=== PATIENT | female | born 1955 | race American Indian/Alaskan Native ===

== ENCOUNTER 2016-10-05 13:10 | Inpatient (IN) | payer OTHER ==
[~2016-10-05 13:10] MED LIST: D50W (25GM) IV ONE
[2016-10-05] MEDS ORDERED: D50W (25GM) IV ONE ×4 (13:29→13:51)
[2016-10-05] MEDS ORDERED: NACL 0.9% 1000 ML 1,000 ML ONE (13:29)
[2016-10-05] MEDS ORDERED: NACL 0.9% 1000 ML 1,000 ML IV ONE ×3 (13:36→18:40)
[2016-10-05] MEDS ORDERED: D5NS 1,000 ML IV ONE (13:48)
[2016-10-05] MEDS ORDERED: VITAMIN B-1 IV ONE (13:50)
[2016-10-05] MEDS ORDERED: NACL 0.9% 1000 ML IV ONE (13:50)
[2016-10-05] MEDS ORDERED: D5NS 1,000 ML IV SCH (14:00)
[2016-10-05 14:10] LABS: Bilirubin,Urine NEG (Negative); Blood,Urine LG (Negative); Ketones,Urine NEG (Negative); Leukocyte Esterase,Urine NEG (Negative); Mucus,Urine FEW /HPF; Nitrite,Urine NEG (Negative); RBC,Urine < 1.0 /HPF (0.0-6.0); Urobilinogen,Urine < 2.0 mg/dL (<2.0)
--- NOTE | 2016-10-05 14:44 | XRay Report ---
AP CHEST History: Chest pain, sepsis. Findings: There are mild chronic interstitial changes throughout both lungs. No honeycombing. No evidence for consolidation, pleural effusion or pneumothorax. Heart size and pulmonary vascularity are within normal limits. Surgical clips in the right axilla are noted. No suspicious bony findings. Impression: No acute cardiopulmonary process.
[2016-10-05 14:53] LABS: Hematocrit 21.8 % (30.3-42.9); Hemoglobin 6.7 gm/dl (10.1-14.3); Mean Corpuscular HGB Conc 31 % (30-34); Mean Corpuscular Hemoglobin 31 pg (28-32); Mean Corpuscular Volume 102 fl (79-97); Platelet Count 153 K/mm3 (140-440); Red Blood Count 2.15 M/mm3 (3.65-5.03); Red Cell Distribution Width 14.7 % (13.2-15.2); White Blood Count 18.7 K/mm3 (4.5-11.0)
[2016-10-05 15:03] LABS: INR 1.94 (0.87-1.13)
--- NOTE | 2016-10-05 15:13 | XRay Report ---
AP PELVIS: History: Pain after fall. Limited exam. AP view of the pelvis shows normal pelvic contour and soft tissues. The hips are symmetric and within normal limits as are the sacroiliac joints. Calcified uterine fibroids are noted. IMPRESSION: Unremarkable pelvis.
[2016-10-05 15:16] LABS: Albumin 0.8 g/dL (3.9-5); Albumin/Globulin Ratio 0.4 %; Bilirubin,Total 0.2 mg/dL (0.1-1.2); Chloride 99.3 mmol/L (98-107); Potassium 4.2 mmol/L (3.6-5.0)
--- NOTE | 2016-10-05 15:16 | XRay Report ---
PORTABLE CHEST INDICATION: Shortness of breath. COMPARISON: 1:52 PM earlier today. FINDINGS: Portable, frontal chest radiograph, 2:54 PM, 10/05/2016 demonstrates interval uncomplicated right IJ catheter placement with its tip possibly along the distal SVC. Stable cardiomediastinal silhouette with increased right paratracheal soft tissue hazy density. Chronic interstitial changes within the lungs again seen. No pneumothorax or large pleural effusions. Stable right suprahilar and right axillary surgical clips. EKG leads. Stable bones. CONCLUSION: Interval uncomplicated right central line placement; otherwise stable. Thank you for the opportunity to participate in this patient's care.
[2016-10-05 15:23] LABS: Calcium 5.5 mg/dL (8.4-10.2)
[2016-10-05 15:44] LABS: Basophils % (Manual) 0 % (0.0-1.8); Blastocytes % (Manual) 0 %; Eosinophils % (Manual) 0 % (0.0-4.3)
[2016-10-05 15:46] LABS: Diff Status Complete; Large Platelets Few; Platelet Estimate Consistent w Auto; RBC Morphology Normal
[2016-10-05] MEDS ORDERED: NACL 0.9% 500 ML 500 ML IV SCH (15:50)
--- NOTE | 2016-10-05 15:56 | Emergency Department Report ---
HPI - General Chief Complaint: Pain General Time Seen by Provider: 10/05/16 13:50 - HPI HPI: Chief complaint: Found on the floor of her home unresponsive HPI: Patient is a 61-year-old female with a history of Crohn's disease who states that she has been having diarrhea since February that became much worse in July to the point where she had to wear diapers. Patient states she was seen in Dr. Rios's office earlier this week and was called and told to go to the emergency department. According to EMS patient went to work on Saturday. However I am not sure about this history. Lab work obtained from her primary care doctor's office shows blood work that was drawn on the of this month. Patient is confused and is very difficult to get an adequate history. Mode of arrival: EMS Source: Patient and nursing notes Began: Unclear but it appears to be at least 1 day that she has been on the floor. Duration: Unclear Context: See above. Patient states she was told that she was anemic and that the swelling in her legs was from her low protein Quality: Patient complains of pain when rolled but otherwise does not complain Severity: Unable to assess Improved with: Holding still improves the pain Worsened with: Rolling worsens the pain Associated signs and symptoms: Unable to assess further ED Past Medical Hx - Past Medical History Hx Hypertension: Yes Hx of Cancer: Yes (Breast, R mastectomy) Additional medical history: Crohns, Gout - Surgical History Hx Breast Surgery: Yes (R breast) - Social History Smoking Status: Never Smoker Substance Use Type: Alcohol ED Review of Systems ROS: Stated complaint: ALTERED MENTAL STATUS Other details as noted in HPI Comment: Unobtainable due to pts medical conditions (patient is confused) Physical Exam - Physical Exam Vital Signs: Vital Signs 10/05/16 10/05/16 10/05/16 13:13 13:14 13:17 Pulse Rate 132 H Respiratory 16 Rate Blood Pressure 101/42 101/42 O2 Sat by Pulse 67 L 95 Oximetry 10/05/16 10/05/16 10/05/16 13:20 13:28 13:30 Pulse Rate Respiratory 33 H Rate Blood Pressure 74/43 81/47 69/47 O2 Sat by Pulse Oximetry 10/05/16 10/05/16 10/05/16 13:41 13:49 13:51 Pulse Rate 115 H 112 H 112 H Respiratory 42 H 35 H 31 H Rate Blood Pressure 69/47 79/60 79/60 O2 Sat by Pulse Oximetry Physical Exam: GENERAL: The patient is well-developed well-nourished . HEENT: Normocephalic. Atraumatic. Extraocular motions are intact. Patient has dry mucous membranes. A L conjunctiva NECK: Supple. No meningitic signs are noted. There is no adenopathy noted. CHEST/LUNGS: Clear to auscultation. There is no respiratory distress noted. HEART/CARDIOVASCULAR: Regular. There is tachycardia. ABDOMEN: Abdomen is soft, nontender. Patient has normal bowel sounds. There is no abdominal distention. Patient is covered with watery brown stool which is foul-smelling. SKIN: There is excoriation to the buttocks from lying in her stool. There is diffuse pitting edema. There is no diaphoresis. NEURO: The patient is confused and somewhat lethargic, and oriented to self and situation but not time. The patient is cooperative. Patient moves all extremities MUSCULOSKELETAL: Ecchymosis to bilateral thighs left greater than right and some mottling to the lower extremities. Also ecchymosis to the left elbow without any bony tenderness. There is no deformity and pulses are intact. ED Course Vital Signs 10/05/16 10/05/16 10/05/16 13:13 13:14 13:17 Pulse Rate 132 H Respiratory 16 Rate Blood Pressure 101/42 101/42 O2 Sat by Pulse 67 L 95 Oximetry 10/05/16 10/05/16 10/05/16 13:20 13:28 13:30 Pulse Rate Respiratory 33 H Rate Blood Pressure 74/43 81/47 69/47 O2 Sat by Pulse Oximetry 10/05/16 10/05/16 10/05/16 13:41 13:49 13:51 Pulse Rate 115 H 112 H 112 H Respiratory 42 H 35 H 31 H Rate Blood Pressure 69/47 79/60 79/60 O2 Sat by Pulse Oximetry - Reevaluation(s) Reevaluation #1: 10/05/16 Upon arrival Accu-Chek showed to be 20 and an amp of D50 was given. Repeat Accu -Chek was 34 and a second amp of D50 was given and D5 normal saline was upon the along with 2 L of normal saline. Patient had a third Accu-Chek showing less than 20 again. As this did not make sense to me we took blood from her IV and her sugar was 440. D5 normal saline was taken down and patient was just given normal saline at this time. Patient's blood pressure does not improve before central line was placed. Blood pressure was 100 systolic and Levophed was held but subsequently her pressure dropped and Dr. Dias was involved with the patient this time and Levophed was ordered. Patient was admitted to the hospitalist and will be admitted to the ICU. - Central Line Placement Right IJ Consent Obtained: verbal consent Time Out Performed: Yes Patient Placed on Monitor/Pulse Ox: Yes Prep: mask, gown, gloves, other Central Line Prep: Povidone-Iodine 1%, Chlorhexidine scrub, sterile drapes applied Local Anesthesia Used: Lidocaine 1% Amount of Anesthesia Used (mls): 2 Ultrasound Used for Placement: Yes Central Line Lumen Inserted: triple Bloods Obtained for Lab: Yes Central Line Position: good blood return, all ports aspirated, flus, sutured in place with 2-0 Dressing Applied: Tegaderm Post Procedure X-Ray: tip of catheter in good p Patient Tolerated Procedure: well, no complications Complications: none ED Medical Decision Making - Lab Data Result diagrams: 10/05/16 14:40 10/05/16 14:40 Laboratory Tests 10/05/16 10/05/16 10/05/16 13:47 13:52 14:40 PT 22.2 H INR 1.94 H VBG pH POC Glucose < 40 L Calcium AST ALT Alkaline Phosphatase Total Protein Albumin Albumin/Globulin Ratio Urine Turbidity Clear Urine pH 5.0 Ur Specific [place] 1.015 Urine Protein 30 mg/dl Urine Blood Lg Ur Leukocyte Esterase Neg Urine WBC (Auto) 1.0 Urine RBC (Auto) < 1.0 U Epithel Cells (Auto) 1.0 10/05/16 10/05/16 10/05/16 14:40 14:40 14:46 PT INR VBG pH 7.136 L* POC Glucose < 40 L Calcium 5.5 L* AST 160 H ALT 78 H Alkaline Phosphatase 67 Total Protein 3.0 L Albumin 0.8 L Albumin/Globulin Ratio 0.4 Urine Turbidity Urine pH Ur Specific [place] Urine Protein Urine Blood Ur Leukocyte Esterase Urine WBC (Auto) Urine RBC (Auto) U Epithel Cells (Auto) 10/05/16 14:49 PT INR VBG pH POC Glucose 445 H Calcium AST ALT Alkaline Phosphatase Total Protein Albumin Albumin/Globulin Ratio Urine Turbidity Urine pH Ur Specific [place] Urine Protein Urine Blood Ur Leukocyte Esterase Urine WBC (Auto) Urine RBC (Auto) U Epithel Cells (Auto) Laboratory Tests 10/05/16 10/05/16 14:40 16:03 POC ABG pH 7.216 L POC ABG pCO2 28.2 L POC ABG pO2 60 L POC ABG HCO3 11.4 POC ABG Total CO2 12 POC ABG O2 Sat 86 POC ABG Base Excess -16 VBG pH 7.136 L* FiO2 32 - EKG Data -: EKG Interpreted by Dc EKG shows normal: sinus rhythm Rate: tachycardia (132) - EKG Data When compared to previous EKG there are: previous EKG unavailable Interpretation: other (low-voltage EKG nonspecific ST-T wave changes) - Radiology Data Radiology results: report reviewed (chest x-ray shows no acute process. Pelvic x-ray shows no fracture) Critical care time in (mins) excluding proc time.: 45 Critical care attestation.: If time is entered above; I have spent that time in minutes in the direct care of this critically ill patient, excluding procedure time. ED Disposition Clinical Impression: Dehydration, Anemia Acute renal failure Qualifiers: Acute renal failure type: unspecified Qualified Code(s): N17.9 - Acute kidney failure, unspecified Diarrhea Qualifiers: Diarrhea type: unspecified type Qualified Code(s): R19.7 - Diarrhea, unspecified Crohns disease Qualifiers: Gastrointestinal tract location: large intestine Digestive disease complication type: unspecified complication Qualified Code(s): K50.119 - Crohn' s disease of large intestine with unspecified complications Disposition: OP ADMITTED IP TO THIS HOSP Is pt being admited?: Yes Does the pt Need Aspirin: No Condition: Critical Time of Disposition: 15:38 (admit to the hospitalist)
[2016-10-05 16:16] LABS: ISTAT Base Excess -16; ISTAT HCO3 11.4; ISTAT PCO2 28.2 (35-45); ISTAT PH 7.216 (7.35-7.45); ISTAT PO2 60 (80-105); ISTAT SO2 86; ISTAT TCO2 12
[2016-10-05] MEDS ORDERED: LEVAQUIN 500MG/100ML 100 ML IV ONE (17:00)
[2016-10-05] MEDS: FLAGYL 500 MG/100 ML 100 ML IV SCH (17:10)
[2016-10-05] MEDS: LEVOPHED DRIP 4 MG/NS 250 ML 250 ML IV SCH ×3 (17:10→21:25)
[2016-10-05] MEDS ORDERED: REGLAN IV PRN (17:11)
--- NOTE | 2016-10-05 17:20 | Admit Criteria Form ---
Admission Criteria Documentation: RENAL FAILURE, ACUTE Clinical Indications for Admission to Inpatient Care ( Place 'X' for any and all applicable criteria): Admission is indicated for ALL (if I & II) or III of the following [A](2)(3)(4)( 5)(6)(7): [ ]I. Acute renal failure as indicated by ANY ONE of the following: [ ]a) A 3-fold rise in serum creatinine from baseline [ ]b) Serum creatinine greater than 4 mg/dL (354 micromoles/L) with an acute rise greater than 0.5 mg/dL (44.2 micromoles/L) [ ]c) Reduction of more than 75% in estimated glomerular filtration rate from baseline [ ]d) Estimated glomerular filtration rate less than 35 mL/min/1.73m2 (0.59mL/sec/1.73m2)in a child up to 18 years of age [ ]e) Anuria indicated by ALL of the following: [ ]i) Adequate volume status [ ]ii) Cessation of urine output indicated by ANY ONE of the following: [ ]1) Urine output less than 0.3 mL/kg/hr for 24 hours [ ]2) Anuria (urine output less than 0.1 mL/kg/ hr) for 12 hours [X] II. Renal failure cannot be managed in an outpatient setting or observational care setting as indicating by ANY ONE of the following: [X]a) Altered mental status that is severe or persistent [ ]b) Volume overload or Respiratory distress (eg, clinically significant pulmonary edema) that is severe or persistent [ ]c) Cardiac arrhythmias of immediate concern [X]d) Hemodynamic instability [X]e) Clinically significant electrolyte abnormality that requires inpatient care (eg, hyperkalemia with severe ECG findings)[B] [X]f) Clinically significant metabolic abnormality (eg, acidosis) that is severe or persistent [ ]g) Acute treatment of renal failure (eg, renal replacement therapy) not feasible or appropriate in observational care setting [ ]h) Clinical situation too unstable or uncertain (eg, inadequate urine output, ongoing decline in renal function, etiology unclear) [ ]i) Necessary support and caregiver ability to comply with outpatient treatment cannot be arranged in observation care timeframe (eg, within 24 hours) [X]j) Other significant finding or clinical condition judged not to be within scope of observation care [X]III.General contraindications and/or Inappropriate clinical situations for Observational Care in patients with Acute Renal Failure, when ANY ONE of the following is required: [X]a) Prediction of prolongation of LOS based on ANY ONE of the following may be considered as a contraindication for observational care 2, 3, 4, 5, 6, 7, 8 , 9, 10, 11 [ ]i) Age > 65 yrs. [X]ii) Patient arriving by ambulance [ ]iii) Patient with high acuity [X]iv) Patient requiring vital sign monitoring [ ]v) Patient on IV medication [ ]b) Systolic blood pressures 180mmHg 3,12 [ ]c) Patient with altered mental status including delirium and other alteration of consciousness, (3) [ ]d) Patient whose discharge disposition will be to a penitentiary home or rehabilitation home should not be managed in Emergency Department Observation Unit. CMS rule requires 3 days hospital stay before such placement.3,13 [ ]e) Patient with failure to thrive due to broad array of etiologies 3, 16,17 [ ]f) Inability to ambulate 3,14 Extended stay beyond goal length of stay may be needed for(13) [ ]a) Continuing uremic complications [ ]b) Care for comorbidities [ ]c) acute renal failure [ ]d) Need for dialysis The original [facility] content created by [employer] has been revised. The portions of the content which have been revised are identified through the use of italic text or in bold, and [facility] has neither reviewed nor approved the modified material. All other unmodified content is copyright [facility]. Please see references footnoted in the original [facility] edition 2016 Admission Criteria Met: Yes
--- NOTE | 2016-10-05 18:22 | History and Physical Report ---
History of Present Illness Date of examination: 10/05/16 Date of admission: 10/05/16 15:40 Chief complaint: found laying on the floor confused today History of present illness: MIss Guan is a 61-year-old -[place] female who was brought to the emergency room via EMS today. According to her cousin at the bedside the patient had not turned up 4 since Saturday and her coworkers went to her house and saw her lean on the floor and EMS was called. The emergency room she was noted to have extremely low glucose and she received glucose supplementation. Patient reported that she's been having the diarrhea since July but it has worsened over the last few days. She does have a history of Crohn's. She denies any abdominal pain, cough or fever. She reported that she was so weak and that's how she ended up on the floor. She was also noted to be hypotensive in the emergency room and she was started on IV fluids. In the emergency room she had copious amounts of watery stool on her close. There was no evidence of blood in the stool. It was not foul-smelling. He apparently saw her primary care doctor on the and had a blood work drawn. She reported that she sees Dr. Navarro as her mend worker. Past History Past Medical History: other (crohns disease, right breast cancer-post mastectomy some 20 years ago) Past Surgical History: mastectomy Social history: full code. denies: smoking, alcohol abuse, prescription drug abuse, IV drug use Family history: hypertension Medications and Allergies Allergies Allergy/AdvReac Type Severity Reaction Status Date / Time No Known Allergies Allergy Verified 10/05/16 13:35 Active Meds: Active Medications Dextrose (D50w (25gm)) 50 ml IV PRN PRN PRN Reason: Hypoglycemia Hydrocortisone Sodium Succinate (Solu-Cortef) 100 mg IV Q8H JUDE Dextrose/Sodium Chloride (D5ns) 1,000 mls @ 0 mls/hr IV DIRECT JUDE PRN Reason: Wide Open Last Admin: 10/05/16 14:08 Dose: 999 mls/hr Sodium Chloride (Nacl 0.9% 1000 Ml) 1,000 mls @ 250 mls/hr IV ONCE ONE Stop: 10/05/16 18:50 Last Admin: 10/05/16 16:30 Dose: 250 mls/hr Metronidazole (Flagyl 500 Mg/100 Ml) 100 mls @ 100 mls/hr IV Q8H JUDE Last Admin: 10/05/16 17:10 Dose: 100 mls/hr Sodium Chloride (Nacl 0.9% 500 Ml) 500 mls @ 0 mls/hr IV ONCE JUDE PRN Reason: As Directed Stop: 10/05/16 23:00 Norepinephrine (Levophed Drip 4 Mg/Ns 250 Ml) 250 mls @ 7.5 mls/hr IV TITR JUDE ; 2 MCG/MIN PRN Reason: Protocol Last Admin: 10/05/16 17:10 Dose: 7.5 mls/hr Levofloxacin/Dextrose (Levaquin 750mg/150ml) 150 mls @ 150 mls/hr IV Q48H JUDE PRN Reason: Protocol Insulin Aspart (Novolog) 0 units SUB-Q Q4HR JUDE PRN Reason: Protocol Metoclopramide HCl (Reglan) 10 mg IV Q6H PRN PRN Reason: Nausea And Vomiting Pantoprazole Sodium (Protonix) 40 mg IV BID ON LICENSE OF [facility] Review of Systems All systems: negative Constitutional: anorexia, fatigue, weakness, malaise, poor appetite, no weight loss, no weight gain, no fever Ears, nose, mouth and throat: deferred Breasts: other (RT mas mastectomy) Cardiovascular: no chest pain, no orthopnea, no palpitations, no rapid/ irregular heart beat, no edema, no syncope Respiratory: no cough, no cough with sputum, no excessive sputum, no hemoptysis , no shortness of breath Gastrointestinal: no abdominal pain, no nausea, no vomiting, no diarrhea, no constipation Genitourinary Female: no urinary frequency, no urgency Rectal: no pain, no incontinence, no bleeding Musculoskeletal: no neck stiffness, no neck pain, no shooting arm pain, no arm numbness/tingling Integumentary: no rash, no pruritis, no redness Neurological: no head injury, no transient paralysis, no paralysis, no weakness , no parathesias, no numbness, no tingling Psychiatric: no anxiety, no memory loss, no change in sleep habits, no sleep disturbances, no insomnia, no hypersomnia, no change in appetite Endocrine: no cold intolerance, no heat intolerance, no polyphagia, no excessive thirst, no polydipsia Hematologic/Lymphatic: no easy bruising, no easy bleeding Allergic/Immunologic: no urticaria, no allergic rhinitis Exam - Constitutional Vitals: Temp Pulse Resp BP Pulse Ox 112 H 24 77/51 100 10/05/16 17:05 10/05/16 17:05 10/05/16 17:05 10/05/16 17:55 General appearance: Present: other (ill looking; mm dry). Absent: mild distress - EENT Eyes: Present: PERRL, EOM intact. Absent: scleral icterus, conjunctival injection ENT: hearing intact, no clear oral mucosa (dry), no oropharyngeal erythema, no poor dentition - Neck Neck: Present: supple, normal ROM. Absent: rigidity, enlarged thyroid, masses or JVD - Respiratory Respiratory effort: normal Respiratory: negative: diminished, rales, rhonchi, wheezing - Cardiovascular Rhythm: regular Heart Sounds: Present: S1 & S2. Absent: gallop - Extremities Extremities: no ischemia, pulses intact, pulses symmetrical Peripheral Pulses: within normal limits - Abdominal General gastrointestinal: Present: soft, non-tender, non-distended, normal bowel sounds Female genitourinary: Present: deferred - Rectal Rectal Exam: deferred - Integumentary Integumentary: Present: warm. Absent: clear (bruising to the LT lateral lower LE and side of abdomen; and over the knees ) Results - Labs CBC & Chem 7: 10/05/16 14:40 10/05/16 14:40 Labs: Abnormal lab results 10/05/16 10/05/16 Range/Units 16:03 17:02 POC ABG pH 7.216 L (7.35-7.45) POC ABG pCO2 28.2 L (35-45) POC ABG pO2 60 L (80-105) POC Glucose 185 H (70-105) Microbiology 10/05/16 Unknown Peripheral/Venous Blood Culture - Preliminary Culture in Progress 10/05/16 Unknown Peripheral/Venous Blood Culture - Preliminary Culture in Progress pelvis xray- unremarkable - Imaging and Cardiology Chest x-ray: report reviewed (no acute abn) Assessment and Plan 1. Sepsis with septic /hypovolemic shock also be due to Crohn's colitis and volume loss from diarrhea-admit as an inpatient ICU as more than 2 midnights are required for treatment. IV fluid since as needed with normal saline infusion. We'll start vasopressor support with Levophed. We'll also start IV hydrocortisone. We'll cover empirically with IV Levaquin and Flagyl. Will follow-up with blood cultures, urinalysis and urine culture. We'll also get stool workup. We'll consult GI for Crohn's. We'll consult the deputy court clerk 2.Severe acute on chronic anemia- her hemoglobin from her PCP done on the was 9.2. Follow-up with stool for occult blood. We'll transfuse 2 units of packed red cells. We'll do anemia workup 3. Acute renal failure secondary to vasomotor nephropathy from dehydration and possible ATN in view of hypotension- tinea with IV fluids. Avoid nephrotoxic agents. We'll follow up with renal ultrasound and consult nephrology. 4. Elevated INR-will monitor 5. Severe protein calorie malnutrition- nutritional supplemenation; consult dietitian 6. HYpoglycemia -now improving; monitor; COtn IVF 7. DVT prophylaxis- SCD; no chemical prophylaxis in view of severe anemia and elevated INR CCT exclusive of all other billable procedures 45 minutes
--- NOTE | 2016-10-05 18:31 | Gastroenterology Consultation ---
History of Present Illness - Reason for Consult Consult date: 10/05/16 Crohn's Disease, severe anemia Requesting physician: LADAN RENTERIA - History of Present Illness Asked to evaluate this 61yo woman for a history of Crohn's and severe anemia. She apparently follows w/ Dr. Navarro. The patient cannot provide much history, so the majority of the information obtained was via chart review. She was found at home with hypoglycemia and brought to the ED. She was out of contact with her family for several days. Reports show that she has been experiencing diarrhea, which has become more frequent since July. She denies any abdominal pain or seeing BRBPR/black stools at home. No CP/SOB. She is hypotensive in ICU and has been started on pressors. Past History Past Medical History: other (crohns disease, right breast cancer-post mastectomy some 20 years ago) Past Surgical History: mastectomy Social history: full code. denies: smoking, alcohol abuse, prescription drug abuse, IV drug use Family history: hypertension Medications and Allergies Allergies Allergy/AdvReac Type Severity Reaction Status Date / Time No Known Allergies Allergy Verified 10/05/16 13:35 Active Meds: Active Medications Dextrose (D50w (25gm)) 50 ml IV PRN PRN PRN Reason: Hypoglycemia Hydrocortisone Sodium Succinate (Solu-Cortef) 100 mg IV Q8H JUDE Dextrose/Sodium Chloride (D5ns) 1,000 mls @ 0 mls/hr IV DIRECT JUDE PRN Reason: Wide Open Last Admin: 10/05/16 14:08 Dose: 999 mls/hr Sodium Chloride (Nacl 0.9% 1000 Ml) 1,000 mls @ 250 mls/hr IV ONCE ONE Stop: 10/05/16 18:50 Last Admin: 10/05/16 16:30 Dose: 250 mls/hr Metronidazole (Flagyl 500 Mg/100 Ml) 100 mls @ 100 mls/hr IV Q8H JUDE Last Admin: 10/05/16 17:10 Dose: 100 mls/hr Sodium Chloride (Nacl 0.9% 500 Ml) 500 mls @ 0 mls/hr IV ONCE JUDE PRN Reason: As Directed Stop: 10/05/16 23:00 Norepinephrine (Levophed Drip 4 Mg/Ns 250 Ml) 250 mls @ 7.5 mls/hr IV TITR JUDE ; 2 MCG/MIN PRN Reason: Protocol Last Admin: 10/05/16 17:10 Dose: 7.5 mls/hr Levofloxacin/Dextrose (Levaquin 750mg/150ml) 150 mls @ 150 mls/hr IV Q48H JUDE PRN Reason: Protocol Insulin Aspart (Novolog) 0 units SUB-Q Q4HR JUDE PRN Reason: Protocol Metoclopramide HCl (Reglan) 10 mg IV Q6H PRN PRN Reason: Nausea And Vomiting Pantoprazole Sodium (Protonix) 40 mg IV BID [facility] Review of Systems - Review of Systems ROS unobtainable: due to mental status Exam - Constitutional Vital Signs: Temp Pulse Resp BP Pulse Ox 112 H 24 77/51 100 10/05/16 17:05 10/05/16 17:05 10/05/16 17:05 10/05/16 17:55 General appearance: no acute distress, other (NAD but ill-appearing) - Neck Neck: supple - Respiratory Respiratory: bilateral: CTA - Cardiovascular Rhythm: regular (tachycardic) Heart Sounds: Present: S1 & S2 Extremities: No edema - Gastrointestinal General gastrointestinal: Present: soft, non-tender, non-distended, normal bowel sounds - Labs CBC & Chem 7: 10/05/16 14:40 10/05/16 14:40 Lab Results: Laboratory Results - last 24 hr 10/05/16 10/05/16 16:03 17:02 POC ABG pH 7.216 L POC ABG pCO2 28.2 L POC ABG pO2 60 L POC ABG HCO3 11.4 POC ABG Total CO2 12 POC ABG O2 Sat 86 POC ABG Base Excess -16 FiO2 32 POC Glucose 185 H Assessment and Plan Ms. Guan is a 61yo woman with hx of Crohn's admitted after being found at home with decreased responsiveness, found to be hypoglycemic. She has evidence of leukocytosis and severe anemia, without overt GI hemorrhage. Reports state that she has had worsening diarrhea; this could be infectious vs related to IBD. She is hypotensive and has been started on pressor support. Rec: 1) Cont Levaquin/Flagyl for now 2) Check stool studies for WBC, culture, C. diff 3) Supportive measures/pressor support as per ICU 4) CT A/P when stable Thank you for allowing me to participate in the care of your patient.
[2016-10-05] MEDS ORDERED: NACL 0.9% 250ML 250 ML ONE (20:32)
[2016-10-05] MEDS: D50W (25GM) IV PRN (22:02)
[2016-10-05] MEDS: PROTONIX IV SCH (22:04)
[2016-10-05] MEDS: NOVOLOG SUB-Q SCH (22:08)
[2016-10-06] MEDS: D50W (25GM) IV PRN (00:06)
[2016-10-06] MEDS: LEVAQUIN 750MG/150ML 150 ML IV SCH (00:54)
[2016-10-06] MEDS: FLAGYL 500 MG/100 ML 100 ML IV SCH ×3 (00:56→18:16)
[2016-10-06] MEDS ORDERED: D5/0.45NS 1,000 ML IV SCH (01:00)
[2016-10-06] MEDS ORDERED: REGLAN IV PRN (01:07)
[2016-10-06] MEDS: LEVOPHED DRIP 4 MG/NS 250 ML 250 ML IV SCH ×4 (02:57→23:13)
[2016-10-06] MEDS: D10W 1,000 ML IV SCH ×3 (02:58→23:34)
[2016-10-06] MEDS: NOVOLOG SUB-Q SCH ×3 (06:43→15:22)
--- NOTE | 2016-10-06 09:37 | Progress Note ---
Assessment and Plan Assessment and plan: --Sepsis secondary to Crohn's colitis Patient is on Levaquin and metronidazole, continue supportive care GI following --Septic shock secondary to Crohn's colitis Requiring pressors, titrate systolic blood pressures to more than 100, continue Levophed Increase IV fluids, input-output monitoring --Acute on chronic anemia requiring blood transfusion H&H significantly improved From 6.7-11.9, closely monitor H&H for additional units of transfusion if needed --Acute renal failure: secondary to vasomotor nephropathy and prerenal azotemia possible ATN Continue IV hydration, closely monitor renal function avoid nephrotoxic medications,Creatinine level improved from 2.2 to 1.8 Consider nephrology evaluation if no improvement --Severe protein calorie malnutrition; Secondary to underlying disease process, nutrition supplements and dietary consultation --Coagulopathy INR was 1.9 at the time of admission, will follow closely --DVT prophylaxis; no pharmacological anticoagulation in view of anemia and coagulopathy Will use SCDs --Full CODE STATUS Patient remains critically ill on pressors and IV antibiotics Closely monitor the patient in ICU Critical care time 35 minutes The high probability of a clinically significant, sudden or life threatening deterioration of the [gastrointestinal, hematological, renal] system(s) required my full and direct attention, intervention and personal management. The aggregate critical care time was [35] minutes. This time is in addition to time spent performing reported procedures but includes the following: [x] Data Review and interpretation [x] Patient assessment and monitoring of vital signs [x] Documentation [x] Medication orders and management History Interval history: Patient seen and evaluated in the ICU this morning medical records reviewed Remains hypotensive on Levophed, complains of generalized weakness Received 2 units of PRBC yesterday with significant improvement of H&H Denies chest pain or shortness of breath Alert awake oriented 3 not in acute distress Hospitalist Physical - Constitutional Vitals: Temp Pulse Resp BP Pulse Ox 97.1 F L 103 H 29 H 95/62 59 L 10/06/16 07:05 10/06/16 09:23 10/06/16 09:23 10/06/16 09:23 10/06/16 09:23 General appearance: Present: no acute distress, other (ill looking; mm dry) - EENT Eyes: Present: PERRL, EOM intact - Neck Neck: Present: supple, normal ROM - Respiratory Respiratory effort: normal Respiratory: bilateral: diminished - Cardiovascular Rhythm: regular Heart Sounds: Present: S1 & S2 - Extremities Extremities: no ischemia, pulses intact, pulses symmetrical Peripheral Pulses: within normal limits - Abdominal General gastrointestinal: soft, non-tender, non-distended, normal bowel sounds - Integumentary Integumentary: Present: clear, warm - Psychiatric Psychiatric: appropriate mood/affect, cooperative - Neurologic Neurologic: CNII-XII intact, moves all extremities Results - Labs CBC & Chem 7: 10/06/16 09:40 10/06/16 09:40 Labs: Laboratory Last Values WBC 18.7 K/mm3 (4.5-11.0) H 10/05/16 14:40 RBC 2.15 M/mm3 (3.65-5.03) L 10/05/16 14:40 Hgb 6.7 gm/dl (10.1-14.3) L 10/05/16 14:40 Hct 21.8 % (30.3-42.9) L 10/05/16 14:40 MCV 102 fl (79-97) H 10/05/16 14:40 MCH 31 pg (28-32) 10/05/16 14:40 MCHC 31 % (30-34) 10/05/16 14:40 RDW 14.7 % (13.2-15.2) 10/05/16 14:40 Plt Count 153 K/mm3 (140-440) 10/05/16 14:40 Add Manual Diff Complete 10/05/16 14:40 Total Counted 100 10/05/16 14:40 Seg Neutrophils % Cage [employer] Machine 10/05/16 14:40 Seg Neuts % (Manual) 94.0 % (40.0-70.0) H 10/05/16 14:40 Band Neutrophils % 0 % 10/05/16 14:40 Lymphocytes % (Manual) 0 % (13.4-35.0) L 10/05/16 14:40 Reactive Lymphs % (Man) 0 % 10/05/16 14:40 Monocytes % (Manual) 2.0 % (0.0-7.3) 10/05/16 14:40 Eosinophils % (Manual) 0 % (0.0-4.3) 10/05/16 14:40 Basophils % (Manual) 0 % (0.0-1.8) 10/05/16 14:40 Metamyelocytes % 3.0 % 10/05/16 14:40 Myelocytes % 1.0 % 10/05/16 14:40 Promyelocytes % 0 % 10/05/16 14:40 Blast Cells % 0 % 10/05/16 14:40 Nucleated RBC % Not Reportable 10/05/16 14:40 Seg Neutrophils # Man 17.6 K/mm3 (1.8-7.7) H 10/05/16 14:40 Band Neutrophils # 0.0 K/mm3 10/05/16 14:40 Lymphocytes # (Manual) 0.0 K/mm3 (1.2-5.4) L 10/05/16 14:40 Abs React Lymphs (Man) 0.0 K/mm3 10/05/16 14:40 Monocytes # (Manual) 0.4 K/mm3 (0.0-0.8) 10/05/16 14:40 Eosinophils # (Manual) 0.0 K/mm3 (0.0-0.4) 10/05/16 14:40 Basophils # (Manual) 0.0 K/mm3 (0.0-0.1) 10/05/16 14:40 Metamyelocytes # 0.6 K/mm3 10/05/16 14:40 Myelocytes # 0.2 K/mm3 10/05/16 14:40 Promyelocytes # 0.0 K/mm3 10/05/16 14:40 Blast Cells # 0.0 K/mm3 10/05/16 14:40 WBC Morphology Not Reportable 10/05/16 14:40 Hypersegmented Neuts Not Reportable 10/05/16 14:40 Hyposegmented Neuts Not Reportable 10/05/16 14:40 Hypogranular Neuts Not Reportable 10/05/16 14:40 Smudge Cells Not Reportable 10/05/16 14:40 Toxic Granulation Not Reportable 10/05/16 14:40 Toxic Vacuolation Not Reportable 10/05/16 14:40 Dohle Bodies Not Reportable 10/05/16 14:40 Pelger-Huet Anomaly Not Reportable 10/05/16 14:40 Ivory Rods Not Reportable 10/05/16 14:40 Platelet Estimate Consistent w auto 10/05/16 14:40 Clumped Platelets Not Reportable 10/05/16 14:40 Plt Clumps, EDTA Not Reportable 10/05/16 14:40 Large Platelets Few 10/05/16 14:40 Giant Platelets Not Reportable 10/05/16 14:40 Platelet Satelliting Not Reportable 10/05/16 14:40 Plt Morphology Comment Not Reportable 10/05/16 14:40 RBC Morphology Normal 10/05/16 14:40 Dimorphic RBCs Not Reportable 10/05/16 14:40 Polychromasia Not Reportable 10/05/16 14:40 Hypochromasia Not Reportable 10/05/16 14:40 Poikilocytosis Not Reportable 10/05/16 14:40 Anisocytosis Not Reportable 10/05/16 14:40 Microcytosis Not Reportable 10/05/16 14:40 Macrocytosis Not Reportable 10/05/16 14:40 Spherocytes Not Reportable 10/05/16 14:40 Pappenheimer Bodies Not Reportable 10/05/16 14:40 Sickle Cells Not Reportable 10/05/16 14:40 Target Cells Not Reportable 10/05/16 14:40 Tear Drop Cells Not Reportable 10/05/16 14:40 Ovalocytes Not Reportable 10/05/16 14:40 Helmet Cells Not Reportable 10/05/16 14:40 Nguyen-Santel Bodies Not Reportable 10/05/16 14:40 [place] Rings Not Reportable 10/05/16 14:40 Adenike Cells Not Reportable 10/05/16 14:40 Bite Cells Not Reportable 10/05/16 14:40 Crenated Cell Not Reportable 10/05/16 14:40 Elliptocytes Not Reportable 10/05/16 14:40 Acanthocytes (Spur) Not Reportable 10/05/16 14:40 Rouleaux Not Reportable 10/05/16 14:40 Hemoglobin C Crystals Not Reportable 10/05/16 14:40 Schistocytes Not Reportable 10/05/16 14:40 Malaria parasites Not Reportable 10/05/16 14:40 Mayito Bodies Not Reportable 10/05/16 14:40 Hem Pathologist Commnt No 10/05/16 14:40 PT 22.2 Sec. (12.2-14.9) H 10/05/16 14:40 INR 1.94 (0.87-1.13) H 10/05/16 14:40 POC ABG pH 7.216 (7.35-7.45) L 10/05/16 16:03 POC ABG pCO2 28.2 (35-45) L 10/05/16 16:03 POC ABG pO2 60 (80-105) L 10/05/16 16:03 POC ABG HCO3 11.4 10/05/16 16:03 POC ABG Total CO2 12 10/05/16 16:03 POC ABG O2 Sat 86 10/05/16 16:03 POC ABG Base Excess -16 10/05/16 16:03 VBG pH 7.136 (7.320-7.420) L* 10/05/16 14:40 FiO2 32 % 10/05/16 16:03 Sodium 129 mmol/L (137-145) L 10/05/16 14:40 Potassium 4.2 mmol/L (3.6-5.0) 10/05/16 14:40 Chloride 99.3 mmol/L (98-107) 10/05/16 14:40 Carbon Dioxide 13 mmol/L (22-30) L 10/05/16 14:40 Anion Gap 21 mmol/L 10/05/16 14:40 BUN 33 mg/dL (7-17) H 10/05/16 14:40 Creatinine 2.2 mg/dL (0.7-1.2) H 10/05/16 14:40 Estimated GFR 27 ml/min 10/05/16 14:40 BUN/Creatinine Ratio 15.00 % 10/05/16 14:40 Glucose 451 mg/dL (65-100) H 10/05/16 14:40 POC Glucose 291 (70-105) H 10/06/16 06:10 Lactic Acid 2.3 mmol/L (0.7-2.0) H* 10/05/16 21:30 Calcium 5.5 mg/dL (8.4-10.2) L* 10/05/16 14:40 Iron 51 ug/dL (37-170) 10/05/16 21:30 Total Bilirubin 0.2 mg/dL (0.1-1.2) 10/05/16 14:40 AST 160 units/L (5-40) H 10/05/16 14:40 ALT 78 units/L (7-56) H 10/05/16 14:40 Alkaline Phosphatase 67 units/L (35-129) 10/05/16 14:40 Total Creatine Kinase 2317 units/L (30-135) H 10/05/16 21:30 Total Protein 3.0 g/dL (6.3-8.2) L 10/05/16 14:40 Albumin 0.8 g/dL (3.9-5) L 10/05/16 14:40 Albumin/Globulin Ratio 0.4 % 10/05/16 14:40 Vitamin B12 1592 pg/mL (211-911) H 10/05/16 21:30 Folate 16.37 ng/mL (7.3-26.0) 10/05/16 21:30 Urine Color Cathy (Yellow) 10/05/16 13:52 Urine Turbidity Clear (Clear) 10/05/16 13:52 Urine pH 5.0 (5.0-7.0) 10/05/16 13:52 Ur Specific [place] 1.015 (1.003-1.030) 10/05/16 13:52 Urine Protein 30 mg/dl mg/dL (Negative) 10/05/16 13:52 Urine Glucose (UA) Neg mg/dL (Negative) 10/05/16 13:52 Urine Ketones Neg mg/dL (Negative) 10/05/16 13:52 Urine Blood Lg (Negative) 10/05/16 13:52 Urine Nitrite Neg (Negative) 10/05/16 13:52 Urine Bilirubin Neg (Negative) 10/05/16 13:52 Urine Urobilinogen < 2.0 mg/dL (<2.0) 10/05/16 13:52 Ur Leukocyte Esterase Neg (Negative) 10/05/16 13:52 Urine WBC (Auto) 1.0 /HPF (0.0-6.0) 10/05/16 13:52 Urine RBC (Auto) < 1.0 /HPF (0.0-6.0) 10/05/16 13:52 U Epithel Cells (Auto) 1.0 /HPF (0-13.0) 10/05/16 13:52 Urine Mucus Few /HPF 10/05/16 13:52 Ketones 2.9 mg/dL (0.2-2.8) H 10/05/16 21:30 Blood Type B POSITIVE 10/05/16 21:05 Antibody Screen Negative 10/05/16 21:05 Crossmatch See Detail 10/05/16 21:05
--- NOTE | 2016-10-06 10:27 | Ultrasound Report ---
Renal sonogram: History: Acute renal failure. Findings: Right kidney measures 9.3 x 4.5 x 4.7 cm. Cortical thickness 1.4 cm. Left kidney measures 9.2 x 5.1 x 4.8 cm. Cortical thickness 1.4 cm the No mass. No hydronephrosis. Decompressed urinary bladder in presence of Parra catheter. Impression: No mass or hydronephrosis.
[2016-10-06 10:44] LABS: Hematocrit 36.8 % (30.3-42.9); Hemoglobin 11.9 gm/dl (10.1-14.3); Mean Corpuscular HGB Conc 33 % (30-34); Mean Corpuscular Hemoglobin 30 pg (28-32); Mean Corpuscular Volume 93 fl (79-97); Red Blood Count 3.96 M/mm3 (3.65-5.03); Red Cell Distribution Width 16.8 % (13.2-15.2)
[2016-10-06 11:01] LABS: Magnesium 1.7 mg/dL (1.7-2.3); Phosphorous 3.8 mg/dL (2.5-4.5)
[2016-10-06 11:03] LABS: Albumin 1.2 g/dL (3.9-5); Albumin/Globulin Ratio 0.4 %; BUN/Creatinine Ratio 17.22; Bilirubin,Total 0.3 mg/dL (0.1-1.2); Calcium 6.1 mg/dL (8.4-10.2); Chloride 99.9 mmol/L (98-107); Potassium 3.7 mmol/L (3.6-5.0); Total Protein 4.2 g/dL (6.3-8.2)
[2016-10-06 11:34] LABS: White Blood Count 27.9 K/mm3 (4.5-11.0)
[2016-10-06 11:35] LABS: Platelet Count 94 K/mm3 (140-440)
[2016-10-06] MEDS: NACL 0.9% 1000 ML IV SCH ×2 (12:46→23:15)
[2016-10-06] MEDS: PROTONIX IV SCH ×2 (13:07→22:35)
[2016-10-06 13:51] LABS: Anisocytosis 1+; Basophils % (Manual) 0 % (0.0-1.8); Blastocytes % (Manual) 0 %; Diff Status Complete; Eosinophils % (Manual) 0 % (0.0-4.3); Macrocytosis 1+; Nucleated Red Blood Cells 0.5 % (0.0-0.9); Platelet Estimate Consistent w Auto; Total Cells Counted Percent 4.5
[2016-10-06] MEDS ORDERED: ZOFRAN IV PRN (14:09)
[2016-10-06] MEDS ORDERED: NACL 0.9% 500 ML 500 ML ONE (15:50)
--- NOTE | 2016-10-06 17:09 | Consultation ---
History of Present Illness - Reason for Consult Consult date: 10/06/16 Hypoglycemia, Hypotension Requesting physician: LADAN RENTERIA - History of Present Illness 61 y/o female admitted with altered mental status. Followed by Dr. Rios as an outpatient who actually recommend that she be admitted on Saturday. Patient refused. Was found down at home and altered. Breathing. In ED hypotensive and hypoglycemic with renal failure. Central line placed, started on IVF's and antibiotics. Patient with no recollection of coming here. Remainder is negative. Family at bedside. Past History Past Medical History: other (crohns disease, right breast cancer-post mastectomy some 20 years ago) Past Surgical History: mastectomy Social history: full code. denies: smoking, alcohol abuse, prescription drug abuse, IV drug use Family history: hypertension Medications and Allergies Allergies Allergy/AdvReac Type Severity Reaction Status Date / Time No Known Allergies Allergy Verified 10/05/16 13:35 Active Meds: Active Medications Hydrocortisone Sodium Succinate (Solu-Cortef) 100 mg IV Q8H JUDE Last Admin: 10/06/16 10:00 Dose: 100 mg Metronidazole (Flagyl 500 Mg/100 Ml) 100 mls @ 100 mls/hr IV Q8H JUDE Last Admin: 10/06/16 13:01 Dose: 100 mls/hr Norepinephrine (Levophed Drip 4 Mg/Ns 250 Ml) 250 mls @ 7.5 mls/hr IV TITR JUDE ; 2 MCG/MIN PRN Reason: Protocol Last Admin: 10/06/16 10:24 Dose: 45 mls/hr Levofloxacin/Dextrose (Levaquin 750mg/150ml) 150 mls @ 150 mls/hr IV Q48H JUDE PRN Reason: Protocol Last Admin: 10/06/16 00:54 Dose: 150 mls/hr Dextrose/Sodium Chloride (D5/0.45ns) 1,000 mls @ 150 mls/hr IV DIRECT JUDE Dextrose (D10w) 1,000 mls @ 100 mls/hr IV DIRECT JUDE Last Admin: 10/06/16 12:55 Dose: 100 mls/hr Insulin Aspart (Novolog) 0 units SUB-Q Q4HR JUDE PRN Reason: Protocol Last Admin: 10/06/16 15:22 Dose: Not Given Metoclopramide HCl (Reglan) 5 mg IV Q6H PRN PRN Reason: Nausea And Vomiting Ondansetron HCl (Zofran) 4 mg IV Q4H PRN PRN Reason: Nausea And Vomiting Last Admin: 10/06/16 14:21 Dose: 4 mg Pantoprazole Sodium (Protonix) 40 mg IV BID [facility] Last Admin: 10/06/16 13:07 Dose: 40 mg Sodium Chloride (Nacl 0.9% 1000 Ml) 100 ml IV Q10H [facility] Last Admin: 10/06/16 12:46 Dose: 100 ml Exam - Constitutional Vitals: Temp Pulse Resp BP Pulse Ox 97.6 F 94 H 16 96/62 35 L 10/06/16 12:00 10/06/16 15:15 10/06/16 15:15 10/06/16 15:15 10/06/16 14:45 Results - Labs CBC & Chem 7: 10/06/16 09:40 10/06/16 09:40 Labs: Abnormal lab results 10/05/16 10/05/16 10/05/16 Range/Units 17:02 21:05 21:30 WBC (4.5-11.0) K/mm3 RDW (13.2-15.2) % Plt Count (140-440) K/mm3 Seg Neuts % (Manual) (40.0-70.0) % Lymphocytes % (Manual) (13.4-35.0) % Seg Neutrophils # Man (1.8-7.7) K/mm3 Lymphocytes # (Manual) (1.2-5.4) K/mm3 Monocytes # (Manual) (0.0-0.8) K/mm3 Sodium (137-145) mmol/L Carbon Dioxide (22-30) mmol/L BUN (7-17) mg/dL Creatinine (0.7-1.2) mg/dL Glucose (65-100) mg/dL POC Glucose 185 H (70-105) Lactic Acid 2.3 H* (0.7-2.0) mmol/L Calcium (8.4-10.2) mg/dL AST (5-40) units/L ALT (7-56) units/L Total Creatine Kinase (30-135) units/L Total Protein (6.3-8.2) g/dL Albumin (3.9-5) g/dL Vitamin B12 (211-911) pg/mL Ketones (0.2-2.8) mg/dL Crossmatch See Detail 10/05/16 10/05/16 10/05/16 Range/Units 21:30 21:30 21:30 WBC (4.5-11.0) K/mm3 RDW (13.2-15.2) % Plt Count (140-440) K/mm3 Seg Neuts % (Manual) (40.0-70.0) % Lymphocytes % (Manual) (13.4-35.0) % Seg Neutrophils # Man (1.8-7.7) K/mm3 Lymphocytes # (Manual) (1.2-5.4) K/mm3 Monocytes # (Manual) (0.0-0.8) K/mm3 Sodium (137-145) mmol/L Carbon Dioxide (22-30) mmol/L BUN (7-17) mg/dL Creatinine (0.7-1.2) mg/dL Glucose (65-100) mg/dL POC Glucose (70-105) Lactic Acid (0.7-2.0) mmol/L Calcium (8.4-10.2) mg/dL AST (5-40) units/L ALT (7-56) units/L Total Creatine Kinase 2317 H (30-135) units/L Total Protein (6.3-8.2) g/dL Albumin (3.9-5) g/dL Vitamin B12 1592 H (211-911) pg/mL Ketones 2.9 H (0.2-2.8) mg/dL Crossmatch 10/05/16 10/05/16 10/06/16 Range/Units 21:49 23:07 01:05 WBC (4.5-11.0) K/mm3 RDW (13.2-15.2) % Plt Count (140-440) K/mm3 Seg Neuts % (Manual) (40.0-70.0) % Lymphocytes % (Manual) (13.4-35.0) % Seg Neutrophils # Man (1.8-7.7) K/mm3 Lymphocytes # (Manual) (1.2-5.4) K/mm3 Monocytes # (Manual) (0.0-0.8) K/mm3 Sodium (137-145) mmol/L Carbon Dioxide (22-30) mmol/L BUN (7-17) mg/dL Creatinine (0.7-1.2) mg/dL Glucose (65-100) mg/dL POC Glucose < 40 L < 40 L 285 H (70-105) Lactic Acid (0.7-2.0) mmol/L Calcium (8.4-10.2) mg/dL AST (5-40) units/L ALT (7-56) units/L Total Creatine Kinase (30-135) units/L Total Protein (6.3-8.2) g/dL Albumin (3.9-5) g/dL Vitamin B12 (211-911) pg/mL Ketones (0.2-2.8) mg/dL Crossmatch 10/06/16 10/06/16 10/06/16 Range/Units 02:13 03:13 03:49 WBC (4.5-11.0) K/mm3 RDW (13.2-15.2) % Plt Count (140-440) K/mm3 Seg Neuts % (Manual) (40.0-70.0) % Lymphocytes % (Manual) (13.4-35.0) % Seg Neutrophils # Man (1.8-7.7) K/mm3 Lymphocytes # (Manual) (1.2-5.4) K/mm3 Monocytes # (Manual) (0.0-0.8) K/mm3 Sodium (137-145) mmol/L Carbon Dioxide (22-30) mmol/L BUN (7-17) mg/dL Creatinine (0.7-1.2) mg/dL Glucose (65-100) mg/dL POC Glucose 241 H 280 H 216 H (70-105) Lactic Acid (0.7-2.0) mmol/L Calcium (8.4-10.2) mg/dL AST (5-40) units/L ALT (7-56) units/L Total Creatine Kinase (30-135) units/L Total Protein (6.3-8.2) g/dL Albumin (3.9-5) g/dL Vitamin B12 (211-911) pg/mL Ketones (0.2-2.8) mg/dL Crossmatch 10/06/16 10/06/16 10/06/16 Range/Units 05:22 06:10 09:40 WBC 27.9 H (4.5-11.0) K/mm3 RDW 16.8 H (13.2-15.2) % Plt Count 94 L (140-440) K/mm3 Seg Neuts % (Manual) 94.5 H (40.0-70.0) % Lymphocytes % (Manual) 1.0 L (13.4-35.0) % Seg Neutrophils # Man 26.4 H (1.8-7.7) K/mm3 Lymphocytes # (Manual) 0.3 L (1.2-5.4) K/mm3 Monocytes # (Manual) 1.3 H (0.0-0.8) K/mm3 Sodium (137-145) mmol/L Carbon Dioxide (22-30) mmol/L BUN (7-17) mg/dL Creatinine (0.7-1.2) mg/dL Glucose (65-100) mg/dL POC Glucose 240 H 291 H (70-105) Lactic Acid (0.7-2.0) mmol/L Calcium (8.4-10.2) mg/dL AST (5-40) units/L ALT (7-56) units/L Total Creatine Kinase (30-135) units/L Total Protein (6.3-8.2) g/dL Albumin (3.9-5) g/dL Vitamin B12 (211-911) pg/mL Ketones (0.2-2.8) mg/dL Crossmatch 10/06/16 10/06/16 Range/Units 09:40 10:00 WBC (4.5-11.0) K/mm3 RDW (13.2-15.2) % Plt Count (140-440) K/mm3 Seg Neuts % (Manual) (40.0-70.0) % Lymphocytes % (Manual) (13.4-35.0) % Seg Neutrophils # Man (1.8-7.7) K/mm3 Lymphocytes # (Manual) (1.2-5.4) K/mm3 Monocytes # (Manual) (0.0-0.8) K/mm3 Sodium 130 L (137-145) mmol/L Carbon Dioxide 16 L (22-30) mmol/L BUN 31 H (7-17) mg/dL Creatinine 1.8 H (0.7-1.2) mg/dL Glucose 259 H (65-100) mg/dL POC Glucose (70-105) Lactic Acid 3.3 H* (0.7-2.0) mmol/L Calcium 6.1 L (8.4-10.2) mg/dL AST 112 H (5-40) units/L ALT 100 H (7-56) units/L Total Creatine Kinase (30-135) units/L Total Protein 4.2 L D (6.3-8.2) g/dL Albumin 1.2 L (3.9-5) g/dL Vitamin B12 (211-911) pg/mL Ketones (0.2-2.8) mg/dL Crossmatch Assessment and Plan 61 y/o female with hypotension of unknown etiology and hypoglycemia. 1. Will bolus with normal saline to achieve CVP of 10-12 2. Check CVP 3. Send C-Peptide and proinsulin levels 4. Continue D10 drip with q1hr FSBS 5. WEan pressors for maps >65 6. Pain control CCT 31 minutes
--- NOTE | 2016-10-06 23:36 | Gastroenterology Progress Note ---
Assessment and Plan 61 yo female presents after being found down at home/hypoglycemic with multiple laboratory abnormalities. reports h/o crohn's disease, dx ~1-2 years ago. Previously on lialda prior to admission. States GI physician (Dr Navarro) was planning to start humira. Unclear how much of her current presentation is related to crohn's disease. f/u stool studies, cont supportive care and abx, attempt to obtain records if able to from Dr Navarro regarding Crohn's disease. Subjective Date of service: 10/06/16 Principal diagnosis: diarrhea, abd pain, hypoglycemia, ARF, AMS Interval history: pt awake and alert, family at bedside. + diarrhea, denies abd pain. pt unable to recall details of symptoms prior to being found down at home. Objective - Constitutional Vitals: Temp Pulse Resp BP Pulse Ox 97.8 F 92 H 24 93/60 92 10/06/16 20:00 10/06/16 21:15 10/06/16 21:15 10/06/16 21:15 10/06/16 21:15 General appearance: no acute distress - EENT Eyes: PERRL - Respiratory Respiratory: right: CTA - Cardiovascular Rhythm: regular (tachycardic) Heart Sounds: Present: S1 & S2 - Extremities Extremities: No edema - Gastrointestinal General gastrointestinal: Present: soft, non-tender, non-distended, normal bowel sounds - Integumentary Integumentary: Present: clear, dry - Neurologic Neurological: alert and oriented x3 - Psychiatric Psychiatric: appropriate mood/affect - Labs CBC & Chem 7: 10/07/16 04:42 10/07/16 04:42 Labs: Laboratory Results - last 24 hr 10/05/16 10/06/16 10/06/16 21:05 01:05 02:13 WBC RBC Hgb Hct MCV MCH MCHC RDW Plt Count Add Manual Diff Total Counted Seg Neutrophils % Seg Neuts % (Manual) Band Neutrophils % Lymphocytes % (Manual) Reactive Lymphs % (Man) Monocytes % (Manual) Eosinophils % (Manual) Basophils % (Manual) Metamyelocytes % Myelocytes % Promyelocytes % Blast Cells % Nucleated RBC % Seg Neutrophils # Man Band Neutrophils # Lymphocytes # (Manual) Abs React Lymphs (Man) Monocytes # (Manual) Eosinophils # (Manual) Basophils # (Manual) Metamyelocytes # Myelocytes # Promyelocytes # Blast Cells # WBC Morphology Hypersegmented Neuts Hyposegmented Neuts Hypogranular Neuts Smudge Cells Toxic Granulation Toxic Vacuolation Dohle Bodies Pelger-Huet Anomaly Ivory Rods Platelet Estimate Clumped Platelets Plt Clumps, EDTA Large Platelets Giant Platelets Platelet Satelliting Plt Morphology Comment RBC Morphology Dimorphic RBCs Polychromasia Hypochromasia Poikilocytosis Anisocytosis Microcytosis Macrocytosis Spherocytes Pappenheimer Bodies Sickle Cells Target Cells Tear Drop Cells Ovalocytes Helmet Cells [place] Bodies [place] Rings [place]enike Cells Bite Cells Crenated Cell Elliptocytes Acanthocytes (Spur) Rouleaux Hemoglobin C Crystals Schistocytes Malaria parasites Mayito Bodies Hem Pathologist Commnt Sodium Potassium Chloride Carbon Dioxide Anion Gap BUN Creatinine Estimated GFR BUN/Creatinine Ratio Glucose POC Glucose 285 H 241 H Lactic Acid Calcium Phosphorus Magnesium Total Bilirubin AST ALT Alkaline Phosphatase Total Protein Albumin Albumin/Globulin Ratio Blood Type B POSITIVE Antibody Screen Negative Crossmatch See Detail 10/06/16 10/06/16 10/06/16 03:13 03:49 05:22 WBC RBC Hgb Hct MCV MCH MCHC RDW Plt Count Add Manual Diff Total Counted Seg Neutrophils % Seg Neuts % (Manual) Band Neutrophils % Lymphocytes % (Manual) Reactive Lymphs % (Man) Monocytes % (Manual) Eosinophils % (Manual) Basophils % (Manual) Metamyelocytes % Myelocytes % Promyelocytes % Blast Cells % Nucleated RBC % Seg Neutrophils # Man Band Neutrophils # Lymphocytes # (Manual) Abs React Lymphs (Man) Monocytes # (Manual) Eosinophils # (Manual) Basophils # (Manual) Metamyelocytes # Myelocytes # Promyelocytes # Blast Cells # WBC Morphology Hypersegmented Neuts Hyposegmented Neuts Hypogranular Neuts Smudge Cells Toxic Granulation Toxic Vacuolation Dohle Bodies Pelger-Huet Anomaly Ivory Rods Platelet Estimate Clumped Platelets Plt Clumps, EDTA Large Platelets Giant Platelets Platelet Satelliting Plt Morphology Comment RBC Morphology Dimorphic RBCs Polychromasia Hypochromasia Poikilocytosis Anisocytosis Microcytosis Macrocytosis Spherocytes Pappenheimer Bodies Sickle Cells Target Cells Tear Drop Cells Ovalocytes Helmet Cells [place] Bodies [place] Rings [place] Cells Bite Cells Crenated Cell Elliptocytes Acanthocytes (Spur) Rouleaux Hemoglobin C Crystals Schistocytes Malaria parasites Mayito Bodies Hem Pathologist Commnt Sodium Potassium Chloride Carbon Dioxide Anion Gap BUN Creatinine Estimated GFR BUN/Creatinine Ratio Glucose POC Glucose 280 H 216 H 240 H Lactic Acid Calcium Phosphorus Magnesium Total Bilirubin AST ALT Alkaline Phosphatase Total Protein Albumin Albumin/Globulin Ratio Blood Type Antibody Screen Crossmatch 10/06/16 10/06/16 10/06/16 06:10 07:37 08:55 WBC RBC Hgb Hct MCV MCH MCHC RDW Plt Count Add Manual Diff Total Counted Seg Neutrophils % Seg Neuts % (Manual) Band Neutrophils % Lymphocytes % (Manual) Reactive Lymphs % (Man) Monocytes % (Manual) Eosinophils % (Manual) Basophils % (Manual) Metamyelocytes % Myelocytes % Promyelocytes % Blast Cells % Nucleated RBC % Seg Neutrophils # Man Band Neutrophils # Lymphocytes # (Manual) Abs React Lymphs (Man) Monocytes # (Manual) Eosinophils # (Manual) Basophils # (Manual) Metamyelocytes # Myelocytes # Promyelocytes # Blast Cells # WBC Morphology Hypersegmented Neuts Hyposegmented Neuts Hypogranular Neuts Smudge Cells Toxic Granulation Toxic Vacuolation Dohle Bodies Pelger-Huet Anomaly Ivory Rods Platelet Estimate Clumped Platelets Plt Clumps, EDTA Large Platelets Giant Platelets Platelet Satelliting Plt Morphology Comment RBC Morphology Dimorphic RBCs Polychromasia Hypochromasia Poikilocytosis Anisocytosis Microcytosis Macrocytosis Spherocytes Pappenheimer Bodies Sickle Cells Target Cells Tear Drop Cells Ovalocytes Helmet Cells [place] Bodies [place] Rings [place] Cells Bite Cells Crenated Cell Elliptocytes Acanthocytes (Spur) Rouleaux Hemoglobin C Crystals Schistocytes Malaria parasites Mayito Bodies Hem Pathologist Commnt Sodium Potassium Chloride Carbon Dioxide Anion Gap BUN Creatinine Estimated GFR BUN/Creatinine Ratio Glucose POC Glucose 291 H 255 H 286 H Lactic Acid Calcium Phosphorus Magnesium Total Bilirubin AST ALT Alkaline Phosphatase Total Protein Albumin Albumin/Globulin Ratio Blood Type Antibody Screen Crossmatch 10/06/16 10/06/16 10/06/16 09:37 09:40 09:40 WBC 27.9 H RBC 3.96 Hgb 11.9 D Hct 36.8 D MCV 93 D MCH 30 MCHC 33 RDW 16.8 H Plt Count 94 L Add Manual Diff Complete Total Counted 200 Seg Neutrophils % Volcanology Professor Seg Neuts % (Manual) 94.5 H Band Neutrophils % 0 Lymphocytes % (Manual) 1.0 L Reactive Lymphs % (Man) 0 Monocytes % (Manual) 4.5 Eosinophils % (Manual) 0 Basophils % (Manual) 0 Metamyelocytes % 0 Myelocytes % 0 Promyelocytes % 0 Blast Cells % 0 Nucleated RBC % 0.5 Seg Neutrophils # Man 26.4 H Band Neutrophils # 0.0 Lymphocytes # (Manual) 0.3 L Abs React Lymphs (Man) 0.0 Monocytes # (Manual) 1.3 H Eosinophils # (Manual) 0.0 Basophils # (Manual) 0.0 Metamyelocytes # 0.0 Myelocytes # 0.0 Promyelocytes # 0.0 Blast Cells # 0.0 WBC Morphology Not Reportable Hypersegmented Neuts Not Reportable Hyposegmented Neuts Not Reportable Hypogranular Neuts Not Reportable Smudge Cells Not Reportable Toxic Granulation Not Reportable Toxic Vacuolation Not Reportable Dohle Bodies Not Reportable Pelger-Huet Anomaly Not Reportable Ivory Rods Not Reportable Platelet Estimate Consistent w auto Clumped Platelets Not Reportable Plt Clumps, EDTA Not Reportable Large Platelets Not Reportable Giant Platelets Not Reportable Platelet Satelliting Not Reportable Plt Morphology Comment Not Reportable RBC Morphology Not Reportable Dimorphic RBCs Not Reportable Polychromasia Not Reportable Hypochromasia Not Reportable Poikilocytosis Not Reportable Anisocytosis 1+ Microcytosis Not Reportable Macrocytosis 1+ Spherocytes Not Reportable Pappenheimer Bodies Not Reportable Sickle Cells Not Reportable Target Cells Not Reportable Tear Drop Cells Not Reportable Ovalocytes Not Reportable Helmet Cells Not Reportable [place] Bodies Not Reportable [place] Rings Not Reportable [place] Cells Not Reportable Bite Cells Not Reportable Crenated Cell Not Reportable Elliptocytes Not Reportable Acanthocytes (Spur) Not Reportable Rouleaux Not Reportable Hemoglobin C Crystals Not Reportable Schistocytes Not Reportable Malaria parasites Not Reportable Mayito Bodies Not Reportable Hem Pathologist Commnt No Sodium 130 L Potassium 3.7 Chloride 99.9 Carbon Dioxide 16 L Anion Gap 18 BUN 31 H Creatinine 1.8 H Estimated GFR 34 BUN/Creatinine Ratio 17.22 Glucose 259 H POC Glucose 205 H Lactic Acid Calcium 6.1 L Phosphorus Magnesium Total Bilirubin 0.3 AST 112 H ALT 100 H Alkaline Phosphatase 98 Total Protein 4.2 L D Albumin 1.2 L Albumin/Globulin Ratio 0.4 Blood Type Antibody Screen Crossmatch 10/06/16 10/06/16 10/06/16 09:40 10:00 11:24 WBC RBC Hgb Hct MCV MCH MCHC RDW Plt Count Add Manual Diff Total Counted Seg Neutrophils % Seg Neuts % (Manual) Band Neutrophils % Lymphocytes % (Manual) Reactive Lymphs % (Man) Monocytes % (Manual) Eosinophils % (Manual) Basophils % (Manual) Metamyelocytes % Myelocytes % Promyelocytes % Blast Cells % Nucleated RBC % Seg Neutrophils # Man Band Neutrophils # Lymphocytes # (Manual) Abs React Lymphs (Man) Monocytes # (Manual) Eosinophils # (Manual) Basophils # (Manual) Metamyelocytes # Myelocytes # Promyelocytes # Blast Cells # WBC Morphology Hypersegmented Neuts Hyposegmented Neuts Hypogranular Neuts Smudge Cells Toxic Granulation Toxic Vacuolation Dohle Bodies Pelger-Huet Anomaly Ivory Rods Platelet Estimate Clumped Platelets Plt Clumps, EDTA Large Platelets Giant Platelets Platelet Satelliting Plt Morphology Comment RBC Morphology Dimorphic RBCs Polychromasia Hypochromasia Poikilocytosis Anisocytosis Microcytosis Macrocytosis Spherocytes Pappenheimer Bodies Sickle Cells Target Cells Tear Drop Cells Ovalocytes Helmet Cells [place] Bodies [place] Cells Bite Cells Crenated Cell Elliptocytes Acanthocytes (Spur) Rouleaux Hemoglobin C Crystals Schistocytes Malaria parasites Mayito Bodies Hem Pathologist Commnt Sodium Potassium Chloride Carbon Dioxide Anion Gap BUN Creatinine Estimated GFR BUN/Creatinine Ratio Glucose POC Glucose 204 H Lactic Acid 3.3 H* Calcium Phosphorus 3.8 Magnesium 1.7 Total Bilirubin AST ALT Alkaline Phosphatase Total Protein Albumin Albumin/Globulin Ratio Blood Type Antibody Screen Crossmatch 10/06/16 10/06/16 10/06/16 12:08 13:22 14:52 WBC RBC Hgb Hct MCV MCH MCHC RDW Plt Count Add Manual Diff Total Counted Seg Neutrophils % Seg Neuts % (Manual) Band Neutrophils % Lymphocytes % (Manual) Reactive Lymphs % (Man) Monocytes % (Manual) Eosinophils % (Manual) Basophils % (Manual) Metamyelocytes % Myelocytes % Promyelocytes % Blast Cells % Nucleated RBC % Seg Neutrophils # Man Band Neutrophils # Lymphocytes # (Manual) Abs React Lymphs (Man) Monocytes # (Manual) Eosinophils # (Manual) Basophils # (Manual) Metamyelocytes # Myelocytes # Promyelocytes # Blast Cells # WBC Morphology Hypersegmented Neuts Hyposegmented Neuts Hypogranular Neuts Smudge Cells Toxic Granulation Toxic Vacuolation Dohle Bodies Pelger-Huet Anomaly Ivory Rods Platelet Estimate Clumped Platelets Plt Clumps, EDTA Large Platelets Giant Platelets Platelet Satelliting Plt Morphology Comment RBC Morphology Dimorphic RBCs Polychromasia Hypochromasia Poikilocytosis Anisocytosis Microcytosis Macrocytosis Spherocytes Pappenheimer Bodies Sickle Cells Target Cells Tear Drop Cells Ovalocytes Helmet Cells [place] Bodies [place] Rings [place] Cells Bite Cells Crenated Cell Elliptocytes Acanthocytes (Spur) Rouleaux Hemoglobin C Crystals Schistocytes Malaria parasites Mayito Bodies Hem Pathologist Commnt Sodium Potassium Chloride Carbon Dioxide Anion Gap BUN Creatinine Estimated GFR BUN/Creatinine Ratio Glucose POC Glucose 214 H 176 H 177 H Lactic Acid Calcium Phosphorus Magnesium Total Bilirubin AST ALT Alkaline Phosphatase Total Protein Albumin Albumin/Globulin Ratio Blood Type Antibody Screen Crossmatch 10/06/16 10/06/16 10/06/16 15:11 17:11 18:12 WBC RBC Hgb Hct MCV MCH MCHC RDW Plt Count Add Manual Diff Total Counted Seg Neutrophils % Seg Neuts % (Manual) Band Neutrophils % Lymphocytes % (Manual) Reactive Lymphs % (Man) Monocytes % (Manual) Eosinophils % (Manual) Basophils % (Manual) Metamyelocytes % Myelocytes % Promyelocytes % Blast Cells % Nucleated RBC % Seg Neutrophils # Man Band Neutrophils # Lymphocytes # (Manual) Abs React Lymphs (Man) Monocytes # (Manual) Eosinophils # (Manual) Basophils # (Manual) Metamyelocytes # Myelocytes # Promyelocytes # Blast Cells # WBC Morphology Hypersegmented Neuts Hyposegmented Neuts Hypogranular Neuts Smudge Cells Toxic Granulation Toxic Vacuolation Dohle Bodies Pelger-Huet Anomaly Iv[place] Rods Platelet Estimate Clumped Platelets Plt Clumps, EDTA Large Platelets Giant Platelets Platelet Satelliting Plt Morphology Comment RBC Morphology Dimorphic RBCs Polychromasia Hypochromasia Poikilocytosis Anisocytosis Microcytosis Macrocytosis Spherocytes Pappenheimer Bodies Sickle Cells Target Cells Tear Drop Cells Ovalocytes Helmet Cells [place] Bodies [place] Rings [place] Cells Bite Cells Crenated Cell Elliptocytes Acanthocytes (Spur) Rouleaux Hemoglobin C Crystals Schistocytes Malaria parasites Mayito Bodies Hem Pathologist Commnt Sodium Potassium Chloride Carbon Dioxide Anion Gap BUN Creatinine Estimated GFR BUN/Creatinine Ratio Glucose POC Glucose 168 H 173 H 165 H Lactic Acid Calcium Phosphorus Magnesium Total Bilirubin AST ALT Alkaline Phosphatase Total Protein Albumin Albumin/Globulin Ratio Blood Type Antibody Screen Crossmatch 10/06/16 10/06/16 10/06/16 18:55 20:01 21:00 WBC RBC Hgb Hct MCV MCH MCHC RDW Plt Count Add Manual Diff Total Counted Seg Neutrophils % Seg Neuts % (Manual) Band Neutrophils % Lymphocytes % (Manual) Reactive Lymphs % (Man) Monocytes % (Manual) Eosinophils % (Manual) Basophils % (Manual) Metamyelocytes % Myelocytes % Promyelocytes % Blast Cells % Nucleated RBC % Seg Neutrophils # Man Band Neutrophils # Lymphocytes # (Manual) Abs React Lymphs (Man) Monocytes # (Manual) Eosinophils # (Manual) Basophils # (Manual) Metamyelocytes # Myelocytes # Promyelocytes # Blast Cells # WBC Morphology Hypersegmented Neuts Hyposegmented Neuts Hypogranular Neuts Smudge Cells Toxic Granulation Toxic Vacuolation Dohle Bodies Pelger-Huet Anomaly Ivory Rods Platelet Estimate Clumped Platelets Plt Clumps, EDTA Large Platelets Giant Platelets Platelet Satelliting Plt Morphology Comment RBC Morphology Dimorphic RBCs Polychromasia Hypochromasia Poikilocytosis Anisocytosis Microcytosis Macrocytosis Spherocytes Pappenheimer Bodies Sickle Cells Target Cells Tear Drop Cells Ovalocytes Helmet Cells [place] Bodies [place] Rings [place] Cells Bite Cells Crenated Cell Elliptocytes Acanthocytes (Spur) Rouleaux Hemoglobin C Crystals Schistocytes Malaria parasites Mayito Bodies Hem Pathologist Commnt Sodium Potassium Chloride Carbon Dioxide Anion Gap BUN Creatinine Estimated GFR BUN/Creatinine Ratio Glucose POC Glucose 174 H 158 H 172 H Lactic Acid Calcium Phosphorus Magnesium Total Bilirubin AST ALT Alkaline Phosphatase Total Protein Albumin Albumin/Globulin Ratio Blood Type Antibody Screen Crossmatch 10/06/16 10/06/16 22:02 23:04 WBC RBC Hgb Hct MCV MCH MCHC RDW Plt Count Add Manual Diff Total Counted Seg Neutrophils % Seg Neuts % (Manual) Band Neutrophils % Lymphocytes % (Manual) Reactive Lymphs % (Man) Monocytes % (Manual) Eosinophils % (Manual) Basophils % (Manual) Metamyelocytes % Myelocytes % Promyelocytes % Blast Cells % Nucleated RBC % Seg Neutrophils # Man Band Neutrophils # Lymphocytes # (Manual) Abs React Lymphs (Man) Monocytes # (Manual) Eosinophils # (Manual) Basophils # (Manual) Metamyelocytes # Myelocytes # Promyelocytes # Blast Cells # WBC Morphology Hypersegmented Neuts Hyposegmented Neuts Hypogranular Neuts Smudge Cells Toxic Granulation Toxic Vacuolation Dohle Bodies Pelger-Huet Anomaly Ivory Rods Platelet Estimate Clumped Platelets Plt Clumps, EDTA Large Platelets Giant Platelets Platelet Satelliting Plt Morphology Comment RBC Morphology Dimorphic RBCs Polychromasia Hypochromasia Poikilocytosis Anisocytosis Microcytosis Macrocytosis Spherocytes Pappenheimer Bodies Sickle Cells Target Cells Tear Drop Cells Ovalocytes Helmet Cells [place] Bodies [place] Rings [place] Cells Bite Cells Crenated Cell Elliptocytes Acanthocytes (Spur) Rouleaux Hemoglobin C Crystals Schistocytes Malaria parasites Mayito Bodies Hem Pathologist Commnt Sodium Potassium Chloride Carbon Dioxide Anion Gap BUN Creatinine Estimated GFR BUN/Creatinine Ratio Glucose POC Glucose 180 H 177 H Lactic Acid Calcium Phosphorus Magnesium Total Bilirubin AST ALT Alkaline Phosphatase Total Protein Albumin Albumin/Globulin Ratio Blood Type Antibody Screen Crossmatch
[2016-10-07] MEDS: FLAGYL 500 MG/100 ML 100 ML IV SCH ×3 (02:10→16:38)
[2016-10-07] MEDS: NOVOLOG SUB-Q SCH ×7 (05:27→22:06)
[2016-10-07] MEDS: LEVOPHED DRIP 4 MG/NS 250 ML 250 ML IV SCH ×5 (05:35→22:30)
[2016-10-07 08:21] LABS: Hematocrit 34.5 % (30.3-42.9); Hemoglobin 11.2 gm/dl (10.1-14.3); Mean Corpuscular HGB Conc 33 % (30-34); Mean Corpuscular Hemoglobin 30 pg (28-32); Mean Corpuscular Volume 92 fl (79-97); Red Blood Count 3.77 M/mm3 (3.65-5.03); Red Cell Distribution Width 17.2 % (13.2-15.2)
[2016-10-07 08:38] LABS: Platelet Count 59 K/mm3 (140-440); White Blood Count 30.5 K/mm3 (4.5-11.0)
[2016-10-07 08:42] LABS: Albumin 1.1 g/dL (3.9-5); Albumin/Globulin Ratio 0.4 %; BUN/Creatinine Ratio 16.87; Bilirubin,Total 0.4 mg/dL (0.1-1.2); Calcium 6.1 mg/dL (8.4-10.2); Chloride 98.9 mmol/L (98-107); Magnesium 1.5 mg/dL (1.7-2.3); Potassium 3.5 mmol/L (3.6-5.0); Total Protein 3.9 g/dL (6.3-8.2)
[2016-10-07] MEDS: PROTONIX IV SCH ×2 (09:44→22:34)
[2016-10-07] MEDS ORDERED: NACL 0.9% 1000 ML 2,000 ML IV ONE (09:56)
[2016-10-07] MEDS ORDERED: MAGNESIUM SULFATE 4GM/100ML 100 ML IV ONE (10:00)
[2016-10-07] MEDS ORDERED: LEVAQUIN 250MG/50ML 50 ML IV SCH (10:00)
--- NOTE | 2016-10-07 10:02 | Progress Note ---
Assessment and Plan 61 y/o female with hypotension of unknown etiology and hypoglycemia, now with elevated AST/ALT, increasing white count and diarrhea, nonbloody. 1. Spoke with GI this am. Will order CT ABD/PEL with PO contrast given renal failure. Will also treat empirically for C. Diff with PO Vanc 2. Will order 2 more normal saline boluses today 3. Order K 4. Ordered Mag 5. Continue d10 but will change FSBS to [id number] 6. Overall prognosis remains guarded. Await C-peptide as this is likely a send out. Unable to order pro-insulin level CCT 31 minutes Subjective Date of service: 10/07/16 Interval history: No acute events. MAP is 79 this am. On Levophed 12. Awake. White count is increasing. No fever. no family at bedside Objective - Constitutional Vitals: Vital Signs - 12hr 10/06/16 10/06/16 10/06/16 22:00 22:15 22:30 Temperature Pulse Rate 100 H 90 103 H Pulse Rate [ From Monitor] Respiratory 18 28 H 21 Rate Blood Pressure 90/61 83/49 80/49 O2 Sat by Pulse 99 Oximetry 10/06/16 10/06/16 10/06/16 22:46 23:00 23:16 Temperature Pulse Rate 95 H 101 H 104 H Pulse Rate [ From Monitor] Respiratory 15 18 19 Rate Blood Pressure 80/49 68/38 86/57 O2 Sat by Pulse 89 75 L 83 L Oximetry 10/06/16 10/06/16 10/07/16 23:30 23:46 00:00 Temperature 98.1 F Pulse Rate 103 H 97 H 93 H Pulse Rate [ 98 H From Monitor] Respiratory 16 20 27 H Rate Blood Pressure 90/63 94/49 96/57 O2 Sat by Pulse 93 98 Oximetry 10/07/16 10/07/16 10/07/16 00:16 00:30 00:45 Temperature Pulse Rate 93 H 97 H 102 H Pulse Rate [ From Monitor] Respiratory 26 H 25 H 24 Rate Blood Pressure 95/63 101/65 94/62 O2 Sat by Pulse 100 Oximetry 10/07/16 10/07/16 10/07/16 01:00 01:15 01:30 Temperature Pulse Rate 93 H 107 H 97 H Pulse Rate [ From Monitor] Respiratory 27 H 21 17 Rate Blood Pressure 96/65 97/63 96/70 O2 Sat by Pulse 100 Oximetry 10/07/16 10/07/16 10/07/16 01:45 02:00 02:15 Temperature Pulse Rate 94 H 100 H 96 H Pulse Rate [ From Monitor] Respiratory 17 24 24 Rate Blood Pressure 95/67 100/66 108/64 O2 Sat by Pulse Oximetry 10/07/16 10/07/16 10/07/16 02:30 02:45 03:00 Temperature Pulse Rate 96 H 112 H 98 H Pulse Rate [ From Monitor] Respiratory 22 16 16 Rate Blood Pressure 106/70 101/74 94/68 O2 Sat by Pulse 91 Oximetry 10/07/16 10/07/16 10/07/16 03:15 03:30 03:45 Temperature Pulse Rate 106 H 101 H 102 H Pulse Rate [ From Monitor] Respiratory 18 16 21 Rate Blood Pressure 96/75 83/55 86/60 O2 Sat by Pulse Oximetry 10/07/16 10/07/16 10/07/16 04:00 04:15 04:20 Temperature 98.3 F Pulse Rate 101 H 99 H 104 H Pulse Rate [ From Monitor] Respiratory 24 18 18 Rate Blood Pressure 87/50 78/55 78/55 O2 Sat by Pulse Oximetry 10/07/16 10/07/16 10/07/16 04:30 04:45 05:00 Temperature Pulse Rate 99 H 104 H 109 H Pulse Rate [ From Monitor] Respiratory 20 24 28 H Rate Blood Pressure 77/52 93/68 89/63 O2 Sat by Pulse Oximetry 10/07/16 10/07/16 10/07/16 05:02 05:15 05:20 Temperature Pulse Rate 102 H 98 H 108 H Pulse Rate [ From Monitor] Respiratory 23 26 H 23 Rate Blood Pressure 89/63 96/66 96/66 O2 Sat by Pulse 88 Oximetry 10/07/16 10/07/16 10/07/16 05:30 05:36 05:45 Temperature Pulse Rate 107 H 107 H 108 H Pulse Rate [ From Monitor] Respiratory 18 17 Rate Blood Pressure 106/70 106/70 96/66 O2 Sat by Pulse 89 100 Oximetry 10/07/16 10/07/16 10/07/16 06:00 06:15 06:30 Temperature Pulse Rate 112 H 111 H 108 H Pulse Rate [ From Monitor] Respiratory 21 22 22 Rate Blood Pressure 107/77 112/73 107/74 O2 Sat by Pulse 90 100 Oximetry 10/07/16 10/07/16 10/07/16 06:45 07:00 07:15 Temperature Pulse Rate 107 H 107 H 107 H Pulse Rate [ From Monitor] Respiratory 21 17 18 Rate Blood Pressure 108/76 109/75 109/78 O2 Sat by Pulse 96 100 Oximetry 10/07/16 10/07/16 10/07/16 07:30 07:45 08:00 Temperature 97.5 F L Pulse Rate 113 H 110 H 98 H Pulse Rate [ From Monitor] Respiratory 26 H 25 H 21 Rate Blood Pressure 110/77 102/77 102/77 O2 Sat by Pulse 100 88 Oximetry 10/07/16 10/07/16 10/07/16 08:08 08:15 08:30 Temperature Pulse Rate 106 H 109 H 109 H Pulse Rate [ From Monitor] Respiratory 17 24 24 Rate Blood Pressure 87/63 109/81 112/75 O2 Sat by Pulse 87 93 Oximetry 10/07/16 10/07/16 10/07/16 08:45 09:00 09:15 Temperature Pulse Rate 108 H 98 H 108 H Pulse Rate [ From Monitor] Respiratory 17 18 19 Rate Blood Pressure 103/79 115/79 111/82 O2 Sat by Pulse 87 Oximetry 10/07/16 09:30 Temperature Pulse Rate 108 H Pulse Rate [ From Monitor] Respiratory 16 Rate Blood Pressure 116/80 O2 Sat by Pulse Oximetry General appearance: Present: no acute distress, well-nourished, obese - EENT Eyes: PERRL, EOM intact ENT: hearing intact, clear oral mucosa, dentition normal - Neck Neck: supple, normal ROM - Respiratory Respiratory effort: normal Respiratory: bilateral: CTA - Cardiovascular Rhythm: regular Heart Sounds: Present: S1 & S2 Extremities: no ischemia - Gastrointestinal General gastrointestinal: Present: soft, non-tender, hypoactive bowel sounds Rectal Exam: deferred - Genitourinary Female genitourinary: deferred - Musculoskeletal Musculoskeletal: strength equal bilaterally - Neurologic Neurologic: CNII-XII intact - Psychiatric Psychiatric: appropriate mood/affect - Labs CBC & Chem 7: 10/07/16 04:42 10/07/16 04:42 Labs: Abnormal lab results 10/06/16 10/06/16 10/06/16 Range/Units 07:37 08:55 09:37 WBC (4.5-11.0) K/mm3 RDW (13.2-15.2) % Plt Count (140-440) K/mm3 Seg Neuts % (Manual) (40.0-70.0) % Lymphocytes % (Manual) (13.4-35.0) % Seg Neutrophils # Man (1.8-7.7) K/mm3 Lymphocytes # (Manual) (1.2-5.4) K/mm3 Monocytes # (Manual) (0.0-0.8) K/mm3 Sodium (137-145) mmol/L Potassium (3.6-5.0) mmol/L Carbon Dioxide (22-30) mmol/L BUN (7-17) mg/dL Creatinine (0.7-1.2) mg/dL Glucose (65-100) mg/dL POC Glucose 255 H 286 H 205 H (70-105) Lactic Acid (0.7-2.0) mmol/L Calcium (8.4-10.2) mg/dL Magnesium (1.7-2.3) mg/dL AST (5-40) units/L ALT (7-56) units/L Total Protein (6.3-8.2) g/dL Albumin (3.9-5) g/dL 10/06/16 10/06/16 10/06/16 Range/Units 09:40 09:40 10:00 WBC 27.9 H (4.5-11.0) K/mm3 RDW 16.8 H (13.2-15.2) % Plt Count 94 L (140-440) K/mm3 Seg Neuts % (Manual) 94.5 H (40.0-70.0) % Lymphocytes % (Manual) 1.0 L (13.4-35.0) % Seg Neutrophils # Man 26.4 H (1.8-7.7) K/mm3 Lymphocytes # (Manual) 0.3 L (1.2-5.4) K/mm3 Monocytes # (Manual) 1.3 H (0.0-0.8) K/mm3 Sodium 130 L (137-145) mmol/L Potassium (3.6-5.0) mmol/L Carbon Dioxide 16 L (22-30) mmol/L BUN 31 H (7-17) mg/dL Creatinine 1.8 H (0.7-1.2) mg/dL Glucose 259 H (65-100) mg/dL POC Glucose (70-105) Lactic Acid 3.3 H* (0.7-2.0) mmol/L Calcium 6.1 L (8.4-10.2) mg/dL Magnesium (1.7-2.3) mg/dL AST 112 H (5-40) units/L ALT 100 H (7-56) units/L Total Protein 4.2 L D (6.3-8.2) g/dL Albumin 1.2 L (3.9-5) g/dL 10/06/16 10/06/16 10/06/16 Range/Units 11:24 12:08 13:22 WBC (4.5-11.0) K/mm3 RDW (13.2-15.2) % Plt Count (140-440) K/mm3 Seg Neuts % (Manual) (40.0-70.0) % Lymphocytes % (Manual) (13.4-35.0) % Seg Neutrophils # Man (1.8-7.7) K/mm3 Lymphocytes # (Manual) (1.2-5.4) K/mm3 Monocytes # (Manual) (0.0-0.8) K/mm3 Sodium (137-145) mmol/L Potassium (3.6-5.0) mmol/L Carbon Dioxide (22-30) mmol/L BUN (7-17) mg/dL Creatinine (0.7-1.2) mg/dL Glucose (65-100) mg/dL POC Glucose 204 H 214 H 176 H (70-105) Lactic Acid (0.7-2.0) mmol/L Calcium (8.4-10.2) mg/dL Magnesium (1.7-2.3) mg/dL AST (5-40) units/L ALT (7-56) units/L Total Protein (6.3-8.2) g/dL Albumin (3.9-5) g/dL 10/06/16 10/06/16 10/06/16 Range/Units 14:52 15:11 17:11 WBC (4.5-11.0) K/mm3 RDW (13.2-15.2) % Plt Count (140-440) K/mm3 Seg Neuts % (Manual) (40.0-70.0) % Lymphocytes % (Manual) (13.4-35.0) % Seg Neutrophils # Man (1.8-7.7) K/mm3 Lymphocytes # (Manual) (1.2-5.4) K/mm3 Monocytes # (Manual) (0.0-0.8) K/mm3 Sodium (137-145) mmol/L Potassium (3.6-5.0) mmol/L Carbon Dioxide (22-30) mmol/L BUN (7-17) mg/dL Creatinine (0.7-1.2) mg/dL Glucose (65-100) mg/dL POC Glucose 177 H 168 H 173 H (70-105) Lactic Acid (0.7-2.0) mmol/L Calcium (8.4-10.2) mg/dL Magnesium (1.7-2.3) mg/dL AST (5-40) units/L ALT (7-56) units/L Total Protein (6.3-8.2) g/dL Albumin (3.9-5) g/dL 10/06/16 10/06/16 10/06/16 Range/Units 18:12 18:55 20:01 WBC (4.5-11.0) K/mm3 RDW (13.2-15.2) % Plt Count (140-440) K/mm3 Seg Neuts % (Manual) (40.0-70.0) % Lymphocytes % (Manual) (13.4-35.0) % Seg Neutrophils # Man (1.8-7.7) K/mm3 Lymphocytes # (Manual) (1.2-5.4) K/mm3 Monocytes # (Manual) (0.0-0.8) K/mm3 Sodium (137-145) mmol/L Potassium (3.6-5.0) mmol/L Carbon Dioxide (22-30) mmol/L BUN (7-17) mg/dL Creatinine (0.7-1.2) mg/dL Glucose (65-100) mg/dL POC Glucose 165 H 174 H 158 H (70-105) Lactic Acid (0.7-2.0) mmol/L Calcium (8.4-10.2) mg/dL Magnesium (1.7-2.3) mg/dL AST (5-40) units/L ALT (7-56) units/L Total Protein (6.3-8.2) g/dL Albumin (3.9-5) g/dL 10/06/16 10/06/16 10/06/16 Range/Units 21:00 22:02 23:04 WBC (4.5-11.0) K/mm3 RDW (13.2-15.2) % Plt Count (140-440) K/mm3 Seg Neuts % (Manual) (40.0-70.0) % Lymphocytes % (Manual) (13.4-35.0) % Seg Neutrophils # Man (1.8-7.7) K/mm3 Lymphocytes # (Manual) (1.2-5.4) K/mm3 Monocytes # (Manual) (0.0-0.8) K/mm3 Sodium (137-145) mmol/L Potassium (3.6-5.0) mmol/L Carbon Dioxide (22-30) mmol/L BUN (7-17) mg/dL Creatinine (0.7-1.2) mg/dL Glucose (65-100) mg/dL POC Glucose 172 H 180 H 177 H (70-105) Lactic Acid (0.7-2.0) mmol/L Calcium (8.4-10.2) mg/dL Magnesium (1.7-2.3) mg/dL AST (5-40) units/L ALT (7-56) units/L Total Protein (6.3-8.2) g/dL Albumin (3.9-5) g/dL 10/06/16 10/07/16 10/07/16 Range/Units 23:58 01:05 02:58 WBC (4.5-11.0) K/mm3 RDW (13.2-15.2) % Plt Count (140-440) K/mm3 Seg Neuts % (Manual) (40.0-70.0) % Lymphocytes % (Manual) (13.4-35.0) % Seg Neutrophils # Man (1.8-7.7) K/mm3 Lymphocytes # (Manual) (1.2-5.4) K/mm3 Monocytes # (Manual) (0.0-0.8) K/mm3 Sodium (137-145) mmol/L Potassium (3.6-5.0) mmol/L Carbon Dioxide (22-30) mmol/L BUN (7-17) mg/dL Creatinine (0.7-1.2) mg/dL Glucose (65-100) mg/dL POC Glucose 178 H 168 H 181 H (70-105) Lactic Acid (0.7-2.0) mmol/L Calcium (8.4-10.2) mg/dL Magnesium (1.7-2.3) mg/dL AST (5-40) units/L ALT (7-56) units/L Total Protein (6.3-8.2) g/dL Albumin (3.9-5) g/dL 10/07/16 10/07/16 10/07/16 Range/Units 04:03 04:42 04:42 WBC 30.5 H (4.5-11.0) K/mm3 RDW 17.2 H (13.2-15.2) % Plt Count 59 L (140-440) K/mm3 Seg Neuts % (Manual) (40.0-70.0) % Lymphocytes % (Manual) (13.4-35.0) % Seg Neutrophils # Man (1.8-7.7) K/mm3 Lymphocytes # (Manual) (1.2-5.4) K/mm3 Monocytes # (Manual) (0.0-0.8) K/mm3 Sodium 127 L (137-145) mmol/L Potassium 3.5 L (3.6-5.0) mmol/L Carbon Dioxide 16 L (22-30) mmol/L BUN 27 H (7-17) mg/dL Creatinine 1.6 H (0.7-1.2) mg/dL Glucose 162 H (65-100) mg/dL POC Glucose 196 H (70-105) Lactic Acid (0.7-2.0) mmol/L Calcium 6.1 L (8.4-10.2) mg/dL Magnesium 1.5 L (1.7-2.3) mg/dL AST 83 H (5-40) units/L ALT 106 H (7-56) units/L Total Protein 3.9 L (6.3-8.2) g/dL Albumin 1.1 L (3.9-5) g/dL 10/07/16 10/07/16 10/07/16 Range/Units 05:05 06:08 08:11 WBC (4.5-11.0) K/mm3 RDW (13.2-15.2) % Plt Count (140-440) K/mm3 Seg Neuts % (Manual) (40.0-70.0) % Lymphocytes % (Manual) (13.4-35.0) % Seg Neutrophils # Man (1.8-7.7) K/mm3 Lymphocytes # (Manual) (1.2-5.4) K/mm3 Monocytes # (Manual) (0.0-0.8) K/mm3 Sodium (137-145) mmol/L Potassium (3.6-5.0) mmol/L Carbon Dioxide (22-30) mmol/L BUN (7-17) mg/dL Creatinine (0.7-1.2) mg/dL Glucose (65-100) mg/dL POC Glucose 197 H 163 H 143 H (70-105) Lactic Acid (0.7-2.0) mmol/L Calcium (8.4-10.2) mg/dL Magnesium (1.7-2.3) mg/dL AST (5-40) units/L ALT (7-56) units/L Total Protein (6.3-8.2) g/dL Albumin (3.9-5) g/dL 10/07/16 10/07/16 Range/Units 09:02 Unknown WBC (4.5-11.0) K/mm3 RDW (13.2-15.2) % Plt Count (140-440) K/mm3 Seg Neuts % (Manual) (40.0-70.0) % Lymphocytes % (Manual) (13.4-35.0) % Seg Neutrophils # Man (1.8-7.7) K/mm3 Lymphocytes # (Manual) (1.2-5.4) K/mm3 Monocytes # (Manual) (0.0-0.8) K/mm3 Sodium (137-145) mmol/L Potassium (3.6-5.0) mmol/L Carbon Dioxide (22-30) mmol/L BUN (7-17) mg/dL Creatinine (0.7-1.2) mg/dL Glucose (65-100) mg/dL POC Glucose 172 H (70-105) Lactic Acid 2.1 H* (0.7-2.0) mmol/L Calcium (8.4-10.2) mg/dL Magnesium (1.7-2.3) mg/dL AST (5-40) units/L ALT (7-56) units/L Total Protein (6.3-8.2) g/dL Albumin (3.9-5) g/dL
[2016-10-07] MEDS: KCL 20MEQ/100ML 100 ML IV SCH ×3 (10:27→12:39)
--- NOTE | 2016-10-07 11:08 | Gastroenterology Progress Note ---
Assessment and Plan 61 yo female with h/o crohn's disease presents with multi-organ abnormalities after being found down at home. Pt with increasing wbc count, thrombocytopenia , and requiring D10 drip to prevent hypoglycemia. Creatinine down to 1.6, recommend CT of abd/pelvis with po contrast. Would start empiric treatment for c diff with po vanc. Discussed with ICU team. Subjective Date of service: 10/07/16 Principal diagnosis: diarrhea, abd pain, hypoglycemia, ARF, AMS Interval history: pt awake, appears less alert today. remains hypotensive. still with diarrhea, denies abd pain or GI bleeding. Objective - Exam Narrative Exam: Gen: NAD, appears less alert HENT: anicteric, dry mucous membranes CV: tachycardic, nl s1 and s2 Lungs: CTAB Abd: soft, nt, nd Ext: no edema - Constitutional Vitals: Temp Pulse Resp BP Pulse Ox 97.5 F L 103 H 21 98/72 88 10/07/16 08:00 10/07/16 10:00 10/07/16 10:00 10/07/16 10:00 10/07/16 10:00 - Labs CBC & Chem 7: 10/07/16 04:42 10/07/16 04:42 Labs: Laboratory Results - last 24 hr 10/06/16 10/06/16 10/06/16 07:37 08:55 09:37 WBC RBC Hgb Hct MCV MCH MCHC RDW Plt Count Add Manual Diff Total Counted Seg Neutrophils % Seg Neuts % (Manual) Band Neutrophils % Lymphocytes % (Manual) Reactive Lymphs % (Man) Monocytes % (Manual) Eosinophils % (Manual) Basophils % (Manual) Metamyelocytes % Myelocytes % Promyelocytes % Blast Cells % Nucleated RBC % Seg Neutrophils # Man Band Neutrophils # Lymphocytes # (Manual) Abs React Lymphs (Man) Monocytes # (Manual) Eosinophils # (Manual) Basophils # (Manual) Metamyelocytes # Myelocytes # Promyelocytes # Blast Cells # WBC Morphology Hypersegmented Neuts Hyposegmented Neuts Hypogranular Neuts Smudge Cells Toxic Granulation Toxic Vacuolation Dohle Bodies Pelger-Huet Anomaly Ivory Rods Platelet Estimate Clumped Platelets Plt Clumps, EDTA Large Platelets Giant Platelets Platelet Satelliting Plt Morphology Comment RBC Morphology Dimorphic RBCs Polychromasia Hypochromasia Poikilocytosis Anisocytosis Microcytosis Macrocytosis Spherocytes Pappenheimer Bodies Sickle Cells Target Cells Tear Drop Cells Ovalocytes Helmet Cells Nguyen-[place]rockway Bodies Bearden Rings [place] Cells Bite Cells Crenated Cell Elliptocytes Acanthocytes (Spur) Rouleaux Hemoglobin C Crystals Schistocytes Malaria parasites Mayito Bodies Hem Pathologist Commnt Sodium Potassium Chloride Carbon Dioxide Anion Gap BUN Creatinine Estimated GFR BUN/Creatinine Ratio Glucose POC Glucose 255 H 286 H 205 H Lactic Acid Calcium Magnesium Total Bilirubin AST ALT Alkaline Phosphatase Total Protein Albumin Albumin/Globulin Ratio 10/06/16 10/06/16 10/06/16 09:40 09:40 11:24 WBC 27.9 H RBC 3.96 Hgb 11.9 D Hct 36.8 D MCV 93 D MCH 30 MCHC 33 RDW 16.8 H Plt Count 94 L Add Manual Diff Complete Total Counted 200 Seg Neutrophils % Photographic Reproduction Technician Seg Neuts % (Manual) 94.5 H Band Neutrophils % 0 Lymphocytes % (Manual) 1.0 L Reactive Lymphs % (Man) 0 Monocytes % (Manual) 4.5 Eosinophils % (Manual) 0 Basophils % (Manual) 0 Metamyelocytes % 0 Myelocytes % 0 Promyelocytes % 0 Blast Cells % 0 Nucleated RBC % 0.5 Seg Neutrophils # Man 26.4 H Band Neutrophils # 0.0 Lymphocytes # (Manual) 0.3 L Abs React Lymphs (Man) 0.0 Monocytes # (Manual) 1.3 H Eosinophils # (Manual) 0.0 Basophils # (Manual) 0.0 Metamyelocytes # 0.0 Myelocytes # 0.0 Promyelocytes # 0.0 Blast Cells # 0.0 WBC Morphology Not Reportable Hypersegmented Neuts Not Reportable Hyposegmented Neuts Not Reportable Hypogranular Neuts Not Reportable Smudge Cells Not Reportable Toxic Granulation Not Reportable Toxic Vacuolation Not Reportable Dohle Bodies Not Reportable Pelger-Huet Anomaly Not Reportable Ivory Rods Not Reportable Platelet Estimate Consistent w auto Clumped Platelets Not Reportable Plt Clumps, EDTA Not Reportable Large Platelets Not Reportable Giant Platelets Not Reportable Platelet Satelliting Not Reportable Plt Morphology Comment Not Reportable RBC Morphology Not Reportable Dimorphic RBCs Not Reportable Polychromasia Not Reportable Hypochromasia Not Reportable Poikilocytosis Not Reportable Anisocytosis 1+ Microcytosis Not Reportable Macrocytosis 1+ Spherocytes Not Reportable Pappenheimer Bodies Not Reportable Sickle Cells Not Reportable Target Cells Not Reportable Tear Drop Cells Not Reportable Ovalocytes Not Reportable Helmet Cells Not Reportable Nguyen-[place]rockway Bodies Not Reportable Bearden Rings Not Reportable [place] Cells Not Reportable Bite Cells Not Reportable Crenated Cell Not Reportable Elliptocytes Not Reportable Acanthocytes (Spur) Not Reportable Rouleaux Not Reportable Hemoglobin C Crystals Not Reportable Schistocytes Not Reportable Malaria parasites Not Reportable Mayito Bodies Not Reportable Hem Pathologist Commnt No Sodium 130 L Potassium 3.7 Chloride 99.9 Carbon Dioxide 16 L Anion Gap 18 BUN 31 H Creatinine 1.8 H Estimated GFR 34 BUN/Creatinine Ratio 17.22 Glucose 259 H POC Glucose 204 H Lactic Acid Calcium 6.1 L Magnesium Total Bilirubin 0.3 AST 112 H ALT 100 H Alkaline Phosphatase 98 Total Protein 4.2 L D Albumin 1.2 L Albumin/Globulin Ratio 0.4 10/06/16 10/06/16 10/06/16 12:08 13:22 14:52 WBC RBC Hgb Hct MCV MCH MCHC RDW Plt Count Add Manual Diff Total Counted Seg Neutrophils % Seg Neuts % (Manual) Band Neutrophils % Lymphocytes % (Manual) Reactive Lymphs % (Man) Monocytes % (Manual) Eosinophils % (Manual) Basophils % (Manual) Metamyelocytes % Myelocytes % Promyelocytes % Blast Cells % Nucleated RBC % Seg Neutrophils # Man Band Neutrophils # Lymphocytes # (Manual) Abs React Lymphs (Man) Monocytes # (Manual) Eosinophils # (Manual) Basophils # (Manual) Metamyelocytes # Myelocytes # Promyelocytes # Blast Cells # WBC Morphology Hypersegmented Neuts Hyposegmented Neuts Hypogranular Neuts Smudge Cells Toxic Granulation Toxic Vacuolation Dohle Bodies Pelger-Huet Anomaly Ivory Rods Platelet Estimate Clumped Platelets Plt Clumps, EDTA Large Platelets Giant Platelets Platelet Satelliting Plt Morphology Comment RBC Morphology Dimorphic RBCs Polychromasia Hypochromasia Poikilocytosis Anisocytosis Microcytosis Macrocytosis Spherocytes Pappenheimer Bodies Sickle Cells Target Cells Tear Drop Cells Ovalocytes Helmet Cells Nguyen-[place]rockway Bodies Be[place] Rings [place] Cells Bite Cells Crenated Cell Elliptocytes Acanthocytes (Spur) Rouleaux Hemoglobin C Crystals Schistocytes Malaria parasites Mayito Bodies Hem Pathologist Commnt Sodium Potassium Chloride Carbon Dioxide Anion Gap BUN Creatinine Estimated GFR BUN/Creatinine Ratio Glucose POC Glucose 214 H 176 H 177 H Lactic Acid Calcium Magnesium Total Bilirubin AST ALT Alkaline Phosphatase Total Protein Albumin Albumin/Globulin Ratio 10/06/16 10/06/16 10/06/16 15:11 17:11 18:12 WBC RBC Hgb Hct MCV MCH MCHC RDW Plt Count Add Manual Diff Total Counted Seg Neutrophils % Seg Neuts % (Manual) Band Neutrophils % Lymphocytes % (Manual) Reactive Lymphs % (Man) Monocytes % (Manual) Eosinophils % (Manual) Basophils % (Manual) Metamyelocytes % Myelocytes % Promyelocytes % Blast Cells % Nucleated RBC % Seg Neutrophils # Man Band Neutrophils # Lymphocytes # (Manual) Abs React Lymphs (Man) Monocytes # (Manual) Eosinophils # (Manual) Basophils # (Manual) Metamyelocytes # Myelocytes # Promyelocytes # Blast Cells # WBC Morphology Hypersegmented Neuts Hyposegmented Neuts Hypogranular Neuts Smudge Cells Toxic Granulation Toxic Vacuolation Dohle Bodies Pelger-Huet Anomaly Ivory Rods Platelet Estimate Clumped Platelets Plt Clumps, EDTA Large Platelets Giant Platelets Platelet Satelliting Plt Morphology Comment RBC Morphology Dimorphic RBCs Polychromasia Hypochromasia Poikilocytosis Anisocytosis Microcytosis Macrocytosis Spherocytes Pappenheimer Bodies Sickle Cells Target Cells Tear Drop Cells Ovalocytes Helmet Cells Nguyen-[place]rockway Bodies Bearden Rings [place] Cells Bite Cells Crenated Cell Elliptocytes Acanthocytes (Spur) Rouleaux Hemoglobin C Crystals Schistocytes Malaria parasites Mayito Bodies Hem Pathologist Commnt Sodium Potassium Chloride Carbon Dioxide Anion Gap BUN Creatinine Estimated GFR BUN/Creatinine Ratio Glucose POC Glucose 168 H 173 H 165 H Lactic Acid Calcium Magnesium Total Bilirubin AST ALT Alkaline Phosphatase Total Protein Albumin Albumin/Globulin Ratio 10/06/16 10/06/16 10/06/16 18:55 20:01 21:00 WBC RBC Hgb Hct MCV MCH MCHC RDW Plt Count Add Manual Diff Total Counted Seg Neutrophils % Seg Neuts % (Manual) Band Neutrophils % Lymphocytes % (Manual) Reactive Lymphs % (Man) Monocytes % (Manual) Eosinophils % (Manual) Basophils % (Manual) Metamyelocytes % Myelocytes % Promyelocytes % Blast Cells % Nucleated RBC % Seg Neutrophils # Man Band Neutrophils # Lymphocytes # (Manual) Abs React Lymphs (Man) Monocytes # (Manual) Eosinophils # (Manual) Basophils # (Manual) Metamyelocytes # Myelocytes # Promyelocytes # Blast Cells # WBC Morphology Hypersegmented Neuts Hyposegmented Neuts Hypogranular Neuts Smudge Cells Toxic Granulation Toxic Vacuolation Dohle Bodies Pelger-Huet Anomaly Ivory Rods Platelet Estimate Clumped Platelets Plt Clumps, EDTA Large Platelets Giant Platelets Platelet Satelliting Plt Morphology Comment RBC Morphology Dimorphic RBCs Polychromasia Hypochromasia Poikilocytosis Anisocytosis Microcytosis Macrocytosis Spherocytes Pappenheimer Bodies Sickle Cells Target Cells Tear Drop Cells Ovalocytes Helmet Cells Nguyen-[place]rockway Bodies Bearden Rings [place] Cells Bite Cells Crenated Cell Elliptocytes Acanthocytes (Spur) Rouleaux Hemoglobin C Crystals Schistocytes Malaria parasites Mayito Bodies Hem Pathologist Commnt Sodium Potassium Chloride Carbon Dioxide Anion Gap BUN Creatinine Estimated GFR BUN/Creatinine Ratio Glucose POC Glucose 174 H 158 H 172 H Lactic Acid Calcium Magnesium Total Bilirubin AST ALT Alkaline Phosphatase Total Protein Albumin Albumin/Globulin Ratio 10/06/16 10/06/16 10/06/16 22:02 23:04 23:58 WBC RBC Hgb Hct MCV MCH MCHC RDW Plt Count Add Manual Diff Total Counted Seg Neutrophils % Seg Neuts % (Manual) Band Neutrophils % Lymphocytes % (Manual) Reactive Lymphs % (Man) Monocytes % (Manual) Eosinophils % (Manual) Basophils % (Manual) Metamyelocytes % Myelocytes % Promyelocytes % Blast Cells % Nucleated RBC % Seg Neutrophils # Man Band Neutrophils # Lymphocytes # (Manual) Abs React Lymphs (Man) Monocytes # (Manual) Eosinophils # (Manual) Basophils # (Manual) Metamyelocytes # Myelocytes # Promyelocytes # Blast Cells # WBC Morphology Hypersegmented Neuts Hyposegmented Neuts Hypogranular Neuts Smudge Cells Toxic Granulation Toxic Vacuolation Dohle Bodies Pelger-Huet Anomaly Ivory Rods Platelet Estimate Clumped Platelets Plt Clumps, EDTA Large Platelets Giant Platelets Platelet Satelliting Plt Morphology Comment RBC Morphology Dimorphic RBCs Polychromasia Hypochromasia Poikilocytosis Anisocytosis Microcytosis Macrocytosis Spherocytes Pappenheimer Bodies Sickle Cells Target Cells Tear Drop Cells Ovalocytes Helmet Cells Nguyen-[place]rockway Bodies [place] Rings [place] Cells Bite Cells Crenated Cell Elliptocytes Acanthocytes (Spur) Rouleaux Hemoglobin C Crystals Schistocytes Malaria parasites Mayito Bodies Hem Pathologist Commnt Sodium Potassium Chloride Carbon Dioxide Anion Gap BUN Creatinine Estimated GFR BUN/Creatinine Ratio Glucose POC Glucose 180 H 177 H 178 H Lactic Acid Calcium Magnesium Total Bilirubin AST ALT Alkaline Phosphatase Total Protein Albumin Albumin/Globulin Ratio 10/07/16 10/07/16 10/07/16 01:05 02:58 04:03 WBC RBC Hgb Hct MCV MCH MCHC RDW Plt Count Add Manual Diff Total Counted Seg Neutrophils % Seg Neuts % (Manual) Band Neutrophils % Lymphocytes % (Manual) Reactive Lymphs % (Man) Monocytes % (Manual) Eosinophils % (Manual) Basophils % (Manual) Metamyelocytes % Myelocytes % Promyelocytes % Blast Cells % Nucleated RBC % Seg Neutrophils # Man Band Neutrophils # Lymphocytes # (Manual) Abs React Lymphs (Man) Monocytes # (Manual) Eosinophils # (Manual) Basophils # (Manual) Metamyelocytes # Myelocytes # Promyelocytes # Blast Cells # WBC Morphology Hypersegmented Neuts Hyposegmented Neuts Hypogranular Neuts Smudge Cells Toxic Granulation Toxic Vacuolation Dohle Bodies Pelger-Huet Anomaly Ivory Rods Platelet Estimate Clumped Platelets Plt Clumps, EDTA Large Platelets Giant Platelets Platelet Satelliting Plt Morphology Comment RBC Morphology Dimorphic RBCs Polychromasia Hypochromasia Poikilocytosis Anisocytosis Microcytosis Macrocytosis Spherocytes Pappenheimer Bodies Sickle Cells Target Cells Tear Drop Cells Ovalocytes Helmet Cells Nguyen-[place]rockway Bodies Bearden Rings [place] Cells Bite Cells Crenated Cell Elliptocytes Acanthocytes (Spur) Rouleaux Hemoglobin C Crystals Schistocytes Malaria parasites Mayito Bodies Hem Pathologist Commnt Sodium Potassium Chloride Carbon Dioxide Anion Gap BUN Creatinine Estimated GFR BUN/Creatinine Ratio Glucose POC Glucose 168 H 181 H 196 H Lactic Acid Calcium Magnesium Total Bilirubin AST ALT Alkaline Phosphatase Total Protein Albumin Albumin/Globulin Ratio 10/07/16 10/07/16 10/07/16 04:42 04:42 05:05 WBC 30.5 H RBC 3.77 Hgb 11.2 Hct 34.5 MCV 92 MCH 30 MCHC 33 RDW 17.2 H Plt Count 59 L Add Manual Diff Total Counted Seg Neutrophils % Photographic Reproduction Technician Seg Neuts % (Manual) Band Neutrophils % Lymphocytes % (Manual) Reactive Lymphs % (Man) Monocytes % (Manual) Eosinophils % (Manual) Basophils % (Manual) Metamyelocytes % Myelocytes % Promyelocytes % Blast Cells % Nucleated RBC % Seg Neutrophils # Man Band Neutrophils # Lymphocytes # (Manual) Abs React Lymphs (Man) Monocytes # (Manual) Eosinophils # (Manual) Basophils # (Manual) Metamyelocytes # Myelocytes # Promyelocytes # Blast Cells # WBC Morphology Hypersegmented Neuts Hyposegmented Neuts Hypogranular Neuts Smudge Cells Toxic Granulation Toxic Vacuolation Dohle Bodies Pelger-Huet Anomaly Ivory Rods Platelet Estimate Clumped Platelets Plt Clumps, EDTA Large Platelets Giant Platelets Platelet Satelliting Plt Morphology Comment RBC Morphology Dimorphic RBCs Polychromasia Hypochromasia Poikilocytosis Anisocytosis Microcytosis Macrocytosis Spherocytes Pappenheimer Bodies Sickle Cells Target Cells Tear Drop Cells Ovalocytes Helmet Cells Nguyen-[place] Bodies Be[place] Rings [place] Cells Bite Cells Crenated Cell Elliptocytes Acanthocytes (Spur) Rouleaux Hemoglobin C Crystals Schistocytes Malaria parasites Mayito Bodies Hem Pathologist Commnt Sodium 127 L Potassium 3.5 L Chloride 98.9 Carbon Dioxide 16 L Anion Gap 16 BUN 27 H Creatinine 1.6 H Estimated GFR 39 BUN/Creatinine Ratio 16.87 Glucose 162 H POC Glucose 197 H Lactic Acid Calcium 6.1 L Magnesium 1.5 L Total Bilirubin 0.4 AST 83 H ALT 106 H Alkaline Phosphatase 85 Total Protein 3.9 L Albumin 1.1 L Albumin/Globulin Ratio 0.4 10/07/16 10/07/16 10/07/16 06:08 08:11 09:02 WBC RBC Hgb Hct MCV MCH MCHC RDW Plt Count Add Manual Diff Total Counted Seg Neutrophils % Seg Neuts % (Manual) Band Neutrophils % Lymphocytes % (Manual) Reactive Lymphs % (Man) Monocytes % (Manual) Eosinophils % (Manual) Basophils % (Manual) Metamyelocytes % Myelocytes % Promyelocytes % Blast Cells % Nucleated RBC % Seg Neutrophils # Man Band Neutrophils # Lymphocytes # (Manual) Abs React Lymphs (Man) Monocytes # (Manual) Eosinophils # (Manual) Basophils # (Manual) Metamyelocytes # Myelocytes # Promyelocytes # Blast Cells # WBC Morphology Hypersegmented Neuts Hyposegmented Neuts Hypogranular Neuts Smudge Cells Toxic Granulation Toxic Vacuolation Dohle Bodies Pelger-Huet Anomaly Ivory Rods Platelet Estimate Clumped Platelets Plt Clumps, EDTA Large Platelets Giant Platelets Platelet Satelliting Plt Morphology Comment RBC Morphology Dimorphic RBCs Polychromasia Hypochromasia Poikilocytosis Anisocytosis Microcytosis Macrocytosis Spherocytes Pappenheimer Bodies Sickle Cells Target Cells Tear Drop Cells Ovalocytes Helmet Cells Nguyen-[place]rock[place] Bodies Bearden Rings [place] Cells Bite Cells Crenated Cell Elliptocytes Acanthocytes (Spur) Rouleaux Hemoglobin C Crystals Schistocytes Malaria parasites Mayito Bodies Hem Pathologist Commnt Sodium Potassium Chloride Carbon Dioxide Anion Gap BUN Creatinine Estimated GFR BUN/Creatinine Ratio Glucose POC Glucose 163 H 143 H 172 H Lactic Acid Calcium Magnesium Total Bilirubin AST ALT Alkaline Phosphatase Total Protein Albumin Albumin/Globulin Ratio 10/07/16 Unknown WBC RBC Hgb Hct MCV MCH MCHC RDW Plt Count Add Manual Diff Total Counted Seg Neutrophils % Seg Neuts % (Manual) Band Neutrophils % Lymphocytes % (Manual) Reactive Lymphs % (Man) Monocytes % (Manual) Eosinophils % (Manual) Basophils % (Manual) Metamyelocytes % Myelocytes % Promyelocytes % Blast Cells % Nucleated RBC % Seg Neutrophils # Man Band Neutrophils # Lymphocytes # (Manual) Abs React Lymphs (Man) Monocytes # (Manual) Eosinophils # (Manual) Basophils # (Manual) Metamyelocytes # Myelocytes # Promyelocytes # Blast Cells # WBC Morphology Hypersegmented Neuts Hyposegmented Neuts Hypogranular Neuts Smudge Cells Toxic Granulation Toxic Vacuolation Dohle Bodies Pelger-Huet Anomaly Ivory Rods Platelet Estimate Clumped Platelets Plt Clumps, EDTA Large Platelets Giant Platelets Platelet Satelliting Plt Morphology Comment RBC Morphology Dimorphic RBCs Polychromasia Hypochromasia Poikilocytosis Anisocytosis Microcytosis Macrocytosis Spherocytes Pappenheimer Bodies Sickle Cells Target Cells Tear Drop Cells Ovalocytes Helmet Cells Nguyen-[place]rock[place] Bodies Bearden Rings [place] Cells Bite Cells Crenated Cell Elliptocytes Acanthocytes (Spur) Rouleaux Hemoglobin C Crystals Schistocytes Malaria parasites Mayito Bodies Hem Pathologist Commnt Sodium Potassium Chloride Carbon Dioxide Anion Gap BUN Creatinine Estimated GFR BUN/Creatinine Ratio Glucose POC Glucose Lactic Acid 2.1 H* Calcium Magnesium Total Bilirubin AST ALT Alkaline Phosphatase Total Protein Albumin Albumin/Globulin Ratio
[2016-10-07] MEDS: D10W 1,000 ML IV SCH ×3 (11:26→22:19)
[2016-10-07] MEDS: NACL 0.9% 1000 ML IV SCH ×2 (12:58→22:22)
[2016-10-07] MEDS: VANCOMYCIN PO SCH ×3 (13:04→23:11)
[2016-10-07 13:29] LABS: Blastocytes % (Manual) 0 %
[2016-10-07 13:32] LABS: Anisocytosis 1+; Diff Status Complete; Macrocytosis Few; Platelet Estimate Appears Decreased; Polychromasia Few
--- NOTE | 2016-10-07 13:49 | Progress Note ---
Assessment and Plan Assessment and plan: --Hyperkalemia; replenish per protocol monitor levels --Hypomagnesemia; replenish per protocol monitor levels --Septic shock secondary to Crohn's colitis On pressors, titrate systolic blood pressures to more than 100, continue Levophed Increase IV fluids, input-output monitoring --Sepsis secondary to Crohn's colitis Patient is on Levaquin and metronidazole, continue supportive care GI following, advised clear liquids and advance as tolerated --Acute on chronic anemia Status post blood transfusion, hemoglobin 11.2 monitor H&H for additional units of transfusion if needed --Acute renal failure: secondary to vasomotor nephropathy and prerenal azotemia possible ATN Creatinine trending down today is 1.6, closely monitor renal function avoid nephrotoxic medications IV fluids encourage oral fluids tolerated --Severe protein calorie malnutrition; Secondary to underlying disease process, nutrition supplements and dietary consultation --Transaminitis, trending down GI following --Coagulopathy INR was 1.9 at the time of admission, will follow closely --DVT prophylaxis; no pharmacological anticoagulation in view of anemia and coagulopathy Will use SCDs --Full CODE STATUS Patient remains critically ill on pressors and IV antibiotics Closely monitor the patient in ICU Critical care time 31 minutes The high probability of a clinically significant, sudden or life threatening deterioration of the [gastrointestinal, hematological, renal] system(s) required my full and direct attention, intervention and personal management. The aggregate critical care time was [31] minutes. This time is in addition to time spent performing reported procedures but includes the following: [x] Data Review and interpretation [x] Patient assessment and monitoring of vital signs [x] Documentation [x] Medication orders and management Hospitalist Physical - Constitutional Vitals: Temp Pulse Resp BP Pulse Ox 97.5 F L 111 H 19 95/64 95 10/07/16 08:00 10/07/16 13:00 10/07/16 13:00 10/07/16 13:00 10/07/16 13:00 General appearance: Present: no acute distress, well-nourished, obese Results - Labs CBC & Chem 7: 10/07/16 04:42 10/07/16 04:42 Labs: Laboratory Last Values WBC 30.5 K/mm3 (4.5-11.0) H 10/07/16 04:42 RBC 3.77 M/mm3 (3.65-5.03) 10/07/16 04:42 Hgb 11.2 gm/dl (10.1-14.3) 10/07/16 04:42 Hct 34.5 % (30.3-42.9) 10/07/16 04:42 MCV 92 fl (79-97) 10/07/16 04:42 MCH 30 pg (28-32) 10/07/16 04:42 MCHC 33 % (30-34) 10/07/16 04:42 RDW 17.2 % (13.2-15.2) H 10/07/16 04:42 Plt Count 59 K/mm3 (140-440) L 10/07/16 04:42 Add Manual Diff Complete 10/07/16 04:42 Total Counted 200 10/07/16 04:42 Seg Neutrophils % [employer] 10/07/16 04:42 Seg Neuts % (Manual) 90.0 % (40.0-70.0) H 10/07/16 04:42 Band Neutrophils % 6.0 % 10/07/16 04:42 Lymphocytes % (Manual) 2.0 % (13.4-35.0) L 10/07/16 04:42 Reactive Lymphs % (Man) 0 % 10/07/16 04:42 Monocytes % (Manual) 1.5 % (0.0-7.3) 10/07/16 04:42 Eosinophils % (Manual) 0 % (0.0-4.3) 10/06/16 09:40 Basophils % (Manual) 0 % (0.0-1.8) 10/06/16 09:40 Metamyelocytes % 0.5 % 10/07/16 04:42 Myelocytes % 0 % 10/07/16 04:42 Promyelocytes % 0 % 10/07/16 04:42 Blast Cells % 0 % 10/07/16 04:42 Nucleated RBC % Not Reportable 10/07/16 04:42 Seg Neutrophils # Man 27.5 K/mm3 (1.8-7.7) H 10/07/16 04:42 Band Neutrophils # 1.8 K/mm3 10/07/16 04:42 Lymphocytes # (Manual) 0.6 K/mm3 (1.2-5.4) L 10/07/16 04:42 Abs React Lymphs (Man) 0.0 K/mm3 10/07/16 04:42 Monocytes # (Manual) 0.5 K/mm3 (0.0-0.8) 10/07/16 04:42 Eosinophils # (Manual) 0.0 K/mm3 (0.0-0.4) 10/07/16 04:42 Basophils # (Manual) 0.0 K/mm3 (0.0-0.1) 10/07/16 04:42 Metamyelocytes # 0.2 K/mm3 10/07/16 04:42 Myelocytes # 0.0 K/mm3 10/07/16 04:42 Promyelocytes # 0.0 K/mm3 10/07/16 04:42 Blast Cells # 0.0 K/mm3 10/07/16 04:42 WBC Morphology Not Reportable 10/07/16 04:42 Hypersegmented Neuts Not Reportable 10/07/16 04:42 Hyposegmented Neuts Not Reportable 10/07/16 04:42 Hypogranular Neuts Not Reportable 10/07/16 04:42 Smudge Cells Not Reportable 10/07/16 04:42 Toxic Granulation Not Reportable 10/07/16 04:42 Toxic Vacuolation Not Reportable 10/07/16 04:42 Dohle Bodies Not Reportable 10/07/16 04:42 Pelger-Huet Anomaly Not Reportable 10/07/16 04:42 Ivory Rods Not Reportable 10/07/16 04:42 Platelet Estimate Appears decreased 10/07/16 04:42 Clumped Platelets Not Reportable 10/07/16 04:42 Plt Clumps, EDTA Not Reportable 10/07/16 04:42 Large Platelets Not Reportable 10/07/16 04:42 Giant Platelets Not Reportable 10/07/16 04:42 Platelet Satelliting Not Reportable 10/07/16 04:42 Plt Morphology Comment Not Reportable 10/07/16 04:42 RBC Morphology Not Reportable 10/07/16 04:42 Dimorphic RBCs Not Reportable 10/07/16 04:42 Polychromasia Few 10/07/16 04:42 Hypochromasia Not Reportable 10/07/16 04:42 Poikilocytosis Not Reportable 10/07/16 04:42 Anisocytosis 1+ 10/07/16 04:42 Microcytosis Not Reportable 10/07/16 04:42 Macrocytosis Few 10/07/16 04:42 Spherocytes Not Reportable 10/07/16 04:42 Pappenheimer Bodies Not Reportable 10/07/16 04:42 Sickle Cells Not Reportable 10/07/16 04:42 Target Cells Not Reportable 10/07/16 04:42 Tear Drop Cells Not Reportable 10/07/16 04:42 Ovalocytes Not Reportable 10/07/16 04:42 Helmet Cells Not Reportable 10/07/16 04:42 Nguyen-Backus Bodies Not Reportable 10/07/16 04:42 [place] Rings Not Reportable 10/07/16 04:42 [place] Cells Not Reportable 10/07/16 04:42 Bite Cells Not Reportable 10/07/16 04:42 Crenated Cell Not Reportable 10/07/16 04:42 Elliptocytes Not Reportable 10/07/16 04:42 Acanthocytes (Spur) Not Reportable 10/07/16 04:42 Rouleaux Not Reportable 10/07/16 04:42 Hemoglobin C Crystals Not Reportable 10/07/16 04:42 Schistocytes Not Reportable 10/07/16 04:42 Malaria parasites Not Reportable 10/07/16 04:42 Mayito Bodies Not Reportable 10/07/16 04:42 Hem Pathologist Commnt No 10/07/16 04:42 PT 22.2 Sec. (12.2-14.9) H 10/05/16 14:40 INR 1.94 (0.87-1.13) H 10/05/16 14:40 POC ABG pH 7.216 (7.35-7.45) L 10/05/16 16:03 POC ABG pCO2 28.2 (35-45) L 10/05/16 16:03 POC ABG pO2 60 (80-105) L 10/05/16 16:03 POC ABG HCO3 11.4 10/05/16 16:03 POC ABG Total CO2 12 10/05/16 16:03 POC ABG O2 Sat 86 10/05/16 16:03 POC ABG Base Excess -16 10/05/16 16:03 VBG pH 7.136 (7.320-7.420) L* 10/05/16 14:40 FiO2 32 % 10/05/16 16:03 Sodium 127 mmol/L (137-145) L 10/07/16 04:42 Potassium 3.5 mmol/L (3.6-5.0) L 10/07/16 04:42 Chloride 98.9 mmol/L (98-107) 10/07/16 04:42 Carbon Dioxide 16 mmol/L (22-30) L 10/07/16 04:42 Anion Gap 16 mmol/L 10/07/16 04:42 BUN 27 mg/dL (7-17) H 10/07/16 04:42 Creatinine 1.6 mg/dL (0.7-1.2) H 10/07/16 04:42 Estimated GFR 39 ml/min 10/07/16 04:42 BUN/Creatinine Ratio 16.87 % 10/07/16 04:42 Glucose 162 mg/dL (65-100) H 10/07/16 04:42 POC Glucose 172 (70-105) H 10/07/16 09:02 Lactic Acid 2.1 mmol/L (0.7-2.0) H* 10/07/16 Unknown Calcium 6.1 mg/dL (8.4-10.2) L 10/07/16 04:42 Phosphorus 3.8 mg/dL (2.5-4.5) 10/06/16 09:40 Magnesium 1.5 mg/dL (1.7-2.3) L 10/07/16 04:42 Iron 51 ug/dL (37-170) 10/05/16 21:30 Total Bilirubin 0.4 mg/dL (0.1-1.2) 10/07/16 04:42 AST 83 units/L (5-40) H 10/07/16 04:42 ALT 106 units/L (7-56) H 10/07/16 04:42 Alkaline Phosphatase 85 units/L (35-129) 10/07/16 04:42 Total Creatine Kinase 2317 units/L (30-135) H 10/05/16 21:30 Total Protein 3.9 g/dL (6.3-8.2) L 10/07/16 04:42 Albumin 1.1 g/dL (3.9-5) L 10/07/16 04:42 Albumin/Globulin Ratio 0.4 % 10/07/16 04:42 Vitamin B12 1592 pg/mL (211-911) H 10/05/16 21:30 Folate 16.37 ng/mL (7.3-26.0) 10/05/16 21:30 Urine Color Cathy (Yellow) 10/05/16 13:52 Urine Turbidity Clear (Clear) 10/05/16 13:52 Urine pH 5.0 (5.0-7.0) 10/05/16 13:52 Ur Specific [employer] 1.015 (1.003-1.030) 10/05/16 13:52 Urine Protein 30 mg/dl mg/dL (Negative) 10/05/16 13:52 Urine Glucose (UA) Neg mg/dL (Negative) 10/05/16 13:52 Urine Ketones Neg mg/dL (Negative) 10/05/16 13:52 Urine Blood Lg (Negative) 10/05/16 13:52 Urine Nitrite Neg (Negative) 10/05/16 13:52 Urine Bilirubin Neg (Negative) 10/05/16 13:52 Urine Urobilinogen < 2.0 mg/dL (<2.0) 10/05/16 13:52 Ur Leukocyte Esterase Neg (Negative) 10/05/16 13:52 Urine WBC (Auto) 1.0 /HPF (0.0-6.0) 10/05/16 13:52 Urine RBC (Auto) < 1.0 /HPF (0.0-6.0) 10/05/16 13:52 U Epithel Cells (Auto) 1.0 /HPF (0-13.0) 10/05/16 13:52 Urine Mucus Few /HPF 10/05/16 13:52 Ketones 2.9 mg/dL (0.2-2.8) H 10/05/16 21:30 Blood Type B POSITIVE 10/05/16 21:05 Antibody Screen Negative 10/05/16 21:05 Crossmatch See Detail 10/05/16 21:05
[2016-10-07] MEDS: LEVAQUIN 750MG/150ML 150 ML IV SCH (17:45)
[2016-10-07] MEDS: PROVENTIL IH PRN (21:08)
[2016-10-08] MEDS: FLAGYL 500 MG/100 ML 100 ML IV SCH ×3 (01:06→16:37)
[2016-10-08] MEDS: NOVOLOG SUB-Q SCH ×6 (01:40→22:00)
[2016-10-08 03:50] LABS: Hematocrit 33.8 % (30.3-42.9); Mean Corpuscular HGB Conc 32 % (30-34); Mean Corpuscular Hemoglobin 30 pg (28-32); Mean Corpuscular Volume 94 fl (79-97); Red Blood Count 3.62 M/mm3 (3.65-5.03); Red Cell Distribution Width 17.2 % (13.2-15.2)
[2016-10-08 03:53] LABS: Platelet Count 59 K/mm3 (140-440)
[2016-10-08] MEDS: PROVENTIL IH PRN (03:56)
[2016-10-08 04:00] LABS: INR 1.68 (0.87-1.13)
[2016-10-08 04:13] LABS: Alanine Aminotransferase 112 units/L (7-56); Albumin/Globulin Ratio 0.4 %; Alkaline Phosphatase 88 units/L (35-129); BUN/Creatinine Ratio 16.92; Bilirubin,Total 0.3 mg/dL (0.1-1.2); Blood Urea Nitrogen 22 mg/dL (7-17); Carbon Dioxide 15 mmol/L (22-30); Glucose 142 mg/dL (65-100); Phosphorous 2.6 mg/dL (2.5-4.5); Total Protein 3.8 g/dL (6.3-8.2)
[2016-10-08 04:14] LABS: Chloride 104.8 mmol/L (98-107); Potassium 3.8 mmol/L (3.6-5.0); Sodium 132 mmol/L (137-145)
[2016-10-08 04:17] LABS: Bilirubin,Direct < 0.2 mg/dL (0-0.2); Bilirubin,Indirect 0.1 mg/dL
[2016-10-08 04:18] LABS: Anion Gap 16 mmol/L; Calcium 5.9 mg/dL (8.4-10.2)
[2016-10-08 05:32] LABS: Basophils % (Manual) 0 % (0.0-1.8); Blastocytes % (Manual) 0 %; Eosinophils % (Manual) 0 % (0.0-4.3)
[2016-10-08 05:33] LABS: Anisocytosis 1+; Diff Status Complete; Hypochromasia 1+; Macrocytosis 1+; Platelet Estimate Consistent w Auto; Polychromasia Rare
[2016-10-08] MEDS: LEVOPHED DRIP 4 MG/NS 250 ML 250 ML IV SCH ×4 (06:55→22:50)
[2016-10-08] MEDS: VANCOMYCIN PO SCH ×3 (07:15→19:04)
--- NOTE | 2016-10-08 08:16 | Progress Note ---
Assessment and Plan Assessment and plan: --Hyperkalemia/ Hypomagnesemia; corrected, closely monitor electrolytes --Septic shock secondary to Crohn's colitis On pressors, titrate systolic blood pressures to more than 100, Continue IV fluids, input-output monitoring --Worsening leukocytosis WBC 31K secondary to sepsis C. difficile negative --Sepsis secondary to Crohn's colitis Patient is on Levaquin and metronidazole, continue supportive care GI following, advised clear liquids and advance as tolerated --Acute on chronic anemia Status post blood transfusion, hemoglobin 11.2 monitor H&H for additional units of transfusion if needed --Acute renal failure: secondary to vasomotor nephropathy and prerenal azotemia possible ATN Creatinine trending down today is 1.3, closely monitor renal function avoid nephrotoxic medications IV fluids encourage oral fluids tolerated --Severe protein calorie malnutrition; Secondary to underlying disease process, nutrition supplements and dietary consultation --Transaminitis, trending down GI following --Coagulopathy INR was 1.9 at the time of admission, trending down INR today is 1.6 will follow closely --DVT prophylaxis; no pharmacological anticoagulation in view of anemia and coagulopathy Will use SCDs --Full CODE STATUS Patient remains critically ill on pressors and IV antibiotics Closely monitor the patient in ICU Critical care time 31 minutes The high probability of a clinically significant, sudden or life threatening deterioration of the [gastrointestinal, hematological, renal] system(s) required my full and direct attention, intervention and personal management. The aggregate critical care time was [31] minutes. This time is in addition to time spent performing reported procedures but includes the following: [x] Data Review and interpretation [x] Patient assessment and monitoring of vital signs [x] Documentation [x] Medication orders and management History Interval history: Patient seen and evaluated medical records reviewed Continues to have diarrhea, on levophed Tolerating clear liquids Patient feels slightly better denies any nausea vomiting Shortness of breath significantly improved after nebulizer treatments Hospitalist Physical - Constitutional Vitals: Temp Pulse Resp BP Pulse Ox 97.5 F L 103 H 16 103/70 100 10/08/16 05:12 10/08/16 07:00 10/08/16 07:00 10/08/16 07:00 10/08/16 07:00 General appearance: Present: no acute distress, well-nourished, obese - EENT Eyes: Present: PERRL, EOM intact - Neck Neck: Present: supple, normal ROM - Respiratory Respiratory effort: normal Respiratory: bilateral: diminished, negative: rales, rhonchi, wheezing - Cardiovascular Rhythm: regular Heart Sounds: Present: S1 & S2 - Extremities Extremities: no ischemia, pulses intact, pulses symmetrical Peripheral Pulses: within normal limits - Abdominal General gastrointestinal: soft, non-tender, non-distended, normal bowel sounds - Integumentary Integumentary: Present: clear, warm - Psychiatric Psychiatric: appropriate mood/affect, cooperative - Neurologic Neurologic: CNII-XII intact, moves all extremities Results - Labs CBC & Chem 7: 10/08/16 03:45 10/08/16 03:45 Labs: Laboratory Last Values WBC 31.0 K/mm3 (4.5-11.0) H 10/08/16 03:45 RBC 3.62 M/mm3 (3.65-5.03) L 10/08/16 03:45 Hgb 11.0 gm/dl (10.1-14.3) 10/08/16 03:45 Hct 33.8 % (30.3-42.9) 10/08/16 03:45 MCV 94 fl (79-97) 10/08/16 03:45 MCH 30 pg (28-32) 10/08/16 03:45 MCHC 32 % (30-34) 10/08/16 03:45 RDW 17.2 % (13.2-15.2) H 10/08/16 03:45 Plt Count 59 K/mm3 (140-440) L 10/08/16 03:45 Add Manual Diff Complete 10/08/16 03:45 Total Counted 100 10/08/16 03:45 Seg Neutrophils % [employer] 10/08/16 03:45 Seg Neuts % (Manual) 79.0 % (40.0-70.0) H 10/08/16 03:45 Band Neutrophils % 12.0 % 10/08/16 03:45 Lymphocytes % (Manual) 1.0 % (13.4-35.0) L 10/08/16 03:45 Reactive Lymphs % (Man) 0 % 10/08/16 03:45 Monocytes % (Manual) 7.0 % (0.0-7.3) 10/08/16 03:45 Eosinophils % (Manual) 0 % (0.0-4.3) 10/08/16 03:45 Basophils % (Manual) 0 % (0.0-1.8) 10/08/16 03:45 Metamyelocytes % 1.0 % 10/08/16 03:45 Myelocytes % 0 % 10/08/16 03:45 Promyelocytes % 0 % 10/08/16 03:45 Blast Cells % 0 % 10/08/16 03:45 Nucleated RBC % Not Reportable 10/08/16 03:45 Seg Neutrophils # Man 24.5 K/mm3 (1.8-7.7) H 10/08/16 03:45 Band Neutrophils # 3.7 K/mm3 10/08/16 03:45 Lymphocytes # (Manual) 0.3 K/mm3 (1.2-5.4) L 10/08/16 03:45 Abs React Lymphs (Man) 0.0 K/mm3 10/08/16 03:45 Monocytes # (Manual) 2.2 K/mm3 (0.0-0.8) H 10/08/16 03:45 Eosinophils # (Manual) 0.0 K/mm3 (0.0-0.4) 10/08/16 03:45 Basophils # (Manual) 0.0 K/mm3 (0.0-0.1) 10/08/16 03:45 Metamyelocytes # 0.3 K/mm3 10/08/16 03:45 Myelocytes # 0.0 K/mm3 10/08/16 03:45 Promyelocytes # 0.0 K/mm3 10/08/16 03:45 Blast Cells # 0.0 K/mm3 10/08/16 03:45 WBC Morphology Not Reportable 10/08/16 03:45 Hypersegmented Neuts Not Reportable 10/08/16 03:45 Hyposegmented Neuts Not Reportable 10/08/16 03:45 Hypogranular Neuts Not Reportable 10/08/16 03:45 Smudge Cells Not Reportable 10/08/16 03:45 Toxic Granulation Not Reportable 10/08/16 03:45 Toxic Vacuolation Not Reportable 10/08/16 03:45 Dohle Bodies Not Reportable 10/08/16 03:45 Pelger-Huet Anomaly Not Reportable 10/08/16 03:45 Ivory Rods Not Reportable 10/08/16 03:45 Platelet Estimate Consistent w auto 10/08/16 03:45 Clumped Platelets Not Reportable 10/08/16 03:45 Plt Clumps, EDTA Not Reportable 10/08/16 03:45 Large Platelets Not Reportable 10/08/16 03:45 Giant Platelets Not Reportable 10/08/16 03:45 Platelet Satelliting Not Reportable 10/08/16 03:45 Plt Morphology Comment Not Reportable 10/08/16 03:45 RBC Morphology Not Reportable 10/08/16 03:45 Dimorphic RBCs Not Reportable 10/08/16 03:45 Polychromasia Rare 10/08/16 03:45 Hypochromasia 1+ 10/08/16 03:45 Poikilocytosis Not Reportable 10/08/16 03:45 Anisocytosis 1+ 10/08/16 03:45 Microcytosis Not Reportable 10/08/16 03:45 Macrocytosis 1+ 10/08/16 03:45 Spherocytes Not Reportable 10/08/16 03:45 Pappenheimer Bodies Not Reportable 10/08/16 03:45 Sickle Cells Not Reportable 10/08/16 03:45 Target Cells Not Reportable 10/08/16 03:45 Tear Drop Cells Not Reportable 10/08/16 03:45 Ovalocytes Not Reportable 10/08/16 03:45 Helmet Cells Not Reportable 10/08/16 03:45 Nguyen-Somis Bodies Not Reportable 10/08/16 03:45 [place] Rings Not Reportable 10/08/16 03:45 [place] Cells Not Reportable 10/08/16 03:45 Bite Cells Not Reportable 10/08/16 03:45 Crenated Cell Not Reportable 10/08/16 03:45 Elliptocytes Not Reportable 10/08/16 03:45 Acanthocytes (Spur) Not Reportable 10/08/16 03:45 Rouleaux Not Reportable 10/08/16 03:45 Hemoglobin C Crystals Not Reportable 10/08/16 03:45 Schistocytes Not Reportable 10/08/16 03:45 Malaria parasites Not Reportable 10/08/16 03:45 Mayito Bodies Not Reportable 10/08/16 03:45 Hem Pathologist Commnt No 10/08/16 03:45 PT 19.8 Sec. (12.2-14.9) H 10/08/16 03:45 INR 1.68 (0.87-1.13) H 10/08/16 03:45 POC ABG pH 7.216 (7.35-7.45) L 10/05/16 16:03 POC ABG pCO2 28.2 (35-45) L 10/05/16 16:03 POC ABG pO2 60 (80-105) L 10/05/16 16:03 POC ABG HCO3 11.4 10/05/16 16:03 POC ABG Total CO2 12 10/05/16 16:03 POC ABG O2 Sat 86 10/05/16 16:03 POC ABG Base Excess -16 10/05/16 16:03 VBG pH 7.136 (7.320-7.420) L* 10/05/16 14:40 FiO2 32 % 10/05/16 16:03 Sodium 132 mmol/L (137-145) L 10/08/16 03:45 Potassium 3.8 mmol/L (3.6-5.0) 10/08/16 03:45 Chloride 104.8 mmol/L (98-107) 10/08/16 03:45 Carbon Dioxide 15 mmol/L (22-30) L 10/08/16 03:45 Anion Gap 16 mmol/L 10/08/16 03:45 BUN 22 mg/dL (7-17) H 10/08/16 03:45 Creatinine 1.3 mg/dL (0.7-1.2) H 10/08/16 03:45 Estimated GFR 50 ml/min 10/08/16 03:45 BUN/Creatinine Ratio 16.92 % 10/08/16 03:45 Glucose 142 mg/dL (65-100) H 10/08/16 03:45 POC Glucose 149 (70-105) H 10/08/16 03:35 Lactic Acid 2.1 mmol/L (0.7-2.0) H* 10/07/16 Unknown Calcium 5.9 mg/dL (8.4-10.2) L* 10/08/16 03:45 Phosphorus 2.6 mg/dL (2.5-4.5) 10/08/16 03:45 Magnesium 2.0 mg/dL (1.7-2.3) 10/08/16 03:45 Iron 51 ug/dL (37-170) 10/05/16 21:30 Total Bilirubin 0.3 mg/dL (0.1-1.2) 10/08/16 03:45 Direct Bilirubin < 0.2 mg/dL (0-0.2) 10/08/16 03:45 Indirect Bilirubin 0.1 mg/dL 10/08/16 03:45 AST 62 units/L (5-40) H 10/08/16 03:45 ALT 112 units/L (7-56) H 10/08/16 03:45 Alkaline Phosphatase 88 units/L (35-129) 10/08/16 03:45 Total Creatine Kinase 2317 units/L (30-135) H 10/05/16 21:30 Total Protein 3.8 g/dL (6.3-8.2) L 10/08/16 03:45 Albumin 1.0 g/dL (3.9-5) L 10/08/16 03:45 Albumin/Globulin Ratio 0.4 % 10/08/16 03:45 Vitamin B12 1592 pg/mL (211-911) H 10/05/16 21:30 Folate 16.37 ng/mL (7.3-26.0) 10/05/16 21:30 Urine Color Cathy (Yellow) 10/05/16 13:52 Urine Turbidity Clear (Clear) 10/05/16 13:52 Urine pH 5.0 (5.0-7.0) 10/05/16 13:52 Ur Specific [place] 1.015 (1.003-1.030) 10/05/16 13:52 Urine Protein 30 mg/dl mg/dL (Negative) 10/05/16 13:52 Urine Glucose (UA) Neg mg/dL (Negative) 10/05/16 13:52 Urine Ketones Neg mg/dL (Negative) 10/05/16 13:52 Urine Blood Lg (Negative) 10/05/16 13:52 Urine Nitrite Neg (Negative) 10/05/16 13:52 Urine Bilirubin Neg (Negative) 10/05/16 13:52 Urine Urobilinogen < 2.0 mg/dL (<2.0) 10/05/16 13:52 Ur Leukocyte Esterase Neg (Negative) 10/05/16 13:52 Urine WBC (Auto) 1.0 /HPF (0.0-6.0) 10/05/16 13:52 Urine RBC (Auto) < 1.0 /HPF (0.0-6.0) 10/05/16 13:52 U Epithel Cells (Auto) 1.0 /HPF (0-13.0) 10/05/16 13:52 Urine Mucus Few /HPF 10/05/16 13:52 Ketones 2.9 mg/dL (0.2-2.8) H 10/05/16 21:30 Blood Type B POSITIVE 10/05/16 21:05 Antibody Screen Negative 10/05/16 21:05 Crossmatch See Detail 10/05/16 21:05
[2016-10-08] MEDS: DUONEB 0.5 MG-3 MG/3 ML SOLN IH SCH ×3 (08:25→20:07)
[2016-10-08] MEDS: PROTONIX IV SCH ×2 (10:27→22:53)
[2016-10-08] MEDS: D10W 1,000 ML IV SCH ×2 (11:17→16:00)
[2016-10-08] MEDS: NACL 0.9% 1000 ML 1,000 ML IV SCH (16:00)
[2016-10-09] MEDS: NOVOLOG SUB-Q SCH ×4 (02:00→18:23)
[2016-10-09] MEDS: NACL 0.9% 1000 ML 1,000 ML IV SCH (02:00)
[2016-10-09] MEDS: LEVOPHED DRIP 4 MG/NS 250 ML 250 ML IV SCH (05:33)
[2016-10-09] MEDS: VANCOMYCIN PO SCH ×2 (05:34)
[2016-10-09] MEDS: D10W 1,000 ML IV SCH (05:37)
[2016-10-09 06:04] LABS: BUN/Creatinine Ratio 16.36; Blood Urea Nitrogen 18 mg/dL (7-17); Calcium 6.5 mg/dL (8.4-10.2); Carbon Dioxide 17 mmol/L (22-30); Chloride 108.4 mmol/L (98-107); Glucose 164 mg/dL (65-100); Magnesium 1.8 mg/dL (1.7-2.3); Phosphorous 2.6 mg/dL (2.5-4.5); Sodium 135 mmol/L (137-145)
[2016-10-09 06:10] LABS: Anion Gap 14 mmol/L
[2016-10-09 06:15] LABS: Hematocrit 34.2 % (30.3-42.9); Hemoglobin 11.3 gm/dl (10.1-14.3); Mean Corpuscular HGB Conc 33 % (30-34); Mean Corpuscular Hemoglobin 31 pg (28-32); Mean Corpuscular Volume 93 fl (79-97); Red Blood Count 3.68 M/mm3 (3.65-5.03); Red Cell Distribution Width 17.6 % (13.2-15.2)
[2016-10-09 06:21] LABS: Platelet Count 77 K/mm3 (140-440)
[2016-10-09 07:00] LABS: White Blood Count 26.6 K/mm3 (4.5-11.0)
[2016-10-09] MEDS: DUONEB 0.5 MG-3 MG/3 ML SOLN IH SCH ×3 (07:29→19:51)
[2016-10-09 07:59] LABS: Basophils % (Manual) 0 % (0.0-1.8); Blastocytes % (Manual) 0 %; Eosinophils % (Manual) 0 % (0.0-4.3)
[2016-10-09 08:00] LABS: Anisocytosis 1+; Burr Cells Few; Elliptocytes Rare; Giant Platelets Rare; Helmet Cells Rare; Hypochromasia Rare; Ovalocytes 1+
[2016-10-09 08:01] LABS: Diff Status Complete; Platelet Estimate Appears Decreased; Polychromasia 1+
--- NOTE | 2016-10-09 08:53 | Progress Note ---
Assessment and Plan Assessment and plan: --Septic shock secondary to Crohn's colitis On pressors, titrate systolic blood pressures to more than 100, Continue IV fluids, input-output monitoring -- leukocytosis trending down secondary to sepsis C. difficile negative --Sepsis secondary to Crohn's colitis Patient is on Levaquin and metronidazole, DC vancomycin GI following, advance diet to mechanical soft as tolerated --Acute on chronic anemia Status post blood transfusion, stable H&H --Acute renal failure: secondary to vasomotor nephropathy and prerenal azotemia possible ATN Resolved, continue gentle hydration --Severe protein calorie malnutrition; Secondary to underlying disease process, nutrition supplements and dietary consultation --Transaminitis, trending down, GI following --Coagulopathy INR was 1.9 at the time of admission, trending down --DVT prophylaxis; no pharmacological anticoagulation in view of anemia and coagulopathy Will use SCDs --Full CODE STATUS Patient remains critically ill septic shock on pressors and IV antibiotics Closely monitor the patient in ICU Critical care time 31 minutes The high probability of a clinically significant, sudden or life threatening deterioration of the [gastrointestinal, hematological, renal] system(s) required my full and direct attention, intervention and personal management. The aggregate critical care time was [31] minutes. This time is in addition to time spent performing reported procedures but includes the following: [x] Data Review and interpretation [x] Patient assessment and monitoring of vital signs [x] Documentation [x] Medication orders and management History Interval history: Patient seen and evaluated medical records reviewed No new events reported by the nursing staff Patient remains on Levothroid at a lower dose Tolerating clear liquids, denies nausea vomiting or abdominal pain Still has loose stool significantly improved since yesterday Alert awake oriented 3 not in acute distress Hospitalist Physical - Constitutional Vitals: Temp Pulse Resp BP Pulse Ox 97.5 F L 121 H 23 107/78 99 10/09/16 08:00 10/09/16 08:00 10/09/16 08:00 10/09/16 08:00 10/09/16 08:00 General appearance: Present: no acute distress, well-nourished, obese - EENT Eyes: Present: PERRL, EOM intact - Neck Neck: Present: supple, normal ROM - Respiratory Respiratory effort: normal Respiratory: bilateral: diminished, negative: rales, rhonchi, wheezing - Cardiovascular Rhythm: regular Heart Sounds: Present: S1 & S2 - Extremities Extremities: no ischemia, pulses intact, pulses symmetrical Peripheral Pulses: within normal limits - Abdominal General gastrointestinal: soft, non-tender, non-distended, normal bowel sounds - Integumentary Integumentary: Present: clear, warm - Psychiatric Psychiatric: appropriate mood/affect, cooperative - Neurologic Neurologic: CNII-XII intact, moves all extremities Results - Labs CBC & Chem 7: 10/09/16 05:43 10/09/16 05:43 Labs: Laboratory Last Values WBC 26.6 K/mm3 (4.5-11.0) H 10/09/16 05:43 RBC 3.68 M/mm3 (3.65-5.03) 10/09/16 05:43 Hgb 11.3 gm/dl (10.1-14.3) 10/09/16 05:43 Hct 34.2 % (30.3-42.9) 10/09/16 05:43 MCV 93 fl (79-97) 10/09/16 05:43 MCH 31 pg (28-32) 10/09/16 05:43 MCHC 33 % (30-34) 10/09/16 05:43 RDW 17.6 % (13.2-15.2) H 10/09/16 05:43 Plt Count 77 K/mm3 (140-440) L 10/09/16 05:43 Add Manual Diff Complete 10/09/16 05:43 Total Counted 100 10/09/16 05:43 Seg Neutrophils % Transcript Clerk 10/09/16 05:43 Seg Neuts % (Manual) 93.0 % (40.0-70.0) H 10/09/16 05:43 Band Neutrophils % 5.0 % 10/09/16 05:43 Lymphocytes % (Manual) 0 % (13.4-35.0) L 10/09/16 05:43 Reactive Lymphs % (Man) 0 % 10/09/16 05:43 Monocytes % (Manual) 0 % (0.0-7.3) 10/09/16 05:43 Eosinophils % (Manual) 0 % (0.0-4.3) 10/09/16 05:43 Basophils % (Manual) 0 % (0.0-1.8) 10/09/16 05:43 Metamyelocytes % 1.0 % 10/09/16 05:43 Myelocytes % 1.0 % 10/09/16 05:43 Promyelocytes % 0 % 10/09/16 05:43 Blast Cells % 0 % 10/09/16 05:43 Nucleated RBC % Not Reportable 10/09/16 05:43 Seg Neutrophils # Man 24.7 K/mm3 (1.8-7.7) H 10/09/16 05:43 Band Neutrophils # 1.3 K/mm3 10/09/16 05:43 Lymphocytes # (Manual) 0.0 K/mm3 (1.2-5.4) L 10/09/16 05:43 Abs React Lymphs (Man) 0.0 K/mm3 10/09/16 05:43 Monocytes # (Manual) 0.0 K/mm3 (0.0-0.8) 10/09/16 05:43 Eosinophils # (Manual) 0.0 K/mm3 (0.0-0.4) 10/09/16 05:43 Basophils # (Manual) 0.0 K/mm3 (0.0-0.1) 10/09/16 05:43 Metamyelocytes # 0.3 K/mm3 10/09/16 05:43 Myelocytes # 0.3 K/mm3 10/09/16 05:43 Promyelocytes # 0.0 K/mm3 10/09/16 05:43 Blast Cells # 0.0 K/mm3 10/09/16 05:43 WBC Morphology Not Reportable 10/09/16 05:43 Hypersegmented Neuts Not Reportable 10/09/16 05:43 Hyposegmented Neuts Not Reportable 10/09/16 05:43 Hypogranular Neuts Not Reportable 10/09/16 05:43 Smudge Cells Not Reportable 10/09/16 05:43 Toxic Granulation Not Reportable 10/09/16 05:43 Toxic Vacuolation Not Reportable 10/09/16 05:43 Dohle Bodies Not Reportable 10/09/16 05:43 Pelger-Huet Anomaly Not Reportable 10/09/16 05:43 Ivory Rods Not Reportable 10/09/16 05:43 Platelet Estimate Appears decreased 10/09/16 05:43 Clumped Platelets Not Reportable 10/09/16 05:43 Plt Clumps, EDTA Not Reportable 10/09/16 05:43 Large Platelets Not Reportable 10/09/16 05:43 Giant Platelets Rare 10/09/16 05:43 Platelet Satelliting Not Reportable 10/09/16 05:43 Plt Morphology Comment Not Reportable 10/09/16 05:43 RBC Morphology Not Reportable 10/09/16 05:43 Dimorphic RBCs Not Reportable 10/09/16 05:43 Polychromasia 1+ 10/09/16 05:43 Hypochromasia Rare 10/09/16 05:43 Poikilocytosis Not Reportable 10/09/16 05:43 Anisocytosis 1+ 10/09/16 05:43 Microcytosis Not Reportable 10/09/16 05:43 Macrocytosis Not Reportable 10/09/16 05:43 Spherocytes Not Reportable 10/09/16 05:43 Pappenheimer Bodies Not Reportable 10/09/16 05:43 Sickle Cells Not Reportable 10/09/16 05:43 Target Cells Not Reportable 10/09/16 05:43 Tear Drop Cells Not Reportable 10/09/16 05:43 Ovalocytes 1+ 10/09/16 05:43 Helmet Cells Rare 10/09/16 05:43 [place] Bodies Not Reportable 10/09/16 05:43 [place] Rings Not Reportable 10/09/16 05:43 [place] Cells Few 10/09/16 05:43 Bite Cells Not Reportable 10/09/16 05:43 Crenated Cell Not Reportable 10/09/16 05:43 Elliptocytes Rare 10/09/16 05:43 Acanthocytes (Spur) Not Reportable 10/09/16 05:43 Rouleaux Not Reportable 10/09/16 05:43 Hemoglobin C Crystals Not Reportable 10/09/16 05:43 Schistocytes Not Reportable 10/09/16 05:43 Malaria parasites Not Reportable 10/09/16 05:43 [place] Bodies Not Reportable 10/09/16 05:43 Hem Pathologist Commnt No 10/09/16 05:43 PT 19.8 Sec. (12.2-14.9) H 10/08/16 03:45 INR 1.68 (0.87-1.13) H 10/08/16 03:45 POC ABG pH 7.216 (7.35-7.45) L 10/05/16 16:03 POC ABG pCO2 28.2 (35-45) L 10/05/16 16:03 POC ABG pO2 60 (80-105) L 10/05/16 16:03 POC ABG HCO3 11.4 10/05/16 16:03 POC ABG Total CO2 12 10/05/16 16:03 POC ABG O2 Sat 86 10/05/16 16:03 POC ABG Base Excess -16 10/05/16 16:03 VBG pH 7.136 (7.320-7.420) L* 10/05/16 14:40 FiO2 32 % 10/05/16 16:03 Sodium 135 mmol/L (137-145) L 10/09/16 05:43 Potassium 4.0 mmol/L (3.6-5.0) 10/09/16 05:43 Chloride 108.4 mmol/L (98-107) H 10/09/16 05:43 Carbon Dioxide 17 mmol/L (22-30) L 10/09/16 05:43 Anion Gap 14 mmol/L 10/09/16 05:43 BUN 18 mg/dL (7-17) H 10/09/16 05:43 Creatinine 1.1 mg/dL (0.7-1.2) 10/09/16 05:43 Estimated GFR > 60 ml/min 10/09/16 05:43 BUN/Creatinine Ratio 16.36 % 10/09/16 05:43 Glucose 164 mg/dL (65-100) H 10/09/16 05:43 POC Glucose 162 (70-105) H 10/09/16 06:22 Lactic Acid 2.1 mmol/L (0.7-2.0) H* 10/07/16 Unknown Calcium 6.5 mg/dL (8.4-10.2) L 10/09/16 05:43 Phosphorus 2.6 mg/dL (2.5-4.5) 10/09/16 05:43 Magnesium 1.8 mg/dL (1.7-2.3) 10/09/16 05:43 Iron 51 ug/dL (37-170) 10/05/16 21:30 Total Bilirubin 0.3 mg/dL (0.1-1.2) 10/08/16 03:45 Direct Bilirubin < 0.2 mg/dL (0-0.2) 10/08/16 03:45 Indirect Bilirubin 0.1 mg/dL 10/08/16 03:45 AST 62 units/L (5-40) H 10/08/16 03:45 ALT 112 units/L (7-56) H 10/08/16 03:45 Alkaline Phosphatase 88 units/L (35-129) 10/08/16 03:45 Total Creatine Kinase 2317 units/L (30-135) H 10/05/16 21:30 Total Protein 3.8 g/dL (6.3-8.2) L 10/08/16 03:45 Albumin 1.0 g/dL (3.9-5) L 10/08/16 03:45 Albumin/Globulin Ratio 0.4 % 10/08/16 03:45 Vitamin B12 1592 pg/mL (211-911) H 10/05/16 21:30 Folate 16.37 ng/mL (7.3-26.0) 10/05/16 21:30 Urine Color Cathy (Yellow) 10/05/16 13:52 Urine Turbidity Clear (Clear) 10/05/16 13:52 Urine pH 5.0 (5.0-7.0) 10/05/16 13:52 Ur Specific [place] 1.015 (1.003-1.030) 10/05/16 13:52 Urine Protein 30 mg/dl mg/dL (Negative) 10/05/16 13:52 Urine Glucose (UA) Neg mg/dL (Negative) 10/05/16 13:52 Urine Ketones Neg mg/dL (Negative) 10/05/16 13:52 Urine Blood Lg (Negative) 10/05/16 13:52 Urine Nitrite Neg (Negative) 10/05/16 13:52 Urine Bilirubin Neg (Negative) 10/05/16 13:52 Urine Urobilinogen < 2.0 mg/dL (<2.0) 10/05/16 13:52 Ur Leukocyte Esterase Neg (Negative) 10/05/16 13:52 Urine WBC (Auto) 1.0 /HPF (0.0-6.0) 10/05/16 13:52 Urine RBC (Auto) < 1.0 /HPF (0.0-6.0) 10/05/16 13:52 U Epithel Cells (Auto) 1.0 /HPF (0-13.0) 10/05/16 13:52 Urine Mucus Few /HPF 10/05/16 13:52 Ketones 2.9 mg/dL (0.2-2.8) H 10/05/16 21:30 Blood Type B POSITIVE 10/05/16 21:05 Antibody Screen Negative 10/05/16 21:05 Crossmatch See Detail 10/05/16 21:05
--- NOTE | 2016-10-09 09:52 | Progress Note ---
Assessment and Plan Sepsis Colitis Diarrhea,improving Chron's disease Rec Gentle hydration Monitor I/O Continue ABx Check cultures CCT 32 min Subjective Date of service: 10/08/16 Principal diagnosis: diarrhea, chron's colitis, hypoglycemia, ARF, AMS Interval history: Feels week, some malaise. No diarrhea this morning. Some cough Objective Vital Signs - 12hr 10/08/16 10/08/16 10/08/16 22:00 22:30 23:00 Temperature Pulse Rate 111 H 119 H 122 H Pulse Rate [ Anterior Bilateral Throughout] Respiratory 28 H 20 18 Rate Respiratory Rate [Anterior Bilateral Throughout] Blood Pressure 107/71 103/79 108/78 O2 Sat by Pulse 99 98 99 Oximetry 10/08/16 10/09/16 10/09/16 23:30 00:00 00:30 Temperature 97.4 F L Pulse Rate 114 H 112 H 107 H Pulse Rate [ Anterior Bilateral Throughout] Respiratory 25 H 15 15 Rate Respiratory Rate [Anterior Bilateral Throughout] Blood Pressure 115/79 115/79 106/80 O2 Sat by Pulse 99 99 99 Oximetry 10/09/16 10/09/16 10/09/16 01:00 01:30 02:00 Temperature Pulse Rate 107 H 110 H 114 H Pulse Rate [ Anterior Bilateral Throughout] Respiratory 20 22 26 H Rate Respiratory Rate [Anterior Bilateral Throughout] Blood Pressure 108/81 117/81 115/81 O2 Sat by Pulse 99 99 98 Oximetry 10/09/16 10/09/16 10/09/16 02:30 03:00 03:30 Temperature Pulse Rate 116 H 109 H 106 H Pulse Rate [ Anterior Bilateral Throughout] Respiratory 25 H 18 14 Rate Respiratory Rate [Anterior Bilateral Throughout] Blood Pressure 112/72 113/84 113/77 O2 Sat by Pulse 99 100 99 Oximetry 10/09/16 10/09/16 10/09/16 03:48 04:00 04:08 Temperature 97.8 F Pulse Rate 114 H 111 H 110 H Pulse Rate [ Anterior Bilateral Throughout] Respiratory 24 22 17 Rate Respiratory Rate [Anterior Bilateral Throughout] Blood Pressure 113/77 112/79 112/79 O2 Sat by Pulse 98 98 99 Oximetry 10/09/16 10/09/16 10/09/16 04:12 04:18 04:30 Temperature 97.9 F Pulse Rate 108 H 118 H Pulse Rate [ Anterior Bilateral Throughout] Respiratory 16 18 Rate Respiratory Rate [Anterior Bilateral Throughout] Blood Pressure 112/79 111/81 O2 Sat by Pulse 99 99 Oximetry 10/09/16 10/09/16 10/09/16 05:00 05:30 06:00 Temperature Pulse Rate 111 H 115 H 111 H Pulse Rate [ Anterior Bilateral Throughout] Respiratory 18 23 18 Rate Respiratory Rate [Anterior Bilateral Throughout] Blood Pressure 121/84 110/80 113/77 O2 Sat by Pulse 99 98 99 Oximetry 10/09/16 10/09/16 10/09/16 06:14 06:30 07:00 Temperature Pulse Rate 115 H 111 H 110 H Pulse Rate [ Anterior Bilateral Throughout] Respiratory 22 24 24 Rate Respiratory Rate [Anterior Bilateral Throughout] Blood Pressure 113/77 111/73 111/80 O2 Sat by Pulse 98 99 99 Oximetry 10/09/16 10/09/16 10/09/16 07:30 07:40 08:00 Temperature 97.5 F L Pulse Rate 114 H 121 H Pulse Rate [ 113 H 115 H Anterior Bilateral Throughout] Respiratory 28 H 23 Rate Respiratory 20 20 Rate [Anterior Bilateral Throughout] Blood Pressure 111/80 107/78 O2 Sat by Pulse 99 99 Oximetry Constitutional: alert Eyes: non-icteric Ascultation: Bilateral: diminished breath sounds, rhonchi Cardiovascular: regular rate and rhythm Gastrointestinal: normoactive bowel sounds, tender (mild), non-distended Extremities: no cyanosis, no cyanosis, no cyanosis Neurologic: normal mental status, non-focal exam Psychiatric: mood appropriate, affect normal CBC and BMP: 10/09/16 05:43 10/09/16 05:43 ABG, PT/INR, D-dimer: ABG POC ABG pH 7.216 (7.35-7.45) L 10/05/16 16:03 POC ABG pCO2 28.2 (35-45) L 10/05/16 16:03 POC ABG pO2 60 (80-105) L 10/05/16 16:03 POC ABG HCO3 11.4 10/05/16 16:03 POC ABG Total CO2 12 10/05/16 16:03 POC ABG O2 Sat 86 10/05/16 16:03 PT/INR, D-dimer PT 19.8 Sec. (12.2-14.9) H 10/08/16 03:45 INR 1.68 (0.87-1.13) H 10/08/16 03:45 Abnormal lab findings: Abnormal Labs 10/05/16 10/05/16 10/05/16 16:03 17:02 21:05 WBC RBC RDW Plt Count Seg Neuts % (Manual) Lymphocytes % (Manual) Seg Neutrophils # Man Lymphocytes # (Manual) Monocytes # (Manual) PT INR POC ABG pH 7.216 L POC ABG pCO2 28.2 L POC ABG pO2 60 L Sodium Potassium Chloride Carbon Dioxide BUN Creatinine Glucose POC Glucose 185 H Lactic Acid Calcium Magnesium AST ALT Total Creatine Kinase Total Protein Albumin Vitamin B12 Ketones Crossmatch See Detail 10/05/16 10/05/16 10/05/16 21:30 21:30 21:30 WBC RBC RDW Plt Count Seg Neuts % (Manual) Lymphocytes % (Manual) Seg Neutrophils # Man Lymphocytes # (Manual) Monocytes # (Manual) PT INR POC ABG pH POC ABG pCO2 POC ABG pO2 Sodium Potassium Chloride Carbon Dioxide BUN Creatinine Glucose POC Glucose Lactic Acid 2.3 H* Calcium Magnesium AST ALT Total Creatine Kinase 2317 H Total Protein Albumin Vitamin B12 Ketones 2.9 H Crossmatch 10/05/16 10/05/16 10/05/16 21:30 21:49 23:07 WBC RBC RDW Plt Count Seg Neuts % (Manual) Lymphocytes % (Manual) Seg Neutrophils # Man Lymphocytes # (Manual) Monocytes # (Manual) PT INR POC ABG pH POC ABG pCO2 POC ABG pO2 Sodium Potassium Chloride Carbon Dioxide BUN Creatinine Glucose POC Glucose < 40 L < 40 L Lactic Acid Calcium Magnesium AST ALT Total Creatine Kinase Total Protein Albumin Vitamin B12 1592 H Ketones Crossmatch 10/06/16 10/06/16 10/06/16 01:05 02:13 03:13 WBC RBC RDW Plt Count Seg Neuts % (Manual) Lymphocytes % (Manual) Seg Neutrophils # Man Lymphocytes # (Manual) Monocytes # (Manual) PT INR POC ABG pH POC ABG pCO2 POC ABG pO2 Sodium Potassium Chloride Carbon Dioxide BUN Creatinine Glucose POC Glucose 285 H 241 H 280 H Lactic Acid Calcium Magnesium AST ALT Total Creatine Kinase Total Protein Albumin Vitamin B12 Ketones Crossmatch 10/06/16 10/06/16 10/06/16 03:49 05:22 06:10 WBC RBC RDW Plt Count Seg Neuts % (Manual) Lymphocytes % (Manual) Seg Neutrophils # Man Lymphocytes # (Manual) Monocytes # (Manual) PT INR POC ABG pH POC ABG pCO2 POC ABG pO2 Sodium Potassium Chloride Carbon Dioxide BUN Creatinine Glucose POC Glucose 216 H 240 H 291 H Lactic Acid Calcium Magnesium AST ALT Total Creatine Kinase Total Protein Albumin Vitamin B12 Ketones Crossmatch 10/06/16 10/06/16 10/06/16 07:37 08:55 09:37 WBC RBC RDW Plt Count Seg Neuts % (Manual) Lymphocytes % (Manual) Seg Neutrophils # Man Lymphocytes # (Manual) Monocytes # (Manual) PT INR POC ABG pH POC ABG pCO2 POC ABG pO2 Sodium Potassium Chloride Carbon Dioxide BUN Creatinine Glucose POC Glucose 255 H 286 H 205 H Lactic Acid Calcium Magnesium AST ALT Total Creatine Kinase Total Protein Albumin Vitamin B12 Ketones Crossmatch 10/06/16 10/06/16 10/06/16 09:40 09:40 10:00 WBC 27.9 H RBC RDW 16.8 H Plt Count 94 L Seg Neuts % (Manual) 94.5 H Lymphocytes % (Manual) 1.0 L Seg Neutrophils # Man 26.4 H Lymphocytes # (Manual) 0.3 L Monocytes # (Manual) 1.3 H PT INR POC ABG pH POC ABG pCO2 POC ABG pO2 Sodium 130 L Potassium Chloride Carbon Dioxide 16 L BUN 31 H Creatinine 1.8 H Glucose 259 H POC Glucose Lactic Acid 3.3 H* Calcium 6.1 L Magnesium AST 112 H ALT 100 H Total Creatine Kinase Total Protein 4.2 L D Albumin 1.2 L Vitamin B12 Ketones Crossmatch 10/06/16 10/06/16 10/06/16 11:24 12:08 13:22 WBC RBC RDW Plt Count Seg Neuts % (Manual) Lymphocytes % (Manual) Seg Neutrophils # Man Lymphocytes # (Manual) Monocytes # (Manual) PT INR POC ABG pH POC ABG pCO2 POC ABG pO2 Sodium Potassium Chloride Carbon Dioxide BUN Creatinine Glucose POC Glucose 204 H 214 H 176 H Lactic Acid Calcium Magnesium AST ALT Total Creatine Kinase Total Protein Albumin Vitamin B12 Ketones Crossmatch 10/06/16 10/06/16 10/06/16 14:52 15:11 17:11 WBC RBC RDW Plt Count Seg Neuts % (Manual) Lymphocytes % (Manual) Seg Neutrophils # Man Lymphocytes # (Manual) Monocytes # (Manual) PT INR POC ABG pH POC ABG pCO2 POC ABG pO2 Sodium Potassium Chloride Carbon Dioxide BUN Creatinine Glucose POC Glucose 177 H 168 H 173 H Lactic Acid Calcium Magnesium AST ALT Total Creatine Kinase Total Protein Albumin Vitamin B12 Ketones Crossmatch 10/06/16 10/06/16 10/06/16 18:12 18:55 20:01 WBC RBC RDW Plt Count Seg Neuts % (Manual) Lymphocytes % (Manual) Seg Neutrophils # Man Lymphocytes # (Manual) Monocytes # (Manual) PT INR POC ABG pH POC ABG pCO2 POC ABG pO2 Sodium Potassium Chloride Carbon Dioxide BUN Creatinine Glucose POC Glucose 165 H 174 H 158 H Lactic Acid Calcium Magnesium AST ALT Total Creatine Kinase Total Protein Albumin Vitamin B12 Ketones Crossmatch 10/06/16 10/06/16 10/06/16 21:00 22:02 23:04 WBC RBC RDW Plt Count Seg Neuts % (Manual) Lymphocytes % (Manual) Seg Neutrophils # Man Lymphocytes # (Manual) Monocytes # (Manual) PT INR POC ABG pH POC ABG pCO2 POC ABG pO2 Sodium Potassium Chloride Carbon Dioxide BUN Creatinine Glucose POC Glucose 172 H 180 H 177 H Lactic Acid Calcium Magnesium AST ALT Total Creatine Kinase Total Protein Albumin Vitamin B12 Ketones Crossmatch 10/06/16 10/07/16 10/07/16 23:58 01:05 01:58 WBC RBC RDW Plt Count Seg Neuts % (Manual) Lymphocytes % (Manual) Seg Neutrophils # Man Lymphocytes # (Manual) Monocytes # (Manual) PT INR POC ABG pH POC ABG pCO2 POC ABG pO2 Sodium Potassium Chloride Carbon Dioxide BUN Creatinine Glucose POC Glucose 178 H 168 H 152 H Lactic Acid Calcium Magnesium AST ALT Total Creatine Kinase Total Protein Albumin Vitamin B12 Ketones Crossmatch 10/07/16 10/07/16 10/07/16 02:58 04:03 04:42 WBC 30.5 H RBC RDW 17.2 H Plt Count 59 L Seg Neuts % (Manual) 90.0 H Lymphocytes % (Manual) 2.0 L Seg Neutrophils # Man 27.5 H Lymphocytes # (Manual) 0.6 L Monocytes # (Manual) PT INR POC ABG pH POC ABG pCO2 POC ABG pO2 Sodium Potassium Chloride Carbon Dioxide BUN Creatinine Glucose POC Glucose 181 H 196 H Lactic Acid Calcium Magnesium AST ALT Total Creatine Kinase Total Protein Albumin Vitamin B12 Ketones Crossmatch 10/07/16 10/07/16 10/07/16 04:42 05:05 06:08 WBC RBC RDW Plt Count Seg Neuts % (Manual) Lymphocytes % (Manual) Seg Neutrophils # Man Lymphocytes # (Manual) Monocytes # (Manual) PT INR POC ABG pH POC ABG pCO2 POC ABG pO2 Sodium 127 L Potassium 3.5 L Chloride Carbon Dioxide 16 L BUN 27 H Creatinine 1.6 H Glucose 162 H POC Glucose 197 H 163 H Lactic Acid Calcium 6.1 L Magnesium 1.5 L AST 83 H ALT 106 H Total Creatine Kinase Total Protein 3.9 L Albumin 1.1 L Vitamin B12 Ketones Crossmatch 10/07/16 10/07/16 10/07/16 07:29 08:11 09:02 WBC RBC RDW Plt Count Seg Neuts % (Manual) Lymphocytes % (Manual) Seg Neutrophils # Man Lymphocytes # (Manual) Monocytes # (Manual) PT INR POC ABG pH POC ABG pCO2 POC ABG pO2 Sodium Potassium Chloride Carbon Dioxide BUN Creatinine Glucose POC Glucose 167 H 143 H 172 H Lactic Acid Calcium Magnesium AST ALT Total Creatine Kinase Total Protein Albumin Vitamin B12 Ketones Crossmatch 10/07/16 10/07/16 10/07/16 10:03 11:53 14:18 WBC RBC RDW Plt Count Seg Neuts % (Manual) Lymphocytes % (Manual) Seg Neutrophils # Man Lymphocytes # (Manual) Monocytes # (Manual) PT INR POC ABG pH POC ABG pCO2 POC ABG pO2 Sodium Potassium Chloride Carbon Dioxide BUN Creatinine Glucose POC Glucose 163 H 144 H 168 H Lactic Acid Calcium Magnesium AST ALT Total Creatine Kinase Total Protein Albumin Vitamin B12 Ketones Crossmatch 10/07/16 10/07/16 10/07/16 16:35 17:53 19:53 WBC RBC RDW Plt Count Seg Neuts % (Manual) Lymphocytes % (Manual) Seg Neutrophils # Man Lymphocytes # (Manual) Monocytes # (Manual) PT INR POC ABG pH POC ABG pCO2 POC ABG pO2 Sodium Potassium Chloride Carbon Dioxide BUN Creatinine Glucose POC Glucose 195 H 187 H 212 H Lactic Acid Calcium Magnesium AST ALT Total Creatine Kinase Total Protein Albumin Vitamin B12 Ketones Crossmatch 10/07/16 10/08/16 10/08/16 Unknown 00:18 03:35 WBC RBC RDW Plt Count Seg Neuts % (Manual) Lymphocytes % (Manual) Seg Neutrophils # Man Lymphocytes # (Manual) Monocytes # (Manual) PT INR POC ABG pH POC ABG pCO2 POC ABG pO2 Sodium Potassium Chloride Carbon Dioxide BUN Creatinine Glucose POC Glucose 142 H 149 H Lactic Acid 2.1 H* Calcium Magnesium AST ALT Total Creatine Kinase Total Protein Albumin Vitamin B12 Ketones Crossmatch 10/08/16 10/08/16 10/08/16 03:45 03:45 03:45 WBC 31.0 H RBC 3.62 L RDW 17.2 H Plt Count 59 L Seg Neuts % (Manual) 79.0 H Lymphocytes % (Manual) 1.0 L Seg Neutrophils # Man 24.5 H Lymphocytes # (Manual) 0.3 L Monocytes # (Manual) 2.2 H PT 19.8 H INR 1.68 H POC ABG pH POC ABG pCO2 POC ABG pO2 Sodium 132 L Potassium Chloride Carbon Dioxide 15 L BUN 22 H Creatinine 1.3 H Glucose 142 H POC Glucose Lactic Acid Calcium 5.9 L* Magnesium AST 62 H ALT 112 H Total Creatine Kinase Total Protein 3.8 L Albumin 1.0 L Vitamin B12 Ketones Crossmatch 10/08/16 10/08/16 10/08/16 07:39 10:00 13:51 WBC RBC RDW Plt Count Seg Neuts % (Manual) Lymphocytes % (Manual) Seg Neutrophils # Man Lymphocytes # (Manual) Monocytes # (Manual) PT INR POC ABG pH POC ABG pCO2 POC ABG pO2 Sodium Potassium Chloride Carbon Dioxide BUN Creatinine Glucose POC Glucose 165 H 167 H 175 H Lactic Acid Calcium Magnesium AST ALT Total Creatine Kinase Total Protein Albumin Vitamin B12 Ketones Crossmatch 10/08/16 10/08/16 10/09/16 18:18 22:00 02:07 WBC RBC RDW Plt Count Seg Neuts % (Manual) Lymphocytes % (Manual) Seg Neutrophils # Man Lymphocytes # (Manual) Monocytes # (Manual) PT INR POC ABG pH POC ABG pCO2 POC ABG pO2 Sodium Potassium Chloride Carbon Dioxide BUN Creatinine Glucose POC Glucose 136 H 160 H 149 H Lactic Acid Calcium Magnesium AST ALT Total Creatine Kinase Total Protein Albumin Vitamin B12 Ketones Crossmatch 10/09/16 10/09/16 10/09/16 05:43 05:43 06:22 WBC 26.6 H RBC RDW 17.6 H Plt Count 77 L Seg Neuts % (Manual) 93.0 H Lymphocytes % (Manual) 0 L Seg Neutrophils # Man 24.7 H Lymphocytes # (Manual) 0.0 L Monocytes # (Manual) PT INR POC ABG pH POC ABG pCO2 POC ABG pO2 Sodium 135 L Potassium Chloride 108.4 H Carbon Dioxide 17 L BUN 18 H Creatinine Glucose 164 H POC Glucose 162 H Lactic Acid Calcium 6.5 L Magnesium AST ALT Total Creatine Kinase Total Protein Albumin Vitamin B12 Ketones Crossmatch
--- NOTE | 2016-10-09 10:02 | Progress Note ---
Assessment and Plan Sepsis. Still elevated WBC.No CT done Colitis Diarrhea,improving Chron's disease Rec Gentle hydration Will reorder Abd/pelvic CT IS, CXR if chest Sx persist but CTA on exam Continue ABx Check cultures CCT 32 min Subjective Date of service: 10/09/16 Principal diagnosis: diarrhea, chron's colitis, hypoglycemia, ARF, AMS Interval history: Abdominal discomfort. Still with cough Objective Vital Signs - 12hr 10/08/16 10/08/16 10/08/16 22:30 23:00 23:30 Temperature Pulse Rate 119 H 122 H 114 H Pulse Rate [ Anterior Bilateral Throughout] Respiratory 20 18 25 H Rate Respiratory Rate [Anterior Bilateral Throughout] Blood Pressure 103/79 108/78 115/79 O2 Sat by Pulse 98 99 99 Oximetry 10/09/16 10/09/16 10/09/16 00:00 00:30 01:00 Temperature 97.4 F L Pulse Rate 112 H 107 H 107 H Pulse Rate [ Anterior Bilateral Throughout] Respiratory 15 15 20 Rate Respiratory Rate [Anterior Bilateral Throughout] Blood Pressure 115/79 106/80 108/81 O2 Sat by Pulse 99 99 99 Oximetry 10/09/16 10/09/16 10/09/16 01:30 02:00 02:30 Temperature Pulse Rate 110 H 114 H 116 H Pulse Rate [ Anterior Bilateral Throughout] Respiratory 22 26 H 25 H Rate Respiratory Rate [Anterior Bilateral Throughout] Blood Pressure 117/81 115/81 112/72 O2 Sat by Pulse 99 98 99 Oximetry 10/09/16 10/09/16 10/09/16 03:00 03:30 03:48 Temperature Pulse Rate 109 H 106 H 114 H Pulse Rate [ Anterior Bilateral Throughout] Respiratory 18 14 24 Rate Respiratory Rate [Anterior Bilateral Throughout] Blood Pressure 113/84 113/77 113/77 O2 Sat by Pulse 100 99 98 Oximetry 10/09/16 10/09/16 10/09/16 04:00 04:08 04:12 Temperature 97.8 F Pulse Rate 111 H 110 H 108 H Pulse Rate [ Anterior Bilateral Throughout] Respiratory 22 17 16 Rate Respiratory Rate [Anterior Bilateral Throughout] Blood Pressure 112/79 112/79 112/79 O2 Sat by Pulse 98 99 99 Oximetry 10/09/16 10/09/16 10/09/16 04:18 04:30 05:00 Temperature 97.9 F Pulse Rate 118 H 111 H Pulse Rate [ Anterior Bilateral Throughout] Respiratory 18 18 Rate Respiratory Rate [Anterior Bilateral Throughout] Blood Pressure 111/81 121/84 O2 Sat by Pulse 99 99 Oximetry 10/09/16 10/09/16 10/09/16 05:30 06:00 06:14 Temperature Pulse Rate 115 H 111 H 115 H Pulse Rate [ Anterior Bilateral Throughout] Respiratory 23 18 22 Rate Respiratory Rate [Anterior Bilateral Throughout] Blood Pressure 110/80 113/77 113/77 O2 Sat by Pulse 98 99 98 Oximetry 10/09/16 10/09/16 10/09/16 06:30 07:00 07:30 Temperature Pulse Rate 111 H 110 H 114 H Pulse Rate [ 113 H Anterior Bilateral Throughout] Respiratory 24 24 28 H Rate Respiratory 20 Rate [Anterior Bilateral Throughout] Blood Pressure 111/73 111/80 111/80 O2 Sat by Pulse 99 99 99 Oximetry 10/09/16 10/09/16 07:40 08:00 Temperature 97.5 F L Pulse Rate 121 H Pulse Rate [ 115 H Anterior Bilateral Throughout] Respiratory 23 Rate Respiratory 20 Rate [Anterior Bilateral Throughout] Blood Pressure 107/78 O2 Sat by Pulse 99 Oximetry Constitutional: alert Eyes: non-icteric Ascultation: Bilateral: diminished breath sounds Cardiovascular: regular rate and rhythm Gastrointestinal: normoactive bowel sounds, tender (mild), non-distended Extremities: no cyanosis, no cyanosis, no cyanosis Neurologic: normal mental status, non-focal exam Psychiatric: mood appropriate, affect normal CBC and BMP: 10/09/16 05:43 10/09/16 05:43 ABG, PT/INR, D-dimer: ABG POC ABG pH 7.216 (7.35-7.45) L 10/05/16 16:03 POC ABG pCO2 28.2 (35-45) L 10/05/16 16:03 POC ABG pO2 60 (80-105) L 10/05/16 16:03 POC ABG HCO3 11.4 10/05/16 16:03 POC ABG Total CO2 12 10/05/16 16:03 POC ABG O2 Sat 86 10/05/16 16:03 PT/INR, D-dimer PT 19.8 Sec. (12.2-14.9) H 10/08/16 03:45 INR 1.68 (0.87-1.13) H 10/08/16 03:45 Abnormal lab findings: Abnormal Labs 10/05/16 10/05/16 10/05/16 16:03 17:02 21:05 WBC RBC RDW Plt Count Seg Neuts % (Manual) Lymphocytes % (Manual) Seg Neutrophils # Man Lymphocytes # (Manual) Monocytes # (Manual) PT INR POC ABG pH 7.216 L POC ABG pCO2 28.2 L POC ABG pO2 60 L Sodium Potassium Chloride Carbon Dioxide BUN Creatinine Glucose POC Glucose 185 H Lactic Acid Calcium Magnesium AST ALT Total Creatine Kinase Total Protein Albumin Vitamin B12 Ketones Crossmatch See Detail 10/05/16 10/05/16 10/05/16 21:30 21:30 21:30 WBC RBC RDW Plt Count Seg Neuts % (Manual) Lymphocytes % (Manual) Seg Neutrophils # Man Lymphocytes # (Manual) Monocytes # (Manual) PT INR POC ABG pH POC ABG pCO2 POC ABG pO2 Sodium Potassium Chloride Carbon Dioxide BUN Creatinine Glucose POC Glucose Lactic Acid 2.3 H* Calcium Magnesium AST ALT Total Creatine Kinase 2317 H Total Protein Albumin Vitamin B12 Ketones 2.9 H Crossmatch 10/05/16 10/05/16 10/05/16 21:30 21:49 23:07 WBC RBC RDW Plt Count Seg Neuts % (Manual) Lymphocytes % (Manual) Seg Neutrophils # Man Lymphocytes # (Manual) Monocytes # (Manual) PT INR POC ABG pH POC ABG pCO2 POC ABG pO2 Sodium Potassium Chloride Carbon Dioxide BUN Creatinine Glucose POC Glucose < 40 L < 40 L Lactic Acid Calcium Magnesium AST ALT Total Creatine Kinase Total Protein Albumin Vitamin B12 1592 H Ketones Crossmatch 10/06/16 10/06/16 10/06/16 01:05 02:13 03:13 WBC RBC RDW Plt Count Seg Neuts % (Manual) Lymphocytes % (Manual) Seg Neutrophils # Man Lymphocytes # (Manual) Monocytes # (Manual) PT INR POC ABG pH POC ABG pCO2 POC ABG pO2 Sodium Potassium Chloride Carbon Dioxide BUN Creatinine Glucose POC Glucose 285 H 241 H 280 H Lactic Acid Calcium Magnesium AST ALT Total Creatine Kinase Total Protein Albumin Vitamin B12 Ketones Crossmatch 10/06/16 10/06/16 10/06/16 03:49 05:22 06:10 WBC RBC RDW Plt Count Seg Neuts % (Manual) Lymphocytes % (Manual) Seg Neutrophils # Man Lymphocytes # (Manual) Monocytes # (Manual) PT INR POC ABG pH POC ABG pCO2 POC ABG pO2 Sodium Potassium Chloride Carbon Dioxide BUN Creatinine Glucose POC Glucose 216 H 240 H 291 H Lactic Acid Calcium Magnesium AST ALT Total Creatine Kinase Total Protein Albumin Vitamin B12 Ketones Crossmatch 10/06/16 10/06/16 10/06/16 07:37 08:55 09:37 WBC RBC RDW Plt Count Seg Neuts % (Manual) Lymphocytes % (Manual) Seg Neutrophils # Man Lymphocytes # (Manual) Monocytes # (Manual) PT INR POC ABG pH POC ABG pCO2 POC ABG pO2 Sodium Potassium Chloride Carbon Dioxide BUN Creatinine Glucose POC Glucose 255 H 286 H 205 H Lactic Acid Calcium Magnesium AST ALT Total Creatine Kinase Total Protein Albumin Vitamin B12 Ketones Crossmatch 10/06/16 10/06/16 10/06/16 09:40 09:40 10:00 WBC 27.9 H RBC RDW 16.8 H Plt Count 94 L Seg Neuts % (Manual) 94.5 H Lymphocytes % (Manual) 1.0 L Seg Neutrophils # Man 26.4 H Lymphocytes # (Manual) 0.3 L Monocytes # (Manual) 1.3 H PT INR POC ABG pH POC ABG pCO2 POC ABG pO2 Sodium 130 L Potassium Chloride Carbon Dioxide 16 L BUN 31 H Creatinine 1.8 H Glucose 259 H POC Glucose Lactic Acid 3.3 H* Calcium 6.1 L Magnesium AST 112 H ALT 100 H Total Creatine Kinase Total Protein 4.2 L D Albumin 1.2 L Vitamin B12 Ketones Crossmatch 10/06/16 10/06/16 10/06/16 11:24 12:08 13:22 WBC RBC RDW Plt Count Seg Neuts % (Manual) Lymphocytes % (Manual) Seg Neutrophils # Man Lymphocytes # (Manual) Monocytes # (Manual) PT INR POC ABG pH POC ABG pCO2 POC ABG pO2 Sodium Potassium Chloride Carbon Dioxide BUN Creatinine Glucose POC Glucose 204 H 214 H 176 H Lactic Acid Calcium Magnesium AST ALT Total Creatine Kinase Total Protein Albumin Vitamin B12 Ketones Crossmatch 10/06/16 10/06/16 10/06/16 14:52 15:11 17:11 WBC RBC RDW Plt Count Seg Neuts % (Manual) Lymphocytes % (Manual) Seg Neutrophils # Man Lymphocytes # (Manual) Monocytes # (Manual) PT INR POC ABG pH POC ABG pCO2 POC ABG pO2 Sodium Potassium Chloride Carbon Dioxide BUN Creatinine Glucose POC Glucose 177 H 168 H 173 H Lactic Acid Calcium Magnesium AST ALT Total Creatine Kinase Total Protein Albumin Vitamin B12 Ketones Crossmatch 10/06/16 10/06/16 10/06/16 18:12 18:55 20:01 WBC RBC RDW Plt Count Seg Neuts % (Manual) Lymphocytes % (Manual) Seg Neutrophils # Man Lymphocytes # (Manual) Monocytes # (Manual) PT INR POC ABG pH POC ABG pCO2 POC ABG pO2 Sodium Potassium Chloride Carbon Dioxide BUN Creatinine Glucose POC Glucose 165 H 174 H 158 H Lactic Acid Calcium Magnesium AST ALT Total Creatine Kinase Total Protein Albumin Vitamin B12 Ketones Crossmatch 10/06/16 10/06/16 10/06/16 21:00 22:02 23:04 WBC RBC RDW Plt Count Seg Neuts % (Manual) Lymphocytes % (Manual) Seg Neutrophils # Man Lymphocytes # (Manual) Monocytes # (Manual) PT INR POC ABG pH POC ABG pCO2 POC ABG pO2 Sodium Potassium Chloride Carbon Dioxide BUN Creatinine Glucose POC Glucose 172 H 180 H 177 H Lactic Acid Calcium Magnesium AST ALT Total Creatine Kinase Total Protein Albumin Vitamin B12 Ketones Crossmatch 10/06/16 10/07/16 10/07/16 23:58 01:05 01:58 WBC RBC RDW Plt Count Seg Neuts % (Manual) Lymphocytes % (Manual) Seg Neutrophils # Man Lymphocytes # (Manual) Monocytes # (Manual) PT INR POC ABG pH POC ABG pCO2 POC ABG pO2 Sodium Potassium Chloride Carbon Dioxide BUN Creatinine Glucose POC Glucose 178 H 168 H 152 H Lactic Acid Calcium Magnesium AST ALT Total Creatine Kinase Total Protein Albumin Vitamin B12 Ketones Crossmatch 10/07/16 10/07/16 10/07/16 02:58 04:03 04:42 WBC 30.5 H RBC RDW 17.2 H Plt Count 59 L Seg Neuts % (Manual) 90.0 H Lymphocytes % (Manual) 2.0 L Seg Neutrophils # Man 27.5 H Lymphocytes # (Manual) 0.6 L Monocytes # (Manual) PT INR POC ABG pH POC ABG pCO2 POC ABG pO2 Sodium Potassium Chloride Carbon Dioxide BUN Creatinine Glucose POC Glucose 181 H 196 H Lactic Acid Calcium Magnesium AST ALT Total Creatine Kinase Total Protein Albumin Vitamin B12 Ketones Crossmatch 10/07/16 10/07/16 10/07/16 04:42 05:05 06:08 WBC RBC RDW Plt Count Seg Neuts % (Manual) Lymphocytes % (Manual) Seg Neutrophils # Man Lymphocytes # (Manual) Monocytes # (Manual) PT INR POC ABG pH POC ABG pCO2 POC ABG pO2 Sodium 127 L Potassium 3.5 L Chloride Carbon Dioxide 16 L BUN 27 H Creatinine 1.6 H Glucose 162 H POC Glucose 197 H 163 H Lactic Acid Calcium 6.1 L Magnesium 1.5 L AST 83 H ALT 106 H Total Creatine Kinase Total Protein 3.9 L Albumin 1.1 L Vitamin B12 Ketones Crossmatch 10/07/16 10/07/16 10/07/16 07:29 08:11 09:02 WBC RBC RDW Plt Count Seg Neuts % (Manual) Lymphocytes % (Manual) Seg Neutrophils # Man Lymphocytes # (Manual) Monocytes # (Manual) PT INR POC ABG pH POC ABG pCO2 POC ABG pO2 Sodium Potassium Chloride Carbon Dioxide BUN Creatinine Glucose POC Glucose 167 H 143 H 172 H Lactic Acid Calcium Magnesium AST ALT Total Creatine Kinase Total Protein Albumin Vitamin B12 Ketones Crossmatch 10/07/16 10/07/16 10/07/16 10:03 11:53 14:18 WBC RBC RDW Plt Count Seg Neuts % (Manual) Lymphocytes % (Manual) Seg Neutrophils # Man Lymphocytes # (Manual) Monocytes # (Manual) PT INR POC ABG pH POC ABG pCO2 POC ABG pO2 Sodium Potassium Chloride Carbon Dioxide BUN Creatinine Glucose POC Glucose 163 H 144 H 168 H Lactic Acid Calcium Magnesium AST ALT Total Creatine Kinase Total Protein Albumin Vitamin B12 Ketones Crossmatch 10/07/16 10/07/16 10/07/16 16:35 17:53 19:53 WBC RBC RDW Plt Count Seg Neuts % (Manual) Lymphocytes % (Manual) Seg Neutrophils # Man Lymphocytes # (Manual) Monocytes # (Manual) PT INR POC ABG pH POC ABG pCO2 POC ABG pO2 Sodium Potassium Chloride Carbon Dioxide BUN Creatinine Glucose POC Glucose 195 H 187 H 212 H Lactic Acid Calcium Magnesium AST ALT Total Creatine Kinase Total Protein Albumin Vitamin B12 Ketones Crossmatch 10/07/16 10/08/16 10/08/16 Unknown 00:18 03:35 WBC RBC RDW Plt Count Seg Neuts % (Manual) Lymphocytes % (Manual) Seg Neutrophils # Man Lymphocytes # (Manual) Monocytes # (Manual) PT INR POC ABG pH POC ABG pCO2 POC ABG pO2 Sodium Potassium Chloride Carbon Dioxide BUN Creatinine Glucose POC Glucose 142 H 149 H Lactic Acid 2.1 H* Calcium Magnesium AST ALT Total Creatine Kinase Total Protein Albumin Vitamin B12 Ketones Crossmatch 10/08/16 10/08/16 10/08/16 03:45 03:45 03:45 WBC 31.0 H RBC 3.62 L RDW 17.2 H Plt Count 59 L Seg Neuts % (Manual) 79.0 H Lymphocytes % (Manual) 1.0 L Seg Neutrophils # Man 24.5 H Lymphocytes # (Manual) 0.3 L Monocytes # (Manual) 2.2 H PT 19.8 H INR 1.68 H POC ABG pH POC ABG pCO2 POC ABG pO2 Sodium 132 L Potassium Chloride Carbon Dioxide 15 L BUN 22 H Creatinine 1.3 H Glucose 142 H POC Glucose Lactic Acid Calcium 5.9 L* Magnesium AST 62 H ALT 112 H Total Creatine Kinase Total Protein 3.8 L Albumin 1.0 L Vitamin B12 Ketones Crossmatch 10/08/16 10/08/16 10/08/16 07:39 10:00 13:51 WBC RBC RDW Plt Count Seg Neuts % (Manual) Lymphocytes % (Manual) Seg Neutrophils # Man Lymphocytes # (Manual) Monocytes # (Manual) PT INR POC ABG pH POC ABG pCO2 POC ABG pO2 Sodium Potassium Chloride Carbon Dioxide BUN Creatinine Glucose POC Glucose 165 H 167 H 175 H Lactic Acid Calcium Magnesium AST ALT Total Creatine Kinase Total Protein Albumin Vitamin B12 Ketones Crossmatch 10/08/16 10/08/16 10/09/16 18:18 22:00 02:07 WBC RBC RDW Plt Count Seg Neuts % (Manual) Lymphocytes % (Manual) Seg Neutrophils # Man Lymphocytes # (Manual) Monocytes # (Manual) PT INR POC ABG pH POC ABG pCO2 POC ABG pO2 Sodium Potassium Chloride Carbon Dioxide BUN Creatinine Glucose POC Glucose 136 H 160 H 149 H Lactic Acid Calcium Magnesium AST ALT Total Creatine Kinase Total Protein Albumin Vitamin B12 Ketones Crossmatch 10/09/16 10/09/16 10/09/16 05:43 05:43 06:22 WBC 26.6 H RBC RDW 17.6 H Plt Count 77 L Seg Neuts % (Manual) 93.0 H Lymphocytes % (Manual) 0 L Seg Neutrophils # Man 24.7 H Lymphocytes # (Manual) 0.0 L Monocytes # (Manual) PT INR POC ABG pH POC ABG pCO2 POC ABG pO2 Sodium 135 L Potassium Chloride 108.4 H Carbon Dioxide 17 L BUN 18 H Creatinine Glucose 164 H POC Glucose 162 H Lactic Acid Calcium 6.5 L Magnesium AST ALT Total Creatine Kinase Total Protein Albumin Vitamin B12 Ketones Crossmatch
[2016-10-09] MEDS: PROTONIX IV SCH ×2 (10:38→22:12)
[2016-10-09] MEDS: FLAGYL 500 MG/100 ML 100 ML IV SCH ×3 (10:44→18:29)
[2016-10-09] MEDS: LEVAQUIN 750MG/150ML 150 ML IV SCH (13:30)
--- NOTE | 2016-10-09 18:14 | Cat Scan Report ---
FINAL REPORT EXAM: CT ABDOMEN PELVIS WO CON HISTORY: severe leukocytosis,sepsis, Chron's disease TECHNIQUE: CT of the abdomen and pelvis without contrast PRIORS: None. FINDINGS: There are large bilateral pleural effusions. There near complete atelectasis of the left lower lobe. There is moderate amount of ascites present within upper abdomen and the pelvis There is diffuse body wall edema noted No acute abnormality seen in the liver on nonenhanced images Spleen is normal in size. Punctate calcifications are noted. There is some bilateral perinephric stranding. No evidence for nephrolithiasis or hydronephrosis. Abdominal aorta is normal in caliber Gastric wall appears thickened. No evidence for small bowel distention or colonic distention. The urinary bladder is nondistended. Parra is present within the bladder multiple uterine fibroids are present some of which are calcified. IMPRESSION: Large bilateral pleural effusions. Near complete atelectasis left lower lobe moderate ascites present Body wall edema. Findings are suggestive of anasarca Multiple calcified uterine fibroids are noted. Parra within the urinary bladder.
[2016-10-09] MEDS: AMBIEN PO PRN (22:21)
[2016-10-10] MEDS: FLAGYL 500 MG/100 ML 100 ML IV SCH ×4 (02:32→17:24)
[2016-10-10] MEDS: NACL 0.9% 1000 ML 1,000 ML IV SCH (02:33)
[2016-10-10 06:07] LABS: Hematocrit 32.4 % (30.3-42.9); Hemoglobin 10.6 gm/dl (10.1-14.3); Mean Corpuscular HGB Conc 33 % (30-34); Mean Corpuscular Hemoglobin 31 pg (28-32); Mean Corpuscular Volume 94 fl (79-97); Red Blood Count 3.44 M/mm3 (3.65-5.03); Red Cell Distribution Width 17.4 % (13.2-15.2)
[2016-10-10 06:09] LABS: White Blood Count 20.9 K/mm3 (4.5-11.0)
[2016-10-10 06:10] LABS: Platelet Count 78 K/mm3 (140-440)
[2016-10-10 06:24] LABS: INR 1.52 (0.87-1.13)
[2016-10-10 06:30] LABS: Alanine Aminotransferase 91 units/L (7-56); Albumin 1.5 g/dL (3.9-5); Albumin/Globulin Ratio 0.6 %; Alkaline Phosphatase 93 units/L (35-129); Anion Gap 15 mmol/L; BUN/Creatinine Ratio 16.66; Bilirubin,Direct 0.2 mg/dL (0-0.2); Bilirubin,Indirect 0.2 mg/dL; Bilirubin,Total 0.4 mg/dL (0.1-1.2); Blood Urea Nitrogen 15 mg/dL (7-17); Calcium 6.7 mg/dL (8.4-10.2); Carbon Dioxide 17 mmol/L (22-30); Chloride 110.3 mmol/L (98-107); Glucose 79 mg/dL (65-100); Magnesium 1.6 mg/dL (1.7-2.3); Potassium 3.9 mmol/L (3.6-5.0); Sodium 138 mmol/L (137-145)
[2016-10-10 07:15] LABS: Basophils % (Manual) 0 % (0.0-1.8); Blastocytes % (Manual) 0 %; Eosinophils % (Manual) 0 % (0.0-4.3)
[2016-10-10 07:16] LABS: Anisocytosis 1+; Macrocytosis 1+
[2016-10-10 07:17] LABS: Diff Status Complete; Elliptocytes Rare; Platelet Estimate Appears Decreased
[2016-10-10] MEDS: DUONEB 0.5 MG-3 MG/3 ML SOLN IH SCH ×3 (07:19→19:51)
[2016-10-10] MEDS ORDERED: MAGNESIUM SULFATE 4GM/100ML 100 ML IV ONE (08:00)
[2016-10-10] MEDS ORDERED: MAGNESIUM SULFATE 2GM/50ML 50 ML IV ONE (08:03)
--- NOTE | 2016-10-10 09:21 | Progress Note ---
Assessment and Plan Sepsis. Slowly improving. No fever today. CT scan of the chest shows a sinusitis with bilateral effusions and left lower lobe atelectasis Colitis . Completed antibiotics Ascites. No history of liver disease. No history of ongoing heart failure we will update BMP and x-rays Diarrhea,improving Chron's disease Rec Update chest x-ray BMP Continue ABx Discussed with patient CCT > 31 min Subjective Date of service: 10/10/16 Principal diagnosis: diarrhea, chron's colitis, hypoglycemia, ARF, AMS Interval history: Some cough. Still feeling weak. Sleepy often but easily arousable Objective Vital Signs - 12hr 10/09/16 10/09/16 10/09/16 21:30 21:50 22:00 Temperature Pulse Rate 113 H 115 H 111 H Pulse Rate [ Anterior Bilateral Throughout] Pulse Rate [ From Monitor] Respiratory 24 24 24 Rate Respiratory Rate [Anterior Bilateral Throughout] Blood Pressure 95/61 95/61 103/59 O2 Sat by Pulse 100 95 99 Oximetry 10/09/16 10/09/16 10/09/16 22:02 22:30 23:00 Temperature Pulse Rate 112 H 109 H 121 H Pulse Rate [ Anterior Bilateral Throughout] Pulse Rate [ From Monitor] Respiratory 24 20 17 Rate Respiratory Rate [Anterior Bilateral Throughout] Blood Pressure 103/59 97/68 99/63 O2 Sat by Pulse 100 100 99 Oximetry 10/09/16 10/10/16 10/10/16 23:30 00:00 00:30 Temperature 97.7 F Pulse Rate 109 H 117 H 113 H Pulse Rate [ Anterior Bilateral Throughout] Pulse Rate [ 111 H From Monitor] Respiratory 16 24 21 Rate Respiratory Rate [Anterior Bilateral Throughout] Blood Pressure 99/63 102/60 99/63 O2 Sat by Pulse 98 100 99 Oximetry 10/10/16 10/10/16 10/10/16 01:00 01:30 01:34 Temperature Pulse Rate 112 H 112 H 113 H Pulse Rate [ Anterior Bilateral Throughout] Pulse Rate [ From Monitor] Respiratory 14 22 15 Rate Respiratory Rate [Anterior Bilateral Throughout] Blood Pressure 99/63 97/67 97/67 O2 Sat by Pulse 100 100 97 Oximetry 10/10/16 10/10/16 10/10/16 01:56 02:00 02:30 Temperature Pulse Rate 108 H 110 H Pulse Rate [ Anterior Bilateral Throughout] Pulse Rate [ From Monitor] Respiratory 19 18 21 Rate Respiratory Rate [Anterior Bilateral Throughout] Blood Pressure 94/71 100/70 O2 Sat by Pulse 100 100 Oximetry 10/10/16 10/10/16 10/10/16 03:00 03:30 04:00 Temperature 97.7 F Pulse Rate 109 H 113 H 108 H Pulse Rate [ Anterior Bilateral Throughout] Pulse Rate [ From Monitor] Respiratory 18 24 24 Rate Respiratory Rate [Anterior Bilateral Throughout] Blood Pressure 91/71 99/70 99/60 O2 Sat by Pulse 99 99 99 Oximetry 10/10/16 10/10/16 10/10/16 04:30 04:42 05:00 Temperature Pulse Rate 107 H 107 H 110 H Pulse Rate [ Anterior Bilateral Throughout] Pulse Rate [ 119 H From Monitor] Respiratory 18 14 20 Rate Respiratory Rate [Anterior Bilateral Throughout] Blood Pressure 98/68 98/68 93/57 O2 Sat by Pulse 100 100 99 Oximetry 10/10/16 10/10/16 10/10/16 05:30 05:52 05:54 Temperature Pulse Rate 109 H 109 H 116 H Pulse Rate [ Anterior Bilateral Throughout] Pulse Rate [ From Monitor] Respiratory 19 16 21 Rate Respiratory Rate [Anterior Bilateral Throughout] Blood Pressure 103/69 93/57 93/57 O2 Sat by Pulse 100 100 100 Oximetry 10/10/16 10/10/16 10/10/16 06:00 06:30 07:21 Temperature Pulse Rate 126 H 115 H Pulse Rate [ 112 H Anterior Bilateral Throughout] Pulse Rate [ From Monitor] Respiratory 24 25 H Rate Respiratory 16 Rate [Anterior Bilateral Throughout] Blood Pressure 100/70 92/71 O2 Sat by Pulse 98 89 Oximetry 10/10/16 10/10/16 07:30 07:39 Temperature 97.5 F L Pulse Rate Pulse Rate [ 114 H Anterior Bilateral Throughout] Pulse Rate [ From Monitor] Respiratory Rate Respiratory 16 Rate [Anterior Bilateral Throughout] Blood Pressure O2 Sat by Pulse Oximetry Constitutional: alert Eyes: non-icteric Ascultation: Bilateral: diminished breath sounds, rales (mostly left side) Cardiovascular: regular rate and rhythm Gastrointestinal: normoactive bowel sounds, tender (mild) Extremities: no cyanosis, no cyanosis, no cyanosis Neurologic: normal mental status, non-focal exam, CN II-XII normal Psychiatric: mood appropriate, affect normal CBC and BMP: 10/10/16 04:50 10/10/16 04:50 ABG, PT/INR, D-dimer: ABG POC ABG pH 7.216 (7.35-7.45) L 10/05/16 16:03 POC ABG pCO2 28.2 (35-45) L 10/05/16 16:03 POC ABG pO2 60 (80-105) L 10/05/16 16:03 POC ABG HCO3 11.4 10/05/16 16:03 POC ABG Total CO2 12 10/05/16 16:03 POC ABG O2 Sat 86 10/05/16 16:03 PT/INR, D-dimer PT 18.3 Sec. (12.2-14.9) H 10/10/16 04:50 INR 1.52 (0.87-1.13) H 10/10/16 04:50 Abnormal lab findings: Abnormal Labs 10/05/16 10/05/16 10/05/16 16:03 17:02 21:05 WBC RBC RDW Plt Count Seg Neuts % (Manual) Lymphocytes % (Manual) Seg Neutrophils # Man Lymphocytes # (Manual) Monocytes # (Manual) PT INR POC ABG pH 7.216 L POC ABG pCO2 28.2 L POC ABG pO2 60 L Sodium Potassium Chloride Carbon Dioxide BUN Creatinine Glucose POC Glucose 185 H Lactic Acid Calcium Magnesium AST ALT Total Creatine Kinase Total Protein Albumin Vitamin B12 Ketones Crossmatch See Detail 10/05/16 10/05/16 10/05/16 21:30 21:30 21:30 WBC RBC RDW Plt Count Seg Neuts % (Manual) Lymphocytes % (Manual) Seg Neutrophils # Man Lymphocytes # (Manual) Monocytes # (Manual) PT INR POC ABG pH POC ABG pCO2 POC ABG pO2 Sodium Potassium Chloride Carbon Dioxide BUN Creatinine Glucose POC Glucose Lactic Acid 2.3 H* Calcium Magnesium AST ALT Total Creatine Kinase 2317 H Total Protein Albumin Vitamin B12 Ketones 2.9 H Crossmatch 10/05/16 10/05/16 10/05/16 21:30 21:49 23:07 WBC RBC RDW Plt Count Seg Neuts % (Manual) Lymphocytes % (Manual) Seg Neutrophils # Man Lymphocytes # (Manual) Monocytes # (Manual) PT INR POC ABG pH POC ABG pCO2 POC ABG pO2 Sodium Potassium Chloride Carbon Dioxide BUN Creatinine Glucose POC Glucose < 40 L < 40 L Lactic Acid Calcium Magnesium AST ALT Total Creatine Kinase Total Protein Albumin Vitamin B12 1592 H Ketones Crossmatch 10/06/16 10/06/16 10/06/16 01:05 02:13 03:13 WBC RBC RDW Plt Count Seg Neuts % (Manual) Lymphocytes % (Manual) Seg Neutrophils # Man Lymphocytes # (Manual) Monocytes # (Manual) PT INR POC ABG pH POC ABG pCO2 POC ABG pO2 Sodium Potassium Chloride Carbon Dioxide BUN Creatinine Glucose POC Glucose 285 H 241 H 280 H Lactic Acid Calcium Magnesium AST ALT Total Creatine Kinase Total Protein Albumin Vitamin B12 Ketones Crossmatch 10/06/16 10/06/16 10/06/16 03:49 05:22 06:10 WBC RBC RDW Plt Count Seg Neuts % (Manual) Lymphocytes % (Manual) Seg Neutrophils # Man Lymphocytes # (Manual) Monocytes # (Manual) PT INR POC ABG pH POC ABG pCO2 POC ABG pO2 Sodium Potassium Chloride Carbon Dioxide BUN Creatinine Glucose POC Glucose 216 H 240 H 291 H Lactic Acid Calcium Magnesium AST ALT Total Creatine Kinase Total Protein Albumin Vitamin B12 Ketones Crossmatch 10/06/16 10/06/16 10/06/16 07:37 08:55 09:37 WBC RBC RDW Plt Count Seg Neuts % (Manual) Lymphocytes % (Manual) Seg Neutrophils # Man Lymphocytes # (Manual) Monocytes # (Manual) PT INR POC ABG pH POC ABG pCO2 POC ABG pO2 Sodium Potassium Chloride Carbon Dioxide BUN Creatinine Glucose POC Glucose 255 H 286 H 205 H Lactic Acid Calcium Magnesium AST ALT Total Creatine Kinase Total Protein Albumin Vitamin B12 Ketones Crossmatch 10/06/16 10/06/16 10/06/16 09:40 09:40 10:00 WBC 27.9 H RBC RDW 16.8 H Plt Count 94 L Seg Neuts % (Manual) 94.5 H Lymphocytes % (Manual) 1.0 L Seg Neutrophils # Man 26.4 H Lymphocytes # (Manual) 0.3 L Monocytes # (Manual) 1.3 H PT INR POC ABG pH POC ABG pCO2 POC ABG pO2 Sodium 130 L Potassium Chloride Carbon Dioxide 16 L BUN 31 H Creatinine 1.8 H Glucose 259 H POC Glucose Lactic Acid 3.3 H* Calcium 6.1 L Magnesium AST 112 H ALT 100 H Total Creatine Kinase Total Protein 4.2 L D Albumin 1.2 L Vitamin B12 Ketones Crossmatch 10/06/16 10/06/16 10/06/16 11:24 12:08 13:22 WBC RBC RDW Plt Count Seg Neuts % (Manual) Lymphocytes % (Manual) Seg Neutrophils # Man Lymphocytes # (Manual) Monocytes # (Manual) PT INR POC ABG pH POC ABG pCO2 POC ABG pO2 Sodium Potassium Chloride Carbon Dioxide BUN Creatinine Glucose POC Glucose 204 H 214 H 176 H Lactic Acid Calcium Magnesium AST ALT Total Creatine Kinase Total Protein Albumin Vitamin B12 Ketones Crossmatch 10/06/16 10/06/16 10/06/16 14:52 15:11 17:11 WBC RBC RDW Plt Count Seg Neuts % (Manual) Lymphocytes % (Manual) Seg Neutrophils # Man Lymphocytes # (Manual) Monocytes # (Manual) PT INR POC ABG pH POC ABG pCO2 POC ABG pO2 Sodium Potassium Chloride Carbon Dioxide BUN Creatinine Glucose POC Glucose 177 H 168 H 173 H Lactic Acid Calcium Magnesium AST ALT Total Creatine Kinase Total Protein Albumin Vitamin B12 Ketones Crossmatch 10/06/16 10/06/16 10/06/16 18:12 18:55 20:01 WBC RBC RDW Plt Count Seg Neuts % (Manual) Lymphocytes % (Manual) Seg Neutrophils # Man Lymphocytes # (Manual) Monocytes # (Manual) PT INR POC ABG pH POC ABG pCO2 POC ABG pO2 Sodium Potassium Chloride Carbon Dioxide BUN Creatinine Glucose POC Glucose 165 H 174 H 158 H Lactic Acid Calcium Magnesium AST ALT Total Creatine Kinase Total Protein Albumin Vitamin B12 Ketones Crossmatch 10/06/16 10/06/16 10/06/16 21:00 22:02 23:04 WBC RBC RDW Plt Count Seg Neuts % (Manual) Lymphocytes % (Manual) Seg Neutrophils # Man Lymphocytes # (Manual) Monocytes # (Manual) PT INR POC ABG pH POC ABG pCO2 POC ABG pO2 Sodium Potassium Chloride Carbon Dioxide BUN Creatinine Glucose POC Glucose 172 H 180 H 177 H Lactic Acid Calcium Magnesium AST ALT Total Creatine Kinase Total Protein Albumin Vitamin B12 Ketones Crossmatch 10/06/16 10/07/16 10/07/16 23:58 01:05 01:58 WBC RBC RDW Plt Count Seg Neuts % (Manual) Lymphocytes % (Manual) Seg Neutrophils # Man Lymphocytes # (Manual) Monocytes # (Manual) PT INR POC ABG pH POC ABG pCO2 POC ABG pO2 Sodium Potassium Chloride Carbon Dioxide BUN Creatinine Glucose POC Glucose 178 H 168 H 152 H Lactic Acid Calcium Magnesium AST ALT Total Creatine Kinase Total Protein Albumin Vitamin B12 Ketones Crossmatch 10/07/16 10/07/16 10/07/16 02:58 04:03 04:42 WBC 30.5 H RBC RDW 17.2 H Plt Count 59 L Seg Neuts % (Manual) 90.0 H Lymphocytes % (Manual) 2.0 L Seg Neutrophils # Man 27.5 H Lymphocytes # (Manual) 0.6 L Monocytes # (Manual) PT INR POC ABG pH POC ABG pCO2 POC ABG pO2 Sodium Potassium Chloride Carbon Dioxide BUN Creatinine Glucose POC Glucose 181 H 196 H Lactic Acid Calcium Magnesium AST ALT Total Creatine Kinase Total Protein Albumin Vitamin B12 Ketones Crossmatch 10/07/16 10/07/16 10/07/16 04:42 05:05 06:08 WBC RBC RDW Plt Count Seg Neuts % (Manual) Lymphocytes % (Manual) Seg Neutrophils # Man Lymphocytes # (Manual) Monocytes # (Manual) PT INR POC ABG pH POC ABG pCO2 POC ABG pO2 Sodium 127 L Potassium 3.5 L Chloride Carbon Dioxide 16 L BUN 27 H Creatinine 1.6 H Glucose 162 H POC Glucose 197 H 163 H Lactic Acid Calcium 6.1 L Magnesium 1.5 L AST 83 H ALT 106 H Total Creatine Kinase Total Protein 3.9 L Albumin 1.1 L Vitamin B12 Ketones Crossmatch 10/07/16 10/07/16 10/07/16 07:29 08:11 09:02 WBC RBC RDW Plt Count Seg Neuts % (Manual) Lymphocytes % (Manual) Seg Neutrophils # Man Lymphocytes # (Manual) Monocytes # (Manual) PT INR POC ABG pH POC ABG pCO2 POC ABG pO2 Sodium Potassium Chloride Carbon Dioxide BUN Creatinine Glucose POC Glucose 167 H 143 H 172 H Lactic Acid Calcium Magnesium AST ALT Total Creatine Kinase Total Protein Albumin Vitamin B12 Ketones Crossmatch 10/07/16 10/07/16 10/07/16 10:03 11:53 14:18 WBC RBC RDW Plt Count Seg Neuts % (Manual) Lymphocytes % (Manual) Seg Neutrophils # Man Lymphocytes # (Manual) Monocytes # (Manual) PT INR POC ABG pH POC ABG pCO2 POC ABG pO2 Sodium Potassium Chloride Carbon Dioxide BUN Creatinine Glucose POC Glucose 163 H 144 H 168 H Lactic Acid Calcium Magnesium AST ALT Total Creatine Kinase Total Protein Albumin Vitamin B12 Ketones Crossmatch 10/07/16 10/07/16 10/07/16 16:35 17:53 19:53 WBC RBC RDW Plt Count Seg Neuts % (Manual) Lymphocytes % (Manual) Seg Neutrophils # Man Lymphocytes # (Manual) Monocytes # (Manual) PT INR POC ABG pH POC ABG pCO2 POC ABG pO2 Sodium Potassium Chloride Carbon Dioxide BUN Creatinine Glucose POC Glucose 195 H 187 H 212 H Lactic Acid Calcium Magnesium AST ALT Total Creatine Kinase Total Protein Albumin Vitamin B12 Ketones Crossmatch 10/07/16 10/08/16 10/08/16 Unknown 00:18 03:35 WBC RBC RDW Plt Count Seg Neuts % (Manual) Lymphocytes % (Manual) Seg Neutrophils # Man Lymphocytes # (Manual) Monocytes # (Manual) PT INR POC ABG pH POC ABG pCO2 POC ABG pO2 Sodium Potassium Chloride Carbon Dioxide BUN Creatinine Glucose POC Glucose 142 H 149 H Lactic Acid 2.1 H* Calcium Magnesium AST ALT Total Creatine Kinase Total Protein Albumin Vitamin B12 Ketones Crossmatch 10/08/16 10/08/16 10/08/16 03:45 03:45 03:45 WBC 31.0 H RBC 3.62 L RDW 17.2 H Plt Count 59 L Seg Neuts % (Manual) 79.0 H Lymphocytes % (Manual) 1.0 L Seg Neutrophils # Man 24.5 H Lymphocytes # (Manual) 0.3 L Monocytes # (Manual) 2.2 H PT 19.8 H INR 1.68 H POC ABG pH POC ABG pCO2 POC ABG pO2 Sodium 132 L Potassium Chloride Carbon Dioxide 15 L BUN 22 H Creatinine 1.3 H Glucose 142 H POC Glucose Lactic Acid Calcium 5.9 L* Magnesium AST 62 H ALT 112 H Total Creatine Kinase Total Protein 3.8 L Albumin 1.0 L Vitamin B12 Ketones Crossmatch 10/08/16 10/08/16 10/08/16 07:39 10:00 13:51 WBC RBC RDW Plt Count Seg Neuts % (Manual) Lymphocytes % (Manual) Seg Neutrophils # Man Lymphocytes # (Manual) Monocytes # (Manual) PT INR POC ABG pH POC ABG pCO2 POC ABG pO2 Sodium Potassium Chloride Carbon Dioxide BUN Creatinine Glucose POC Glucose 165 H 167 H 175 H Lactic Acid Calcium Magnesium AST ALT Total Creatine Kinase Total Protein Albumin Vitamin B12 Ketones Crossmatch 10/08/16 10/08/16 10/09/16 18:18 22:00 02:07 WBC RBC RDW Plt Count Seg Neuts % (Manual) Lymphocytes % (Manual) Seg Neutrophils # Man Lymphocytes # (Manual) Monocytes # (Manual) PT INR POC ABG pH POC ABG pCO2 POC ABG pO2 Sodium Potassium Chloride Carbon Dioxide BUN Creatinine Glucose POC Glucose 136 H 160 H 149 H Lactic Acid Calcium Magnesium AST ALT Total Creatine Kinase Total Protein Albumin Vitamin B12 Ketones Crossmatch 10/09/16 10/09/16 10/09/16 05:43 05:43 06:22 WBC 26.6 H RBC RDW 17.6 H Plt Count 77 L Seg Neuts % (Manual) 93.0 H Lymphocytes % (Manual) 0 L Seg Neutrophils # Man 24.7 H Lymphocytes # (Manual) 0.0 L Monocytes # (Manual) PT INR POC ABG pH POC ABG pCO2 POC ABG pO2 Sodium 135 L Potassium Chloride 108.4 H Carbon Dioxide 17 L BUN 18 H Creatinine Glucose 164 H POC Glucose 162 H Lactic Acid Calcium 6.5 L Magnesium AST ALT Total Creatine Kinase Total Protein Albumin Vitamin B12 Ketones Crossmatch 10/09/16 10/09/16 10/09/16 08:06 10:44 12:04 WBC RBC RDW Plt Count Seg Neuts % (Manual) Lymphocytes % (Manual) Seg Neutrophils # Man Lymphocytes # (Manual) Monocytes # (Manual) PT INR POC ABG pH POC ABG pCO2 POC ABG pO2 Sodium Potassium Chloride Carbon Dioxide BUN Creatinine Glucose POC Glucose 127 H 165 H 128 H Lactic Acid Calcium Magnesium AST ALT Total Creatine Kinase Total Protein Albumin Vitamin B12 Ketones Crossmatch 10/09/16 10/10/16 10/10/16 13:25 04:50 04:50 WBC 20.9 H RBC 3.44 L RDW 17.4 H Plt Count 78 L Seg Neuts % (Manual) 94.0 H Lymphocytes % (Manual) 1.0 L Seg Neutrophils # Man 19.6 H Lymphocytes # (Manual) 0.2 L Monocytes # (Manual) PT 18.3 H INR 1.52 H POC ABG pH POC ABG pCO2 POC ABG pO2 Sodium Potassium Chloride Carbon Dioxide BUN Creatinine Glucose POC Glucose 143 H Lactic Acid Calcium Magnesium AST ALT Total Creatine Kinase Total Protein Albumin Vitamin B12 Ketones Crossmatch 10/10/16 04:50 WBC RBC RDW Plt Count Seg Neuts % (Manual) Lymphocytes % (Manual) Seg Neutrophils # Man Lymphocytes # (Manual) Monocytes # (Manual) PT INR POC ABG pH POC ABG pCO2 POC ABG pO2 Sodium Potassium Chloride 110.3 H Carbon Dioxide 17 L BUN Creatinine Glucose POC Glucose Lactic Acid Calcium 6.7 L Magnesium 1.6 L AST ALT 91 H Total Creatine Kinase Total Protein 4.0 L Albumin 1.5 L Vitamin B12 Ketones Crossmatch
[2016-10-10] MEDS ORDERED: NACL 0.45% 1000 ML 1,000 ML with SODIUM BICARBONATE 50 MEQ IV SCH (09:30)
[2016-10-10] MEDS: PROTONIX IV SCH (10:37)
--- NOTE | 2016-10-10 11:34 | Gastroenterology Progress Note ---
Assessment and Plan 1. septic shock - ?etiology, doubt crohn's disease unless there was a complication related to crohn's such as abscess/fistula/c diff (no evidence of these on imaging and stool studies). wbc improving, HD stable. 2. crohn's disease - unclear extent or severity of disease. will need to f/u with primary GI for further management after discharge. pt stated there was discussion with GI about starting humira, but this would need to be done after sepsis resolves (in outpatient setting). 3. elevated liver enzymes - hepatocellular pattern with AST/ALT improving. t bili/alk phos remain normal. unclear etiology but possibly related to hypotension, medication/drug induced liver injury, sepsis (although usually with cholestatic elevation with this), vs other etiology. cont to monitor. will order abd US with doppler to r/o obstructive etiology/PVT/signs of congestive hepatopathy. Will stop seeing patient daily, will cont chart review, please call back as needed. Subjective Date of service: 10/10/16 Principal diagnosis: diarrhea, chron's colitis, hypoglycemia, ARF, AMS Interval history: pt awake and alert. reports feeling better overall. denies abd pain. no new complaints today. still having multiple non-bloody bm's although improved. Objective - Exam Narrative Exam: Gen: NAD, resting comfortably CV: RRR Lungs: coarse bs, non labored Abd: soft, nt, nd - Constitutional Vitals: Temp Pulse Resp BP Pulse Ox 97.5 F L 114 H 16 92/71 89 10/10/16 07:30 10/10/16 07:39 10/10/16 07:39 10/10/16 06:30 10/10/16 06:30 - Labs CBC & Chem 7: 10/10/16 04:50 10/10/16 04:50 Labs: Laboratory Results - last 24 hr 10/09/16 10/09/16 10/09/16 08:06 10:44 12:04 WBC RBC Hgb Hct MCV MCH MCHC RDW Plt Count Add Manual Diff Total Counted Seg Neutrophils % Seg Neuts % (Manual) Band Neutrophils % Lymphocytes % (Manual) Reactive Lymphs % (Man) Monocytes % (Manual) Eosinophils % (Manual) Basophils % (Manual) Metamyelocytes % Myelocytes % Promyelocytes % Blast Cells % Nucleated RBC % Seg Neutrophils # Man Band Neutrophils # Lymphocytes # (Manual) Abs React Lymphs (Man) Monocytes # (Manual) Eosinophils # (Manual) Basophils # (Manual) Metamyelocytes # Myelocytes # Promyelocytes # Blast Cells # WBC Morphology Hypersegmented Neuts Hyposegmented Neuts Hypogranular Neuts Smudge Cells Toxic Granulation Toxic Vacuolation Dohle Bodies Pelger-Huet Anomaly Ivory Rods Platelet Estimate Clumped Platelets Plt Clumps, EDTA Large Platelets Giant Platelets Platelet Satelliting Plt Morphology Comment RBC Morphology Dimorphic RBCs Polychromasia Hypochromasia Poikilocytosis Anisocytosis Microcytosis Macrocytosis Spherocytes Pappenheimer Bodies Sickle Cells Target Cells Tear Drop Cells Ovalocytes Helmet Cells Nguyen-Artesian Bodies Criders Rings Adenike Cells Bite Cells Crenated Cell Elliptocytes Acanthocytes (Spur) Rouleaux Hemoglobin C Crystals Schistocytes Malaria parasites Mayito Bodies Hem Pathologist Commnt PT INR Sodium Potassium Chloride Carbon Dioxide Anion Gap BUN Creatinine Estimated GFR BUN/Creatinine Ratio Glucose POC Glucose 127 H 165 H 128 H Calcium Magnesium Total Bilirubin Direct Bilirubin Indirect Bilirubin AST ALT Alkaline Phosphatase Total Protein Albumin Albumin/Globulin Ratio 10/09/16 10/09/16 10/09/16 13:25 18:01 23:50 WBC RBC Hgb Hct MCV MCH MCHC RDW Plt Count Add Manual Diff Total Counted Seg Neutrophils % Seg Neuts % (Manual) Band Neutrophils % Lymphocytes % (Manual) Reactive Lymphs % (Man) Monocytes % (Manual) Eosinophils % (Manual) Basophils % (Manual) Metamyelocytes % Myelocytes % Promyelocytes % Blast Cells % Nucleated RBC % Seg Neutrophils # Man Band Neutrophils # Lymphocytes # (Manual) Abs React Lymphs (Man) Monocytes # (Manual) Eosinophils # (Manual) Basophils # (Manual) Metamyelocytes # Myelocytes # Promyelocytes # Blast Cells # WBC Morphology Hypersegmented Neuts Hyposegmented Neuts Hypogranular Neuts Smudge Cells Toxic Granulation Toxic Vacuolation Dohle Bodies Pelger-Huet Anomaly Ivory Rods Platelet Estimate Clumped Platelets Plt Clumps, EDTA Large Platelets Giant Platelets Platelet Satelliting Plt Morphology Comment RBC Morphology Dimorphic RBCs Polychromasia Hypochromasia Poikilocytosis Anisocytosis Microcytosis Macrocytosis Spherocytes Pappenheimer Bodies Sickle Cells Target Cells Tear Drop Cells Ovalocytes Helmet Cells Nguyen-Artesian Bodies Criders Rings Tiff Cells Bite Cells Crenated Cell Elliptocytes Acanthocytes (Spur) Rouleaux Hemoglobin C Crystals Schistocytes Malaria parasites Mayito Bodies Hem Pathologist Commnt PT INR Sodium Potassium Chloride Carbon Dioxide Anion Gap BUN Creatinine Estimated GFR BUN/Creatinine Ratio Glucose POC Glucose 143 H 100 96 Calcium Magnesium Total Bilirubin Direct Bilirubin Indirect Bilirubin AST ALT Alkaline Phosphatase Total Protein Albumin Albumin/Globulin Ratio 10/10/16 10/10/16 10/10/16 01:54 04:50 04:50 WBC 20.9 H RBC 3.44 L Hgb 10.6 Hct 32.4 MCV 94 MCH 31 MCHC 33 RDW 17.4 H Plt Count 78 L Add Manual Diff Complete Total Counted 100 Seg Neutrophils % Caster Operator Seg Neuts % (Manual) 94.0 H Band Neutrophils % 0 Lymphocytes % (Manual) 1.0 L Reactive Lymphs % (Man) 0 Monocytes % (Manual) 2.0 Eosinophils % (Manual) 0 Basophils % (Manual) 0 Metamyelocytes % 2.0 Myelocytes % 1.0 Promyelocytes % 0 Blast Cells % 0 Nucleated RBC % Not Reportable Seg Neutrophils # Man 19.6 H Band Neutrophils # 0.0 Lymphocytes # (Manual) 0.2 L Abs React Lymphs (Man) 0.0 Monocytes # (Manual) 0.4 Eosinophils # (Manual) 0.0 Basophils # (Manual) 0.0 Metamyelocytes # 0.4 Myelocytes # 0.2 Promyelocytes # 0.0 Blast Cells # 0.0 WBC Morphology Not Reportable Hypersegmented Neuts Not Reportable Hyposegmented Neuts Not Reportable Hypogranular Neuts Not Reportable Smudge Cells Not Reportable Toxic Granulation Not Reportable Toxic Vacuolation Not Reportable Dohle Bodies Not Reportable Pelger-Huet Anomaly Not Reportable Ivory Rods Not Reportable Platelet Estimate Appears decreased Clumped Platelets Not Reportable Plt Clumps, EDTA Not Reportable Large Platelets Not Reportable Giant Platelets Not Reportable Platelet Satelliting Not Reportable Plt Morphology Comment Not Reportable RBC Morphology Not Reportable Dimorphic RBCs Not Reportable Polychromasia Not Reportable Hypochromasia Not Reportable Poikilocytosis Not Reportable Anisocytosis 1+ Microcytosis Not Reportable Macrocytosis 1+ Spherocytes Not Reportable Pappenheimer Bodies Not Reportable Sickle Cells Not Reportable Target Cells Not Reportable Tear Drop Cells Not Reportable Ovalocytes Not Reportable Helmet Cells Not Reportable Nguyen-Artesian Bodies Not Reportable Criders Rings Not Reportable Tiff Cells Not Reportable Bite Cells Not Reportable Crenated Cell Not Reportable Elliptocytes Rare Acanthocytes (Spur) Not Reportable Rouleaux Not Reportable Hemoglobin C Crystals Not Reportable Schistocytes Not Reportable Malaria parasites Not Reportable Mayito Bodies Not Reportable Hem Pathologist Commnt No PT 18.3 H INR 1.52 H Sodium Potassium Chloride Carbon Dioxide Anion Gap BUN Creatinine Estimated GFR BUN/Creatinine Ratio Glucose POC Glucose 84 Calcium Magnesium Total Bilirubin Direct Bilirubin Indirect Bilirubin AST ALT Alkaline Phosphatase Total Protein Albumin Albumin/Globulin Ratio 10/10/16 10/10/16 10/10/16 04:50 06:00 08:26 WBC RBC Hgb Hct MCV MCH MCHC RDW Plt Count Add Manual Diff Total Counted Seg Neutrophils % Seg Neuts % (Manual) Band Neutrophils % Lymphocytes % (Manual) Reactive Lymphs % (Man) Monocytes % (Manual) Eosinophils % (Manual) Basophils % (Manual) Metamyelocytes % Myelocytes % Promyelocytes % Blast Cells % Nucleated RBC % Seg Neutrophils # Man Band Neutrophils # Lymphocytes # (Manual) Abs React Lymphs (Man) Monocytes # (Manual) Eosinophils # (Manual) Basophils # (Manual) Metamyelocytes # Myelocytes # Promyelocytes # Blast Cells # WBC Morphology Hypersegmented Neuts Hyposegmented Neuts Hypogranular Neuts Smudge Cells Toxic Granulation Toxic Vacuolation Dohle Bodies Pelger-Huet Anomaly Ivory Rods Platelet Estimate Clumped Platelets Plt Clumps, EDTA Large Platelets Giant Platelets Platelet Satelliting Plt Morphology Comment RBC Morphology Dimorphic RBCs Polychromasia Hypochromasia Poikilocytosis Anisocytosis Microcytosis Macrocytosis Spherocytes Pappenheimer Bodies Sickle Cells Target Cells Tear Drop Cells Ovalocytes Helmet Cells Nguyen-Artesian Bodies Criders Rings Adenike Cells Bite Cells Crenated Cell Elliptocytes Acanthocytes (Spur) Rouleaux Hemoglobin C Crystals Schistocytes Malaria parasites Mayito Bodies Hem Pathologist Commnt PT INR Sodium 138 Potassium 3.9 Chloride 110.3 H Carbon Dioxide 17 L Anion Gap 15 BUN 15 Creatinine 0.9 Estimated GFR > 60 BUN/Creatinine Ratio 16.66 Glucose 79 POC Glucose 81 75 Calcium 6.7 L Magnesium 1.6 L Total Bilirubin 0.4 Direct Bilirubin 0.2 Indirect Bilirubin 0.2 AST 28 ALT 91 H Alkaline Phosphatase 93 Total Protein 4.0 L Albumin 1.5 L Albumin/Globulin Ratio 0.6 - Imaging CT scan: report reviewed
--- NOTE | 2016-10-10 11:46 | XRay Report ---
AP CHEST: HISTORY: Cough, bilateral pleural effusions. FINDINGS: [id number] bilateral pleural effusions are identified which have increased since 10/05/16 AP chest. Heart size and pulmonary vascularity appear within normal limits. There is chronic linear scarring in the right upper lobe. No obvious infiltrate or pneumothorax. Right IJ venous catheter terminates near the cavoatrial junction. IMPRESSION: Bilateral pleural effusions, as described. Chronic scarring in the right upper lobe.
[2016-10-10] MEDS: LEVAQUIN 750MG/150ML 150 ML IV SCH (13:31)
--- NOTE | 2016-10-10 14:18 | Progress Note ---
Assessment and Plan Assessment and plan: --Septic shock secondary to Crohn's colitis Significantly improved, patient is off pressors, Closely monitor --Sepsis secondary to Crohn's colitis Patient is on Levaquin and metronidazole, oral vancomycin discontinued GI following, advance diet as tolerated -- leukocytosis trending down secondary to sepsis C. difficile negative --Acute on chronic anemia Status post blood transfusion, stable H&H --Acute renal failure: secondary to vasomotor nephropathy and prerenal azotemia possible ATN Resolved, --Worsening leg edema, probably secondary to fluid overload DC IV fluids, consider Lasix if needed Echocardiogram for left ventricle function ejection fraction to rule out CHF --Severe protein calorie malnutrition; Secondary to underlying disease process, nutrition supplements and dietary consultation --Transaminitis, trending down, GI following --Coagulopathy; INR trending down --DVT prophylaxis; no pharmacological anticoagulation in view of anemia and coagulopathy Will use SCDs Physical therapy occupational therapy, DC planning per case management possible home with home health when medically stable History Interval history: Patient seen and evaluated medical records reviewed Patient is off pressors, tachycardic Denies chest pain or shortness of breath Alert awake oriented 3 Vitals reviewed Hospitalist Physical - Constitutional Vitals: Temp Pulse Resp BP Pulse Ox 97.4 F L 116 H 14 106/59 100 10/10/16 12:00 10/10/16 13:26 10/10/16 13:26 10/10/16 13:00 10/10/16 12:30 General appearance: Present: no acute distress, well-nourished, obese - EENT Eyes: Present: PERRL, EOM intact - Neck Neck: Present: supple, normal ROM - Respiratory Respiratory effort: normal Respiratory: bilateral: diminished, rales, negative: rhonchi, wheezing - Cardiovascular Rhythm: regular Heart Sounds: Present: S1 & S2 - Extremities Extremity abnormal: edema - Abdominal General gastrointestinal: soft, non-tender, non-distended, normal bowel sounds - Integumentary Integumentary: Present: clear, warm - Psychiatric Psychiatric: appropriate mood/affect, cooperative - Neurologic Neurologic: CNII-XII intact, moves all extremities Results - Labs CBC & Chem 7: 10/10/16 04:50 10/10/16 04:50 Labs: Laboratory Last Values WBC 20.9 K/mm3 (4.5-11.0) H 10/10/16 04:50 RBC 3.44 M/mm3 (3.65-5.03) L 10/10/16 04:50 Hgb 10.6 gm/dl (10.1-14.3) 10/10/16 04:50 Hct 32.4 % (30.3-42.9) 10/10/16 04:50 MCV 94 fl (79-97) 10/10/16 04:50 MCH 31 pg (28-32) 10/10/16 04:50 MCHC 33 % (30-34) 10/10/16 04:50 RDW 17.4 % (13.2-15.2) H 10/10/16 04:50 Plt Count 78 K/mm3 (140-440) L 10/10/16 04:50 Add Manual Diff Complete 10/10/16 04:50 Total Counted 100 10/10/16 04:50 Seg Neutrophils % Lockstitch Pocket Setter 10/10/16 04:50 Seg Neuts % (Manual) 94.0 % (40.0-70.0) H 10/10/16 04:50 Band Neutrophils % 0 % 10/10/16 04:50 Lymphocytes % (Manual) 1.0 % (13.4-35.0) L 10/10/16 04:50 Reactive Lymphs % (Man) 0 % 10/10/16 04:50 Monocytes % (Manual) 2.0 % (0.0-7.3) 10/10/16 04:50 Eosinophils % (Manual) 0 % (0.0-4.3) 10/10/16 04:50 Basophils % (Manual) 0 % (0.0-1.8) 10/10/16 04:50 Metamyelocytes % 2.0 % 10/10/16 04:50 Myelocytes % 1.0 % 10/10/16 04:50 Promyelocytes % 0 % 10/10/16 04:50 Blast Cells % 0 % 10/10/16 04:50 Nucleated RBC % Not Reportable 10/10/16 04:50 Seg Neutrophils # Man 19.6 K/mm3 (1.8-7.7) H 10/10/16 04:50 Band Neutrophils # 0.0 K/mm3 10/10/16 04:50 Lymphocytes # (Manual) 0.2 K/mm3 (1.2-5.4) L 10/10/16 04:50 Abs React Lymphs (Man) 0.0 K/mm3 10/10/16 04:50 Monocytes # (Manual) 0.4 K/mm3 (0.0-0.8) 10/10/16 04:50 Eosinophils # (Manual) 0.0 K/mm3 (0.0-0.4) 10/10/16 04:50 Basophils # (Manual) 0.0 K/mm3 (0.0-0.1) 10/10/16 04:50 Metamyelocytes # 0.4 K/mm3 10/10/16 04:50 Myelocytes # 0.2 K/mm3 10/10/16 04:50 Promyelocytes # 0.0 K/mm3 10/10/16 04:50 Blast Cells # 0.0 K/mm3 10/10/16 04:50 WBC Morphology Not Reportable 10/10/16 04:50 Hypersegmented Neuts Not Reportable 10/10/16 04:50 Hyposegmented Neuts Not Reportable 10/10/16 04:50 Hypogranular Neuts Not Reportable 10/10/16 04:50 Smudge Cells Not Reportable 10/10/16 04:50 Toxic Granulation Not Reportable 10/10/16 04:50 Toxic Vacuolation Not Reportable 10/10/16 04:50 Dohle Bodies Not Reportable 10/10/16 04:50 Pelger-Huet Anomaly Not Reportable 10/10/16 04:50 Ivory Rods Not Reportable 10/10/16 04:50 Platelet Estimate Appears decreased 10/10/16 04:50 Clumped Platelets Not Reportable 10/10/16 04:50 Plt Clumps, EDTA Not Reportable 10/10/16 04:50 Large Platelets Not Reportable 10/10/16 04:50 Giant Platelets Not Reportable 10/10/16 04:50 Platelet Satelliting Not Reportable 10/10/16 04:50 Plt Morphology Comment Not Reportable 10/10/16 04:50 RBC Morphology Not Reportable 10/10/16 04:50 Dimorphic RBCs Not Reportable 10/10/16 04:50 Polychromasia Not Reportable 10/10/16 04:50 Hypochromasia Not Reportable 10/10/16 04:50 Poikilocytosis Not Reportable 10/10/16 04:50 Anisocytosis 1+ 10/10/16 04:50 Microcytosis Not Reportable 10/10/16 04:50 Macrocytosis 1+ 10/10/16 04:50 Spherocytes Not Reportable 10/10/16 04:50 Pappenheimer Bodies Not Reportable 10/10/16 04:50 Sickle Cells Not Reportable 10/10/16 04:50 Target Cells Not Reportable 10/10/16 04:50 Tear Drop Cells Not Reportable 10/10/16 04:50 Ovalocytes Not Reportable 10/10/16 04:50 Helmet Cells Not Reportable 10/10/16 04:50 Nguyen-Malakoff Bodies Not Reportable 10/10/16 04:50 Lyman Rings Not Reportable 10/10/16 04:50 Strong Cells Not Reportable 10/10/16 04:50 Bite Cells Not Reportable 10/10/16 04:50 Crenated Cell Not Reportable 10/10/16 04:50 Elliptocytes Rare 10/10/16 04:50 Acanthocytes (Spur) Not Reportable 10/10/16 04:50 Rouleaux Not Reportable 10/10/16 04:50 Hemoglobin C Crystals Not Reportable 10/10/16 04:50 Schistocytes Not Reportable 10/10/16 04:50 Malaria parasites Not Reportable 10/10/16 04:50 Mayito Bodies Not Reportable 10/10/16 04:50 Hem Pathologist Commnt No 10/10/16 04:50 PT 18.3 Sec. (12.2-14.9) H 10/10/16 04:50 INR 1.52 (0.87-1.13) H 10/10/16 04:50 POC ABG pH 7.216 (7.35-7.45) L 10/05/16 16:03 POC ABG pCO2 28.2 (35-45) L 10/05/16 16:03 POC ABG pO2 60 (80-105) L 10/05/16 16:03 POC ABG HCO3 11.4 10/05/16 16:03 POC ABG Total CO2 12 10/05/16 16:03 POC ABG O2 Sat 86 10/05/16 16:03 POC ABG Base Excess -16 10/05/16 16:03 VBG pH 7.136 (7.320-7.420) L* 10/05/16 14:40 FiO2 32 % 10/05/16 16:03 Sodium 138 mmol/L (137-145) 10/10/16 04:50 Potassium 3.9 mmol/L (3.6-5.0) 10/10/16 04:50 Chloride 110.3 mmol/L (98-107) H 10/10/16 04:50 Carbon Dioxide 17 mmol/L (22-30) L 10/10/16 04:50 Anion Gap 15 mmol/L 10/10/16 04:50 BUN 15 mg/dL (7-17) 10/10/16 04:50 Creatinine 0.9 mg/dL (0.7-1.2) 10/10/16 04:50 Estimated GFR > 60 ml/min 10/10/16 04:50 BUN/Creatinine Ratio 16.66 % 10/10/16 04:50 Glucose 79 mg/dL (65-100) 10/10/16 04:50 POC Glucose 94 (70-105) 10/10/16 11:48 Lactic Acid 2.1 mmol/L (0.7-2.0) H* 10/07/16 Unknown Calcium 6.7 mg/dL (8.4-10.2) L 10/10/16 04:50 Phosphorus 2.6 mg/dL (2.5-4.5) 10/09/16 05:43 Magnesium 1.6 mg/dL (1.7-2.3) L 10/10/16 04:50 Iron 51 ug/dL (37-170) 10/05/16 21:30 Total Bilirubin 0.4 mg/dL (0.1-1.2) 10/10/16 04:50 Direct Bilirubin 0.2 mg/dL (0-0.2) 10/10/16 04:50 Indirect Bilirubin 0.2 mg/dL 10/10/16 04:50 AST 28 units/L (5-40) 10/10/16 04:50 ALT 91 units/L (7-56) H 10/10/16 04:50 Alkaline Phosphatase 93 units/L (35-129) 10/10/16 04:50 Total Creatine Kinase 2317 units/L (30-135) H 10/05/16 21:30 NT-Pro-B Natriuret Pep 12759 pg/mL (0-900) H 10/10/16 10:00 Total Protein 4.0 g/dL (6.3-8.2) L 10/10/16 04:50 Albumin 1.5 g/dL (3.9-5) L 10/10/16 04:50 Albumin/Globulin Ratio 0.6 % 10/10/16 04:50 Vitamin B12 1592 pg/mL (211-911) H 10/05/16 21:30 Folate 16.37 ng/mL (7.3-26.0) 10/05/16 21:30 Urine Color Cathy (Yellow) 10/05/16 13:52 Urine Turbidity Clear (Clear) 10/05/16 13:52 Urine pH 5.0 (5.0-7.0) 10/05/16 13:52 Ur Specific [place] 1.015 (1.003-1.030) 10/05/16 13:52 Urine Protein 30 mg/dl mg/dL (Negative) 10/05/16 13:52 Urine Glucose (UA) Neg mg/dL (Negative) 10/05/16 13:52 Urine Ketones Neg mg/dL (Negative) 10/05/16 13:52 Urine Blood Lg (Negative) 10/05/16 13:52 Urine Nitrite Neg (Negative) 10/05/16 13:52 Urine Bilirubin Neg (Negative) 10/05/16 13:52 Urine Urobilinogen < 2.0 mg/dL (<2.0) 10/05/16 13:52 Ur Leukocyte Esterase Neg (Negative) 10/05/16 13:52 Urine WBC (Auto) 1.0 /HPF (0.0-6.0) 10/05/16 13:52 Urine RBC (Auto) < 1.0 /HPF (0.0-6.0) 10/05/16 13:52 U Epithel Cells (Auto) 1.0 /HPF (0-13.0) 10/05/16 13:52 Urine Mucus Few /HPF 10/05/16 13:52 Ketones 2.9 mg/dL (0.2-2.8) H 10/05/16 21:30 Blood Type B POSITIVE 10/05/16 21:05 Antibody Screen Negative 10/05/16 21:05 Crossmatch See Detail 10/05/16 21:05
[2016-10-10] MEDS ORDERED: LOPRESSOR IV ONE (15:06)
[2016-10-10] MEDS: NOVOLOG SUB-Q SCH ×2 (18:17→21:50)
[2016-10-10] MEDS: PROTONIX PO SCH (21:49)
[2016-10-10] MEDS: AMBIEN PO PRN (21:50)
[2016-10-11] MEDS: FLAGYL 500 MG/100 ML 100 ML IV SCH ×3 (00:25→17:47)
[2016-10-11 07:06] LABS: Hematocrit 32.1 % (30.3-42.9); Hemoglobin 10.4 gm/dl (10.1-14.3); Mean Corpuscular HGB Conc 32 % (30-34); Mean Corpuscular Hemoglobin 30 pg (28-32); Mean Corpuscular Volume 93 fl (79-97); Platelet Count 107 K/mm3 (140-440); Red Blood Count 3.44 M/mm3 (3.65-5.03); Red Cell Distribution Width 17.3 % (13.2-15.2)
[2016-10-11 07:26] LABS: White Blood Count 25.1 K/mm3 (4.5-11.0)
[2016-10-11] MEDS: NOVOLOG SUB-Q SCH ×4 (08:00→22:31)
[2016-10-11] MEDS: DUONEB 0.5 MG-3 MG/3 ML SOLN IH SCH ×3 (08:22→21:32)
[2016-10-11 08:57] LABS: Anisocytosis 1+; Basophils % (Manual) 0 % (0.0-1.8); Blastocytes % (Manual) 0 %; Eosinophils % (Manual) 0 % (0.0-4.3)
[2016-10-11 08:58] LABS: Schistocytes Rare
[2016-10-11 08:59] LABS: Burr Cells Rare; Diff Status Complete
--- NOTE | 2016-10-11 10:19 | Progress Note ---
Assessment and Plan Sepsis. Stable leukocytosis No fever today. Colitis . Completing antibiotics Pleural effusion/Ascites. No history of liver disease. Elevated BMP noted, although this could still be related to her recent renal problems. Echocardiogram has been done today, waiting for results. Diarrhea. Controlled Chron's disease Rec Echo report Watch for fever Continue ABx Follow-up CBC Discussed with patient Critical care time was 32 minutes in [id number] evaluation and coordination of care Subjective Date of service: 10/11/16 Principal diagnosis: diarrhea, chron's colitis, hypoglycemia, ARF, AMS Interval history: Reports minimal chest congestion. No chest pain or shortness of breath reported. However still appears to be short of breath on exertion Objective Vital Signs - 12hr 10/10/16 10/10/16 10/10/16 22:30 23:00 23:08 Temperature Pulse Rate 117 H 121 H 120 H Pulse Rate [ Anterior Bilateral Throughout] Pulse Rate [ From Monitor] Pulse Rate [ Left Dorsalis Pedis] Pulse Rate [ Left Radial] Pulse Rate [ Right Dorsalis Pedis] Pulse Rate [ Right Radial] Respiratory 25 H 18 26 H Rate Respiratory Rate [Anterior Bilateral Throughout] Blood Pressure 100/66 98/54 98/54 O2 Sat by Pulse 98 99 98 Oximetry 10/10/16 10/10/16 10/10/16 23:15 23:30 23:48 Temperature Pulse Rate 120 H 125 H Pulse Rate [ Anterior Bilateral Throughout] Pulse Rate [ 124 H From Monitor] Pulse Rate [ 124 H Left Dorsalis Pedis] Pulse Rate [ 124 H Left Radial] Pulse Rate [ 124 H Right Dorsalis Pedis] Pulse Rate [ 124 H Right Radial] Respiratory 16 25 H 27 H Rate Respiratory Rate [Anterior Bilateral Throughout] Blood Pressure 110/68 110/68 O2 Sat by Pulse 99 98 98 Oximetry 10/10/16 10/10/16 10/11/16 23:50 23:53 00:00 Temperature 97.6 F Pulse Rate 139 H 129 H Pulse Rate [ Anterior Bilateral Throughout] Pulse Rate [ From Monitor] Pulse Rate [ Left Dorsalis Pedis] Pulse Rate [ Left Radial] Pulse Rate [ Right Dorsalis Pedis] Pulse Rate [ Right Radial] Respiratory 27 H 24 Rate Respiratory Rate [Anterior Bilateral Throughout] Blood Pressure 110/68 103/69 O2 Sat by Pulse 98 97 Oximetry 10/11/16 10/11/16 10/11/16 00:30 01:00 01:30 Temperature Pulse Rate 123 H 120 H 119 H Pulse Rate [ Anterior Bilateral Throughout] Pulse Rate [ From Monitor] Pulse Rate [ Left Dorsalis Pedis] Pulse Rate [ Left Radial] Pulse Rate [ Right Dorsalis Pedis] Pulse Rate [ Right Radial] Respiratory 22 15 25 H Rate Respiratory Rate [Anterior Bilateral Throughout] Blood Pressure 105/70 105/70 102/59 O2 Sat by Pulse 99 97 99 Oximetry 10/11/16 10/11/16 10/11/16 02:00 02:26 02:30 Temperature Pulse Rate 123 H 142 H 119 H Pulse Rate [ Anterior Bilateral Throughout] Pulse Rate [ From Monitor] Pulse Rate [ Left Dorsalis Pedis] Pulse Rate [ Left Radial] Pulse Rate [ Right Dorsalis Pedis] Pulse Rate [ Right Radial] Respiratory 18 15 19 Rate Respiratory Rate [Anterior Bilateral Throughout] Blood Pressure 94/68 94/68 92/64 O2 Sat by Pulse 99 98 99 Oximetry 10/11/16 10/11/16 10/11/16 03:00 03:30 04:00 Temperature 98.0 F Pulse Rate 141 H 117 H 122 H Pulse Rate [ Anterior Bilateral Throughout] Pulse Rate [ From Monitor] Pulse Rate [ 120 H Left Dorsalis Pedis] Pulse Rate [ 120 H Left Radial] Pulse Rate [ Right Dorsalis Pedis] Pulse Rate [ Right Radial] Respiratory 24 22 19 Rate Respiratory Rate [Anterior Bilateral Throughout] Blood Pressure 101/66 97/61 99/71 O2 Sat by Pulse 98 98 99 Oximetry 10/11/16 10/11/16 10/11/16 04:30 04:46 05:00 Temperature Pulse Rate 119 H 120 H 120 H Pulse Rate [ Anterior Bilateral Throughout] Pulse Rate [ From Monitor] Pulse Rate [ Left Dorsalis Pedis] Pulse Rate [ Left Radial] Pulse Rate [ Right Dorsalis Pedis] Pulse Rate [ Right Radial] Respiratory 16 20 14 Rate Respiratory Rate [Anterior Bilateral Throughout] Blood Pressure 91/60 91/60 106/55 O2 Sat by Pulse 99 99 99 Oximetry 10/11/16 10/11/16 10/11/16 05:30 06:00 06:04 Temperature Pulse Rate 144 H 122 H 129 H Pulse Rate [ Anterior Bilateral Throughout] Pulse Rate [ From Monitor] Pulse Rate [ Left Dorsalis Pedis] Pulse Rate [ Left Radial] Pulse Rate [ Right Dorsalis Pedis] Pulse Rate [ Right Radial] Respiratory 18 14 15 Rate Respiratory Rate [Anterior Bilateral Throughout] Blood Pressure 87/65 93/56 93/56 O2 Sat by Pulse 100 97 97 Oximetry 10/11/16 10/11/16 10/11/16 06:30 07:00 07:30 Temperature Pulse Rate 119 H 139 H 119 H Pulse Rate [ Anterior Bilateral Throughout] Pulse Rate [ From Monitor] Pulse Rate [ Left Dorsalis Pedis] Pulse Rate [ Left Radial] Pulse Rate [ Right Dorsalis Pedis] Pulse Rate [ Right Radial] Respiratory 19 22 23 Rate Respiratory Rate [Anterior Bilateral Throughout] Blood Pressure 103/74 92/67 100/58 O2 Sat by Pulse 99 98 100 Oximetry 10/11/16 10/11/16 10/11/16 08:00 08:23 08:30 Temperature 97.4 F L Pulse Rate 126 H 121 H Pulse Rate [ 108 H 109 H Anterior Bilateral Throughout] Pulse Rate [ From Monitor] Pulse Rate [ Left Dorsalis Pedis] Pulse Rate [ Left Radial] Pulse Rate [ Right Dorsalis Pedis] Pulse Rate [ Right Radial] Respiratory 20 21 Rate Respiratory 19 18 Rate [Anterior Bilateral Throughout] Blood Pressure 100/58 93/46 O2 Sat by Pulse 95 100 Oximetry Constitutional: alert Eyes: non-icteric Ascultation: Bilateral: diminished breath sounds, rhonchi Cardiovascular: regular rate and rhythm Gastrointestinal: normoactive bowel sounds, tender (mild) Extremities: no cyanosis, no cyanosis, no cyanosis Neurologic: normal mental status, non-focal exam, CN II-XII normal Psychiatric: mood appropriate, affect normal CBC and BMP: 10/11/16 06:39 10/10/16 04:50 ABG, PT/INR, D-dimer: ABG POC ABG pH 7.216 (7.35-7.45) L 10/05/16 16:03 POC ABG pCO2 28.2 (35-45) L 10/05/16 16:03 POC ABG pO2 60 (80-105) L 10/05/16 16:03 POC ABG HCO3 11.4 10/05/16 16:03 POC ABG Total CO2 12 10/05/16 16:03 POC ABG O2 Sat 86 10/05/16 16:03 PT/INR, D-dimer PT 18.3 Sec. (12.2-14.9) H 10/10/16 04:50 INR 1.52 (0.87-1.13) H 10/10/16 04:50 Abnormal lab findings: Abnormal Labs 10/05/16 10/05/16 10/05/16 16:03 17:02 21:05 WBC RBC RDW Plt Count Seg Neuts % (Manual) Lymphocytes % (Manual) Seg Neutrophils # Man Lymphocytes # (Manual) Monocytes # (Manual) PT INR POC ABG pH 7.216 L POC ABG pCO2 28.2 L POC ABG pO2 60 L Sodium Potassium Chloride Carbon Dioxide BUN Creatinine Glucose POC Glucose 185 H Lactic Acid Calcium Magnesium AST ALT Total Creatine Kinase NT-Pro-B Natriuret Pep Total Protein Albumin Vitamin B12 Total Cortisol Ketones Crossmatch See Detail 10/05/16 10/05/16 10/05/16 21:30 21:30 21:30 WBC RBC RDW Plt Count Seg Neuts % (Manual) Lymphocytes % (Manual) Seg Neutrophils # Man Lymphocytes # (Manual) Monocytes # (Manual) PT INR POC ABG pH POC ABG pCO2 POC ABG pO2 Sodium Potassium Chloride Carbon Dioxide BUN Creatinine Glucose POC Glucose Lactic Acid 2.3 H* Calcium Magnesium AST ALT Total Creatine Kinase 2317 H NT-Pro-B Natriuret Pep Total Protein Albumin Vitamin B12 Total Cortisol Ketones 2.9 H Crossmatch 10/05/16 10/05/16 10/05/16 21:30 21:49 23:07 WBC RBC RDW Plt Count Seg Neuts % (Manual) Lymphocytes % (Manual) Seg Neutrophils # Man Lymphocytes # (Manual) Monocytes # (Manual) PT INR POC ABG pH POC ABG pCO2 POC ABG pO2 Sodium Potassium Chloride Carbon Dioxide BUN Creatinine Glucose POC Glucose < 40 L < 40 L Lactic Acid Calcium Magnesium AST ALT Total Creatine Kinase NT-Pro-B Natriuret Pep Total Protein Albumin Vitamin B12 1592 H Total Cortisol Ketones Crossmatch 10/06/16 10/06/16 10/06/16 01:05 02:13 03:13 WBC RBC RDW Plt Count Seg Neuts % (Manual) Lymphocytes % (Manual) Seg Neutrophils # Man Lymphocytes # (Manual) Monocytes # (Manual) PT INR POC ABG pH POC ABG pCO2 POC ABG pO2 Sodium Potassium Chloride Carbon Dioxide BUN Creatinine Glucose POC Glucose 285 H 241 H 280 H Lactic Acid Calcium Magnesium AST ALT Total Creatine Kinase NT-Pro-B Natriuret Pep Total Protein Albumin Vitamin B12 Total Cortisol Ketones Crossmatch 10/06/16 10/06/16 10/06/16 03:49 05:22 06:10 WBC RBC RDW Plt Count Seg Neuts % (Manual) Lymphocytes % (Manual) Seg Neutrophils # Man Lymphocytes # (Manual) Monocytes # (Manual) PT INR POC ABG pH POC ABG pCO2 POC ABG pO2 Sodium Potassium Chloride Carbon Dioxide BUN Creatinine Glucose POC Glucose 216 H 240 H 291 H Lactic Acid Calcium Magnesium AST ALT Total Creatine Kinase NT-Pro-B Natriuret Pep Total Protein Albumin Vitamin B12 Total Cortisol Ketones Crossmatch 10/06/16 10/06/16 10/06/16 07:37 08:55 09:37 WBC RBC RDW Plt Count Seg Neuts % (Manual) Lymphocytes % (Manual) Seg Neutrophils # Man Lymphocytes # (Manual) Monocytes # (Manual) PT INR POC ABG pH POC ABG pCO2 POC ABG pO2 Sodium Potassium Chloride Carbon Dioxide BUN Creatinine Glucose POC Glucose 255 H 286 H 205 H Lactic Acid Calcium Magnesium AST ALT Total Creatine Kinase NT-Pro-B Natriuret Pep Total Protein Albumin Vitamin B12 Total Cortisol Ketones Crossmatch 10/06/16 10/06/16 10/06/16 09:40 09:40 10:00 WBC 27.9 H RBC RDW 16.8 H Plt Count 94 L Seg Neuts % (Manual) 94.5 H Lymphocytes % (Manual) 1.0 L Seg Neutrophils # Man 26.4 H Lymphocytes # (Manual) 0.3 L Monocytes # (Manual) 1.3 H PT INR POC ABG pH POC ABG pCO2 POC ABG pO2 Sodium 130 L Potassium Chloride Carbon Dioxide 16 L BUN 31 H Creatinine 1.8 H Glucose 259 H POC Glucose Lactic Acid 3.3 H* Calcium 6.1 L Magnesium AST 112 H ALT 100 H Total Creatine Kinase NT-Pro-B Natriuret Pep Total Protein 4.2 L D Albumin 1.2 L Vitamin B12 Total Cortisol Ketones Crossmatch 10/06/16 10/06/16 10/06/16 11:24 12:08 13:22 WBC RBC RDW Plt Count Seg Neuts % (Manual) Lymphocytes % (Manual) Seg Neutrophils # Man Lymphocytes # (Manual) Monocytes # (Manual) PT INR POC ABG pH POC ABG pCO2 POC ABG pO2 Sodium Potassium Chloride Carbon Dioxide BUN Creatinine Glucose POC Glucose 204 H 214 H 176 H Lactic Acid Calcium Magnesium AST ALT Total Creatine Kinase NT-Pro-B Natriuret Pep Total Protein Albumin Vitamin B12 Total Cortisol Ketones Crossmatch 10/06/16 10/06/16 10/06/16 14:52 15:11 17:11 WBC RBC RDW Plt Count Seg Neuts % (Manual) Lymphocytes % (Manual) Seg Neutrophils # Man Lymphocytes # (Manual) Monocytes # (Manual) PT INR POC ABG pH POC ABG pCO2 POC ABG pO2 Sodium Potassium Chloride Carbon Dioxide BUN Creatinine Glucose POC Glucose 177 H 168 H 173 H Lactic Acid Calcium Magnesium AST ALT Total Creatine Kinase NT-Pro-B Natriuret Pep Total Protein Albumin Vitamin B12 Total Cortisol Ketones Crossmatch 10/06/16 10/06/16 10/06/16 18:12 18:25 18:55 WBC RBC RDW Plt Count Seg Neuts % (Manual) Lymphocytes % (Manual) Seg Neutrophils # Man Lymphocytes # (Manual) Monocytes # (Manual) PT INR POC ABG pH POC ABG pCO2 POC ABG pO2 Sodium Potassium Chloride Carbon Dioxide BUN Creatinine Glucose POC Glucose 165 H 174 H Lactic Acid Calcium Magnesium AST ALT Total Creatine Kinase NT-Pro-B Natriuret Pep Total Protein Albumin Vitamin B12 Total Cortisol >150.0 H Ketones Crossmatch 10/06/16 10/06/16 10/06/16 20:01 21:00 22:02 WBC RBC RDW Plt Count Seg Neuts % (Manual) Lymphocytes % (Manual) Seg Neutrophils # Man Lymphocytes # (Manual) Monocytes # (Manual) PT INR POC ABG pH POC ABG pCO2 POC ABG pO2 Sodium Potassium Chloride Carbon Dioxide BUN Creatinine Glucose POC Glucose 158 H 172 H 180 H Lactic Acid Calcium Magnesium AST ALT Total Creatine Kinase NT-Pro-B Natriuret Pep Total Protein Albumin Vitamin B12 Total Cortisol Ketones Crossmatch 10/06/16 10/06/16 10/07/16 23:04 23:58 01:05 WBC RBC RDW Plt Count Seg Neuts % (Manual) Lymphocytes % (Manual) Seg Neutrophils # Man Lymphocytes # (Manual) Monocytes # (Manual) PT INR POC ABG pH POC ABG pCO2 POC ABG pO2 Sodium Potassium Chloride Carbon Dioxide BUN Creatinine Glucose POC Glucose 177 H 178 H 168 H Lactic Acid Calcium Magnesium AST ALT Total Creatine Kinase NT-Pro-B Natriuret Pep Total Protein Albumin Vitamin B12 Total Cortisol Ketones Crossmatch 10/07/16 10/07/16 10/07/16 01:58 02:58 04:03 WBC RBC RDW Plt Count Seg Neuts % (Manual) Lymphocytes % (Manual) Seg Neutrophils # Man Lymphocytes # (Manual) Monocytes # (Manual) PT INR POC ABG pH POC ABG pCO2 POC ABG pO2 Sodium Potassium Chloride Carbon Dioxide BUN Creatinine Glucose POC Glucose 152 H 181 H 196 H Lactic Acid Calcium Magnesium AST ALT Total Creatine Kinase NT-Pro-B Natriuret Pep Total Protein Albumin Vitamin B12 Total Cortisol Ketones Crossmatch 10/07/16 10/07/16 10/07/16 04:42 04:42 05:05 WBC 30.5 H RBC RDW 17.2 H Plt Count 59 L Seg Neuts % (Manual) 90.0 H Lymphocytes % (Manual) 2.0 L Seg Neutrophils # Man 27.5 H Lymphocytes # (Manual) 0.6 L Monocytes # (Manual) PT INR POC ABG pH POC ABG pCO2 POC ABG pO2 Sodium 127 L Potassium 3.5 L Chloride Carbon Dioxide 16 L BUN 27 H Creatinine 1.6 H Glucose 162 H POC Glucose 197 H Lactic Acid Calcium 6.1 L Magnesium 1.5 L AST 83 H ALT 106 H Total Creatine Kinase NT-Pro-B Natriuret Pep Total Protein 3.9 L Albumin 1.1 L Vitamin B12 Total Cortisol Ketones Crossmatch 10/07/16 10/07/16 10/07/16 06:08 07:29 08:11 WBC RBC RDW Plt Count Seg Neuts % (Manual) Lymphocytes % (Manual) Seg Neutrophils # Man Lymphocytes # (Manual) Monocytes # (Manual) PT INR POC ABG pH POC ABG pCO2 POC ABG pO2 Sodium Potassium Chloride Carbon Dioxide BUN Creatinine Glucose POC Glucose 163 H 167 H 143 H Lactic Acid Calcium Magnesium AST ALT Total Creatine Kinase NT-Pro-B Natriuret Pep Total Protein Albumin Vitamin B12 Total Cortisol Ketones Crossmatch 10/07/16 10/07/16 10/07/16 09:02 10:03 11:53 WBC RBC RDW Plt Count Seg Neuts % (Manual) Lymphocytes % (Manual) Seg Neutrophils # Man Lymphocytes # (Manual) Monocytes # (Manual) PT INR POC ABG pH POC ABG pCO2 POC ABG pO2 Sodium Potassium Chloride Carbon Dioxide BUN Creatinine Glucose POC Glucose 172 H 163 H 144 H Lactic Acid Calcium Magnesium AST ALT Total Creatine Kinase NT-Pro-B Natriuret Pep Total Protein Albumin Vitamin B12 Total Cortisol Ketones Crossmatch 10/07/16 10/07/16 10/07/16 14:18 16:35 17:53 WBC RBC RDW Plt Count Seg Neuts % (Manual) Lymphocytes % (Manual) Seg Neutrophils # Man Lymphocytes # (Manual) Monocytes # (Manual) PT INR POC ABG pH POC ABG pCO2 POC ABG pO2 Sodium Potassium Chloride Carbon Dioxide BUN Creatinine Glucose POC Glucose 168 H 195 H 187 H Lactic Acid Calcium Magnesium AST ALT Total Creatine Kinase NT-Pro-B Natriuret Pep Total Protein Albumin Vitamin B12 Total Cortisol Ketones Crossmatch 10/07/16 10/07/16 10/08/16 19:53 Unknown 00:18 WBC RBC RDW Plt Count Seg Neuts % (Manual) Lymphocytes % (Manual) Seg Neutrophils # Man Lymphocytes # (Manual) Monocytes # (Manual) PT INR POC ABG pH POC ABG pCO2 POC ABG pO2 Sodium Potassium Chloride Carbon Dioxide BUN Creatinine Glucose POC Glucose 212 H 142 H Lactic Acid 2.1 H* Calcium Magnesium AST ALT Total Creatine Kinase NT-Pro-B Natriuret Pep Total Protein Albumin Vitamin B12 Total Cortisol Ketones Crossmatch 10/08/16 10/08/16 10/08/16 03:35 03:45 03:45 WBC 31.0 H RBC 3.62 L RDW 17.2 H Plt Count 59 L Seg Neuts % (Manual) 79.0 H Lymphocytes % (Manual) 1.0 L Seg Neutrophils # Man 24.5 H Lymphocytes # (Manual) 0.3 L Monocytes # (Manual) 2.2 H PT 19.8 H INR 1.68 H POC ABG pH POC ABG pCO2 POC ABG pO2 Sodium Potassium Chloride Carbon Dioxide BUN Creatinine Glucose POC Glucose 149 H Lactic Acid Calcium Magnesium AST ALT Total Creatine Kinase NT-Pro-B Natriuret Pep Total Protein Albumin Vitamin B12 Total Cortisol Ketones Crossmatch 10/08/16 10/08/16 10/08/16 03:45 07:39 10:00 WBC RBC RDW Plt Count Seg Neuts % (Manual) Lymphocytes % (Manual) Seg Neutrophils # Man Lymphocytes # (Manual) Monocytes # (Manual) PT INR POC ABG pH POC ABG pCO2 POC ABG pO2 Sodium 132 L Potassium Chloride Carbon Dioxide 15 L BUN 22 H Creatinine 1.3 H Glucose 142 H POC Glucose 165 H 167 H Lactic Acid Calcium 5.9 L* Magnesium AST 62 H ALT 112 H Total Creatine Kinase NT-Pro-B Natriuret Pep Total Protein 3.8 L Albumin 1.0 L Vitamin B12 Total Cortisol Ketones Crossmatch 10/08/16 10/08/16 10/08/16 13:51 18:18 22:00 WBC RBC RDW Plt Count Seg Neuts % (Manual) Lymphocytes % (Manual) Seg Neutrophils # Man Lymphocytes # (Manual) Monocytes # (Manual) PT INR POC ABG pH POC ABG pCO2 POC ABG pO2 Sodium Potassium Chloride Carbon Dioxide BUN Creatinine Glucose POC Glucose 175 H 136 H 160 H Lactic Acid Calcium Magnesium AST ALT Total Creatine Kinase NT-Pro-B Natriuret Pep Total Protein Albumin Vitamin B12 Total Cortisol Ketones Crossmatch 10/09/16 10/09/16 10/09/16 02:07 05:43 05:43 WBC 26.6 H RBC RDW 17.6 H Plt Count 77 L Seg Neuts % (Manual) 93.0 H Lymphocytes % (Manual) 0 L Seg Neutrophils # Man 24.7 H Lymphocytes # (Manual) 0.0 L Monocytes # (Manual) PT INR POC ABG pH POC ABG pCO2 POC ABG pO2 Sodium 135 L Potassium Chloride 108.4 H Carbon Dioxide 17 L BUN 18 H Creatinine Glucose 164 H POC Glucose 149 H Lactic Acid Calcium 6.5 L Magnesium AST ALT Total Creatine Kinase NT-Pro-B Natriuret Pep Total Protein Albumin Vitamin B12 Total Cortisol Ketones Crossmatch 10/09/16 10/09/16 10/09/16 06:22 08:06 10:44 WBC RBC RDW Plt Count Seg Neuts % (Manual) Lymphocytes % (Manual) Seg Neutrophils # Man Lymphocytes # (Manual) Monocytes # (Manual) PT INR POC ABG pH POC ABG pCO2 POC ABG pO2 Sodium Potassium Chloride Carbon Dioxide BUN Creatinine Glucose POC Glucose 162 H 127 H 165 H Lactic Acid Calcium Magnesium AST ALT Total Creatine Kinase NT-Pro-B Natriuret Pep Total Protein Albumin Vitamin B12 Total Cortisol Ketones Crossmatch 10/09/16 10/09/16 10/10/16 12:04 13:25 04:50 WBC 20.9 H RBC 3.44 L RDW 17.4 H Plt Count 78 L Seg Neuts % (Manual) 94.0 H Lymphocytes % (Manual) 1.0 L Seg Neutrophils # Man 19.6 H Lymphocytes # (Manual) 0.2 L Monocytes # (Manual) PT INR POC ABG pH POC ABG pCO2 POC ABG pO2 Sodium Potassium Chloride Carbon Dioxide BUN Creatinine Glucose POC Glucose 128 H 143 H Lactic Acid Calcium Magnesium AST ALT Total Creatine Kinase NT-Pro-B Natriuret Pep Total Protein Albumin Vitamin B12 Total Cortisol Ketones Crossmatch 10/10/16 10/10/16 10/10/16 04:50 04:50 10:00 WBC RBC RDW Plt Count Seg Neuts % (Manual) Lymphocytes % (Manual) Seg Neutrophils # Man Lymphocytes # (Manual) Monocytes # (Manual) PT 18.3 H INR 1.52 H POC ABG pH POC ABG pCO2 POC ABG pO2 Sodium Potassium Chloride 110.3 H Carbon Dioxide 17 L BUN Creatinine Glucose POC Glucose Lactic Acid Calcium 6.7 L Magnesium 1.6 L AST ALT 91 H Total Creatine Kinase NT-Pro-B Natriuret Pep 39930 H Total Protein 4.0 L Albumin 1.5 L Vitamin B12 Total Cortisol Ketones Crossmatch 10/11/16 06:39 WBC 25.1 H RBC 3.44 L RDW 17.3 H Plt Count 107 L Seg Neuts % (Manual) 87.0 H Lymphocytes % (Manual) 2.0 L Seg Neutrophils # Man 21.8 H Lymphocytes # (Manual) 0.5 L Monocytes # (Manual) PT INR POC ABG pH POC ABG pCO2 POC ABG pO2 Sodium Potassium Chloride Carbon Dioxide BUN Creatinine Glucose POC Glucose Lactic Acid Calcium Magnesium AST ALT Total Creatine Kinase NT-Pro-B Natriuret Pep Total Protein Albumin Vitamin B12 Total Cortisol Ketones Crossmatch
--- NOTE | 2016-10-11 10:45 | Progress Note ---
Assessment and Plan Assessment and plan: --Septic shock secondary to Crohn's colitis Significantly improved, patient is off pressors, Closely monitor Blood pressures on the lower range, eyes tachycardia Fluid bolus if no improvement, EKG when necessary --Sepsis secondary to Crohn's colitis Patient is on Levaquin and metronidazole, oral vancomycin discontinued GI following, advance diet as tolerated -- leukocytosis trending down secondary to sepsis C. difficile negative --Acute on chronic anemia Status post blood transfusion, stable H&H --Acute renal failure: secondary to vasomotor nephropathy and prerenal azotemia possible ATN Resolved, --Worsening leg edema, probably secondary to fluid overload DC IV fluids, consider Lasix if needed Echocardiogram for left ventricle function ejection fraction to rule out CHF --Severe protein calorie malnutrition; Secondary to underlying disease process, nutrition supplements and dietary consultation --Transaminitis, trending down, GI following --Coagulopathy; INR trending down --DVT prophylaxis; no pharmacological anticoagulation in view of anemia and coagulopathy Will use SCDs Physical therapy occupational therapy, and be transferred out of ICU is stable DC planning per case management possible home with home health when medically stable History Interval history: Reason seen and evaluated this morning medical records reviewed Patient complains of weakness, no new events reported by the nursing staff Alert awake oriented 3 not in acute distress Diarrhea less had 2 bowel movements since last night Mild tachycardia Hospitalist Physical - Constitutional Vitals: Temp Pulse Resp BP Pulse Ox 97.4 F L 121 H 21 93/46 100 10/11/16 08:00 10/11/16 08:30 10/11/16 08:30 10/11/16 08:30 10/11/16 08:30 General appearance: Present: no acute distress, well-nourished, obese - EENT Eyes: Present: PERRL, EOM intact - Neck Neck: Present: supple, normal ROM - Respiratory Respiratory effort: normal Respiratory: bilateral: diminished, rales, negative: rhonchi, wheezing - Cardiovascular Rhythm: regular Heart Sounds: Present: S1 & S2 (tachycardia) - Extremities Extremities: no ischemia, pulses intact, pulses symmetrical Extremity abnormal: edema Peripheral Pulses: within normal limits - Abdominal General gastrointestinal: soft, non-tender, non-distended, normal bowel sounds - Integumentary Integumentary: Present: clear, warm - Psychiatric Psychiatric: appropriate mood/affect, cooperative - Neurologic Neurologic: CNII-XII intact, moves all extremities Results - Labs CBC & Chem 7: 10/12/16 05:30 10/12/16 05:30 Labs: Laboratory Last Values WBC 25.1 K/mm3 (4.5-11.0) H 10/11/16 06:39 RBC 3.44 M/mm3 (3.65-5.03) L 10/11/16 06:39 Hgb 10.4 gm/dl (10.1-14.3) 10/11/16 06:39 Hct 32.1 % (30.3-42.9) 10/11/16 06:39 MCV 93 fl (79-97) 10/11/16 06:39 MCH 30 pg (28-32) 10/11/16 06:39 MCHC 32 % (30-34) 10/11/16 06:39 RDW 17.3 % (13.2-15.2) H 10/11/16 06:39 Plt Count 107 K/mm3 (140-440) L 10/11/16 06:39 Add Manual Diff Complete 10/11/16 06:39 Total Counted 100 10/11/16 06:39 Seg Neutrophils % [place] 10/11/16 06:39 Seg Neuts % (Manual) 87.0 % (40.0-70.0) H 10/11/16 06:39 Band Neutrophils % 8.0 % 10/11/16 06:39 Lymphocytes % (Manual) 2.0 % (13.4-35.0) L 10/11/16 06:39 Reactive Lymphs % (Man) 0 % 10/11/16 06:39 Monocytes % (Manual) 3.0 % (0.0-7.3) 10/11/16 06:39 Eosinophils % (Manual) 0 % (0.0-4.3) 10/11/16 06:39 Basophils % (Manual) 0 % (0.0-1.8) 10/11/16 06:39 Metamyelocytes % 0 % 10/11/16 06:39 Myelocytes % 0 % 10/11/16 06:39 Promyelocytes % 0 % 10/11/16 06:39 Blast Cells % 0 % 10/11/16 06:39 Nucleated RBC % Not Reportable 10/11/16 06:39 Seg Neutrophils # Man 21.8 K/mm3 (1.8-7.7) H 10/11/16 06:39 Band Neutrophils # 2.0 K/mm3 10/11/16 06:39 Lymphocytes # (Manual) 0.5 K/mm3 (1.2-5.4) L 10/11/16 06:39 Abs React Lymphs (Man) 0.0 K/mm3 10/11/16 06:39 Monocytes # (Manual) 0.8 K/mm3 (0.0-0.8) 10/11/16 06:39 Eosinophils # (Manual) 0.0 K/mm3 (0.0-0.4) 10/11/16 06:39 Basophils # (Manual) 0.0 K/mm3 (0.0-0.1) 10/11/16 06:39 Metamyelocytes # 0.0 K/mm3 10/11/16 06:39 Myelocytes # 0.0 K/mm3 10/11/16 06:39 Promyelocytes # 0.0 K/mm3 10/11/16 06:39 Blast Cells # 0.0 K/mm3 10/11/16 06:39 WBC Morphology Not Reportable 10/11/16 06:39 Hypersegmented Neuts Not Reportable 10/11/16 06:39 Hyposegmented Neuts Not Reportable 10/11/16 06:39 Hypogranular Neuts Not Reportable 10/11/16 06:39 Smudge Cells Not Reportable 10/11/16 06:39 Toxic Granulation Not Reportable 10/11/16 06:39 Toxic Vacuolation Not Reportable 10/11/16 06:39 Dohle Bodies Not Reportable 10/11/16 06:39 Pelger-Huet Anomaly Not Reportable 10/11/16 06:39 Ivory Rods Not Reportable 10/11/16 06:39 Platelet Estimate Not Reportable 10/11/16 06:39 Clumped Platelets Not Reportable 10/11/16 06:39 Plt Clumps, EDTA Not Reportable 10/11/16 06:39 Large Platelets Not Reportable 10/11/16 06:39 Giant Platelets Not Reportable 10/11/16 06:39 Platelet Satelliting Not Reportable 10/11/16 06:39 Plt Morphology Comment Not Reportable 10/11/16 06:39 RBC Morphology Not Reportable 10/11/16 06:39 Dimorphic RBCs Not Reportable 10/11/16 06:39 Polychromasia Not Reportable 10/11/16 06:39 Hypochromasia Not Reportable 10/11/16 06:39 Poikilocytosis Not Reportable 10/11/16 06:39 Anisocytosis 1+ 10/11/16 06:39 Microcytosis Not Reportable 10/11/16 06:39 Macrocytosis Not Reportable 10/11/16 06:39 Spherocytes Not Reportable 10/11/16 06:39 Pappenheimer Bodies Not Reportable 10/11/16 06:39 Sickle Cells Not Reportable 10/11/16 06:39 Target Cells Not Reportable 10/11/16 06:39 Tear Drop Cells Not Reportable 10/11/16 06:39 Ovalocytes Not Reportable 10/11/16 06:39 Helmet Cells Not Reportable 10/11/16 06:39 Nguyen-Townsend Bodies Not Reportable 10/11/16 06:39 Dillon Rings Not Reportable 10/11/16 06:39 Adenike Cells Rare 10/11/16 06:39 Bite Cells Not Reportable 10/11/16 06:39 Crenated Cell Not Reportable 10/11/16 06:39 Elliptocytes Not Reportable 10/11/16 06:39 Acanthocytes (Spur) Not Reportable 10/11/16 06:39 Rouleaux Not Reportable 10/11/16 06:39 Hemoglobin C Crystals Not Reportable 10/11/16 06:39 Schistocytes Rare 10/11/16 06:39 Malaria parasites Not Reportable 10/11/16 06:39 Mayito Bodies Not Reportable 10/11/16 06:39 Hem Pathologist Commnt No 10/11/16 06:39 PT 18.3 Sec. (12.2-14.9) H 10/10/16 04:50 INR 1.52 (0.87-1.13) H 10/10/16 04:50 POC ABG pH 7.216 (7.35-7.45) L 10/05/16 16:03 POC ABG pCO2 28.2 (35-45) L 10/05/16 16:03 POC ABG pO2 60 (80-105) L 10/05/16 16:03 POC ABG HCO3 11.4 10/05/16 16:03 POC ABG Total CO2 12 10/05/16 16:03 POC ABG O2 Sat 86 10/05/16 16:03 POC ABG Base Excess -16 10/05/16 16:03 VBG pH 7.136 (7.320-7.420) L* 10/05/16 14:40 FiO2 32 % 10/05/16 16:03 Sodium 138 mmol/L (137-145) 10/10/16 04:50 Potassium 3.9 mmol/L (3.6-5.0) 10/10/16 04:50 Chloride 110.3 mmol/L (98-107) H 10/10/16 04:50 Carbon Dioxide 17 mmol/L (22-30) L 10/10/16 04:50 Anion Gap 15 mmol/L 10/10/16 04:50 BUN 15 mg/dL (7-17) 10/10/16 04:50 Creatinine 0.9 mg/dL (0.7-1.2) 10/10/16 04:50 Estimated GFR > 60 ml/min 10/10/16 04:50 BUN/Creatinine Ratio 16.66 % 10/10/16 04:50 Glucose 79 mg/dL (65-100) 10/10/16 04:50 POC Glucose 86 (70-105) 10/11/16 07:47 C-Peptide 5.67 ng/mL (0.80-3.85) H 10/06/16 18:25 Lactic Acid 2.1 mmol/L (0.7-2.0) H* 10/07/16 Unknown Calcium 6.7 mg/dL (8.4-10.2) L 10/10/16 04:50 Phosphorus 2.6 mg/dL (2.5-4.5) 10/09/16 05:43 Magnesium 2.0 mg/dL (1.7-2.3) 10/11/16 06:39 Iron 51 ug/dL (37-170) 10/05/16 21:30 Total Bilirubin 0.4 mg/dL (0.1-1.2) 10/10/16 04:50 Direct Bilirubin 0.2 mg/dL (0-0.2) 10/10/16 04:50 Indirect Bilirubin 0.2 mg/dL 10/10/16 04:50 AST 28 units/L (5-40) 10/10/16 04:50 ALT 91 units/L (7-56) H 10/10/16 04:50 Alkaline Phosphatase 93 units/L (35-129) 10/10/16 04:50 Total Creatine Kinase 2317 units/L (30-135) H 10/05/16 21:30 NT-Pro-B Natriuret Pep 88601 pg/mL (0-900) H 10/10/16 10:00 Total Protein 4.0 g/dL (6.3-8.2) L 10/10/16 04:50 Albumin 1.5 g/dL (3.9-5) L 10/10/16 04:50 Albumin/Globulin Ratio 0.6 % 10/10/16 04:50 Vitamin B12 1592 pg/mL (211-911) H 10/05/16 21:30 Folate 16.37 ng/mL (7.3-26.0) 10/05/16 21:30 Total Cortisol >150.0 mcg/dL () H 10/06/16 18:25 Urine Color Cathy (Yellow) 10/05/16 13:52 Urine Turbidity Clear (Clear) 10/05/16 13:52 Urine pH 5.0 (5.0-7.0) 10/05/16 13:52 Ur Specific [place] 1.015 (1.003-1.030) 10/05/16 13:52 Urine Protein 30 mg/dl mg/dL (Negative) 10/05/16 13:52 Urine Glucose (UA) Neg mg/dL (Negative) 10/05/16 13:52 Urine Ketones Neg mg/dL (Negative) 10/05/16 13:52 Urine Blood Lg (Negative) 10/05/16 13:52 Urine Nitrite Neg (Negative) 10/05/16 13:52 Urine Bilirubin Neg (Negative) 10/05/16 13:52 Urine Urobilinogen < 2.0 mg/dL (<2.0) 10/05/16 13:52 Ur Leukocyte Esterase Neg (Negative) 10/05/16 13:52 Urine WBC (Auto) 1.0 /HPF (0.0-6.0) 10/05/16 13:52 Urine RBC (Auto) < 1.0 /HPF (0.0-6.0) 10/05/16 13:52 U Epithel Cells (Auto) 1.0 /HPF (0-13.0) 10/05/16 13:52 Urine Mucus Few /HPF 10/05/16 13:52 Ketones 2.9 mg/dL (0.2-2.8) H 10/05/16 21:30 Blood Type B POSITIVE 10/05/16 21:05 Antibody Screen Negative 10/05/16 21:05 Crossmatch See Detail 10/05/16 21:05
[2016-10-11] MEDS: PROTONIX PO SCH ×2 (11:14→21:31)
[2016-10-11] MEDS: LEVAQUIN PO SCH (11:14)
--- NOTE | 2016-10-11 12:12 | Echocardiography Report ---
Transthoracic Echocardiogram Indication: CHF BP: 93/56 Conclusions *Global left ventricular systolic function is normal. *The estimated ejection fraction is 50-55%. *Abnormal left ventricular diastolic function is observed. *The aortic valve structure is normal. *The mitral valve leaflets appear normal. *There is mild to moderate tricuspid regurgitation. *The right ventricular systolic pressure is calculated at 54 mmHg. *There is evidence of moderate pulmonary hypertension. *There is a minimial pericardial effusion. *There is a moderate pleural effusion. Findings Left Ventricle: The left ventricular chamber size is normal. Global left ventricular wall motion and contractility are within normal limits. Global left ventricular systolic function is normal. The estimated ejection fraction is 50-55%. Abnormal left ventricular diastolic function is observed. Left Atrium: The left atrium is normal in size with no visual thrombus identified. Right Ventricle: The right ventricular cavity size is normal. The right ventricular global systolic function is normal. Right Atrium: The right atrium appears normal. The interatrial septum appears normal. Aortic Valve: The aortic valve structure is normal. There is no evidence of aortic regurgitation. There is no evidence of aortic stenosis. Mitral Valve: The mitral valve leaflets appear normal. There is no evidence of mitral regurgitation. There is no evidence of mitral stenosis. Tricuspid Valve: The tricuspid valve leaflets are normal. There is mild to moderate tricuspid regurgitation. The right ventricular systolic pressure is calculated at 54 mmHg. There is evidence of moderate pulmonary hypertension. There is no tricuspid stenosis. Pulmonic Valve: The pulmonic valve appears normal. There is no evidence of pulmonic regurgitation. There is no pulmonic stenosis. Pericardium: There is a minimial pericardial effusion. There is a moderate pleural effusion. Aorta: There is no dilatation of the ascending aorta. There is no dilatation of the descending thoracic aorta. There is no dilatation of the aortic root. Venous: The inferior vena cava appears normal in size. Measurements Chambers MM Name Value Normal Range Ao root diameter (MM) 3.3 cm (2 - 3.7) LA dimension (AP) MM 2.7 cm (1.9 - 4) LA:Ao ratio (MM) 0.82 ratio - AV cusp separation (MM) 1.6 cm (1.5 - 2.6) Chambers 2D Name Value Normal Range RVIDd (AP) 2D 3.16 cm (0.9 - 2.6) IVSd (2D) 1.03 cm (0.6 - 1.1) LVPWd (2D) 1.04 cm (0.6 - 1.1) IVS:LVPW ratio (2D) 0.99 ratio - LVIDd (2D) 4.01 cm (3.7 - 5.6) LVIDs (2D) 2.79 cm (2 - 3.8) LV FS (Teichholz) (2D) 30.4 % - LV FS (cube) (2D) 30.4 % - EF Teichholz (2D) 58.4 % - LA dimension (AP) 2D 2.7 cm (1.9 - 4) Volumes/Mass Name Value Normal Range LA ESV SP 4CH (MOD) 21 ml - LA ESV SP 2CH (MOD) 43 ml - LA ESV BP (MOD) 30 ml - LA ESV BP (MOD) index 16.7 ml/m2 - Diastolic/Systolic Function Name Value Normal Range MV E-wave Vmax 0.93 m/sec - MV deceleration time 127 msec - LV septal e' Vmax 0.06 m/sec - LV lateral e' Vmax 0.1 m/sec - LV E:e' septal ratio 16.7 ratio - LV E:e' lateral ratio 9.4 ratio - Aortic Valve Name Value Normal Range AV VTI 21.5 cm - AV mean gradient 6 mmHg - LVOT diameter 2 cm - LVOT VTI 21.2 cm - LVOT mean gradient 4 mmHg - SV LVOT 67 ml - LIBAN (continuity VTI) 3.1 cm2 - Mitral Valve Name Value Normal Range MV PHT 46 msec - MVA (PHT) 4.78 cm2 - Tricuspid Valve Name Value Normal Range TR Vmax 3.56 m/sec - TR peak gradient 51 mmHg - RAP 3 mmHg - RVSP 54 mmHg - Pulmonic Valve/Qp:Qs Name Value Normal Range PV Vmax 0.79 m/sec - PV peak gradient 3 mmHg - PV acceleration time 92 msec -
[2016-10-11] MEDS ORDERED: NACL 0.9% 250ML 250 ML IV ONE (16:05)
[2016-10-11] MEDS ORDERED: XANAX PO ONE (17:40)
[2016-10-11] MEDS: NACL 0.9% 1000 ML 1,000 ML IV SCH (17:48)
[2016-10-11] MEDS: AMBIEN PO PRN (21:31)
[2016-10-12] MEDS: FLAGYL 500 MG/100 ML 100 ML IV SCH ×3 (03:00→16:30)
[2016-10-12] MEDS: LOPRESSOR IV PRN (05:47)
[2016-10-12] MEDS: NACL 0.9% 1000 ML 1,000 ML IV SCH (05:49)
[2016-10-12 06:11] LABS: Hematocrit 31.5 % (30.3-42.9); Hemoglobin 10.2 gm/dl (10.1-14.3); Mean Corpuscular HGB Conc 33 % (30-34); Mean Corpuscular Hemoglobin 31 pg (28-32); Mean Corpuscular Volume 94 fl (79-97); Platelet Count 132 K/mm3 (140-440); Red Blood Count 3.34 M/mm3 (3.65-5.03); Red Cell Distribution Width 17.6 % (13.2-15.2); White Blood Count 19.2 K/mm3 (4.5-11.0)
[2016-10-12 06:16] LABS: Alanine Aminotransferase 65 units/L (7-56); Albumin 1.4 g/dL (3.9-5); Albumin/Globulin Ratio 0.5 %; Alkaline Phosphatase 100 units/L (35-129); Anion Gap 13 mmol/L; BUN/Creatinine Ratio 18.88; Bilirubin,Total 0.4 mg/dL (0.1-1.2); Blood Urea Nitrogen 17 mg/dL (7-17); Calcium 7.4 mg/dL (8.4-10.2); Carbon Dioxide 18 mmol/L (22-30); Glucose 69 mg/dL (65-100); Magnesium 1.9 mg/dL (1.7-2.3); Potassium 3.8 mmol/L (3.6-5.0); Sodium 141 mmol/L (137-145); Total Protein 4.1 g/dL (6.3-8.2)
[2016-10-12 06:18] LABS: Bilirubin,Direct < 0.2 mg/dL (0-0.2); Bilirubin,Indirect 0.2 mg/dL
[2016-10-12 07:34] LABS: Anisocytosis 1+; Basophils % (Manual) 0 % (0.0-1.8); Blastocytes % (Manual) 0 %
[2016-10-12 07:35] LABS: Diff Status Complete; Macrocytosis Rare; Platelet Estimate Consistent w Auto
[2016-10-12] MEDS: NOVOLOG SUB-Q SCH ×4 (09:10→22:33)
[2016-10-12] MEDS: PROTONIX PO SCH ×2 (09:47→22:00)
[2016-10-12] MEDS: LEVAQUIN PO SCH (09:47)
[2016-10-12] MEDS: DUONEB 0.5 MG-3 MG/3 ML SOLN IH SCH ×3 (10:32→21:01)
--- NOTE | 2016-10-12 12:21 | Progress Note ---
Assessment and Plan Sepsis. No fever today. Colitis . Pleural effusion/Ascites. No history of liver disease. Elevated BNP noted, Echocardiogram with some diastolic dysfunction but normal EF. Questionable mass pain issues since the patient remains hypotensive overall line so with bilateral effusions and ascites Diarrhea. Controlled Chron's disease Rec We'll ask for cardiology opinion regarding echo finding considering diastolic CHF Watch for fever Continue ABx Follow-up CBC Discussed with patient Critical care time was 31 minutes in [id number] evaluation and coordination of care Subjective Date of service: 10/12/16 Principal diagnosis: diarrhea, chron's colitis, hypoglycemia, ARF, AMS Interval history: No chest pain or shortness of breath reported. Objective Vital Signs - 12hr 10/12/16 10/12/16 10/12/16 00:30 01:00 01:30 Temperature Pulse Rate 128 H 125 H 130 H Pulse Rate [ Anterior Bilateral Throughout] Respiratory 21 24 28 H Rate Respiratory Rate [Anterior Bilateral Throughout] Blood Pressure 85/61 99/66 102/65 O2 Sat by Pulse 98 98 98 Oximetry 10/12/16 10/12/16 10/12/16 02:00 02:30 03:00 Temperature Pulse Rate 127 H 127 H 126 H Pulse Rate [ Anterior Bilateral Throughout] Respiratory 24 22 25 H Rate Respiratory Rate [Anterior Bilateral Throughout] Blood Pressure 89/59 97/63 100/63 O2 Sat by Pulse 99 99 100 Oximetry 10/12/16 10/12/16 10/12/16 03:30 04:00 04:30 Temperature 98.8 F Pulse Rate 142 H 123 H 141 H Pulse Rate [ Anterior Bilateral Throughout] Respiratory 26 H 20 19 Rate Respiratory Rate [Anterior Bilateral Throughout] Blood Pressure 95/61 98/44 89/62 O2 Sat by Pulse 98 100 99 Oximetry 10/12/16 10/12/16 10/12/16 05:00 05:30 05:47 Temperature Pulse Rate 130 H 120 H 140 H Pulse Rate [ Anterior Bilateral Throughout] Respiratory 17 22 Rate Respiratory Rate [Anterior Bilateral Throughout] Blood Pressure 96/55 95/58 95/58 O2 Sat by Pulse 99 100 Oximetry 10/12/16 10/12/16 10/12/16 06:00 06:02 06:30 Temperature Pulse Rate 103 H 108 H 108 H Pulse Rate [ Anterior Bilateral Throughout] Respiratory 22 22 25 H Rate Respiratory Rate [Anterior Bilateral Throughout] Blood Pressure 82/56 82/56 87/60 O2 Sat by Pulse 99 99 99 Oximetry 10/12/16 10/12/16 10/12/16 07:00 07:30 08:00 Temperature 97.9 F Pulse Rate 109 H 113 H 116 H Pulse Rate [ Anterior Bilateral Throughout] Respiratory 23 20 25 H Rate Respiratory Rate [Anterior Bilateral Throughout] Blood Pressure 90/57 98/54 92/58 O2 Sat by Pulse 100 100 99 Oximetry 10/12/16 10/12/16 10/12/16 08:30 09:00 09:30 Temperature Pulse Rate 114 H 116 H 118 H Pulse Rate [ Anterior Bilateral Throughout] Respiratory 21 24 22 Rate Respiratory Rate [Anterior Bilateral Throughout] Blood Pressure 93/63 93/63 96/67 O2 Sat by Pulse 98 97 Oximetry 10/12/16 10/12/16 10/12/16 10:00 10:30 10:33 Temperature Pulse Rate 119 H 128 H Pulse Rate [ 124 H Anterior Bilateral Throughout] Respiratory 22 29 H Rate Respiratory 20 Rate [Anterior Bilateral Throughout] Blood Pressure 96/67 112/46 O2 Sat by Pulse 97 98 95 Oximetry 10/12/16 10/12/16 10/12/16 10:34 10:39 11:00 Temperature Pulse Rate 124 H 122 H Pulse Rate [ 120 H Anterior Bilateral Throughout] Respiratory 25 H 30 H Rate Respiratory 20 Rate [Anterior Bilateral Throughout] Blood Pressure 112/46 112/46 O2 Sat by Pulse 98 96 Oximetry 10/12/16 11:30 Temperature Pulse Rate 125 H Pulse Rate [ Anterior Bilateral Throughout] Respiratory 23 Rate Respiratory Rate [Anterior Bilateral Throughout] Blood Pressure 100/58 O2 Sat by Pulse 98 Oximetry Constitutional: alert Eyes: non-icteric Ascultation: Left: rales (mostly left side), Bilateral: diminished breath sounds Cardiovascular: regular rate and rhythm Gastrointestinal: normoactive bowel sounds, tender (mild) Extremities: no cyanosis, no cyanosis, no cyanosis Neurologic: normal mental status, non-focal exam, CN II-XII normal Psychiatric: mood appropriate, affect normal CBC and BMP: 10/12/16 05:30 10/12/16 05:30 ABG, PT/INR, D-dimer: ABG POC ABG pH 7.216 (7.35-7.45) L 10/05/16 16:03 POC ABG pCO2 28.2 (35-45) L 10/05/16 16:03 POC ABG pO2 60 (80-105) L 10/05/16 16:03 POC ABG HCO3 11.4 10/05/16 16:03 POC ABG Total CO2 12 10/05/16 16:03 POC ABG O2 Sat 86 10/05/16 16:03 PT/INR, D-dimer PT 18.3 Sec. (12.2-14.9) H 10/10/16 04:50 INR 1.52 (0.87-1.13) H 10/10/16 04:50 Abnormal lab findings: Abnormal Labs 10/05/16 10/05/16 10/05/16 16:03 17:02 21:05 WBC RBC RDW Plt Count Seg Neuts % (Manual) Lymphocytes % (Manual) Seg Neutrophils # Man Lymphocytes # (Manual) Monocytes # (Manual) PT INR POC ABG pH 7.216 L POC ABG pCO2 28.2 L POC ABG pO2 60 L Sodium Potassium Chloride Carbon Dioxide BUN Creatinine Glucose POC Glucose 185 H C-Peptide Lactic Acid Calcium Magnesium AST ALT Total Creatine Kinase NT-Pro-B Natriuret Pep Total Protein Albumin Vitamin B12 Total Cortisol Ketones Crossmatch See Detail 10/05/16 10/05/16 10/05/16 21:30 21:30 21:30 WBC RBC RDW Plt Count Seg Neuts % (Manual) Lymphocytes % (Manual) Seg Neutrophils # Man Lymphocytes # (Manual) Monocytes # (Manual) PT INR POC ABG pH POC ABG pCO2 POC ABG pO2 Sodium Potassium Chloride Carbon Dioxide BUN Creatinine Glucose POC Glucose C-Peptide Lactic Acid 2.3 H* Calcium Magnesium AST ALT Total Creatine Kinase 2317 H NT-Pro-B Natriuret Pep Total Protein Albumin Vitamin B12 Total Cortisol Ketones 2.9 H Crossmatch 10/05/16 10/05/16 10/05/16 21:30 21:49 23:07 WBC RBC RDW Plt Count Seg Neuts % (Manual) Lymphocytes % (Manual) Seg Neutrophils # Man Lymphocytes # (Manual) Monocytes # (Manual) PT INR POC ABG pH POC ABG pCO2 POC ABG pO2 Sodium Potassium Chloride Carbon Dioxide BUN Creatinine Glucose POC Glucose < 40 L < 40 L C-Peptide Lactic Acid Calcium Magnesium AST ALT Total Creatine Kinase NT-Pro-B Natriuret Pep Total Protein Albumin Vitamin B12 1592 H Total Cortisol Ketones Crossmatch 10/06/16 10/06/16 10/06/16 01:05 02:13 03:13 WBC RBC RDW Plt Count Seg Neuts % (Manual) Lymphocytes % (Manual) Seg Neutrophils # Man Lymphocytes # (Manual) Monocytes # (Manual) PT INR POC ABG pH POC ABG pCO2 POC ABG pO2 Sodium Potassium Chloride Carbon Dioxide BUN Creatinine Glucose POC Glucose 285 H 241 H 280 H C-Peptide Lactic Acid Calcium Magnesium AST ALT Total Creatine Kinase NT-Pro-B Natriuret Pep Total Protein Albumin Vitamin B12 Total Cortisol Ketones Crossmatch 10/06/16 10/06/16 10/06/16 03:49 05:22 06:10 WBC RBC RDW Plt Count Seg Neuts % (Manual) Lymphocytes % (Manual) Seg Neutrophils # Man Lymphocytes # (Manual) Monocytes # (Manual) PT INR POC ABG pH POC ABG pCO2 POC ABG pO2 Sodium Potassium Chloride Carbon Dioxide BUN Creatinine Glucose POC Glucose 216 H 240 H 291 H C-Peptide Lactic Acid Calcium Magnesium AST ALT Total Creatine Kinase NT-Pro-B Natriuret Pep Total Protein Albumin Vitamin B12 Total Cortisol Ketones Crossmatch 10/06/16 10/06/16 10/06/16 07:37 08:55 09:37 WBC RBC RDW Plt Count Seg Neuts % (Manual) Lymphocytes % (Manual) Seg Neutrophils # Man Lymphocytes # (Manual) Monocytes # (Manual) PT INR POC ABG pH POC ABG pCO2 POC ABG pO2 Sodium Potassium Chloride Carbon Dioxide BUN Creatinine Glucose POC Glucose 255 H 286 H 205 H C-Peptide Lactic Acid Calcium Magnesium AST ALT Total Creatine Kinase NT-Pro-B Natriuret Pep Total Protein Albumin Vitamin B12 Total Cortisol Ketones Crossmatch 10/06/16 10/06/16 10/06/16 09:40 09:40 10:00 WBC 27.9 H RBC RDW 16.8 H Plt Count 94 L Seg Neuts % (Manual) 94.5 H Lymphocytes % (Manual) 1.0 L Seg Neutrophils # Man 26.4 H Lymphocytes # (Manual) 0.3 L Monocytes # (Manual) 1.3 H PT INR POC ABG pH POC ABG pCO2 POC ABG pO2 Sodium 130 L Potassium Chloride Carbon Dioxide 16 L BUN 31 H Creatinine 1.8 H Glucose 259 H POC Glucose C-Peptide Lactic Acid 3.3 H* Calcium 6.1 L Magnesium AST 112 H ALT 100 H Total Creatine Kinase NT-Pro-B Natriuret Pep Total Protein 4.2 L D Albumin 1.2 L Vitamin B12 Total Cortisol Ketones Crossmatch 10/06/16 10/06/16 10/06/16 11:24 12:08 13:22 WBC RBC RDW Plt Count Seg Neuts % (Manual) Lymphocytes % (Manual) Seg Neutrophils # Man Lymphocytes # (Manual) Monocytes # (Manual) PT INR POC ABG pH POC ABG pCO2 POC ABG pO2 Sodium Potassium Chloride Carbon Dioxide BUN Creatinine Glucose POC Glucose 204 H 214 H 176 H C-Peptide Lactic Acid Calcium Magnesium AST ALT Total Creatine Kinase NT-Pro-B Natriuret Pep Total Protein Albumin Vitamin B12 Total Cortisol Ketones Crossmatch 10/06/16 10/06/16 10/06/16 14:52 15:11 17:11 WBC RBC RDW Plt Count Seg Neuts % (Manual) Lymphocytes % (Manual) Seg Neutrophils # Man Lymphocytes # (Manual) Monocytes # (Manual) PT INR POC ABG pH POC ABG pCO2 POC ABG pO2 Sodium Potassium Chloride Carbon Dioxide BUN Creatinine Glucose POC Glucose 177 H 168 H 173 H C-Peptide Lactic Acid Calcium Magnesium AST ALT Total Creatine Kinase NT-Pro-B Natriuret Pep Total Protein Albumin Vitamin B12 Total Cortisol Ketones Crossmatch 10/06/16 10/06/16 10/06/16 18:12 18:25 18:25 WBC RBC RDW Plt Count Seg Neuts % (Manual) Lymphocytes % (Manual) Seg Neutrophils # Man Lymphocytes # (Manual) Monocytes # (Manual) PT INR POC ABG pH POC ABG pCO2 POC ABG pO2 Sodium Potassium Chloride Carbon Dioxide BUN Creatinine Glucose POC Glucose 165 H C-Peptide 5.67 H Lactic Acid Calcium Magnesium AST ALT Total Creatine Kinase NT-Pro-B Natriuret Pep Total Protein Albumin Vitamin B12 Total Cortisol >150.0 H Ketones Crossmatch 10/06/16 10/06/16 10/06/16 18:55 20:01 21:00 WBC RBC RDW Plt Count Seg Neuts % (Manual) Lymphocytes % (Manual) Seg Neutrophils # Man Lymphocytes # (Manual) Monocytes # (Manual) PT INR POC ABG pH POC ABG pCO2 POC ABG pO2 Sodium Potassium Chloride Carbon Dioxide BUN Creatinine Glucose POC Glucose 174 H 158 H 172 H C-Peptide Lactic Acid Calcium Magnesium AST ALT Total Creatine Kinase NT-Pro-B Natriuret Pep Total Protein Albumin Vitamin B12 Total Cortisol Ketones Crossmatch 10/06/16 10/06/16 10/06/16 22:02 23:04 23:58 WBC RBC RDW Plt Count Seg Neuts % (Manual) Lymphocytes % (Manual) Seg Neutrophils # Man Lymphocytes # (Manual) Monocytes # (Manual) PT INR POC ABG pH POC ABG pCO2 POC ABG pO2 Sodium Potassium Chloride Carbon Dioxide BUN Creatinine Glucose POC Glucose 180 H 177 H 178 H C-Peptide Lactic Acid Calcium Magnesium AST ALT Total Creatine Kinase NT-Pro-B Natriuret Pep Total Protein Albumin Vitamin B12 Total Cortisol Ketones Crossmatch 10/07/16 10/07/16 10/07/16 01:05 01:58 02:58 WBC RBC RDW Plt Count Seg Neuts % (Manual) Lymphocytes % (Manual) Seg Neutrophils # Man Lymphocytes # (Manual) Monocytes # (Manual) PT INR POC ABG pH POC ABG pCO2 POC ABG pO2 Sodium Potassium Chloride Carbon Dioxide BUN Creatinine Glucose POC Glucose 168 H 152 H 181 H C-Peptide Lactic Acid Calcium Magnesium AST ALT Total Creatine Kinase NT-Pro-B Natriuret Pep Total Protein Albumin Vitamin B12 Total Cortisol Ketones Crossmatch 10/07/16 10/07/16 10/07/16 04:03 04:42 04:42 WBC 30.5 H RBC RDW 17.2 H Plt Count 59 L Seg Neuts % (Manual) 90.0 H Lymphocytes % (Manual) 2.0 L Seg Neutrophils # Man 27.5 H Lymphocytes # (Manual) 0.6 L Monocytes # (Manual) PT INR POC ABG pH POC ABG pCO2 POC ABG pO2 Sodium 127 L Potassium 3.5 L Chloride Carbon Dioxide 16 L BUN 27 H Creatinine 1.6 H Glucose 162 H POC Glucose 196 H C-Peptide Lactic Acid Calcium 6.1 L Magnesium 1.5 L AST 83 H ALT 106 H Total Creatine Kinase NT-Pro-B Natriuret Pep Total Protein 3.9 L Albumin 1.1 L Vitamin B12 Total Cortisol Ketones Crossmatch 10/07/16 10/07/16 10/07/16 05:05 06:08 07:29 WBC RBC RDW Plt Count Seg Neuts % (Manual) Lymphocytes % (Manual) Seg Neutrophils # Man Lymphocytes # (Manual) Monocytes # (Manual) PT INR POC ABG pH POC ABG pCO2 POC ABG pO2 Sodium Potassium Chloride Carbon Dioxide BUN Creatinine Glucose POC Glucose 197 H 163 H 167 H C-Peptide Lactic Acid Calcium Magnesium AST ALT Total Creatine Kinase NT-Pro-B Natriuret Pep Total Protein Albumin Vitamin B12 Total Cortisol Ketones Crossmatch 10/07/16 10/07/16 10/07/16 08:11 09:02 10:03 WBC RBC RDW Plt Count Seg Neuts % (Manual) Lymphocytes % (Manual) Seg Neutrophils # Man Lymphocytes # (Manual) Monocytes # (Manual) PT INR POC ABG pH POC ABG pCO2 POC ABG pO2 Sodium Potassium Chloride Carbon Dioxide BUN Creatinine Glucose POC Glucose 143 H 172 H 163 H C-Peptide Lactic Acid Calcium Magnesium AST ALT Total Creatine Kinase NT-Pro-B Natriuret Pep Total Protein Albumin Vitamin B12 Total Cortisol Ketones Crossmatch 10/07/16 10/07/16 10/07/16 11:53 14:18 16:35 WBC RBC RDW Plt Count Seg Neuts % (Manual) Lymphocytes % (Manual) Seg Neutrophils # Man Lymphocytes # (Manual) Monocytes # (Manual) PT INR POC ABG pH POC ABG pCO2 POC ABG pO2 Sodium Potassium Chloride Carbon Dioxide BUN Creatinine Glucose POC Glucose 144 H 168 H 195 H C-Peptide Lactic Acid Calcium Magnesium AST ALT Total Creatine Kinase NT-Pro-B Natriuret Pep Total Protein Albumin Vitamin B12 Total Cortisol Ketones Crossmatch 10/07/16 10/07/16 10/07/16 17:53 19:53 Unknown WBC RBC RDW Plt Count Seg Neuts % (Manual) Lymphocytes % (Manual) Seg Neutrophils # Man Lymphocytes # (Manual) Monocytes # (Manual) PT INR POC ABG pH POC ABG pCO2 POC ABG pO2 Sodium Potassium Chloride Carbon Dioxide BUN Creatinine Glucose POC Glucose 187 H 212 H C-Peptide Lactic Acid 2.1 H* Calcium Magnesium AST ALT Total Creatine Kinase NT-Pro-B Natriuret Pep Total Protein Albumin Vitamin B12 Total Cortisol Ketones Crossmatch 10/08/16 10/08/16 10/08/16 00:18 03:35 03:45 WBC 31.0 H RBC 3.62 L RDW 17.2 H Plt Count 59 L Seg Neuts % (Manual) 79.0 H Lymphocytes % (Manual) 1.0 L Seg Neutrophils # Man 24.5 H Lymphocytes # (Manual) 0.3 L Monocytes # (Manual) 2.2 H PT INR POC ABG pH POC ABG pCO2 POC ABG pO2 Sodium Potassium Chloride Carbon Dioxide BUN Creatinine Glucose POC Glucose 142 H 149 H C-Peptide Lactic Acid Calcium Magnesium AST ALT Total Creatine Kinase NT-Pro-B Natriuret Pep Total Protein Albumin Vitamin B12 Total Cortisol Ketones Crossmatch 10/08/16 10/08/16 10/08/16 03:45 03:45 07:39 WBC RBC RDW Plt Count Seg Neuts % (Manual) Lymphocytes % (Manual) Seg Neutrophils # Man Lymphocytes # (Manual) Monocytes # (Manual) PT 19.8 H INR 1.68 H POC ABG pH POC ABG pCO2 POC ABG pO2 Sodium 132 L Potassium Chloride Carbon Dioxide 15 L BUN 22 H Creatinine 1.3 H Glucose 142 H POC Glucose 165 H C-Peptide Lactic Acid Calcium 5.9 L* Magnesium AST 62 H ALT 112 H Total Creatine Kinase NT-Pro-B Natriuret Pep Total Protein 3.8 L Albumin 1.0 L Vitamin B12 Total Cortisol Ketones Crossmatch 10/08/16 10/08/16 10/08/16 10:00 13:51 18:18 WBC RBC RDW Plt Count Seg Neuts % (Manual) Lymphocytes % (Manual) Seg Neutrophils # Man Lymphocytes # (Manual) Monocytes # (Manual) PT INR POC ABG pH POC ABG pCO2 POC ABG pO2 Sodium Potassium Chloride Carbon Dioxide BUN Creatinine Glucose POC Glucose 167 H 175 H 136 H C-Peptide Lactic Acid Calcium Magnesium AST ALT Total Creatine Kinase NT-Pro-B Natriuret Pep Total Protein Albumin Vitamin B12 Total Cortisol Ketones Crossmatch 10/08/16 10/09/16 10/09/16 22:00 02:07 05:43 WBC 26.6 H RBC RDW 17.6 H Plt Count 77 L Seg Neuts % (Manual) 93.0 H Lymphocytes % (Manual) 0 L Seg Neutrophils # Man 24.7 H Lymphocytes # (Manual) 0.0 L Monocytes # (Manual) PT INR POC ABG pH POC ABG pCO2 POC ABG pO2 Sodium Potassium Chloride Carbon Dioxide BUN Creatinine Glucose POC Glucose 160 H 149 H C-Peptide Lactic Acid Calcium Magnesium AST ALT Total Creatine Kinase NT-Pro-B Natriuret Pep Total Protein Albumin Vitamin B12 Total Cortisol Ketones Crossmatch 10/09/16 10/09/16 10/09/16 05:43 06:22 08:06 WBC RBC RDW Plt Count Seg Neuts % (Manual) Lymphocytes % (Manual) Seg Neutrophils # Man Lymphocytes # (Manual) Monocytes # (Manual) PT INR POC ABG pH POC ABG pCO2 POC ABG pO2 Sodium 135 L Potassium Chloride 108.4 H Carbon Dioxide 17 L BUN 18 H Creatinine Glucose 164 H POC Glucose 162 H 127 H C-Peptide Lactic Acid Calcium 6.5 L Magnesium AST ALT Total Creatine Kinase NT-Pro-B Natriuret Pep Total Protein Albumin Vitamin B12 Total Cortisol Ketones Crossmatch 10/09/16 10/09/16 10/09/16 10:44 12:04 13:25 WBC RBC RDW Plt Count Seg Neuts % (Manual) Lymphocytes % (Manual) Seg Neutrophils # Man Lymphocytes # (Manual) Monocytes # (Manual) PT INR POC ABG pH POC ABG pCO2 POC ABG pO2 Sodium Potassium Chloride Carbon Dioxide BUN Creatinine Glucose POC Glucose 165 H 128 H 143 H C-Peptide Lactic Acid Calcium Magnesium AST ALT Total Creatine Kinase NT-Pro-B Natriuret Pep Total Protein Albumin Vitamin B12 Total Cortisol Ketones Crossmatch 10/10/16 10/10/16 10/10/16 04:50 04:50 04:50 WBC 20.9 H RBC 3.44 L RDW 17.4 H Plt Count 78 L Seg Neuts % (Manual) 94.0 H Lymphocytes % (Manual) 1.0 L Seg Neutrophils # Man 19.6 H Lymphocytes # (Manual) 0.2 L Monocytes # (Manual) PT 18.3 H INR 1.52 H POC ABG pH POC ABG pCO2 POC ABG pO2 Sodium Potassium Chloride 110.3 H Carbon Dioxide 17 L BUN Creatinine Glucose POC Glucose C-Peptide Lactic Acid Calcium 6.7 L Magnesium 1.6 L AST ALT 91 H Total Creatine Kinase NT-Pro-B Natriuret Pep Total Protein 4.0 L Albumin 1.5 L Vitamin B12 Total Cortisol Ketones Crossmatch 10/10/16 10/11/16 10/11/16 10:00 06:39 11:38 WBC 25.1 H RBC 3.44 L RDW 17.3 H Plt Count 107 L Seg Neuts % (Manual) 87.0 H Lymphocytes % (Manual) 2.0 L Seg Neutrophils # Man 21.8 H Lymphocytes # (Manual) 0.5 L Monocytes # (Manual) PT INR POC ABG pH POC ABG pCO2 POC ABG pO2 Sodium Potassium Chloride Carbon Dioxide BUN Creatinine Glucose POC Glucose 67 L C-Peptide Lactic Acid Calcium Magnesium AST ALT Total Creatine Kinase NT-Pro-B Natriuret Pep 01352 H Total Protein Albumin Vitamin B12 Total Cortisol Ketones Crossmatch 10/11/16 10/11/16 10/12/16 15:42 21:45 05:30 WBC 19.2 H RBC 3.34 L RDW 17.6 H Plt Count 132 L Seg Neuts % (Manual) 89.0 H Lymphocytes % (Manual) 1.0 L Seg Neutrophils # Man 17.1 H Lymphocytes # (Manual) 0.2 L Monocytes # (Manual) 1.3 H PT INR POC ABG pH POC ABG pCO2 POC ABG pO2 Sodium Potassium Chloride Carbon Dioxide BUN Creatinine Glucose POC Glucose 114 H 113 H C-Peptide Lactic Acid Calcium Magnesium AST ALT Total Creatine Kinase NT-Pro-B Natriuret Pep Total Protein Albumin Vitamin B12 Total Cortisol Ketones Crossmatch 10/12/16 05:30 WBC RBC RDW Plt Count Seg Neuts % (Manual) Lymphocytes % (Manual) Seg Neutrophils # Man Lymphocytes # (Manual) Monocytes # (Manual) PT INR POC ABG pH POC ABG pCO2 POC ABG pO2 Sodium Potassium Chloride 114.0 H Carbon Dioxide 18 L BUN Creatinine Glucose POC Glucose C-Peptide Lactic Acid Calcium 7.4 L Magnesium AST ALT 65 H Total Creatine Kinase NT-Pro-B Natriuret Pep Total Protein 4.1 L Albumin 1.4 L Vitamin B12 Total Cortisol Ketones Crossmatch
--- NOTE | 2016-10-12 13:26 | Vascular Lab Report ---
PORTAL VEIN DUPLEX EVALUATION INDICATION: Abdominal pain with concern for portal vein thrombosis. FINDINGS: Very poorly visualized study The portal veins are patent. There is normal hepatopedal flow. No evidence of internal echogenicity within the portal veins to suggest thrombus. The hepatic veins are patent. The hepatic veins have hepatofugal flow. No evidence of internal echogenicity within the hepatic veins to suggest thrombus. IMPRESSION: No sonographic evidence of portal vein thrombosis.
--- NOTE | 2016-10-12 15:47 | Progress Note ---
Assessment and Plan Assessment and plan: --Sinus tachycardia and hypotension Multifactorial, gentle hydration, beta blockers as tolerated --Septic shock secondary to Crohn's colitis Significantly improved, patient is off pressors, Blood pressures on the lower range, tachycardia Fluid bolus if no improvement, consider pressors --Sepsis secondary to Crohn's colitis Patient is on Levaquin and metronidazole, oral vancomycin discontinued GI following, advance diet as tolerated -- leukocytosis trending down secondary to sepsis C. difficile negative --Acute on chronic anemia Status post blood transfusion, stable H&H --Acute renal failure: secondary to vasomotor nephropathy and prerenal azotemia possible ATN Resolved, --Worsening leg edema, probably secondary to fluid overload DC IV fluids, consider Lasix if needed Echocardiogram for left ventricle function ejection fraction to rule out CHF --Severe protein calorie malnutrition; Secondary to underlying disease process, nutrition supplements and dietary consultation --Transaminitis, trending down, GI following --Coagulopathy; INR trending down --DVT prophylaxis; no pharmacological anticoagulation in view of anemia and coagulopathy Will use SCDs Physical therapy occupational therapy, and be transferred out of ICU is stable DC planning per case management possible home with home health when medically stable Critical care time 31 minutes The high probability of a clinically significant, sudden or life threatening deterioration of the [gastrointestinal,CVS ] system(s) required my full and direct attention, intervention and personal management. The aggregate critical care time was [31] minutes. This time is in addition to time spent performing reported procedures but includes the following: [x] Data Review and interpretation [x] Patient assessment and monitoring of vital signs [x] Documentation [x] Medication orders and management History Interval history: Patient seen and evaluated in ICU this morning medical records reviewed Patient feels slightly better, complains of generalized weakness Mild tachycardia, borderline blood pressures Denies chest pain or shortness of breath Denies headache or dizziness Alert awake oriented 3 not in acute distress Evie reviewed Hospitalist Physical - Constitutional Vitals: Temp Pulse Resp BP Pulse Ox 97.9 F 125 H 23 100/58 89 10/12/16 08:00 10/12/16 11:30 10/12/16 11:30 10/12/16 11:30 10/12/16 14:44 General appearance: Present: no acute distress, well-nourished, obese - EENT Eyes: Present: PERRL, EOM intact - Neck Neck: Present: supple, normal ROM - Respiratory Respiratory effort: normal Respiratory: bilateral: diminished, negative: rales, rhonchi, wheezing - Cardiovascular Rhythm: regular Heart Sounds: Present: S1 & S2 - Extremities Extremities: no ischemia, pulses intact, pulses symmetrical Peripheral Pulses: within normal limits - Abdominal General gastrointestinal: soft, non-tender, non-distended, normal bowel sounds - Integumentary Integumentary: Present: clear, warm - Psychiatric Psychiatric: appropriate mood/affect, cooperative - Neurologic Neurologic: CNII-XII intact, moves all extremities Results - Labs CBC & Chem 7: 10/12/16 05:30 10/12/16 05:30 Labs: Laboratory Last Values WBC 19.2 K/mm3 (4.5-11.0) H 10/12/16 05:30 RBC 3.34 M/mm3 (3.65-5.03) L 10/12/16 05:30 Hgb 10.2 gm/dl (10.1-14.3) 10/12/16 05:30 Hct 31.5 % (30.3-42.9) 10/12/16 05:30 MCV 94 fl (79-97) 10/12/16 05:30 MCH 31 pg (28-32) 10/12/16 05:30 MCHC 33 % (30-34) 10/12/16 05:30 RDW 17.6 % (13.2-15.2) H 10/12/16 05:30 Plt Count 132 K/mm3 (140-440) L 10/12/16 05:30 Add Manual Diff Complete 10/12/16 05:30 Total Counted 100 10/12/16 05:30 Seg Neutrophils % Ethnoarchaeologist 10/12/16 05:30 Seg Neuts % (Manual) 89.0 % (40.0-70.0) H 10/12/16 05:30 Band Neutrophils % 1.0 % 10/12/16 05:30 Lymphocytes % (Manual) 1.0 % (13.4-35.0) L 10/12/16 05:30 Reactive Lymphs % (Man) 0 % 10/12/16 05:30 Monocytes % (Manual) 7.0 % (0.0-7.3) 10/12/16 05:30 Eosinophils % (Manual) 1.0 % (0.0-4.3) 10/12/16 05:30 Basophils % (Manual) 0 % (0.0-1.8) 10/12/16 05:30 Metamyelocytes % 1.0 % 10/12/16 05:30 Myelocytes % 0 % 10/12/16 05:30 Promyelocytes % 0 % 10/12/16 05:30 Blast Cells % 0 % 10/12/16 05:30 Nucleated RBC % Not Reportable 10/12/16 05:30 Seg Neutrophils # Man 17.1 K/mm3 (1.8-7.7) H 10/12/16 05:30 Band Neutrophils # 0.2 K/mm3 10/12/16 05:30 Lymphocytes # (Manual) 0.2 K/mm3 (1.2-5.4) L 10/12/16 05:30 Abs React Lymphs (Man) 0.0 K/mm3 10/12/16 05:30 Monocytes # (Manual) 1.3 K/mm3 (0.0-0.8) H 10/12/16 05:30 Eosinophils # (Manual) 0.2 K/mm3 (0.0-0.4) 10/12/16 05:30 Basophils # (Manual) 0.0 K/mm3 (0.0-0.1) 10/12/16 05:30 Metamyelocytes # 0.2 K/mm3 10/12/16 05:30 Myelocytes # 0.0 K/mm3 10/12/16 05:30 Promyelocytes # 0.0 K/mm3 10/12/16 05:30 Blast Cells # 0.0 K/mm3 10/12/16 05:30 WBC Morphology Not Reportable 10/12/16 05:30 Hypersegmented Neuts Not Reportable 10/12/16 05:30 Hyposegmented Neuts Not Reportable 10/12/16 05:30 Hypogranular Neuts Not Reportable 10/12/16 05:30 Smudge Cells Not Reportable 10/12/16 05:30 Toxic Granulation Not Reportable 10/12/16 05:30 Toxic Vacuolation Not Reportable 10/12/16 05:30 Dohle Bodies Not Reportable 10/12/16 05:30 Pelger-Huet Anomaly Not Reportable 10/12/16 05:30 Ivory Rods Not Reportable 10/12/16 05:30 Platelet Estimate Consistent w auto 10/12/16 05:30 Clumped Platelets Not Reportable 10/12/16 05:30 Plt Clumps, EDTA Not Reportable 10/12/16 05:30 Large Platelets Not Reportable 10/12/16 05:30 Giant Platelets Not Reportable 10/12/16 05:30 Platelet Satelliting Not Reportable 10/12/16 05:30 Plt Morphology Comment Not Reportable 10/12/16 05:30 RBC Morphology Not Reportable 10/12/16 05:30 Dimorphic RBCs Not Reportable 10/12/16 05:30 Polychromasia Not Reportable 10/12/16 05:30 Hypochromasia Not Reportable 10/12/16 05:30 Poikilocytosis Not Reportable 10/12/16 05:30 Anisocytosis 1+ 10/12/16 05:30 Microcytosis Not Reportable 10/12/16 05:30 Macrocytosis Rare 10/12/16 05:30 Spherocytes Not Reportable 10/12/16 05:30 Pappenheimer Bodies Not Reportable 10/12/16 05:30 Sickle Cells Not Reportable 10/12/16 05:30 Target Cells Not Reportable 10/12/16 05:30 Tear Drop Cells Not Reportable 10/12/16 05:30 Ovalocytes Not Reportable 10/12/16 05:30 Helmet Cells Not Reportable 10/12/16 05:30 Nguyen-[place] Bodies Not Reportable 10/12/16 05:30 [place] Rings Not Reportable 10/12/16 05:30 [place] Cells Not Reportable 10/12/16 05:30 Bite Cells Not Reportable 10/12/16 05:30 Crenated Cell Not Reportable 10/12/16 05:30 Elliptocytes Not Reportable 10/12/16 05:30 Acanthocytes (Spur) Not Reportable 10/12/16 05:30 Rouleaux Not Reportable 10/12/16 05:30 Hemoglobin C Crystals Not Reportable 10/12/16 05:30 Schistocytes Not Reportable 10/12/16 05:30 Malaria parasites Not Reportable 10/12/16 05:30 Mayito Bodies Not Reportable 10/12/16 05:30 Hem Pathologist Commnt No 10/12/16 05:30 PT 18.3 Sec. (12.2-14.9) H 10/10/16 04:50 INR 1.52 (0.87-1.13) H 10/10/16 04:50 POC ABG pH 7.216 (7.35-7.45) L 10/05/16 16:03 POC ABG pCO2 28.2 (35-45) L 10/05/16 16:03 POC ABG pO2 60 (80-105) L 10/05/16 16:03 POC ABG HCO3 11.4 10/05/16 16:03 POC ABG Total CO2 12 10/05/16 16:03 POC ABG O2 Sat 86 10/05/16 16:03 POC ABG Base Excess -16 10/05/16 16:03 VBG pH 7.136 (7.320-7.420) L* 10/05/16 14:40 FiO2 32 % 10/05/16 16:03 Sodium 141 mmol/L (137-145) 10/12/16 05:30 Potassium 3.8 mmol/L (3.6-5.0) 10/12/16 05:30 Chloride 114.0 mmol/L (98-107) H 10/12/16 05:30 Carbon Dioxide 18 mmol/L (22-30) L 10/12/16 05:30 Anion Gap 13 mmol/L 10/12/16 05:30 BUN 17 mg/dL (7-17) 10/12/16 05:30 Creatinine 0.9 mg/dL (0.7-1.2) 10/12/16 05:30 Estimated GFR > 60 ml/min 10/12/16 05:30 BUN/Creatinine Ratio 18.88 % 10/12/16 05:30 Glucose 69 mg/dL (65-100) 10/12/16 05:30 POC Glucose 83 (70-105) 10/12/16 11:27 C-Peptide 5.67 ng/mL (0.80-3.85) H 10/06/16 18:25 Lactic Acid 2.1 mmol/L (0.7-2.0) H* 10/07/16 Unknown Calcium 7.4 mg/dL (8.4-10.2) L 10/12/16 05:30 Phosphorus 2.6 mg/dL (2.5-4.5) 10/09/16 05:43 Magnesium 1.9 mg/dL (1.7-2.3) 10/12/16 05:30 Iron 51 ug/dL (37-170) 10/05/16 21:30 Total Bilirubin 0.4 mg/dL (0.1-1.2) 10/12/16 05:30 Direct Bilirubin < 0.2 mg/dL (0-0.2) 10/12/16 05:30 Indirect Bilirubin 0.2 mg/dL 10/12/16 05:30 AST 22 units/L (5-40) 10/12/16 05:30 ALT 65 units/L (7-56) H 10/12/16 05:30 Alkaline Phosphatase 100 units/L (35-129) 10/12/16 05:30 Total Creatine Kinase 2317 units/L (30-135) H 10/05/16 21:30 NT-Pro-B Natriuret Pep 71336 pg/mL (0-900) H 10/10/16 10:00 Total Protein 4.1 g/dL (6.3-8.2) L 10/12/16 05:30 Albumin 1.4 g/dL (3.9-5) L 10/12/16 05:30 Albumin/Globulin Ratio 0.5 % 10/12/16 05:30 Vitamin B12 1592 pg/mL (211-911) H 10/05/16 21:30 Folate 16.37 ng/mL (7.3-26.0) 10/05/16 21:30 Total Cortisol >150.0 mcg/dL () H 10/06/16 18:25 Urine Color Cathy (Yellow) 10/05/16 13:52 Urine Turbidity Clear (Clear) 10/05/16 13:52 Urine pH 5.0 (5.0-7.0) 10/05/16 13:52 Ur Specific [place] 1.015 (1.003-1.030) 10/05/16 13:52 Urine Protein 30 mg/dl mg/dL (Negative) 10/05/16 13:52 Urine Glucose (UA) Neg mg/dL (Negative) 10/05/16 13:52 Urine Ketones Neg mg/dL (Negative) 10/05/16 13:52 Urine Blood Lg (Negative) 10/05/16 13:52 Urine Nitrite Neg (Negative) 10/05/16 13:52 Urine Bilirubin Neg (Negative) 10/05/16 13:52 Urine Urobilinogen < 2.0 mg/dL (<2.0) 10/05/16 13:52 Ur Leukocyte Esterase Neg (Negative) 10/05/16 13:52 Urine WBC (Auto) 1.0 /HPF (0.0-6.0) 10/05/16 13:52 Urine RBC (Auto) < 1.0 /HPF (0.0-6.0) 10/05/16 13:52 U Epithel Cells (Auto) 1.0 /HPF (0-13.0) 10/05/16 13:52 Urine Mucus Few /HPF 10/05/16 13:52 Ketones 2.9 mg/dL (0.2-2.8) H 10/05/16 21:30 Blood Type B POSITIVE 10/05/16 21:05 Antibody Screen Negative 10/05/16 21:05 Crossmatch See Detail 10/05/16 21:05
[2016-10-12] MEDS: AMBIEN PO PRN (22:00)
[2016-10-13] MEDS: FLAGYL 500 MG/100 ML 100 ML IV SCH ×2 (04:00→11:30)
[2016-10-13] MEDS: NACL 0.9% 1000 ML 1,000 ML IV SCH ×2 (04:00→17:30)
[2016-10-13] MEDS: NOVOLOG SUB-Q SCH ×3 (08:00→17:15)
[2016-10-13] MEDS: DUONEB 0.5 MG-3 MG/3 ML SOLN IH SCH ×2 (08:06→15:05)
[2016-10-13] MEDS ORDERED: D50W (25GM) IV PRN (08:18)
--- NOTE | 2016-10-13 08:41 | Progress Note ---
Assessment and Plan Assessment and plan: --Sinus tachycardia and hypotension Significantly improved, continue current IV fluids --Septic shock secondary to Crohn's colitis patient is off pressors, continue IV fluids --Sepsis secondary to Crohn's colitis Patient is on Levaquin and metronidazole, GI following, advance diet as tolerated -- leukocytosis trending down secondary to sepsis C. difficile negative --Acute on chronic anemia Status post blood transfusion, stable H&H --Acute renal failure:Resolved --Worsening leg edema, probably secondary to fluid overload. Improved Echocardiogram normal left ventricle function ejection fraction 55% --Severe protein calorie malnutrition; Secondary to underlying disease process, nutrition supplements and dietary consultation --Transaminitis, trending down, GI following --Coagulopathy; INR trending down --DVT prophylaxis; no pharmacological anticoagulation in view of anemia and coagulopathy Will use SCDs Orthopedic to chair Physical therapy occupational therapy, patient to be transferred to medical floor DC planning per case management possible home with home health in 1-2 days History Interval history: Patient seen and evaluated medical records reviewed No new events reported by the nursing staff Patient denies any nausea vomiting., Mild diarrhea Blood pressures are reasonable levels Hospitalist Physical - Constitutional Vitals: Temp Pulse Resp BP Pulse Ox 97.4 F L 107 H 18 96/70 99 10/13/16 08:00 10/13/16 08:16 10/13/16 08:16 10/13/16 06:00 10/13/16 06:00 General appearance: Present: no acute distress, well-nourished, obese - EENT Eyes: Present: PERRL, EOM intact - Neck Neck: Present: supple, normal ROM - Respiratory Respiratory effort: normal Respiratory: bilateral: diminished, negative: rales, rhonchi, wheezing - Cardiovascular Rhythm: regular Heart Sounds: Present: S1 & S2 - Extremities Extremities: no ischemia, pulses intact, pulses symmetrical Peripheral Pulses: within normal limits - Abdominal General gastrointestinal: soft, non-tender, non-distended, normal bowel sounds - Integumentary Integumentary: Present: clear, warm - Psychiatric Psychiatric: appropriate mood/affect, cooperative - Neurologic Neurologic: CNII-XII intact, moves all extremities Results - Labs CBC & Chem 7: 10/12/16 05:30 10/12/16 05:30 Labs: Laboratory Last Values WBC 19.2 K/mm3 (4.5-11.0) H 10/12/16 05:30 RBC 3.34 M/mm3 (3.65-5.03) L 10/12/16 05:30 Hgb 10.2 gm/dl (10.1-14.3) 10/12/16 05:30 Hct 31.5 % (30.3-42.9) 10/12/16 05:30 MCV 94 fl (79-97) 10/12/16 05:30 MCH 31 pg (28-32) 10/12/16 05:30 MCHC 33 % (30-34) 10/12/16 05:30 RDW 17.6 % (13.2-15.2) H 10/12/16 05:30 Plt Count 132 K/mm3 (140-440) L 10/12/16 05:30 Add Manual Diff Complete 10/12/16 05:30 Total Counted 100 10/12/16 05:30 Seg Neutrophils % Market Consultant 10/12/16 05:30 Seg Neuts % (Manual) 89.0 % (40.0-70.0) H 10/12/16 05:30 Band Neutrophils % 1.0 % 10/12/16 05:30 Lymphocytes % (Manual) 1.0 % (13.4-35.0) L 10/12/16 05:30 Reactive Lymphs % (Man) 0 % 10/12/16 05:30 Monocytes % (Manual) 7.0 % (0.0-7.3) 10/12/16 05:30 Eosinophils % (Manual) 1.0 % (0.0-4.3) 10/12/16 05:30 Basophils % (Manual) 0 % (0.0-1.8) 10/12/16 05:30 Metamyelocytes % 1.0 % 10/12/16 05:30 Myelocytes % 0 % 10/12/16 05:30 Promyelocytes % 0 % 10/12/16 05:30 Blast Cells % 0 % 10/12/16 05:30 Nucleated RBC % Not Reportable 10/12/16 05:30 Seg Neutrophils # Man 17.1 K/mm3 (1.8-7.7) H 10/12/16 05:30 Band Neutrophils # 0.2 K/mm3 10/12/16 05:30 Lymphocytes # (Manual) 0.2 K/mm3 (1.2-5.4) L 10/12/16 05:30 Abs React Lymphs (Man) 0.0 K/mm3 10/12/16 05:30 Monocytes # (Manual) 1.3 K/mm3 (0.0-0.8) H 10/12/16 05:30 Eosinophils # (Manual) 0.2 K/mm3 (0.0-0.4) 10/12/16 05:30 Basophils # (Manual) 0.0 K/mm3 (0.0-0.1) 10/12/16 05:30 Metamyelocytes # 0.2 K/mm3 10/12/16 05:30 Myelocytes # 0.0 K/mm3 10/12/16 05:30 Promyelocytes # 0.0 K/mm3 10/12/16 05:30 Blast Cells # 0.0 K/mm3 10/12/16 05:30 WBC Morphology Not Reportable 10/12/16 05:30 Hypersegmented Neuts Not Reportable 10/12/16 05:30 Hyposegmented Neuts Not Reportable 10/12/16 05:30 Hypogranular Neuts Not Reportable 10/12/16 05:30 Smudge Cells Not Reportable 10/12/16 05:30 Toxic Granulation Not Reportable 10/12/16 05:30 Toxic Vacuolation Not Reportable 10/12/16 05:30 Dohle Bodies Not Reportable 10/12/16 05:30 Pelger-Huet Anomaly Not Reportable 10/12/16 05:30 Ivory Rods Not Reportable 10/12/16 05:30 Platelet Estimate Consistent w auto 10/12/16 05:30 Clumped Platelets Not Reportable 10/12/16 05:30 Plt Clumps, EDTA Not Reportable 10/12/16 05:30 Large Platelets Not Reportable 10/12/16 05:30 Giant Platelets Not Reportable 10/12/16 05:30 Platelet Satelliting Not Reportable 10/12/16 05:30 Plt Morphology Comment Not Reportable 10/12/16 05:30 RBC Morphology Not Reportable 10/12/16 05:30 Dimorphic RBCs Not Reportable 10/12/16 05:30 Polychromasia Not Reportable 10/12/16 05:30 Hypochromasia Not Reportable 10/12/16 05:30 Poikilocytosis Not Reportable 10/12/16 05:30 Anisocytosis 1+ 10/12/16 05:30 Microcytosis Not Reportable 10/12/16 05:30 Macrocytosis Rare 10/12/16 05:30 Spherocytes Not Reportable 10/12/16 05:30 Pappenheimer Bodies Not Reportable 10/12/16 05:30 Sickle Cells Not Reportable 10/12/16 05:30 Target Cells Not Reportable 10/12/16 05:30 Tear Drop Cells Not Reportable 10/12/16 05:30 Ovalocytes Not Reportable 10/12/16 05:30 Helmet Cells Not Reportable 10/12/16 05:30 Nguyen-[place] Bodies Not Reportable 10/12/16 05:30 [place] Rings Not Reportable 10/12/16 05:30 [place] Cells Not Reportable 10/12/16 05:30 Bite Cells Not Reportable 10/12/16 05:30 Crenated Cell Not Reportable 10/12/16 05:30 Elliptocytes Not Reportable 10/12/16 05:30 Acanthocytes (Spur) Not Reportable 10/12/16 05:30 Rouleaux Not Reportable 10/12/16 05:30 Hemoglobin C Crystals Not Reportable 10/12/16 05:30 Schistocytes Not Reportable 10/12/16 05:30 Malaria parasites Not Reportable 10/12/16 05:30 Mayito Bodies Not Reportable 10/12/16 05:30 Hem Pathologist Commnt No 10/12/16 05:30 PT 18.3 Sec. (12.2-14.9) H 10/10/16 04:50 INR 1.52 (0.87-1.13) H 10/10/16 04:50 POC ABG pH 7.216 (7.35-7.45) L 10/05/16 16:03 POC ABG pCO2 28.2 (35-45) L 10/05/16 16:03 POC ABG pO2 60 (80-105) L 10/05/16 16:03 POC ABG HCO3 11.4 10/05/16 16:03 POC ABG Total CO2 12 10/05/16 16:03 POC ABG O2 Sat 86 10/05/16 16:03 POC ABG Base Excess -16 10/05/16 16:03 VBG pH 7.136 (7.320-7.420) L* 10/05/16 14:40 FiO2 32 % 10/05/16 16:03 Sodium 141 mmol/L (137-145) 10/12/16 05:30 Potassium 3.8 mmol/L (3.6-5.0) 10/12/16 05:30 Chloride 114.0 mmol/L (98-107) H 10/12/16 05:30 Carbon Dioxide 18 mmol/L (22-30) L 10/12/16 05:30 Anion Gap 13 mmol/L 10/12/16 05:30 BUN 17 mg/dL (7-17) 10/12/16 05:30 Creatinine 0.9 mg/dL (0.7-1.2) 10/12/16 05:30 Estimated GFR > 60 ml/min 10/12/16 05:30 BUN/Creatinine Ratio 18.88 % 10/12/16 05:30 Glucose 69 mg/dL (65-100) 10/12/16 05:30 POC Glucose 52 (70-105) L 10/13/16 07:49 C-Peptide 5.67 ng/mL (0.80-3.85) H 10/06/16 18:25 Lactic Acid 2.1 mmol/L (0.7-2.0) H* 10/07/16 Unknown Calcium 7.4 mg/dL (8.4-10.2) L 10/12/16 05:30 Phosphorus 2.6 mg/dL (2.5-4.5) 10/09/16 05:43 Magnesium 1.9 mg/dL (1.7-2.3) 10/12/16 05:30 Iron 51 ug/dL (37-170) 10/05/16 21:30 Total Bilirubin 0.4 mg/dL (0.1-1.2) 10/12/16 05:30 Direct Bilirubin < 0.2 mg/dL (0-0.2) 10/12/16 05:30 Indirect Bilirubin 0.2 mg/dL 10/12/16 05:30 AST 22 units/L (5-40) 10/12/16 05:30 ALT 65 units/L (7-56) H 10/12/16 05:30 Alkaline Phosphatase 100 units/L (35-129) 10/12/16 05:30 Total Creatine Kinase 2317 units/L (30-135) H 10/05/16 21:30 NT-Pro-B Natriuret Pep 18164 pg/mL (0-900) H 10/10/16 10:00 Total Protein 4.1 g/dL (6.3-8.2) L 10/12/16 05:30 Albumin 1.4 g/dL (3.9-5) L 10/12/16 05:30 Albumin/Globulin Ratio 0.5 % 10/12/16 05:30 Vitamin B12 1592 pg/mL (211-911) H 10/05/16 21:30 Folate 16.37 ng/mL (7.3-26.0) 10/05/16 21:30 Total Cortisol >150.0 mcg/dL () H 10/06/16 18:25 Urine Color Cathy (Yellow) 10/05/16 13:52 Urine Turbidity Clear (Clear) 10/05/16 13:52 Urine pH 5.0 (5.0-7.0) 10/05/16 13:52 Ur Specific [place] 1.015 (1.003-1.030) 10/05/16 13:52 Urine Protein 30 mg/dl mg/dL (Negative) 10/05/16 13:52 Urine Glucose (UA) Neg mg/dL (Negative) 10/05/16 13:52 Urine Ketones Neg mg/dL (Negative) 10/05/16 13:52 Urine Blood Lg (Negative) 10/05/16 13:52 Urine Nitrite Neg (Negative) 10/05/16 13:52 Urine Bilirubin Neg (Negative) 10/05/16 13:52 Urine Urobilinogen < 2.0 mg/dL (<2.0) 10/05/16 13:52 Ur Leukocyte Esterase Neg (Negative) 10/05/16 13:52 Urine WBC (Auto) 1.0 /HPF (0.0-6.0) 10/05/16 13:52 Urine RBC (Auto) < 1.0 /HPF (0.0-6.0) 10/05/16 13:52 U Epithel Cells (Auto) 1.0 /HPF (0-13.0) 10/05/16 13:52 Urine Mucus Few /HPF 10/05/16 13:52 Ketones 2.9 mg/dL (0.2-2.8) H 10/05/16 21:30 Blood Type B POSITIVE 10/05/16 21:05 Antibody Screen Negative 10/05/16 21:05 Crossmatch See Detail 10/05/16 21:05
[2016-10-13] MEDS: LOPRESSOR IV PRN (09:00)
[2016-10-13] MEDS ORDERED: PROAMATINE PO ONE (09:00)
[2016-10-13] MEDS: PROTONIX PO SCH ×2 (10:05→22:47)
[2016-10-13] MEDS: LEVAQUIN PO SCH (10:05)
[2016-10-13] MEDS: FLAGYL PO SCH ×2 (17:31→22:46)
[2016-10-13] MEDS: PROAMATINE PO SCH (17:31)
--- NOTE | 2016-10-13 18:39 | Progress Note ---
Assessment and Plan Imp: 1. Crohn's disease, presumed exacerbation 2. Sepsis syndrome 3. Anasarca/3rd spacing 2/2 hypoalbuminemia -> Pleural effusions 4. Acute respiratory failure, hypoxia, likely 2/2#3 5. Pulm HTN 6. Chronic diastolic CHF 7. Thrombocytopenia Rec: 1. D/c Duonebs due to tachycardia 2. Reduce IVFs; unable to diurese due to borderline low BP; midodrine started by primary; will recheck blood cultures given persistent tachycardia 3. LE dopplers 4. Levaquin/Flagyl 5. SCDs 6. Spot urine pro/cr ratio Plan of care reviewed w/ patient, she understands/agrees Subjective Date of service: 10/13/16 Principal diagnosis: diarrhea, chron's colitis, hypoglycemia, ARF, AMS Interval history: No events. + SOB, stable. Remains tachy. Tolerating some PO. No pain. No new complaints. Active Medications Albuterol (Proventil) 2.5 mg IH Q4HRT PRN PRN Reason: Shortness Of Breath Last Admin: 10/08/16 03:56 Dose: 2.5 mg Dextrose (D50w (25gm)) 50 ml IV PRN PRN PRN Reason: Hypoglycemia Last Admin: 10/13/16 08:15 Dose: 50 ml Sodium Chloride (Nacl 0.9% 1000 Ml) 1,000 mls @ 75 mls/hr IV DIRECT JUDE Last Admin: 10/13/16 17:30 Dose: 125 mls/hr Insulin Aspart (Novolog) 0 units SUB-Q ACHS JUDE PRN Reason: Protocol Last Admin: 10/13/16 11:46 Dose: Not Given Levofloxacin (Levaquin) 750 mg PO Q24HR [facility] Stop: 10/15/16 09:59 Last Admin: 10/13/16 10:05 Dose: 750 mg Metoclopramide HCl (Reglan) 5 mg IV Q6H PRN PRN Reason: Nausea And Vomiting Metoprolol Tartrate (Lopressor) 2.5 mg IV Q6HR PRN PRN Reason: tachycardia Last Admin: 10/13/16 09:00 Dose: 2.5 mg Metronidazole (Flagyl) 500 mg PO Q8HR JUDE Last Admin: 10/13/16 17:31 Dose: 500 mg Midodrine (Proamatine) 2.5 mg PO Q8HR [facility] Last Admin: 10/13/16 17:31 Dose: 2.5 mg Ondansetron HCl (Zofran) 4 mg IV Q4H PRN PRN Reason: Nausea And Vomiting Last Admin: 10/06/16 14:21 Dose: 4 mg Pantoprazole Sodium (Protonix) 40 mg PO BID [facility] Last Admin: 10/13/16 10:05 Dose: 40 mg Zolpidem Tartrate (Ambien) 5 mg PO QHS PRN PRN Reason: Sleep Last Admin: 10/12/16 22:00 Dose: 5 mg Objective Vital Signs - 12hr 10/13/16 10/13/16 10/13/16 07:00 07:30 08:00 Temperature 97.4 F L Pulse Rate 125 H 127 H 135 H Pulse Rate [ Anterior Bilateral Throughout] Pulse Rate [ None] Respiratory 17 18 18 Rate Respiratory Rate [Anterior Bilateral Throughout] Blood Pressure 106/73 95/69 100/69 O2 Sat by Pulse 99 99 99 Oximetry 10/13/16 10/13/16 10/13/16 08:06 08:16 08:30 Temperature Pulse Rate 111 H Pulse Rate [ 119 H 107 H Anterior Bilateral Throughout] Pulse Rate [ None] Respiratory 17 Rate Respiratory 18 18 Rate [Anterior Bilateral Throughout] Blood Pressure 105/66 O2 Sat by Pulse 99 Oximetry 10/13/16 10/13/16 10/13/16 09:00 09:30 10:00 Temperature Pulse Rate 120 H 124 H 122 H Pulse Rate [ Anterior Bilateral Throughout] Pulse Rate [ None] Respiratory 22 15 24 Rate Respiratory Rate [Anterior Bilateral Throughout] Blood Pressure 105/66 95/64 97/63 O2 Sat by Pulse 89 96 98 Oximetry 10/13/16 10/13/16 10/13/16 10:30 10:54 11:00 Temperature Pulse Rate 122 H 137 H 124 H Pulse Rate [ Anterior Bilateral Throughout] Pulse Rate [ None] Respiratory 24 28 H 25 H Rate Respiratory Rate [Anterior Bilateral Throughout] Blood Pressure 97/63 112/83 97/63 O2 Sat by Pulse 97 97 Oximetry 10/13/16 10/13/16 10/13/16 11:08 11:30 12:00 Temperature 97.9 F Pulse Rate 119 H 123 H 123 H Pulse Rate [ Anterior Bilateral Throughout] Pulse Rate [ None] Respiratory 24 26 H 24 Rate Respiratory Rate [Anterior Bilateral Throughout] Blood Pressure 97/65 94/60 94/60 O2 Sat by Pulse 100 100 Oximetry 10/13/16 10/13/16 10/13/16 12:30 14:05 14:42 Temperature 97.9 F Pulse Rate 134 H Pulse Rate [ 120 H Anterior Bilateral Throughout] Pulse Rate [ 138 H None] Respiratory 24 18 Rate Respiratory 16 Rate [Anterior Bilateral Throughout] Blood Pressure 94/51 86/58 O2 Sat by Pulse 100 Oximetry 10/13/16 15:12 Temperature Pulse Rate Pulse Rate [ 120 H Anterior Bilateral Throughout] Pulse Rate [ None] Respiratory Rate Respiratory 19 Rate [Anterior Bilateral Throughout] Blood Pressure O2 Sat by Pulse Oximetry Constitutional: no acute distress, alert Eyes: non-icteric ENT: oropharynx moist Neck: supple Effort: mildly labored (mild tachypnea) Ascultation: Bilateral: rhonchi Cardiovascular: other (tachy, RR; no mrg) Gastrointestinal: normoactive bowel sounds, tender (mild) Integumentary: normal Extremities: no cyanosis, pink and warm, edema (3+ bilateral LE edema) Neurologic: normal mental status, non-focal exam, pupils equal and round, CN II- XII normal Psychiatric: mood appropriate, affect normal CBC and BMP: 10/12/16 05:30 10/12/16 05:30 ABG, PT/INR, D-dimer: ABG POC ABG pH 7.216 (7.35-7.45) L 10/05/16 16:03 POC ABG pCO2 28.2 (35-45) L 10/05/16 16:03 POC ABG pO2 60 (80-105) L 10/05/16 16:03 POC ABG HCO3 11.4 10/05/16 16:03 POC ABG Total CO2 12 10/05/16 16:03 POC ABG O2 Sat 86 10/05/16 16:03 PT/INR, D-dimer PT 18.3 Sec. (12.2-14.9) H 10/10/16 04:50 INR 1.52 (0.87-1.13) H 10/10/16 04:50 Abnormal lab findings: Abnormal Labs 10/05/16 10/05/16 10/05/16 16:03 17:02 21:05 WBC RBC RDW Plt Count Seg Neuts % (Manual) Lymphocytes % (Manual) Seg Neutrophils # Man Lymphocytes # (Manual) Monocytes # (Manual) PT INR POC ABG pH 7.216 L POC ABG pCO2 28.2 L POC ABG pO2 60 L Sodium Potassium Chloride Carbon Dioxide BUN Creatinine Glucose POC Glucose 185 H C-Peptide Lactic Acid Calcium Magnesium AST ALT Total Creatine Kinase NT-Pro-B Natriuret Pep Total Protein Albumin Vitamin B12 Total Cortisol Ketones Crossmatch See Detail 10/05/16 10/05/16 10/05/16 21:30 21:30 21:30 WBC RBC RDW Plt Count Seg Neuts % (Manual) Lymphocytes % (Manual) Seg Neutrophils # Man Lymphocytes # (Manual) Monocytes # (Manual) PT INR POC ABG pH POC ABG pCO2 POC ABG pO2 Sodium Potassium Chloride Carbon Dioxide BUN Creatinine Glucose POC Glucose C-Peptide Lactic Acid 2.3 H* Calcium Magnesium AST ALT Total Creatine Kinase 2317 H NT-Pro-B Natriuret Pep Total Protein Albumin Vitamin B12 Total Cortisol Ketones 2.9 H Crossmatch 10/05/16 10/05/16 10/05/16 21:30 21:49 23:07 WBC RBC RDW Plt Count Seg Neuts % (Manual) Lymphocytes % (Manual) Seg Neutrophils # Man Lymphocytes # (Manual) Monocytes # (Manual) PT INR POC ABG pH POC ABG pCO2 POC ABG pO2 Sodium Potassium Chloride Carbon Dioxide BUN Creatinine Glucose POC Glucose < 40 L < 40 L C-Peptide Lactic Acid Calcium Magnesium AST ALT Total Creatine Kinase NT-Pro-B Natriuret Pep Total Protein Albumin Vitamin B12 1592 H Total Cortisol Ketones Crossmatch 10/06/16 10/06/16 10/06/16 01:05 02:13 03:13 WBC RBC RDW Plt Count Seg Neuts % (Manual) Lymphocytes % (Manual) Seg Neutrophils # Man Lymphocytes # (Manual) Monocytes # (Manual) PT INR POC ABG pH POC ABG pCO2 POC ABG pO2 Sodium Potassium Chloride Carbon Dioxide BUN Creatinine Glucose POC Glucose 285 H 241 H 280 H C-Peptide Lactic Acid Calcium Magnesium AST ALT Total Creatine Kinase NT-Pro-B Natriuret Pep Total Protein Albumin Vitamin B12 Total Cortisol Ketones Crossmatch 10/06/16 10/06/16 10/06/16 03:49 05:22 06:10 WBC RBC RDW Plt Count Seg Neuts % (Manual) Lymphocytes % (Manual) Seg Neutrophils # Man Lymphocytes # (Manual) Monocytes # (Manual) PT INR POC ABG pH POC ABG pCO2 POC ABG pO2 Sodium Potassium Chloride Carbon Dioxide BUN Creatinine Glucose POC Glucose 216 H 240 H 291 H C-Peptide Lactic Acid Calcium Magnesium AST ALT Total Creatine Kinase NT-Pro-B Natriuret Pep Total Protein Albumin Vitamin B12 Total Cortisol Ketones Crossmatch 10/06/16 10/06/16 10/06/16 07:37 08:55 09:37 WBC RBC RDW Plt Count Seg Neuts % (Manual) Lymphocytes % (Manual) Seg Neutrophils # Man Lymphocytes # (Manual) Monocytes # (Manual) PT INR POC ABG pH POC ABG pCO2 POC ABG pO2 Sodium Potassium Chloride Carbon Dioxide BUN Creatinine Glucose POC Glucose 255 H 286 H 205 H C-Peptide Lactic Acid Calcium Magnesium AST ALT Total Creatine Kinase NT-Pro-B Natriuret Pep Total Protein Albumin Vitamin B12 Total Cortisol Ketones Crossmatch 10/06/16 10/06/16 10/06/16 09:40 09:40 10:00 WBC 27.9 H RBC RDW 16.8 H Plt Count 94 L Seg Neuts % (Manual) 94.5 H Lymphocytes % (Manual) 1.0 L Seg Neutrophils # Man 26.4 H Lymphocytes # (Manual) 0.3 L Monocytes # (Manual) 1.3 H PT INR POC ABG pH POC ABG pCO2 POC ABG pO2 Sodium 130 L Potassium Chloride Carbon Dioxide 16 L BUN 31 H Creatinine 1.8 H Glucose 259 H POC Glucose C-Peptide Lactic Acid 3.3 H* Calcium 6.1 L Magnesium AST 112 H ALT 100 H Total Creatine Kinase NT-Pro-B Natriuret Pep Total Protein 4.2 L D Albumin 1.2 L Vitamin B12 Total Cortisol Ketones Crossmatch 10/06/16 10/06/16 10/06/16 11:24 12:08 13:22 WBC RBC RDW Plt Count Seg Neuts % (Manual) Lymphocytes % (Manual) Seg Neutrophils # Man Lymphocytes # (Manual) Monocytes # (Manual) PT INR POC ABG pH POC ABG pCO2 POC ABG pO2 Sodium Potassium Chloride Carbon Dioxide BUN Creatinine Glucose POC Glucose 204 H 214 H 176 H C-Peptide Lactic Acid Calcium Magnesium AST ALT Total Creatine Kinase NT-Pro-B Natriuret Pep Total Protein Albumin Vitamin B12 Total Cortisol Ketones Crossmatch 10/06/16 10/06/16 10/06/16 14:52 15:11 17:11 WBC RBC RDW Plt Count Seg Neuts % (Manual) Lymphocytes % (Manual) Seg Neutrophils # Man Lymphocytes # (Manual) Monocytes # (Manual) PT INR POC ABG pH POC ABG pCO2 POC ABG pO2 Sodium Potassium Chloride Carbon Dioxide BUN Creatinine Glucose POC Glucose 177 H 168 H 173 H C-Peptide Lactic Acid Calcium Magnesium AST ALT Total Creatine Kinase NT-Pro-B Natriuret Pep Total Protein Albumin Vitamin B12 Total Cortisol Ketones Crossmatch 10/06/16 10/06/16 10/06/16 18:12 18:25 18:25 WBC RBC RDW Plt Count Seg Neuts % (Manual) Lymphocytes % (Manual) Seg Neutrophils # Man Lymphocytes # (Manual) Monocytes # (Manual) PT INR POC ABG pH POC ABG pCO2 POC ABG pO2 Sodium Potassium Chloride Carbon Dioxide BUN Creatinine Glucose POC Glucose 165 H C-Peptide 5.67 H Lactic Acid Calcium Magnesium AST ALT Total Creatine Kinase NT-Pro-B Natriuret Pep Total Protein Albumin Vitamin B12 Total Cortisol >150.0 H Ketones Crossmatch 10/06/16 10/06/16 10/06/16 18:55 20:01 21:00 WBC RBC RDW Plt Count Seg Neuts % (Manual) Lymphocytes % (Manual) Seg Neutrophils # Man Lymphocytes # (Manual) Monocytes # (Manual) PT INR POC ABG pH POC ABG pCO2 POC ABG pO2 Sodium Potassium Chloride Carbon Dioxide BUN Creatinine Glucose POC Glucose 174 H 158 H 172 H C-Peptide Lactic Acid Calcium Magnesium AST ALT Total Creatine Kinase NT-Pro-B Natriuret Pep Total Protein Albumin Vitamin B12 Total Cortisol Ketones Crossmatch 10/06/16 10/06/16 10/06/16 22:02 23:04 23:58 WBC RBC RDW Plt Count Seg Neuts % (Manual) Lymphocytes % (Manual) Seg Neutrophils # Man Lymphocytes # (Manual) Monocytes # (Manual) PT INR POC ABG pH POC ABG pCO2 POC ABG pO2 Sodium Potassium Chloride Carbon Dioxide BUN Creatinine Glucose POC Glucose 180 H 177 H 178 H C-Peptide Lactic Acid Calcium Magnesium AST ALT Total Creatine Kinase NT-Pro-B Natriuret Pep Total Protein Albumin Vitamin B12 Total Cortisol Ketones Crossmatch 10/07/16 10/07/16 10/07/16 01:05 01:58 02:58 WBC RBC RDW Plt Count Seg Neuts % (Manual) Lymphocytes % (Manual) Seg Neutrophils # Man Lymphocytes # (Manual) Monocytes # (Manual) PT INR POC ABG pH POC ABG pCO2 POC ABG pO2 Sodium Potassium Chloride Carbon Dioxide BUN Creatinine Glucose POC Glucose 168 H 152 H 181 H C-Peptide Lactic Acid Calcium Magnesium AST ALT Total Creatine Kinase NT-Pro-B Natriuret Pep Total Protein Albumin Vitamin B12 Total Cortisol Ketones Crossmatch 10/07/16 10/07/16 10/07/16 04:03 04:42 04:42 WBC 30.5 H RBC RDW 17.2 H Plt Count 59 L Seg Neuts % (Manual) 90.0 H Lymphocytes % (Manual) 2.0 L Seg Neutrophils # Man 27.5 H Lymphocytes # (Manual) 0.6 L Monocytes # (Manual) PT INR POC ABG pH POC ABG pCO2 POC ABG pO2 Sodium 127 L Potassium 3.5 L Chloride Carbon Dioxide 16 L BUN 27 H Creatinine 1.6 H Glucose 162 H POC Glucose 196 H C-Peptide Lactic Acid Calcium 6.1 L Magnesium 1.5 L AST 83 H ALT 106 H Total Creatine Kinase NT-Pro-B Natriuret Pep Total Protein 3.9 L Albumin 1.1 L Vitamin B12 Total Cortisol Ketones Crossmatch 10/07/16 10/07/16 10/07/16 05:05 06:08 07:29 WBC RBC RDW Plt Count Seg Neuts % (Manual) Lymphocytes % (Manual) Seg Neutrophils # Man Lymphocytes # (Manual) Monocytes # (Manual) PT INR POC ABG pH POC ABG pCO2 POC ABG pO2 Sodium Potassium Chloride Carbon Dioxide BUN Creatinine Glucose POC Glucose 197 H 163 H 167 H C-Peptide Lactic Acid Calcium Magnesium AST ALT Total Creatine Kinase NT-Pro-B Natriuret Pep Total Protein Albumin Vitamin B12 Total Cortisol Ketones Crossmatch 10/07/16 10/07/16 10/07/16 08:11 09:02 10:03 WBC RBC RDW Plt Count Seg Neuts % (Manual) Lymphocytes % (Manual) Seg Neutrophils # Man Lymphocytes # (Manual) Monocytes # (Manual) PT INR POC ABG pH POC ABG pCO2 POC ABG pO2 Sodium Potassium Chloride Carbon Dioxide BUN Creatinine Glucose POC Glucose 143 H 172 H 163 H C-Peptide Lactic Acid Calcium Magnesium AST ALT Total Creatine Kinase NT-Pro-B Natriuret Pep Total Protein Albumin Vitamin B12 Total Cortisol Ketones Crossmatch 10/07/16 10/07/16 10/07/16 11:53 14:18 16:35 WBC RBC RDW Plt Count Seg Neuts % (Manual) Lymphocytes % (Manual) Seg Neutrophils # Man Lymphocytes # (Manual) Monocytes # (Manual) PT INR POC ABG pH POC ABG pCO2 POC ABG pO2 Sodium Potassium Chloride Carbon Dioxide BUN Creatinine Glucose POC Glucose 144 H 168 H 195 H C-Peptide Lactic Acid Calcium Magnesium AST ALT Total Creatine Kinase NT-Pro-B Natriuret Pep Total Protein Albumin Vitamin B12 Total Cortisol Ketones Crossmatch 10/07/16 10/07/16 10/07/16 17:53 19:53 Unknown WBC RBC RDW Plt Count Seg Neuts % (Manual) Lymphocytes % (Manual) Seg Neutrophils # Man Lymphocytes # (Manual) Monocytes # (Manual) PT INR POC ABG pH POC ABG pCO2 POC ABG pO2 Sodium Potassium Chloride Carbon Dioxide BUN Creatinine Glucose POC Glucose 187 H 212 H C-Peptide Lactic Acid 2.1 H* Calcium Magnesium AST ALT Total Creatine Kinase NT-Pro-B Natriuret Pep Total Protein Albumin Vitamin B12 Total Cortisol Ketones Crossmatch 10/08/16 10/08/16 10/08/16 00:18 03:35 03:45 WBC 31.0 H RBC 3.62 L RDW 17.2 H Plt Count 59 L Seg Neuts % (Manual) 79.0 H Lymphocytes % (Manual) 1.0 L Seg Neutrophils # Man 24.5 H Lymphocytes # (Manual) 0.3 L Monocytes # (Manual) 2.2 H PT INR POC ABG pH POC ABG pCO2 POC ABG pO2 Sodium Potassium Chloride Carbon Dioxide BUN Creatinine Glucose POC Glucose 142 H 149 H C-Peptide Lactic Acid Calcium Magnesium AST ALT Total Creatine Kinase NT-Pro-B Natriuret Pep Total Protein Albumin Vitamin B12 Total Cortisol Ketones Crossmatch 10/08/16 10/08/16 10/08/16 03:45 03:45 07:39 WBC RBC RDW Plt Count Seg Neuts % (Manual) Lymphocytes % (Manual) Seg Neutrophils # Man Lymphocytes # (Manual) Monocytes # (Manual) PT 19.8 H INR 1.68 H POC ABG pH POC ABG pCO2 POC ABG pO2 Sodium 132 L Potassium Chloride Carbon Dioxide 15 L BUN 22 H Creatinine 1.3 H Glucose 142 H POC Glucose 165 H C-Peptide Lactic Acid Calcium 5.9 L* Magnesium AST 62 H ALT 112 H Total Creatine Kinase NT-Pro-B Natriuret Pep Total Protein 3.8 L Albumin 1.0 L Vitamin B12 Total Cortisol Ketones Crossmatch 10/08/16 10/08/16 10/08/16 10:00 13:51 18:18 WBC RBC RDW Plt Count Seg Neuts % (Manual) Lymphocytes % (Manual) Seg Neutrophils # Man Lymphocytes # (Manual) Monocytes # (Manual) PT INR POC ABG pH POC ABG pCO2 POC ABG pO2 Sodium Potassium Chloride Carbon Dioxide BUN Creatinine Glucose POC Glucose 167 H 175 H 136 H C-Peptide Lactic Acid Calcium Magnesium AST ALT Total Creatine Kinase NT-Pro-B Natriuret Pep Total Protein Albumin Vitamin B12 Total Cortisol Ketones Crossmatch 10/08/16 10/09/16 10/09/16 22:00 02:07 05:43 WBC 26.6 H RBC RDW 17.6 H Plt Count 77 L Seg Neuts % (Manual) 93.0 H Lymphocytes % (Manual) 0 L Seg Neutrophils # Man 24.7 H Lymphocytes # (Manual) 0.0 L Monocytes # (Manual) PT INR POC ABG pH POC ABG pCO2 POC ABG pO2 Sodium Potassium Chloride Carbon Dioxide BUN Creatinine Glucose POC Glucose 160 H 149 H C-Peptide Lactic Acid Calcium Magnesium AST ALT Total Creatine Kinase NT-Pro-B Natriuret Pep Total Protein Albumin Vitamin B12 Total Cortisol Ketones Crossmatch 10/09/16 10/09/16 10/09/16 05:43 06:22 08:06 WBC RBC RDW Plt Count Seg Neuts % (Manual) Lymphocytes % (Manual) Seg Neutrophils # Man Lymphocytes # (Manual) Monocytes # (Manual) PT INR POC ABG pH POC ABG pCO2 POC ABG pO2 Sodium 135 L Potassium Chloride 108.4 H Carbon Dioxide 17 L BUN 18 H Creatinine Glucose 164 H POC Glucose 162 H 127 H C-Peptide Lactic Acid Calcium 6.5 L Magnesium AST ALT Total Creatine Kinase NT-Pro-B Natriuret Pep Total Protein Albumin Vitamin B12 Total Cortisol Ketones Crossmatch 10/09/16 10/09/16 10/09/16 10:44 12:04 13:25 WBC RBC RDW Plt Count Seg Neuts % (Manual) Lymphocytes % (Manual) Seg Neutrophils # Man Lymphocytes # (Manual) Monocytes # (Manual) PT INR POC ABG pH POC ABG pCO2 POC ABG pO2 Sodium Potassium Chloride Carbon Dioxide BUN Creatinine Glucose POC Glucose 165 H 128 H 143 H C-Peptide Lactic Acid Calcium Magnesium AST ALT Total Creatine Kinase NT-Pro-B Natriuret Pep Total Protein Albumin Vitamin B12 Total Cortisol Ketones Crossmatch 10/10/16 10/10/16 10/10/16 04:50 04:50 04:50 WBC 20.9 H RBC 3.44 L RDW 17.4 H Plt Count 78 L Seg Neuts % (Manual) 94.0 H Lymphocytes % (Manual) 1.0 L Seg Neutrophils # Man 19.6 H Lymphocytes # (Manual) 0.2 L Monocytes # (Manual) PT 18.3 H INR 1.52 H POC ABG pH POC ABG pCO2 POC ABG pO2 Sodium Potassium Chloride 110.3 H Carbon Dioxide 17 L BUN Creatinine Glucose POC Glucose C-Peptide Lactic Acid Calcium 6.7 L Magnesium 1.6 L AST ALT 91 H Total Creatine Kinase NT-Pro-B Natriuret Pep Total Protein 4.0 L Albumin 1.5 L Vitamin B12 Total Cortisol Ketones Crossmatch 10/10/16 10/11/16 10/11/16 10:00 06:39 11:38 WBC 25.1 H RBC 3.44 L RDW 17.3 H Plt Count 107 L Seg Neuts % (Manual) 87.0 H Lymphocytes % (Manual) 2.0 L Seg Neutrophils # Man 21.8 H Lymphocytes # (Manual) 0.5 L Monocytes # (Manual) PT INR POC ABG pH POC ABG pCO2 POC ABG pO2 Sodium Potassium Chloride Carbon Dioxide BUN Creatinine Glucose POC Glucose 67 L C-Peptide Lactic Acid Calcium Magnesium AST ALT Total Creatine Kinase NT-Pro-B Natriuret Pep 85414 H Total Protein Albumin Vitamin B12 Total Cortisol Ketones Crossmatch 10/11/16 10/11/16 10/12/16 15:42 21:45 05:30 WBC 19.2 H RBC 3.34 L RDW 17.6 H Plt Count 132 L Seg Neuts % (Manual) 89.0 H Lymphocytes % (Manual) 1.0 L Seg Neutrophils # Man 17.1 H Lymphocytes # (Manual) 0.2 L Monocytes # (Manual) 1.3 H PT INR POC ABG pH POC ABG pCO2 POC ABG pO2 Sodium Potassium Chloride Carbon Dioxide BUN Creatinine Glucose POC Glucose 114 H 113 H C-Peptide Lactic Acid Calcium Magnesium AST ALT Total Creatine Kinase NT-Pro-B Natriuret Pep Total Protein Albumin Vitamin B12 Total Cortisol Ketones Crossmatch 10/12/16 10/13/16 10/13/16 05:30 07:49 16:12 WBC RBC RDW Plt Count Seg Neuts % (Manual) Lymphocytes % (Manual) Seg Neutrophils # Man Lymphocytes # (Manual) Monocytes # (Manual) PT INR POC ABG pH POC ABG pCO2 POC ABG pO2 Sodium Potassium Chloride 114.0 H Carbon Dioxide 18 L BUN Creatinine Glucose POC Glucose 52 L 144 H C-Peptide Lactic Acid Calcium 7.4 L Magnesium AST ALT 65 H Total Creatine Kinase NT-Pro-B Natriuret Pep Total Protein 4.1 L Albumin 1.4 L Vitamin B12 Total Cortisol Ketones Crossmatch Chest x-ray: report reviewed, image reviewed (bilateral pleural effusions)
[2016-10-13] MEDS: AMBIEN PO PRN (22:47)
[2016-10-14] MEDS: PROAMATINE PO SCH ×4 (00:19→22:22)
[2016-10-14] MEDS: NOVOLOG SUB-Q SCH ×5 (00:19→23:35)
[2016-10-14] MEDS: NACL 0.9% 1000 ML 1,000 ML IV SCH (05:26)
[2016-10-14] MEDS: FLAGYL PO SCH ×3 (05:27→21:29)
--- NOTE | 2016-10-14 13:10 | Progress Note ---
Assessment and Plan Assessment and plan: 1-year-old female presents with septic shock status tachycardia resolving. Now chronically ill. Total Time Spent with Patient (Minutes): 22 - Patient Problems (1) Acute renal failure Current Visit: Yes Status: Acute Qualifiers: Acute renal failure type: unspecified Qualified Code(s): N17.9 - Acute kidney failure, unspecified Plan to address problem: Acute on chronic low failure resolved. (2) Anemia Current Visit: Yes Status: Acute Plan to address problem: Acute on chronic anemia multifactorial. Stable status post blood transfusion. (3) Crohns disease Current Visit: Yes Status: Acute Qualifiers: Gastrointestinal tract location: large intestine Digestive disease complication type: unspecified complication Qualified Code(s): K50.119 - Crohn 's disease of large intestine with unspecified complications Plan to address problem: Table some blood loss was from Crohn's. (4) Dehydration Current Visit: Yes Status: Acute Plan to address problem: Vasomotor nephropathy. Improving. Chin appears to be intravascularly volume depleted but total-body overloaded. Patient's blood pressure is low. Has been placed on Midodrine and now we'll attempt to diurese. Blood pressure stable. (5) Septic shock Current Visit: Yes Status: Acute Plan to address problem: Septic shock most likely secondary to colitis. Patient now off all pressor support leukocytosis is downtrending. C. difficile was negative blood cultures were negative. Potentially resolving. (6) Malnutrition compromising bodily function Current Visit: Yes Status: Acute Plan to address problem: Issue with severe protein deficiency malnutrition. History Interval history: She has seen examined no new or significant problems reported over p.m. Education is review no new concerns. Patient up in bed alert chronic ill- appearing with ascites. Hospitalist Physical - Constitutional Vitals: Temp Pulse Resp BP Pulse Ox 97.7 F 124 H 24 98/57 98 10/14/16 08:30 10/14/16 08:30 10/14/16 08:30 10/14/16 08:30 10/14/16 09:05 General appearance: Present: no acute distress, well-nourished, obese - EENT Eyes: Present: PERRL, EOM intact ENT: hearing intact, clear oral mucosa, dentition normal, other (neck catheter) - Neck Neck: Present: supple, normal ROM - Respiratory Respiratory effort: normal Respiratory: bilateral: diminished (base only poor respiratory effort) - Cardiovascular Rhythm: regular Heart Sounds: Present: S1 & S2 - Extremities Extremities: no ischemia, pulses intact Extremity abnormal: edema, other (ascites abdomen) Peripheral Pulses: within normal limits - Abdominal General gastrointestinal: soft, non-tender, non-distended, other (obese ascites) - Psychiatric Psychiatric: appropriate mood/affect - Neurologic Neurologic: CNII-XII intact Results - Labs CBC & Chem 7: 10/12/16 05:30 10/12/16 05:30 Labs: Laboratory Last Values WBC 19.2 K/mm3 (4.5-11.0) H 10/12/16 05:30 RBC 3.34 M/mm3 (3.65-5.03) L 10/12/16 05:30 Hgb 10.2 gm/dl (10.1-14.3) 10/12/16 05:30 Hct 31.5 % (30.3-42.9) 10/12/16 05:30 MCV 94 fl (79-97) 10/12/16 05:30 MCH 31 pg (28-32) 10/12/16 05:30 MCHC 33 % (30-34) 10/12/16 05:30 RDW 17.6 % (13.2-15.2) H 10/12/16 05:30 Plt Count 132 K/mm3 (140-440) L 10/12/16 05:30 Add Manual Diff Complete 10/12/16 05:30 Total Counted 100 10/12/16 05:30 Seg Neutrophils % Support Teacher 10/12/16 05:30 Seg Neuts % (Manual) 89.0 % (40.0-70.0) H 10/12/16 05:30 Band Neutrophils % 1.0 % 10/12/16 05:30 Lymphocytes % (Manual) 1.0 % (13.4-35.0) L 10/12/16 05:30 Reactive Lymphs % (Man) 0 % 10/12/16 05:30 Monocytes % (Manual) 7.0 % (0.0-7.3) 10/12/16 05:30 Eosinophils % (Manual) 1.0 % (0.0-4.3) 10/12/16 05:30 Basophils % (Manual) 0 % (0.0-1.8) 10/12/16 05:30 Metamyelocytes % 1.0 % 10/12/16 05:30 Myelocytes % 0 % 10/12/16 05:30 Promyelocytes % 0 % 10/12/16 05:30 Blast Cells % 0 % 10/12/16 05:30 Nucleated RBC % Not Reportable 10/12/16 05:30 Seg Neutrophils # Man 17.1 K/mm3 (1.8-7.7) H 10/12/16 05:30 Band Neutrophils # 0.2 K/mm3 10/12/16 05:30 Lymphocytes # (Manual) 0.2 K/mm3 (1.2-5.4) L 10/12/16 05:30 Abs React Lymphs (Man) 0.0 K/mm3 10/12/16 05:30 Monocytes # (Manual) 1.3 K/mm3 (0.0-0.8) H 10/12/16 05:30 Eosinophils # (Manual) 0.2 K/mm3 (0.0-0.4) 10/12/16 05:30 Basophils # (Manual) 0.0 K/mm3 (0.0-0.1) 10/12/16 05:30 Metamyelocytes # 0.2 K/mm3 10/12/16 05:30 Myelocytes # 0.0 K/mm3 10/12/16 05:30 Promyelocytes # 0.0 K/mm3 10/12/16 05:30 Blast Cells # 0.0 K/mm3 10/12/16 05:30 WBC Morphology Not Reportable 10/12/16 05:30 Hypersegmented Neuts Not Reportable 10/12/16 05:30 Hyposegmented Neuts Not Reportable 10/12/16 05:30 Hypogranular Neuts Not Reportable 10/12/16 05:30 Smudge Cells Not Reportable 10/12/16 05:30 Toxic Granulation Not Reportable 10/12/16 05:30 Toxic Vacuolation Not Reportable 10/12/16 05:30 Dohle Bodies Not Reportable 10/12/16 05:30 Pelger-Huet Anomaly Not Reportable 10/12/16 05:30 Ivory Rods Not Reportable 10/12/16 05:30 Platelet Estimate Consistent w auto 10/12/16 05:30 Clumped Platelets Not Reportable 10/12/16 05:30 Plt Clumps, EDTA Not Reportable 10/12/16 05:30 Large Platelets Not Reportable 10/12/16 05:30 Giant Platelets Not Reportable 10/12/16 05:30 Platelet Satelliting Not Reportable 10/12/16 05:30 Plt Morphology Comment Not Reportable 10/12/16 05:30 RBC Morphology Not Reportable 10/12/16 05:30 Dimorphic RBCs Not Reportable 10/12/16 05:30 Polychromasia Not Reportable 10/12/16 05:30 Hypochromasia Not Reportable 10/12/16 05:30 Poikilocytosis Not Reportable 10/12/16 05:30 Anisocytosis 1+ 10/12/16 05:30 Microcytosis Not Reportable 10/12/16 05:30 Macrocytosis Rare 10/12/16 05:30 Spherocytes Not Reportable 10/12/16 05:30 Pappenheimer Bodies Not Reportable 10/12/16 05:30 Sickle Cells Not Reportable 10/12/16 05:30 Target Cells Not Reportable 10/12/16 05:30 Tear Drop Cells Not Reportable 10/12/16 05:30 Ovalocytes Not Reportable 10/12/16 05:30 Helmet Cells Not Reportable 10/12/16 05:30 [place] Bodies Not Reportable 10/12/16 05:30 [place] Rings Not Reportable 10/12/16 05:30 Adenike Cells Not Reportable 10/12/16 05:30 Bite Cells Not Reportable 10/12/16 05:30 Crenated Cell Not Reportable 10/12/16 05:30 Elliptocytes Not Reportable 10/12/16 05:30 Acanthocytes (Spur) Not Reportable 10/12/16 05:30 Rouleaux Not Reportable 10/12/16 05:30 Hemoglobin C Crystals Not Reportable 10/12/16 05:30 Schistocytes Not Reportable 10/12/16 05:30 Malaria parasites Not Reportable 10/12/16 05:30 Mayito Bodies Not Reportable 10/12/16 05:30 Hem Pathologist Commnt No 10/12/16 05:30 PT 18.3 Sec. (12.2-14.9) H 10/10/16 04:50 INR 1.52 (0.87-1.13) H 10/10/16 04:50 POC ABG pH 7.216 (7.35-7.45) L 10/05/16 16:03 POC ABG pCO2 28.2 (35-45) L 10/05/16 16:03 POC ABG pO2 60 (80-105) L 10/05/16 16:03 POC ABG HCO3 11.4 10/05/16 16:03 POC ABG Total CO2 12 10/05/16 16:03 POC ABG O2 Sat 86 10/05/16 16:03 POC ABG Base Excess -16 10/05/16 16:03 VBG pH 7.136 (7.320-7.420) L* 10/05/16 14:40 FiO2 32 % 10/05/16 16:03 Sodium 141 mmol/L (137-145) 10/12/16 05:30 Potassium 3.8 mmol/L (3.6-5.0) 10/12/16 05:30 Chloride 114.0 mmol/L (98-107) H 10/12/16 05:30 Carbon Dioxide 18 mmol/L (22-30) L 10/12/16 05:30 Anion Gap 13 mmol/L 10/12/16 05:30 BUN 17 mg/dL (7-17) 10/12/16 05:30 Creatinine 0.9 mg/dL (0.7-1.2) 10/12/16 05:30 Estimated GFR > 60 ml/min 10/12/16 05:30 BUN/Creatinine Ratio 18.88 % 10/12/16 05:30 Glucose 69 mg/dL (65-100) 10/12/16 05:30 POC Glucose 52 (70-105) L 10/14/16 11:39 C-Peptide 5.67 ng/mL (0.80-3.85) H 10/06/16 18:25 Lactic Acid 2.1 mmol/L (0.7-2.0) H* 10/07/16 Unknown Calcium 7.4 mg/dL (8.4-10.2) L 10/12/16 05:30 Phosphorus 2.6 mg/dL (2.5-4.5) 10/09/16 05:43 Magnesium 1.9 mg/dL (1.7-2.3) 10/12/16 05:30 Iron 51 ug/dL (37-170) 10/05/16 21:30 Total Bilirubin 0.4 mg/dL (0.1-1.2) 10/12/16 05:30 Direct Bilirubin < 0.2 mg/dL (0-0.2) 10/12/16 05:30 Indirect Bilirubin 0.2 mg/dL 10/12/16 05:30 AST 22 units/L (5-40) 10/12/16 05:30 ALT 65 units/L (7-56) H 10/12/16 05:30 Alkaline Phosphatase 100 units/L (35-129) 10/12/16 05:30 Total Creatine Kinase 2317 units/L (30-135) H 10/05/16 21:30 NT-Pro-B Natriuret Pep 06314 pg/mL (0-900) H 10/10/16 10:00 Total Protein 4.1 g/dL (6.3-8.2) L 10/12/16 05:30 Albumin 1.4 g/dL (3.9-5) L 10/12/16 05:30 Albumin/Globulin Ratio 0.5 % 10/12/16 05:30 Vitamin B12 1592 pg/mL (211-911) H 10/05/16 21:30 Folate 16.37 ng/mL (7.3-26.0) 10/05/16 21:30 Total Cortisol >150.0 mcg/dL () H 10/06/16 18:25 Urine Color Cathy (Yellow) 10/05/16 13:52 Urine Turbidity Clear (Clear) 10/05/16 13:52 Urine pH 5.0 (5.0-7.0) 10/05/16 13:52 Ur Specific [place]ison 1.015 (1.003-1.030) 10/05/16 13:52 Urine Protein 30 mg/dl mg/dL (Negative) 10/05/16 13:52 Urine Glucose (UA) Neg mg/dL (Negative) 10/05/16 13:52 Urine Ketones Neg mg/dL (Negative) 10/05/16 13:52 Urine Blood Lg (Negative) 10/05/16 13:52 Urine Nitrite Neg (Negative) 10/05/16 13:52 Urine Bilirubin Neg (Negative) 10/05/16 13:52 Urine Urobilinogen < 2.0 mg/dL (<2.0) 10/05/16 13:52 Ur Leukocyte Esterase Neg (Negative) 10/05/16 13:52 Urine WBC (Auto) 1.0 /HPF (0.0-6.0) 10/05/16 13:52 Urine RBC (Auto) < 1.0 /HPF (0.0-6.0) 10/05/16 13:52 U Epithel Cells (Auto) 1.0 /HPF (0-13.0) 10/05/16 13:52 Urine Mucus Few /HPF 10/05/16 13:52 Ketones 2.9 mg/dL (0.2-2.8) H 10/05/16 21:30 Blood Type B POSITIVE 10/05/16 21:05 Antibody Screen Negative 10/05/16 21:05 Crossmatch See Detail 10/05/16 21:05 - Imaging and Cardiology EKG: report reviewed Chest x-ray: image reviewed CT scan - abdomen: report reviewed
[2016-10-14] MEDS: LEVAQUIN PO SCH (13:55)
[2016-10-14] MEDS: PROTONIX PO SCH ×2 (13:55→21:28)
--- NOTE | 2016-10-14 18:51 | Progress Note ---
Assessment and Plan Imp: 1. Crohn's disease, presumed exacerbation 2. Sepsis syndrome 3. Anasarca/3rd spacing 2/2 hypoalbuminemia -> Pleural effusions 4. Acute respiratory failure, hypoxia, likely 2/2#3 5. Pulm HTN 6. Chronic diastolic CHF 7. Thrombocytopenia Rec: 1. D/c Duonebs due to tachycardia 2. Markedly volume-overloaded; will stop IVFs and monitor BP closely; unable to diurese due to borderline low BP; midodrine started by primary, but may have to increase dose; f/u repeat cultures 3. LE dopplers -> negative; SCDs ordered 4. Levaquin/Flagyl 5. Spot urine pro/cr ratio unremarkable; hypoalbuminemia 2/2 Crohn's/ malnutrition; consider nutrition eval. Plan of care reviewed w/ patient, she understands/agrees Subjective Date of service: 10/14/16 Principal diagnosis: diarrhea, chron's colitis, hypoglycemia, ARF, AMS Interval history: No events. + SOB, stable. Remains tachy. Tolerating some PO. No pain. No new complaints. Active Medications Albuterol (Proventil) 2.5 mg IH Q4HRT PRN PRN Reason: Shortness Of Breath Last Admin: 10/08/16 03:56 Dose: 2.5 mg Dextrose (D50w (25gm)) 50 ml IV PRN PRN PRN Reason: Hypoglycemia Last Admin: 10/13/16 08:15 Dose: 50 ml Insulin Aspart (Novolog) 0 units SUB-Q ACHS JUDE PRN Reason: Protocol Last Admin: 10/14/16 17:50 Dose: Not Given Levofloxacin (Levaquin) 750 mg PO Q24HR [facility] Stop: 10/15/16 09:59 Last Admin: 10/14/16 13:55 Dose: 750 mg Metoclopramide HCl (Reglan) 5 mg IV Q6H PRN PRN Reason: Nausea And Vomiting Metoprolol Tartrate (Lopressor) 2.5 mg IV Q6HR PRN PRN Reason: tachycardia Last Admin: 10/13/16 09:00 Dose: 2.5 mg Metronidazole (Flagyl) 500 mg PO Q8HR JUDE Last Admin: 10/14/16 13:56 Dose: 500 mg Midodrine (Proamatine) 2.5 mg PO Q8HR [facility] Last Admin: 10/14/16 13:56 Dose: 2.5 mg Ondansetron HCl (Zofran) 4 mg IV Q4H PRN PRN Reason: Nausea And Vomiting Last Admin: 10/06/16 14:21 Dose: 4 mg Pantoprazole Sodium (Protonix) 40 mg PO BID [facility] Last Admin: 10/14/16 13:55 Dose: 40 mg Zolpidem Tartrate (Ambien) 5 mg PO QHS PRN PRN Reason: Sleep Last Admin: 10/13/16 22:47 Dose: 5 mg Objective Vital Signs - 12hr 10/14/16 10/14/16 10/14/16 08:30 09:05 16:05 Temperature 97.7 F 97.2 F L Pulse Rate [ 124 H Left Dorsalis Pedis] Pulse Rate [ 119 H Left Radial] Respiratory 24 24 Rate Blood Pressure 98/57 111/60 [Left Calf] O2 Sat by Pulse 98 98 Oximetry Constitutional: no acute distress, alert Eyes: non-icteric ENT: oropharynx moist Neck: supple Effort: mildly labored (mild tachypnea) Ascultation: Bilateral: diminished breath sounds Cardiovascular: other (tachy, RR; no mrg) Gastrointestinal: normoactive bowel sounds, tender (mild) Integumentary: normal Extremities: no cyanosis, pink and warm, edema (3+ bilateral LE edema) Neurologic: normal mental status, non-focal exam, pupils equal and round, CN II- XII normal Psychiatric: mood appropriate, affect normal CBC and BMP: 10/12/16 05:30 10/12/16 05:30 ABG, PT/INR, D-dimer: ABG POC ABG pH 7.216 (7.35-7.45) L 10/05/16 16:03 POC ABG pCO2 28.2 (35-45) L 10/05/16 16:03 POC ABG pO2 60 (80-105) L 10/05/16 16:03 POC ABG HCO3 11.4 10/05/16 16:03 POC ABG Total CO2 12 10/05/16 16:03 POC ABG O2 Sat 86 10/05/16 16:03 PT/INR, D-dimer PT 18.3 Sec. (12.2-14.9) H 10/10/16 04:50 INR 1.52 (0.87-1.13) H 10/10/16 04:50 Abnormal lab findings: Abnormal Labs 10/05/16 10/05/16 10/05/16 16:03 17:02 21:05 WBC RBC RDW Plt Count Seg Neuts % (Manual) Lymphocytes % (Manual) Seg Neutrophils # Man Lymphocytes # (Manual) Monocytes # (Manual) PT INR POC ABG pH 7.216 L POC ABG pCO2 28.2 L POC ABG pO2 60 L Sodium Potassium Chloride Carbon Dioxide BUN Creatinine Glucose POC Glucose 185 H C-Peptide Lactic Acid Calcium Magnesium AST ALT Total Creatine Kinase NT-Pro-B Natriuret Pep Total Protein Albumin Vitamin B12 Total Cortisol Urine Creatinine Urine Total Protein Ketones Crossmatch See Detail 10/05/16 10/05/16 10/05/16 21:30 21:30 21:30 WBC RBC RDW Plt Count Seg Neuts % (Manual) Lymphocytes % (Manual) Seg Neutrophils # Man Lymphocytes # (Manual) Monocytes # (Manual) PT INR POC ABG pH POC ABG pCO2 POC ABG pO2 Sodium Potassium Chloride Carbon Dioxide BUN Creatinine Glucose POC Glucose C-Peptide Lactic Acid 2.3 H* Calcium Magnesium AST ALT Total Creatine Kinase 2317 H NT-Pro-B Natriuret Pep Total Protein Albumin Vitamin B12 Total Cortisol Urine Creatinine Urine Total Protein Ketones 2.9 H Crossmatch 10/05/16 10/05/16 10/05/16 21:30 21:49 23:07 WBC RBC RDW Plt Count Seg Neuts % (Manual) Lymphocytes % (Manual) Seg Neutrophils # Man Lymphocytes # (Manual) Monocytes # (Manual) PT INR POC ABG pH POC ABG pCO2 POC ABG pO2 Sodium Potassium Chloride Carbon Dioxide BUN Creatinine Glucose POC Glucose < 40 L < 40 L C-Peptide Lactic Acid Calcium Magnesium AST ALT Total Creatine Kinase NT-Pro-B Natriuret Pep Total Protein Albumin Vitamin B12 1592 H Total Cortisol Urine Creatinine Urine Total Protein Ketones Crossmatch 10/06/16 10/06/16 10/06/16 01:05 02:13 03:13 WBC RBC RDW Plt Count Seg Neuts % (Manual) Lymphocytes % (Manual) Seg Neutrophils # Man Lymphocytes # (Manual) Monocytes # (Manual) PT INR POC ABG pH POC ABG pCO2 POC ABG pO2 Sodium Potassium Chloride Carbon Dioxide BUN Creatinine Glucose POC Glucose 285 H 241 H 280 H C-Peptide Lactic Acid Calcium Magnesium AST ALT Total Creatine Kinase NT-Pro-B Natriuret Pep Total Protein Albumin Vitamin B12 Total Cortisol Urine Creatinine Urine Total Protein Ketones Crossmatch 10/06/16 10/06/16 10/06/16 03:49 05:22 06:10 WBC RBC RDW Plt Count Seg Neuts % (Manual) Lymphocytes % (Manual) Seg Neutrophils # Man Lymphocytes # (Manual) Monocytes # (Manual) PT INR POC ABG pH POC ABG pCO2 POC ABG pO2 Sodium Potassium Chloride Carbon Dioxide BUN Creatinine Glucose POC Glucose 216 H 240 H 291 H C-Peptide Lactic Acid Calcium Magnesium AST ALT Total Creatine Kinase NT-Pro-B Natriuret Pep Total Protein Albumin Vitamin B12 Total Cortisol Urine Creatinine Urine Total Protein Ketones Crossmatch 10/06/16 10/06/16 10/06/16 07:37 08:55 09:37 WBC RBC RDW Plt Count Seg Neuts % (Manual) Lymphocytes % (Manual) Seg Neutrophils # Man Lymphocytes # (Manual) Monocytes # (Manual) PT INR POC ABG pH POC ABG pCO2 POC ABG pO2 Sodium Potassium Chloride Carbon Dioxide BUN Creatinine Glucose POC Glucose 255 H 286 H 205 H C-Peptide Lactic Acid Calcium Magnesium AST ALT Total Creatine Kinase NT-Pro-B Natriuret Pep Total Protein Albumin Vitamin B12 Total Cortisol Urine Creatinine Urine Total Protein Ketones Crossmatch 10/06/16 10/06/16 10/06/16 09:40 09:40 10:00 WBC 27.9 H RBC RDW 16.8 H Plt Count 94 L Seg Neuts % (Manual) 94.5 H Lymphocytes % (Manual) 1.0 L Seg Neutrophils # Man 26.4 H Lymphocytes # (Manual) 0.3 L Monocytes # (Manual) 1.3 H PT INR POC ABG pH POC ABG pCO2 POC ABG pO2 Sodium 130 L Potassium Chloride Carbon Dioxide 16 L BUN 31 H Creatinine 1.8 H Glucose 259 H POC Glucose C-Peptide Lactic Acid 3.3 H* Calcium 6.1 L Magnesium AST 112 H ALT 100 H Total Creatine Kinase NT-Pro-B Natriuret Pep Total Protein 4.2 L D Albumin 1.2 L Vitamin B12 Total Cortisol Urine Creatinine Urine Total Protein Ketones Crossmatch 10/06/16 10/06/16 10/06/16 11:24 12:08 13:22 WBC RBC RDW Plt Count Seg Neuts % (Manual) Lymphocytes % (Manual) Seg Neutrophils # Man Lymphocytes # (Manual) Monocytes # (Manual) PT INR POC ABG pH POC ABG pCO2 POC ABG pO2 Sodium Potassium Chloride Carbon Dioxide BUN Creatinine Glucose POC Glucose 204 H 214 H 176 H C-Peptide Lactic Acid Calcium Magnesium AST ALT Total Creatine Kinase NT-Pro-B Natriuret Pep Total Protein Albumin Vitamin B12 Total Cortisol Urine Creatinine Urine Total Protein Ketones Crossmatch 10/06/16 10/06/16 10/06/16 14:52 15:11 17:11 WBC RBC RDW Plt Count Seg Neuts % (Manual) Lymphocytes % (Manual) Seg Neutrophils # Man Lymphocytes # (Manual) Monocytes # (Manual) PT INR POC ABG pH POC ABG pCO2 POC ABG pO2 Sodium Potassium Chloride Carbon Dioxide BUN Creatinine Glucose POC Glucose 177 H 168 H 173 H C-Peptide Lactic Acid Calcium Magnesium AST ALT Total Creatine Kinase NT-Pro-B Natriuret Pep Total Protein Albumin Vitamin B12 Total Cortisol Urine Creatinine Urine Total Protein Ketones Crossmatch 10/06/16 10/06/16 10/06/16 18:12 18:25 18:25 WBC RBC RDW Plt Count Seg Neuts % (Manual) Lymphocytes % (Manual) Seg Neutrophils # Man Lymphocytes # (Manual) Monocytes # (Manual) PT INR POC ABG pH POC ABG pCO2 POC ABG pO2 Sodium Potassium Chloride Carbon Dioxide BUN Creatinine Glucose POC Glucose 165 H C-Peptide 5.67 H Lactic Acid Calcium Magnesium AST ALT Total Creatine Kinase NT-Pro-B Natriuret Pep Total Protein Albumin Vitamin B12 Total Cortisol >150.0 H Urine Creatinine Urine Total Protein Ketones Crossmatch 10/06/16 10/06/16 10/06/16 18:55 20:01 21:00 WBC RBC RDW Plt Count Seg Neuts % (Manual) Lymphocytes % (Manual) Seg Neutrophils # Man Lymphocytes # (Manual) Monocytes # (Manual) PT INR POC ABG pH POC ABG pCO2 POC ABG pO2 Sodium Potassium Chloride Carbon Dioxide BUN Creatinine Glucose POC Glucose 174 H 158 H 172 H C-Peptide Lactic Acid Calcium Magnesium AST ALT Total Creatine Kinase NT-Pro-B Natriuret Pep Total Protein Albumin Vitamin B12 Total Cortisol Urine Creatinine Urine Total Protein Ketones Crossmatch 10/06/16 10/06/16 10/06/16 22:02 23:04 23:58 WBC RBC RDW Plt Count Seg Neuts % (Manual) Lymphocytes % (Manual) Seg Neutrophils # Man Lymphocytes # (Manual) Monocytes # (Manual) PT INR POC ABG pH POC ABG pCO2 POC ABG pO2 Sodium Potassium Chloride Carbon Dioxide BUN Creatinine Glucose POC Glucose 180 H 177 H 178 H C-Peptide Lactic Acid Calcium Magnesium AST ALT Total Creatine Kinase NT-Pro-B Natriuret Pep Total Protein Albumin Vitamin B12 Total Cortisol Urine Creatinine Urine Total Protein Ketones Crossmatch 10/07/16 10/07/16 10/07/16 01:05 01:58 02:58 WBC RBC RDW Plt Count Seg Neuts % (Manual) Lymphocytes % (Manual) Seg Neutrophils # Man Lymphocytes # (Manual) Monocytes # (Manual) PT INR POC ABG pH POC ABG pCO2 POC ABG pO2 Sodium Potassium Chloride Carbon Dioxide BUN Creatinine Glucose POC Glucose 168 H 152 H 181 H C-Peptide Lactic Acid Calcium Magnesium AST ALT Total Creatine Kinase NT-Pro-B Natriuret Pep Total Protein Albumin Vitamin B12 Total Cortisol Urine Creatinine Urine Total Protein Ketones Crossmatch 10/07/16 10/07/16 10/07/16 04:03 04:42 04:42 WBC 30.5 H RBC RDW 17.2 H Plt Count 59 L Seg Neuts % (Manual) 90.0 H Lymphocytes % (Manual) 2.0 L Seg Neutrophils # Man 27.5 H Lymphocytes # (Manual) 0.6 L Monocytes # (Manual) PT INR POC ABG pH POC ABG pCO2 POC ABG pO2 Sodium 127 L Potassium 3.5 L Chloride Carbon Dioxide 16 L BUN 27 H Creatinine 1.6 H Glucose 162 H POC Glucose 196 H C-Peptide Lactic Acid Calcium 6.1 L Magnesium 1.5 L AST 83 H ALT 106 H Total Creatine Kinase NT-Pro-B Natriuret Pep Total Protein 3.9 L Albumin 1.1 L Vitamin B12 Total Cortisol Urine Creatinine Urine Total Protein Ketones Crossmatch 10/07/16 10/07/16 10/07/16 05:05 06:08 07:29 WBC RBC RDW Plt Count Seg Neuts % (Manual) Lymphocytes % (Manual) Seg Neutrophils # Man Lymphocytes # (Manual) Monocytes # (Manual) PT INR POC ABG pH POC ABG pCO2 POC ABG pO2 Sodium Potassium Chloride Carbon Dioxide BUN Creatinine Glucose POC Glucose 197 H 163 H 167 H C-Peptide Lactic Acid Calcium Magnesium AST ALT Total Creatine Kinase NT-Pro-B Natriuret Pep Total Protein Albumin Vitamin B12 Total Cortisol Urine Creatinine Urine Total Protein Ketones Crossmatch 10/07/16 10/07/16 10/07/16 08:11 09:02 10:03 WBC RBC RDW Plt Count Seg Neuts % (Manual) Lymphocytes % (Manual) Seg Neutrophils # Man Lymphocytes # (Manual) Monocytes # (Manual) PT INR POC ABG pH POC ABG pCO2 POC ABG pO2 Sodium Potassium Chloride Carbon Dioxide BUN Creatinine Glucose POC Glucose 143 H 172 H 163 H C-Peptide Lactic Acid Calcium Magnesium AST ALT Total Creatine Kinase NT-Pro-B Natriuret Pep Total Protein Albumin Vitamin B12 Total Cortisol Urine Creatinine Urine Total Protein Ketones Crossmatch 10/07/16 10/07/16 10/07/16 11:53 14:18 16:35 WBC RBC RDW Plt Count Seg Neuts % (Manual) Lymphocytes % (Manual) Seg Neutrophils # Man Lymphocytes # (Manual) Monocytes # (Manual) PT INR POC ABG pH POC ABG pCO2 POC ABG pO2 Sodium Potassium Chloride Carbon Dioxide BUN Creatinine Glucose POC Glucose 144 H 168 H 195 H C-Peptide Lactic Acid Calcium Magnesium AST ALT Total Creatine Kinase NT-Pro-B Natriuret Pep Total Protein Albumin Vitamin B12 Total Cortisol Urine Creatinine Urine Total Protein Ketones Crossmatch 10/07/16 10/07/16 10/07/16 17:53 19:53 Unknown WBC RBC RDW Plt Count Seg Neuts % (Manual) Lymphocytes % (Manual) Seg Neutrophils # Man Lymphocytes # (Manual) Monocytes # (Manual) PT INR POC ABG pH POC ABG pCO2 POC ABG pO2 Sodium Potassium Chloride Carbon Dioxide BUN Creatinine Glucose POC Glucose 187 H 212 H C-Peptide Lactic Acid 2.1 H* Calcium Magnesium AST ALT Total Creatine Kinase NT-Pro-B Natriuret Pep Total Protein Albumin Vitamin B12 Total Cortisol Urine Creatinine Urine Total Protein Ketones Crossmatch 10/08/16 10/08/16 10/08/16 00:18 03:35 03:45 WBC 31.0 H RBC 3.62 L RDW 17.2 H Plt Count 59 L Seg Neuts % (Manual) 79.0 H Lymphocytes % (Manual) 1.0 L Seg Neutrophils # Man 24.5 H Lymphocytes # (Manual) 0.3 L Monocytes # (Manual) 2.2 H PT INR POC ABG pH POC ABG pCO2 POC ABG pO2 Sodium Potassium Chloride Carbon Dioxide BUN Creatinine Glucose POC Glucose 142 H 149 H C-Peptide Lactic Acid Calcium Magnesium AST ALT Total Creatine Kinase NT-Pro-B Natriuret Pep Total Protein Albumin Vitamin B12 Total Cortisol Urine Creatinine Urine Total Protein Ketones Crossmatch 10/08/16 10/08/16 10/08/16 03:45 03:45 07:39 WBC RBC RDW Plt Count Seg Neuts % (Manual) Lymphocytes % (Manual) Seg Neutrophils # Man Lymphocytes # (Manual) Monocytes # (Manual) PT 19.8 H INR 1.68 H POC ABG pH POC ABG pCO2 POC ABG pO2 Sodium 132 L Potassium Chloride Carbon Dioxide 15 L BUN 22 H Creatinine 1.3 H Glucose 142 H POC Glucose 165 H C-Peptide Lactic Acid Calcium 5.9 L* Magnesium AST 62 H ALT 112 H Total Creatine Kinase NT-Pro-B Natriuret Pep Total Protein 3.8 L Albumin 1.0 L Vitamin B12 Total Cortisol Urine Creatinine Urine Total Protein Ketones Crossmatch 10/08/16 10/08/16 10/08/16 10:00 13:51 18:18 WBC RBC RDW Plt Count Seg Neuts % (Manual) Lymphocytes % (Manual) Seg Neutrophils # Man Lymphocytes # (Manual) Monocytes # (Manual) PT INR POC ABG pH POC ABG pCO2 POC ABG pO2 Sodium Potassium Chloride Carbon Dioxide BUN Creatinine Glucose POC Glucose 167 H 175 H 136 H C-Peptide Lactic Acid Calcium Magnesium AST ALT Total Creatine Kinase NT-Pro-B Natriuret Pep Total Protein Albumin Vitamin B12 Total Cortisol Urine Creatinine Urine Total Protein Ketones Crossmatch 10/08/16 10/09/16 10/09/16 22:00 02:07 05:43 WBC 26.6 H RBC RDW 17.6 H Plt Count 77 L Seg Neuts % (Manual) 93.0 H Lymphocytes % (Manual) 0 L Seg Neutrophils # Man 24.7 H Lymphocytes # (Manual) 0.0 L Monocytes # (Manual) PT INR POC ABG pH POC ABG pCO2 POC ABG pO2 Sodium Potassium Chloride Carbon Dioxide BUN Creatinine Glucose POC Glucose 160 H 149 H C-Peptide Lactic Acid Calcium Magnesium AST ALT Total Creatine Kinase NT-Pro-B Natriuret Pep Total Protein Albumin Vitamin B12 Total Cortisol Urine Creatinine Urine Total Protein Ketones Crossmatch 10/09/16 10/09/16 10/09/16 05:43 06:22 08:06 WBC RBC RDW Plt Count Seg Neuts % (Manual) Lymphocytes % (Manual) Seg Neutrophils # Man Lymphocytes # (Manual) Monocytes # (Manual) PT INR POC ABG pH POC ABG pCO2 POC ABG pO2 Sodium 135 L Potassium Chloride 108.4 H Carbon Dioxide 17 L BUN 18 H Creatinine Glucose 164 H POC Glucose 162 H 127 H C-Peptide Lactic Acid Calcium 6.5 L Magnesium AST ALT Total Creatine Kinase NT-Pro-B Natriuret Pep Total Protein Albumin Vitamin B12 Total Cortisol Urine Creatinine Urine Total Protein Ketones Crossmatch 10/09/16 10/09/16 10/09/16 10:44 12:04 13:25 WBC RBC RDW Plt Count Seg Neuts % (Manual) Lymphocytes % (Manual) Seg Neutrophils # Man Lymphocytes # (Manual) Monocytes # (Manual) PT INR POC ABG pH POC ABG pCO2 POC ABG pO2 Sodium Potassium Chloride Carbon Dioxide BUN Creatinine Glucose POC Glucose 165 H 128 H 143 H C-Peptide Lactic Acid Calcium Magnesium AST ALT Total Creatine Kinase NT-Pro-B Natriuret Pep Total Protein Albumin Vitamin B12 Total Cortisol Urine Creatinine Urine Total Protein Ketones Crossmatch 10/10/16 10/10/16 10/10/16 04:50 04:50 04:50 WBC 20.9 H RBC 3.44 L RDW 17.4 H Plt Count 78 L Seg Neuts % (Manual) 94.0 H Lymphocytes % (Manual) 1.0 L Seg Neutrophils # Man 19.6 H Lymphocytes # (Manual) 0.2 L Monocytes # (Manual) PT 18.3 H INR 1.52 H POC ABG pH POC ABG pCO2 POC ABG pO2 Sodium Potassium Chloride 110.3 H Carbon Dioxide 17 L BUN Creatinine Glucose POC Glucose C-Peptide Lactic Acid Calcium 6.7 L Magnesium 1.6 L AST ALT 91 H Total Creatine Kinase NT-Pro-B Natriuret Pep Total Protein 4.0 L Albumin 1.5 L Vitamin B12 Total Cortisol Urine Creatinine Urine Total Protein Ketones Crossmatch 10/10/16 10/11/16 10/11/16 10:00 06:39 11:38 WBC 25.1 H RBC 3.44 L RDW 17.3 H Plt Count 107 L Seg Neuts % (Manual) 87.0 H Lymphocytes % (Manual) 2.0 L Seg Neutrophils # Man 21.8 H Lymphocytes # (Manual) 0.5 L Monocytes # (Manual) PT INR POC ABG pH POC ABG pCO2 POC ABG pO2 Sodium Potassium Chloride Carbon Dioxide BUN Creatinine Glucose POC Glucose 67 L C-Peptide Lactic Acid Calcium Magnesium AST ALT Total Creatine Kinase NT-Pro-B Natriuret Pep 33407 H Total Protein Albumin Vitamin B12 Total Cortisol Urine Creatinine Urine Total Protein Ketones Crossmatch 10/11/16 10/11/16 10/12/16 15:42 21:45 05:30 WBC 19.2 H RBC 3.34 L RDW 17.6 H Plt Count 132 L Seg Neuts % (Manual) 89.0 H Lymphocytes % (Manual) 1.0 L Seg Neutrophils # Man 17.1 H Lymphocytes # (Manual) 0.2 L Monocytes # (Manual) 1.3 H PT INR POC ABG pH POC ABG pCO2 POC ABG pO2 Sodium Potassium Chloride Carbon Dioxide BUN Creatinine Glucose POC Glucose 114 H 113 H C-Peptide Lactic Acid Calcium Magnesium AST ALT Total Creatine Kinase NT-Pro-B Natriuret Pep Total Protein Albumin Vitamin B12 Total Cortisol Urine Creatinine Urine Total Protein Ketones Crossmatch 10/12/16 10/13/16 10/13/16 05:30 07:49 16:12 WBC RBC RDW Plt Count Seg Neuts % (Manual) Lymphocytes % (Manual) Seg Neutrophils # Man Lymphocytes # (Manual) Monocytes # (Manual) PT INR POC ABG pH POC ABG pCO2 POC ABG pO2 Sodium Potassium Chloride 114.0 H Carbon Dioxide 18 L BUN Creatinine Glucose POC Glucose 52 L 144 H C-Peptide Lactic Acid Calcium 7.4 L Magnesium AST ALT 65 H Total Creatine Kinase NT-Pro-B Natriuret Pep Total Protein 4.1 L Albumin 1.4 L Vitamin B12 Total Cortisol Urine Creatinine Urine Total Protein Ketones Crossmatch 10/13/16 10/14/16 10/14/16 21:00 11:39 13:41 WBC RBC RDW Plt Count Seg Neuts % (Manual) Lymphocytes % (Manual) Seg Neutrophils # Man Lymphocytes # (Manual) Monocytes # (Manual) PT INR POC ABG pH POC ABG pCO2 POC ABG pO2 Sodium Potassium Chloride Carbon Dioxide BUN Creatinine Glucose POC Glucose 113 H 52 L C-Peptide Lactic Acid Calcium Magnesium AST ALT Total Creatine Kinase NT-Pro-B Natriuret Pep Total Protein Albumin Vitamin B12 Total Cortisol Urine Creatinine 126.1 H Urine Total Protein 89 H Ketones Crossmatch 10/14/16 16:46 WBC RBC RDW Plt Count Seg Neuts % (Manual) Lymphocytes % (Manual) Seg Neutrophils # Man Lymphocytes # (Manual) Monocytes # (Manual) PT INR POC ABG pH POC ABG pCO2 POC ABG pO2 Sodium Potassium Chloride Carbon Dioxide BUN Creatinine Glucose POC Glucose 120 H C-Peptide Lactic Acid Calcium Magnesium AST ALT Total Creatine Kinase NT-Pro-B Natriuret Pep Total Protein Albumin Vitamin B12 Total Cortisol Urine Creatinine Urine Total Protein Ketones Crossmatch Chest x-ray: report reviewed, image reviewed
[2016-10-14] MEDS: AMBIEN PO PRN (22:22)
[2016-10-14 22:53] LABS: Basophils % (Auto) 0.1 % (0.0-1.8); Eosinophils % (Auto) 0.6 % (0.0-4.3); Hematocrit 29.3 % (30.3-42.9); Hemoglobin 9.4 gm/dl (10.1-14.3); Mean Corpuscular HGB Conc 32 % (30-34); Mean Corpuscular Hemoglobin 31 pg (28-32); Mean Corpuscular Volume 96 fl (79-97); Platelet Count 137 K/mm3 (140-440); Red Blood Count 3.06 M/mm3 (3.65-5.03); Red Cell Distribution Width 17.8 % (13.2-15.2)
[2016-10-14 23:03] LABS: INR 1.39 (0.87-1.13)
[2016-10-14 23:16] LABS: BUN/Creatinine Ratio 21.42; Blood Urea Nitrogen 15 mg/dL (7-17); Carbon Dioxide 18 mmol/L (22-30)
[2016-10-14 23:17] LABS: Anion Gap 13 mmol/L; Calcium 7.1 mg/dL (8.4-10.2); Chloride 114.1 mmol/L (98-107); Glucose 110 mg/dL (65-100); Magnesium 1.5 mg/dL (1.7-2.3); Potassium 3.6 mmol/L (3.6-5.0); Sodium 141 mmol/L (137-145)
[2016-10-15] MEDS: FLAGYL PO SCH ×3 (05:16→23:59)
[2016-10-15] MEDS: PROAMATINE PO SCH ×2 (05:19→14:11)
[2016-10-15] MEDS ORDERED: PROAMATINE PO SCH (06:00)
--- NOTE | 2016-10-15 07:39 | Vascular Lab Report ---
LOWER EXTREMITY VENOUS DUPLEX: REASON FOR EXAM: Edema. COMMENTS ON THE RIGHT: All veins visualized are freely compressible without evidence of internal echogenicity. Flow is spontaneous and phasic throughout. COMMENTS ON THE LEFT: All veins visualized are freely compressible without evidence of internal echogenicity. Flow is spontaneous and phasic throughout. IMPRESSION: No evidence of acute or chronic deep venous thrombosis in either lower extremity.
[2016-10-15] MEDS: NOVOLOG SUB-Q SCH ×4 (08:03→23:59)
[2016-10-15] MEDS: PROTONIX PO SCH (09:51)
--- NOTE | 2016-10-15 12:14 | Progress Note ---
Assessment and Plan 61 y/o female with hypotension of unknown etiology and hypoglycemia, now with elevated AST/ALT, increasing white count and diarrhea, nonbloody. 1. Unsure of cause of hypotension. Unable to tolerate diuresis. Agree with colleague, may need to increase midodrine 2. Stopped albuterol, it wasn't stopped before 3. Continue supplemental O2 4. Will continue to follow. Subjective Date of service: 10/15/16 Principal diagnosis: diarrhea, chron's colitis, hypoglycemia, ARF, AMS Interval history: Asleep but easily aroused. No acute events overnight. Tachycardia still present despite stopping of neb treatments. Per patient breathing is better today. Objective Vital Signs - 12hr 10/15/16 10/15/16 10/15/16 04:00 07:59 08:03 Temperature 98.2 F 97.8 F Pulse Rate [ 118 H 122 H Left Radial] Respiratory 22 22 Rate Blood Pressure 93/60 91/57 [Left Arm] O2 Sat by Pulse 98 98 100 Oximetry Constitutional: no acute distress, alert Eyes: non-icteric ENT: oropharynx moist Neck: supple Effort: mildly labored (mild tachypnea) Ascultation: Left: rales (mostly left side), Bilateral: diminished breath sounds , rhonchi Cardiovascular: other (tachy, RR; no mrg) Gastrointestinal: normoactive bowel sounds, tender (mild) Integumentary: normal Extremities: no cyanosis, pink and warm, edema (3+ bilateral LE edema) Neurologic: normal mental status, non-focal exam, pupils equal and round, CN II- XII normal Psychiatric: mood appropriate, affect normal CBC and BMP: 10/14/16 11:48 10/14/16 11:48 ABG, PT/INR, D-dimer: ABG POC ABG pH 7.216 (7.35-7.45) L 10/05/16 16:03 POC ABG pCO2 28.2 (35-45) L 10/05/16 16:03 POC ABG pO2 60 (80-105) L 10/05/16 16:03 POC ABG HCO3 11.4 10/05/16 16:03 POC ABG Total CO2 12 10/05/16 16:03 POC ABG O2 Sat 86 10/05/16 16:03 PT/INR, D-dimer PT 17.0 Sec. (12.2-14.9) H 10/14/16 11:48 INR 1.39 (0.87-1.13) H 10/14/16 11:48 Abnormal lab findings: Abnormal Labs 10/05/16 10/05/16 10/05/16 16:03 17:02 21:05 WBC RBC Hgb Hct RDW Plt Count Lymph % (Auto) [place] % (Auto) Lymph # [place] # Seg Neutrophils % Seg Neuts % (Manual) Lymphocytes % (Manual) Seg Neutrophils # Seg Neutrophils # Man Lymphocytes # (Manual) Monocytes # (Manual) PT INR POC ABG pH 7.216 L POC ABG pCO2 28.2 L POC ABG pO2 60 L Sodium Potassium Chloride Carbon Dioxide BUN Creatinine Glucose POC Glucose 185 H C-Peptide Lactic Acid Calcium Magnesium AST ALT Total Creatine Kinase NT-Pro-B Natriuret Pep Total Protein Albumin Vitamin B12 Total Cortisol Urine Creatinine Urine Total Protein Ketones Crossmatch See Detail 10/05/16 10/05/16 10/05/16 21:30 21:30 21:30 WBC RBC Hgb Hct RDW Plt Count Lymph % (Auto) [place] % (Auto) Lymph # [place] # Seg Neutrophils % Seg Neuts % (Manual) Lymphocytes % (Manual) Seg Neutrophils # Seg Neutrophils # Man Lymphocytes # (Manual) Monocytes # (Manual) PT INR POC ABG pH POC ABG pCO2 POC ABG pO2 Sodium Potassium Chloride Carbon Dioxide BUN Creatinine Glucose POC Glucose C-Peptide Lactic Acid 2.3 H* Calcium Magnesium AST ALT Total Creatine Kinase 2317 H NT-Pro-B Natriuret Pep Total Protein Albumin Vitamin B12 Total Cortisol Urine Creatinine Urine Total Protein Ketones 2.9 H Crossmatch 10/05/16 10/05/16 10/05/16 21:30 21:49 23:07 WBC RBC Hgb Hct RDW Plt Count Lymph % (Auto) [place] % (Auto) Lymph # [place] # Seg Neutrophils % Seg Neuts % (Manual) Lymphocytes % (Manual) Seg Neutrophils # Seg Neutrophils # Man Lymphocytes # (Manual) Monocytes # (Manual) PT INR POC ABG pH POC ABG pCO2 POC ABG pO2 Sodium Potassium Chloride Carbon Dioxide BUN Creatinine Glucose POC Glucose < 40 L < 40 L C-Peptide Lactic Acid Calcium Magnesium AST ALT Total Creatine Kinase NT-Pro-B Natriuret Pep Total Protein Albumin Vitamin B12 1592 H Total Cortisol Urine Creatinine Urine Total Protein Ketones Crossmatch 10/06/16 10/06/16 10/06/16 01:05 02:13 03:13 WBC RBC Hgb Hct RDW Plt Count Lymph % (Auto) [place] % (Auto) Lymph # [place] # Seg Neutrophils % Seg Neuts % (Manual) Lymphocytes % (Manual) Seg Neutrophils # Seg Neutrophils # Man Lymphocytes # (Manual) Monocytes # (Manual) PT INR POC ABG pH POC ABG pCO2 POC ABG pO2 Sodium Potassium Chloride Carbon Dioxide BUN Creatinine Glucose POC Glucose 285 H 241 H 280 H C-Peptide Lactic Acid Calcium Magnesium AST ALT Total Creatine Kinase NT-Pro-B Natriuret Pep Total Protein Albumin Vitamin B12 Total Cortisol Urine Creatinine Urine Total Protein Ketones Crossmatch 10/06/16 10/06/16 10/06/16 03:49 05:22 06:10 WBC RBC Hgb Hct RDW Plt Count Lymph % (Auto) [place] % (Auto) Lymph # [place] # Seg Neutrophils % Seg Neuts % (Manual) Lymphocytes % (Manual) Seg Neutrophils # Seg Neutrophils # Man Lymphocytes # (Manual) Monocytes # (Manual) PT INR POC ABG pH POC ABG pCO2 POC ABG pO2 Sodium Potassium Chloride Carbon Dioxide BUN Creatinine Glucose POC Glucose 216 H 240 H 291 H C-Peptide Lactic Acid Calcium Magnesium AST ALT Total Creatine Kinase NT-Pro-B Natriuret Pep Total Protein Albumin Vitamin B12 Total Cortisol Urine Creatinine Urine Total Protein Ketones Crossmatch 10/06/16 10/06/16 10/06/16 07:37 08:55 09:37 WBC RBC Hgb Hct RDW Plt Count Lymph % (Auto) [place] % (Auto) Lymph # [place] # Seg Neutrophils % Seg Neuts % (Manual) Lymphocytes % (Manual) Seg Neutrophils # Seg Neutrophils # Man Lymphocytes # (Manual) Monocytes # (Manual) PT INR POC ABG pH POC ABG pCO2 POC ABG pO2 Sodium Potassium Chloride Carbon Dioxide BUN Creatinine Glucose POC Glucose 255 H 286 H 205 H C-Peptide Lactic Acid Calcium Magnesium AST ALT Total Creatine Kinase NT-Pro-B Natriuret Pep Total Protein Albumin Vitamin B12 Total Cortisol Urine Creatinine Urine Total Protein Ketones Crossmatch 10/06/16 10/06/16 10/06/16 09:40 09:40 10:00 WBC 27.9 H RBC Hgb Hct RDW 16.8 H Plt Count 94 L Lymph % (Auto) [place] % (Auto) Lymph # [place] # Seg Neutrophils % Seg Neuts % (Manual) 94.5 H Lymphocytes % (Manual) 1.0 L Seg Neutrophils # Seg Neutrophils # Man 26.4 H Lymphocytes # (Manual) 0.3 L Monocytes # (Manual) 1.3 H PT INR POC ABG pH POC ABG pCO2 POC ABG pO2 Sodium 130 L Potassium Chloride Carbon Dioxide 16 L BUN 31 H Creatinine 1.8 H Glucose 259 H POC Glucose C-Peptide Lactic Acid 3.3 H* Calcium 6.1 L Magnesium AST 112 H ALT 100 H Total Creatine Kinase NT-Pro-B Natriuret Pep Total Protein 4.2 L D Albumin 1.2 L Vitamin B12 Total Cortisol Urine Creatinine Urine Total Protein Ketones Crossmatch 10/06/16 10/06/16 10/06/16 11:24 12:08 13:22 WBC RBC Hgb Hct RDW Plt Count Lymph % (Auto) [place] % (Auto) Lymph # [place] # Seg Neutrophils % Seg Neuts % (Manual) Lymphocytes % (Manual) Seg Neutrophils # Seg Neutrophils # Man Lymphocytes # (Manual) Monocytes # (Manual) PT INR POC ABG pH POC ABG pCO2 POC ABG pO2 Sodium Potassium Chloride Carbon Dioxide BUN Creatinine Glucose POC Glucose 204 H 214 H 176 H C-Peptide Lactic Acid Calcium Magnesium AST ALT Total Creatine Kinase NT-Pro-B Natriuret Pep Total Protein Albumin Vitamin B12 Total Cortisol Urine Creatinine Urine Total Protein Ketones Crossmatch 10/06/16 10/06/16 10/06/16 14:52 15:11 17:11 WBC RBC Hgb Hct RDW Plt Count Lymph % (Auto) [place] % (Auto) Lymph # [place] # Seg Neutrophils % Seg Neuts % (Manual) Lymphocytes % (Manual) Seg Neutrophils # Seg Neutrophils # Man Lymphocytes # (Manual) Monocytes # (Manual) PT INR POC ABG pH POC ABG pCO2 POC ABG pO2 Sodium Potassium Chloride Carbon Dioxide BUN Creatinine Glucose POC Glucose 177 H 168 H 173 H C-Peptide Lactic Acid Calcium Magnesium AST ALT Total Creatine Kinase NT-Pro-B Natriuret Pep Total Protein Albumin Vitamin B12 Total Cortisol Urine Creatinine Urine Total Protein Ketones Crossmatch 10/06/16 10/06/16 10/06/16 18:12 18:25 18:25 WBC RBC Hgb Hct RDW Plt Count Lymph % (Auto) [place] % (Auto) Lymph # [place] # Seg Neutrophils % Seg Neuts % (Manual) Lymphocytes % (Manual) Seg Neutrophils # Seg Neutrophils # Man Lymphocytes # (Manual) Monocytes # (Manual) PT INR POC ABG pH POC ABG pCO2 POC ABG pO2 Sodium Potassium Chloride Carbon Dioxide BUN Creatinine Glucose POC Glucose 165 H C-Peptide 5.67 H Lactic Acid Calcium Magnesium AST ALT Total Creatine Kinase NT-Pro-B Natriuret Pep Total Protein Albumin Vitamin B12 Total Cortisol >150.0 H Urine Creatinine Urine Total Protein Ketones Crossmatch 10/06/16 10/06/16 10/06/16 18:55 20:01 21:00 WBC RBC Hgb Hct RDW Plt Count Lymph % (Auto) [place] % (Auto) Lymph # [place] # Seg Neutrophils % Seg Neuts % (Manual) Lymphocytes % (Manual) Seg Neutrophils # Seg Neutrophils # Man Lymphocytes # (Manual) Monocytes # (Manual) PT INR POC ABG pH POC ABG pCO2 POC ABG pO2 Sodium Potassium Chloride Carbon Dioxide BUN Creatinine Glucose POC Glucose 174 H 158 H 172 H C-Peptide Lactic Acid Calcium Magnesium AST ALT Total Creatine Kinase NT-Pro-B Natriuret Pep Total Protein Albumin Vitamin B12 Total Cortisol Urine Creatinine Urine Total Protein Ketones Crossmatch 10/06/16 10/06/16 10/06/16 22:02 23:04 23:58 WBC RBC Hgb Hct RDW Plt Count Lymph % (Auto) [place] % (Auto) Lymph # [place] # Seg Neutrophils % Seg Neuts % (Manual) Lymphocytes % (Manual) Seg Neutrophils # Seg Neutrophils # Man Lymphocytes # (Manual) Monocytes # (Manual) PT INR POC ABG pH POC ABG pCO2 POC ABG pO2 Sodium Potassium Chloride Carbon Dioxide BUN Creatinine Glucose POC Glucose 180 H 177 H 178 H C-Peptide Lactic Acid Calcium Magnesium AST ALT Total Creatine Kinase NT-Pro-B Natriuret Pep Total Protein Albumin Vitamin B12 Total Cortisol Urine Creatinine Urine Total Protein Ketones Crossmatch 10/07/16 10/07/16 10/07/16 01:05 01:58 02:58 WBC RBC Hgb Hct RDW Plt Count Lymph % (Auto) [place] % (Auto) Lymph # [place] # Seg Neutrophils % Seg Neuts % (Manual) Lymphocytes % (Manual) Seg Neutrophils # Seg Neutrophils # Man Lymphocytes # (Manual) Monocytes # (Manual) PT INR POC ABG pH POC ABG pCO2 POC ABG pO2 Sodium Potassium Chloride Carbon Dioxide BUN Creatinine Glucose POC Glucose 168 H 152 H 181 H C-Peptide Lactic Acid Calcium Magnesium AST ALT Total Creatine Kinase NT-Pro-B Natriuret Pep Total Protein Albumin Vitamin B12 Total Cortisol Urine Creatinine Urine Total Protein Ketones Crossmatch 10/07/16 10/07/16 10/07/16 04:03 04:42 04:42 WBC 30.5 H RBC Hgb Hct RDW 17.2 H Plt Count 59 L Lymph % (Auto) [place] % (Auto) Lymph # [place] # Seg Neutrophils % Seg Neuts % (Manual) 90.0 H Lymphocytes % (Manual) 2.0 L Seg Neutrophils # Seg Neutrophils # Man 27.5 H Lymphocytes # (Manual) 0.6 L Monocytes # (Manual) PT INR POC ABG pH POC ABG pCO2 POC ABG pO2 Sodium 127 L Potassium 3.5 L Chloride Carbon Dioxide 16 L BUN 27 H Creatinine 1.6 H Glucose 162 H POC Glucose 196 H C-Peptide Lactic Acid Calcium 6.1 L Magnesium 1.5 L AST 83 H ALT 106 H Total Creatine Kinase NT-Pro-B Natriuret Pep Total Protein 3.9 L Albumin 1.1 L Vitamin B12 Total Cortisol Urine Creatinine Urine Total Protein Ketones Crossmatch 10/07/16 10/07/16 10/07/16 05:05 06:08 07:29 WBC RBC Hgb Hct RDW Plt Count Lymph % (Auto) [place] % (Auto) Lymph # [place] # Seg Neutrophils % Seg Neuts % (Manual) Lymphocytes % (Manual) Seg Neutrophils # Seg Neutrophils # Man Lymphocytes # (Manual) Monocytes # (Manual) PT INR POC ABG pH POC ABG pCO2 POC ABG pO2 Sodium Potassium Chloride Carbon Dioxide BUN Creatinine Glucose POC Glucose 197 H 163 H 167 H C-Peptide Lactic Acid Calcium Magnesium AST ALT Total Creatine Kinase NT-Pro-B Natriuret Pep Total Protein Albumin Vitamin B12 Total Cortisol Urine Creatinine Urine Total Protein Ketones Crossmatch 10/07/16 10/07/16 10/07/16 08:11 09:02 10:03 WBC RBC Hgb Hct RDW Plt Count Lymph % (Auto) [place] % (Auto) Lymph # [place] # Seg Neutrophils % Seg Neuts % (Manual) Lymphocytes % (Manual) Seg Neutrophils # Seg Neutrophils # Man Lymphocytes # (Manual) Monocytes # (Manual) PT INR POC ABG pH POC ABG pCO2 POC ABG pO2 Sodium Potassium Chloride Carbon Dioxide BUN Creatinine Glucose POC Glucose 143 H 172 H 163 H C-Peptide Lactic Acid Calcium Magnesium AST ALT Total Creatine Kinase NT-Pro-B Natriuret Pep Total Protein Albumin Vitamin B12 Total Cortisol Urine Creatinine Urine Total Protein Ketones Crossmatch 10/07/16 10/07/16 10/07/16 11:53 14:18 16:35 WBC RBC Hgb Hct RDW Plt Count Lymph % (Auto) [place] % (Auto) Lymph # [place] # Seg Neutrophils % Seg Neuts % (Manual) Lymphocytes % (Manual) Seg Neutrophils # Seg Neutrophils # Man Lymphocytes # (Manual) Monocytes # (Manual) PT INR POC ABG pH POC ABG pCO2 POC ABG pO2 Sodium Potassium Chloride Carbon Dioxide BUN Creatinine Glucose POC Glucose 144 H 168 H 195 H C-Peptide Lactic Acid Calcium Magnesium AST ALT Total Creatine Kinase NT-Pro-B Natriuret Pep Total Protein Albumin Vitamin B12 Total Cortisol Urine Creatinine Urine Total Protein Ketones Crossmatch 10/07/16 10/07/16 10/07/16 17:53 19:53 Unknown WBC RBC Hgb Hct RDW Plt Count Lymph % (Auto) [place] % (Auto) Lymph # [place] # Seg Neutrophils % Seg Neuts % (Manual) Lymphocytes % (Manual) Seg Neutrophils # Seg Neutrophils # Man Lymphocytes # (Manual) Monocytes # (Manual) PT INR POC ABG pH POC ABG pCO2 POC ABG pO2 Sodium Potassium Chloride Carbon Dioxide BUN Creatinine Glucose POC Glucose 187 H 212 H C-Peptide Lactic Acid 2.1 H* Calcium Magnesium AST ALT Total Creatine Kinase NT-Pro-B Natriuret Pep Total Protein Albumin Vitamin B12 Total Cortisol Urine Creatinine Urine Total Protein Ketones Crossmatch 10/08/16 10/08/16 10/08/16 00:18 03:35 03:45 WBC 31.0 H RBC 3.62 L Hgb Hct RDW 17.2 H Plt Count 59 L Lymph % (Auto) [place] % (Auto) Lymph # [place] # Seg Neutrophils % Seg Neuts % (Manual) 79.0 H Lymphocytes % (Manual) 1.0 L Seg Neutrophils # Seg Neutrophils # Man 24.5 H Lymphocytes # (Manual) 0.3 L Monocytes # (Manual) 2.2 H PT INR POC ABG pH POC ABG pCO2 POC ABG pO2 Sodium Potassium Chloride Carbon Dioxide BUN Creatinine Glucose POC Glucose 142 H 149 H C-Peptide Lactic Acid Calcium Magnesium AST ALT Total Creatine Kinase NT-Pro-B Natriuret Pep Total Protein Albumin Vitamin B12 Total Cortisol Urine Creatinine Urine Total Protein Ketones Crossmatch 10/08/16 10/08/16 10/08/16 03:45 03:45 07:39 WBC RBC Hgb Hct RDW Plt Count Lymph % (Auto) [place] % (Auto) Lymph # [place] # Seg Neutrophils % Seg Neuts % (Manual) Lymphocytes % (Manual) Seg Neutrophils # Seg Neutrophils # Man Lymphocytes # (Manual) Monocytes # (Manual) PT 19.8 H INR 1.68 H POC ABG pH POC ABG pCO2 POC ABG pO2 Sodium 132 L Potassium Chloride Carbon Dioxide 15 L BUN 22 H Creatinine 1.3 H Glucose 142 H POC Glucose 165 H C-Peptide Lactic Acid Calcium 5.9 L* Magnesium AST 62 H ALT 112 H Total Creatine Kinase NT-Pro-B Natriuret Pep Total Protein 3.8 L Albumin 1.0 L Vitamin B12 Total Cortisol Urine Creatinine Urine Total Protein Ketones Crossmatch 10/08/16 10/08/16 10/08/16 10:00 13:51 18:18 WBC RBC Hgb Hct RDW Plt Count Lymph % (Auto) [place] % (Auto) Lymph # [place] # Seg Neutrophils % Seg Neuts % (Manual) Lymphocytes % (Manual) Seg Neutrophils # Seg Neutrophils # Man Lymphocytes # (Manual) Monocytes # (Manual) PT INR POC ABG pH POC ABG pCO2 POC ABG pO2 Sodium Potassium Chloride Carbon Dioxide BUN Creatinine Glucose POC Glucose 167 H 175 H 136 H C-Peptide Lactic Acid Calcium Magnesium AST ALT Total Creatine Kinase NT-Pro-B Natriuret Pep Total Protein Albumin Vitamin B12 Total Cortisol Urine Creatinine Urine Total Protein Ketones Crossmatch 10/08/16 10/09/16 10/09/16 22:00 02:07 05:43 WBC 26.6 H RBC Hgb Hct RDW 17.6 H Plt Count 77 L Lymph % (Auto) [place] % (Auto) Lymph # [place] # Seg Neutrophils % Seg Neuts % (Manual) 93.0 H Lymphocytes % (Manual) 0 L Seg Neutrophils # Seg Neutrophils # Man 24.7 H Lymphocytes # (Manual) 0.0 L Monocytes # (Manual) PT INR POC ABG pH POC ABG pCO2 POC ABG pO2 Sodium Potassium Chloride Carbon Dioxide BUN Creatinine Glucose POC Glucose 160 H 149 H C-Peptide Lactic Acid Calcium Magnesium AST ALT Total Creatine Kinase NT-Pro-B Natriuret Pep Total Protein Albumin Vitamin B12 Total Cortisol Urine Creatinine Urine Total Protein Ketones Crossmatch 10/09/16 10/09/16 10/09/16 05:43 06:22 08:06 WBC RBC Hgb Hct RDW Plt Count Lymph % (Auto) [place] % (Auto) Lymph # [place] # Seg Neutrophils % Seg Neuts % (Manual) Lymphocytes % (Manual) Seg Neutrophils # Seg Neutrophils # Man Lymphocytes # (Manual) Monocytes # (Manual) PT INR POC ABG pH POC ABG pCO2 POC ABG pO2 Sodium 135 L Potassium Chloride 108.4 H Carbon Dioxide 17 L BUN 18 H Creatinine Glucose 164 H POC Glucose 162 H 127 H C-Peptide Lactic Acid Calcium 6.5 L Magnesium AST ALT Total Creatine Kinase NT-Pro-B Natriuret Pep Total Protein Albumin Vitamin B12 Total Cortisol Urine Creatinine Urine Total Protein Ketones Crossmatch 10/09/16 10/09/16 10/09/16 10:44 12:04 13:25 WBC RBC Hgb Hct RDW Plt Count Lymph % (Auto) [place] % (Auto) Lymph # [place] # Seg Neutrophils % Seg Neuts % (Manual) Lymphocytes % (Manual) Seg Neutrophils # Seg Neutrophils # Man Lymphocytes # (Manual) Monocytes # (Manual) PT INR POC ABG pH POC ABG pCO2 POC ABG pO2 Sodium Potassium Chloride Carbon Dioxide BUN Creatinine Glucose POC Glucose 165 H 128 H 143 H C-Peptide Lactic Acid Calcium Magnesium AST ALT Total Creatine Kinase NT-Pro-B Natriuret Pep Total Protein Albumin Vitamin B12 Total Cortisol Urine Creatinine Urine Total Protein Ketones Crossmatch 10/10/16 10/10/16 10/10/16 04:50 04:50 04:50 WBC 20.9 H RBC 3.44 L Hgb Hct RDW 17.4 H Plt Count 78 L Lymph % (Auto) [place] % (Auto) Lymph # [place] # Seg Neutrophils % Seg Neuts % (Manual) 94.0 H Lymphocytes % (Manual) 1.0 L Seg Neutrophils # Seg Neutrophils # Man 19.6 H Lymphocytes # (Manual) 0.2 L Monocytes # (Manual) PT 18.3 H INR 1.52 H POC ABG pH POC ABG pCO2 POC ABG pO2 Sodium Potassium Chloride 110.3 H Carbon Dioxide 17 L BUN Creatinine Glucose POC Glucose C-Peptide Lactic Acid Calcium 6.7 L Magnesium 1.6 L AST ALT 91 H Total Creatine Kinase NT-Pro-B Natriuret Pep Total Protein 4.0 L Albumin 1.5 L Vitamin B12 Total Cortisol Urine Creatinine Urine Total Protein Ketones Crossmatch 10/10/16 10/11/16 10/11/16 10:00 06:39 11:38 WBC 25.1 H RBC 3.44 L Hgb Hct RDW 17.3 H Plt Count 107 L Lymph % (Auto) [place] % (Auto) Lymph # [place] # Seg Neutrophils % Seg Neuts % (Manual) 87.0 H Lymphocytes % (Manual) 2.0 L Seg Neutrophils # Seg Neutrophils # Man 21.8 H Lymphocytes # (Manual) 0.5 L Monocytes # (Manual) PT INR POC ABG pH POC ABG pCO2 POC ABG pO2 Sodium Potassium Chloride Carbon Dioxide BUN Creatinine Glucose POC Glucose 67 L C-Peptide Lactic Acid Calcium Magnesium AST ALT Total Creatine Kinase NT-Pro-B Natriuret Pep 12050 H Total Protein Albumin Vitamin B12 Total Cortisol Urine Creatinine Urine Total Protein Ketones Crossmatch 10/11/16 10/11/16 10/12/16 15:42 21:45 05:30 WBC 19.2 H RBC 3.34 L Hgb Hct RDW 17.6 H Plt Count 132 L Lymph % (Auto) [place] % (Auto) Lymph # [place] # Seg Neutrophils % Seg Neuts % (Manual) 89.0 H Lymphocytes % (Manual) 1.0 L Seg Neutrophils # Seg Neutrophils # Man 17.1 H Lymphocytes # (Manual) 0.2 L Monocytes # (Manual) 1.3 H PT INR POC ABG pH POC ABG pCO2 POC ABG pO2 Sodium Potassium Chloride Carbon Dioxide BUN Creatinine Glucose POC Glucose 114 H 113 H C-Peptide Lactic Acid Calcium Magnesium AST ALT Total Creatine Kinase NT-Pro-B Natriuret Pep Total Protein Albumin Vitamin B12 Total Cortisol Urine Creatinine Urine Total Protein Ketones Crossmatch 10/12/16 10/13/16 10/13/16 05:30 07:49 16:12 WBC RBC Hgb Hct RDW Plt Count Lymph % (Auto) [place] % (Auto) Lymph # [place] # Seg Neutrophils % Seg Neuts % (Manual) Lymphocytes % (Manual) Seg Neutrophils # Seg Neutrophils # Man Lymphocytes # (Manual) Monocytes # (Manual) PT INR POC ABG pH POC ABG pCO2 POC ABG pO2 Sodium Potassium Chloride 114.0 H Carbon Dioxide 18 L BUN Creatinine Glucose POC Glucose 52 L 144 H C-Peptide Lactic Acid Calcium 7.4 L Magnesium AST ALT 65 H Total Creatine Kinase NT-Pro-B Natriuret Pep Total Protein 4.1 L Albumin 1.4 L Vitamin B12 Total Cortisol Urine Creatinine Urine Total Protein Ketones Crossmatch 10/13/16 10/14/16 10/14/16 21:00 11:39 11:48 WBC 14.0 H RBC 3.06 L Hgb 9.4 L Hct 29.3 L RDW 17.8 H Plt Count 137 L Lymph % (Auto) 3.5 L [place] % (Auto) 8.3 H Lymph # 0.5 L [place] # 1.2 H Seg Neutrophils % 87.5 H Seg Neuts % (Manual) Lymphocytes % (Manual) Seg Neutrophils # 12.2 H Seg Neutrophils # Man Lymphocytes # (Manual) Monocytes # (Manual) PT INR POC ABG pH POC ABG pCO2 POC ABG pO2 Sodium Potassium Chloride Carbon Dioxide BUN Creatinine Glucose POC Glucose 113 H 52 L C-Peptide Lactic Acid Calcium Magnesium AST ALT Total Creatine Kinase NT-Pro-B Natriuret Pep Total Protein Albumin Vitamin B12 Total Cortisol Urine Creatinine Urine Total Protein Ketones Crossmatch 10/14/16 10/14/16 10/14/16 11:48 11:48 13:41 WBC RBC Hgb Hct RDW Plt Count Lymph % (Auto) [place] % (Auto) Lymph # [place] # Seg Neutrophils % Seg Neuts % (Manual) Lymphocytes % (Manual) Seg Neutrophils # Seg Neutrophils # Man Lymphocytes # (Manual) Monocytes # (Manual) PT 17.0 H INR 1.39 H POC ABG pH POC ABG pCO2 POC ABG pO2 Sodium Potassium Chloride Carbon Dioxide 18 L BUN Creatinine Glucose 110 H POC Glucose C-Peptide Lactic Acid Calcium 7.1 L Magnesium 1.5 L AST ALT Total Creatine Kinase NT-Pro-B Natriuret Pep Total Protein Albumin Vitamin B12 Total Cortisol Urine Creatinine 126.1 H Urine Total Protein 89 H Ketones Crossmatch 10/14/16 10/14/16 16:46 21:04 WBC RBC Hgb Hct RDW Plt Count Lymph % (Auto) [place] % (Auto) Lymph # [place] # Seg Neutrophils % Seg Neuts % (Manual) Lymphocytes % (Manual) Seg Neutrophils # Seg Neutrophils # Man Lymphocytes # (Manual) Monocytes # (Manual) PT INR POC ABG pH POC ABG pCO2 POC ABG pO2 Sodium Potassium Chloride Carbon Dioxide BUN Creatinine Glucose POC Glucose 120 H 128 H C-Peptide Lactic Acid Calcium Magnesium AST ALT Total Creatine Kinase NT-Pro-B Natriuret Pep Total Protein Albumin Vitamin B12 Total Cortisol Urine Creatinine Urine Total Protein Ketones Crossmatch
--- NOTE | 2016-10-15 16:07 | Progress Note ---
Assessment and Plan Assessment and plan: 1-year-old female presents with septic shock status tachycardia resolving. Now chronically ill. - Patient Problems (1) Acute renal failure Current Visit: Yes Status: Acute Qualifiers: Acute renal failure type: unspecified Qualified Code(s): N17.9 - Acute kidney failure, unspecified Plan to address problem: Acute on chronic low failure resolved. Acute on chronic renal failure appears to have resolved. (2) Anemia Current Visit: Yes Status: Acute Plan to address problem: Anemia has resolved. When necessary transfusion. No further transfusion necessary at this time. H&H remained stable. (3) Crohns disease Current Visit: Yes Status: Acute Qualifiers: Gastrointestinal tract location: large intestine Digestive disease complication type: unspecified complication Qualified Code(s): K50.119 - Crohn 's disease of large intestine with unspecified complications Plan to address problem: Table some blood loss was from Crohn's. (4) Dehydration Current Visit: Yes Status: Acute Plan to address problem: Unable to diurese patient secondary to hypotension. Patient no longer appears to be dehydrated. Patient is total body overload with ascites. Unable to diurese patient. (5) Septic shock Current Visit: Yes Status: Acute Plan to address problem: Septic shock most likely secondary to colitis. Patient now off all pressor support leukocytosis is downtrending. C. difficile was negative blood cultures were negative. Potentially resolving. (6) Malnutrition compromising bodily function Current Visit: Yes Status: Acute Plan to address problem: Patient severe protein deficiency malnutrition. Seems to be improving. (7) Hypertension Current Visit: Yes Status: Acute Plan to address problem: Chin has no infection. No evidence of infection not using antihypertensives. Appears hemodynamic stable. Etiology for hypotension unknown at this particular time we'll increase MIDODRINE 5 mg 3 times a day. Follow blood pressure. (8) Hypotension Current Visit: Yes Status: Acute Plan to address problem: See MidODRINE ORDERS History Interval history: Patient has clinically improved. Patient has adequate conversation. Make needs known at this time. No new concerns over p.m. Hospital course complicated by hypotension did not respond to MidODRINE. Hospitalist Physical - Constitutional Vitals: Temp Pulse Resp BP Pulse Ox 97.8 F 122 H 22 91/57 100 10/15/16 08:03 10/15/16 08:03 10/15/16 08:03 10/15/16 08:03 10/15/16 08:03 General appearance: Present: no acute distress, well-nourished, obese - EENT Eyes: Present: PERRL, EOM intact ENT: hearing intact, clear oral mucosa, dentition normal - Neck Neck: Present: supple, normal ROM - Respiratory Respiratory effort: normal Respiratory: bilateral: rales (FEW) - Cardiovascular Rhythm: regular Heart Sounds: Present: S1 & S2 - Extremities Extremity abnormal: edema, other (ascites total-body overloaded. Abdominal ascites) Peripheral Pulses: within normal limits - Abdominal General gastrointestinal: soft, non-tender, normal bowel sounds, other ( slightly distended secondary to ascites) - Integumentary Integumentary: Present: clear, dry - Psychiatric Psychiatric: appropriate mood/affect, intact judgment & insight, other ( negative impairment normal) - Neurologic Neurologic: CNII-XII intact Results - Labs CBC & Chem 7: 10/14/16 11:48 10/14/16 11:48 Labs: Laboratory Last Values WBC 14.0 K/mm3 (4.5-11.0) H 10/14/16 11:48 RBC 3.06 M/mm3 (3.65-5.03) L 10/14/16 11:48 Hgb 9.4 gm/dl (10.1-14.3) L 10/14/16 11:48 Hct 29.3 % (30.3-42.9) L 10/14/16 11:48 MCV 96 fl (79-97) 10/14/16 11:48 MCH 31 pg (28-32) 10/14/16 11:48 MCHC 32 % (30-34) 10/14/16 11:48 RDW 17.8 % (13.2-15.2) H 10/14/16 11:48 Plt Count 137 K/mm3 (140-440) L 10/14/16 11:48 Lymph % (Auto) 3.5 % (13.4-35.0) L 10/14/16 11:48 [place] % (Auto) 8.3 % (0.0-7.3) H 10/14/16 11:48 Eos % (Auto) 0.6 % (0.0-4.3) 10/14/16 11:48 Baso % (Auto) 0.1 % (0.0-1.8) 10/14/16 11:48 Lymph # 0.5 K/mm3 (1.2-5.4) L 10/14/16 11:48 [place] # 1.2 K/mm3 (0.0-0.8) H 10/14/16 11:48 Eos # 0.1 K/mm3 (0.0-0.4) 10/14/16 11:48 Baso # 0.0 K/mm3 (0.0-0.1) 10/14/16 11:48 Add Manual Diff Complete 10/12/16 05:30 Total Counted 100 10/12/16 05:30 Seg Neutrophils % 87.5 % (40.0-70.0) H 10/14/16 11:48 Seg Neuts % (Manual) 89.0 % (40.0-70.0) H 10/12/16 05:30 Band Neutrophils % 1.0 % 10/12/16 05:30 Lymphocytes % (Manual) 1.0 % (13.4-35.0) L 10/12/16 05:30 Reactive Lymphs % (Man) 0 % 10/12/16 05:30 Monocytes % (Manual) 7.0 % (0.0-7.3) 10/12/16 05:30 Eosinophils % (Manual) 1.0 % (0.0-4.3) 10/12/16 05:30 Basophils % (Manual) 0 % (0.0-1.8) 10/12/16 05:30 Metamyelocytes % 1.0 % 10/12/16 05:30 Myelocytes % 0 % 10/12/16 05:30 Promyelocytes % 0 % 10/12/16 05:30 Blast Cells % 0 % 10/12/16 05:30 Nucleated RBC % Not Reportable 10/12/16 05:30 Seg Neutrophils # 12.2 K/mm3 (1.8-7.7) H 10/14/16 11:48 Seg Neutrophils # Man 17.1 K/mm3 (1.8-7.7) H 10/12/16 05:30 Band Neutrophils # 0.2 K/mm3 10/12/16 05:30 Lymphocytes # (Manual) 0.2 K/mm3 (1.2-5.4) L 10/12/16 05:30 Abs React Lymphs (Man) 0.0 K/mm3 10/12/16 05:30 Monocytes # (Manual) 1.3 K/mm3 (0.0-0.8) H 10/12/16 05:30 Eosinophils # (Manual) 0.2 K/mm3 (0.0-0.4) 10/12/16 05:30 Basophils # (Manual) 0.0 K/mm3 (0.0-0.1) 10/12/16 05:30 Metamyelocytes # 0.2 K/mm3 10/12/16 05:30 Myelocytes # 0.0 K/mm3 10/12/16 05:30 Promyelocytes # 0.0 K/mm3 10/12/16 05:30 Blast Cells # 0.0 K/mm3 10/12/16 05:30 WBC Morphology Not Reportable 10/12/16 05:30 Hypersegmented Neuts Not Reportable 10/12/16 05:30 Hyposegmented Neuts Not Reportable 10/12/16 05:30 Hypogranular Neuts Not Reportable 10/12/16 05:30 Smudge Cells Not Reportable 10/12/16 05:30 Toxic Granulation Not Reportable 10/12/16 05:30 Toxic Vacuolation Not Reportable 10/12/16 05:30 Dohle Bodies Not Reportable 10/12/16 05:30 Pelger-Huet Anomaly Not Reportable 10/12/16 05:30 Ivory Rods Not Reportable 10/12/16 05:30 Platelet Estimate Consistent w auto 10/12/16 05:30 Clumped Platelets Not Reportable 10/12/16 05:30 Plt Clumps, EDTA Not Reportable 10/12/16 05:30 Large Platelets Not Reportable 10/12/16 05:30 Giant Platelets Not Reportable 10/12/16 05:30 Platelet Satelliting Not Reportable 10/12/16 05:30 Plt Morphology Comment Not Reportable 10/12/16 05:30 RBC Morphology Not Reportable 10/12/16 05:30 Dimorphic RBCs Not Reportable 10/12/16 05:30 Polychromasia Not Reportable 10/12/16 05:30 Hypochromasia Not Reportable 10/12/16 05:30 Poikilocytosis Not Reportable 10/12/16 05:30 Anisocytosis 1+ 10/12/16 05:30 Microcytosis Not Reportable 10/12/16 05:30 Macrocytosis Rare 10/12/16 05:30 Spherocytes Not Reportable 10/12/16 05:30 Pappenheimer Bodies Not Reportable 10/12/16 05:30 Sickle Cells Not Reportable 10/12/16 05:30 Target Cells Not Reportable 10/12/16 05:30 Tear Drop Cells Not Reportable 10/12/16 05:30 Ovalocytes Not Reportable 10/12/16 05:30 Helmet Cells Not Reportable 10/12/16 05:30 Nguyen-Jo[place] Bodies Not Reportable 10/12/16 05:30 [place] Rings Not Reportable 10/12/16 05:30 [place] Cells Not Reportable 10/12/16 05:30 Bite Cells Not Reportable 10/12/16 05:30 Crenated Cell Not Reportable 10/12/16 05:30 Elliptocytes Not Reportable 10/12/16 05:30 Acanthocytes (Spur) Not Reportable 10/12/16 05:30 Rouleaux Not Reportable 10/12/16 05:30 Hemoglobin C Crystals Not Reportable 10/12/16 05:30 Schistocytes Not Reportable 10/12/16 05:30 Malaria parasites Not Reportable 10/12/16 05:30 Mayito Bodies Not Reportable 10/12/16 05:30 Hem Pathologist Commnt No 10/12/16 05:30 PT 17.0 Sec. (12.2-14.9) H 10/14/16 11:48 INR 1.39 (0.87-1.13) H 10/14/16 11:48 POC ABG pH 7.216 (7.35-7.45) L 10/05/16 16:03 POC ABG pCO2 28.2 (35-45) L 10/05/16 16:03 POC ABG pO2 60 (80-105) L 10/05/16 16:03 POC ABG HCO3 11.4 10/05/16 16:03 POC ABG Total CO2 12 10/05/16 16:03 POC ABG O2 Sat 86 10/05/16 16:03 POC ABG Base Excess -16 10/05/16 16:03 VBG pH 7.136 (7.320-7.420) L* 10/05/16 14:40 FiO2 32 % 10/05/16 16:03 Sodium 141 mmol/L (137-145) 10/12/16 05:30 Potassium 3.8 mmol/L (3.6-5.0) 10/12/16 05:30 Chloride 114.0 mmol/L (98-107) H 10/12/16 05:30 Carbon Dioxide 18 mmol/L (22-30) L 10/14/16 11:48 Anion Gap 13 mmol/L 10/12/16 05:30 BUN 15 mg/dL (7-17) 10/14/16 11:48 Creatinine 0.7 mg/dL (0.7-1.2) 10/14/16 11:48 Estimated GFR > 60 ml/min 10/14/16 11:48 BUN/Creatinine Ratio 21.42 % 10/14/16 11:48 Glucose 110 mg/dL (65-100) H 10/14/16 11:48 POC Glucose 105 (70-105) 10/15/16 11:42 C-Peptide 5.67 ng/mL (0.80-3.85) H 10/06/16 18:25 Lactic Acid 2.1 mmol/L (0.7-2.0) H* 10/07/16 Unknown Calcium 7.1 mg/dL (8.4-10.2) L 10/14/16 11:48 Phosphorus 2.6 mg/dL (2.5-4.5) 10/09/16 05:43 Magnesium 1.5 mg/dL (1.7-2.3) L 10/14/16 11:48 Iron 51 ug/dL (37-170) 10/05/16 21:30 Total Bilirubin 0.4 mg/dL (0.1-1.2) 10/12/16 05:30 Direct Bilirubin < 0.2 mg/dL (0-0.2) 10/12/16 05:30 Indirect Bilirubin 0.2 mg/dL 10/12/16 05:30 AST 22 units/L (5-40) 10/12/16 05:30 ALT 65 units/L (7-56) H 10/12/16 05:30 Alkaline Phosphatase 100 units/L (35-129) 10/12/16 05:30 Total Creatine Kinase 2317 units/L (30-135) H 10/05/16 21:30 NT-Pro-B Natriuret Pep 00858 pg/mL (0-900) H 10/10/16 10:00 Total Protein 4.1 g/dL (6.3-8.2) L 10/12/16 05:30 Albumin 1.4 g/dL (3.9-5) L 10/12/16 05:30 Albumin/Globulin Ratio 0.5 % 10/12/16 05:30 Vitamin B12 1592 pg/mL (211-911) H 10/05/16 21:30 Folate 16.37 ng/mL (7.3-26.0) 10/05/16 21:30 Total Cortisol >150.0 mcg/dL () H 10/06/16 18:25 Urine Color Cathy (Yellow) 10/05/16 13:52 Urine Turbidity Clear (Clear) 10/05/16 13:52 Urine pH 5.0 (5.0-7.0) 10/05/16 13:52 Ur Specific [place] 1.015 (1.003-1.030) 10/05/16 13:52 Urine Protein 30 mg/dl mg/dL (Negative) 10/05/16 13:52 Urine Glucose (UA) Neg mg/dL (Negative) 10/05/16 13:52 Urine Ketones Neg mg/dL (Negative) 10/05/16 13:52 Urine Blood Lg (Negative) 10/05/16 13:52 Urine Nitrite Neg (Negative) 10/05/16 13:52 Urine Bilirubin Neg (Negative) 10/05/16 13:52 Urine Urobilinogen < 2.0 mg/dL (<2.0) 10/05/16 13:52 Ur Leukocyte Esterase Neg (Negative) 10/05/16 13:52 Urine WBC (Auto) 1.0 /HPF (0.0-6.0) 10/05/16 13:52 Urine RBC (Auto) < 1.0 /HPF (0.0-6.0) 10/05/16 13:52 U Epithel Cells (Auto) 1.0 /HPF (0-13.0) 10/05/16 13:52 Urine Mucus Few /HPF 10/05/16 13:52 Urine Creatinine 126.1 mg/dL (0.1-20.0) H 10/14/16 13:41 Protein/Creatinin Ratio 0.71 10/14/16 13:41 Urine Total Protein 89 mg/dL (5-11.8) H 10/14/16 13:41 Ketones 2.9 mg/dL (0.2-2.8) H 10/05/16 21:30 Blood Type B POSITIVE 10/05/16 21:05 Antibody Screen Negative 10/05/16 21:05 Crossmatch See Detail 10/05/16 21:05
[2016-10-16] MEDS: AMBIEN PO PRN ×2 (00:01→22:35)
[2016-10-16] MEDS: PROAMATINE PO SCH ×4 (05:14→22:35)
[2016-10-16] MEDS: FLAGYL PO SCH ×3 (05:14→22:35)
[2016-10-16] MEDS ORDERED: NACL 0.9% 500 ML 500 ML IV ONE (07:51)
[2016-10-16] MEDS ORDERED: NACL 0.9% 1000 ML 1,000 ML IV SCH (08:00)
[2016-10-16] MEDS: NOVOLOG SUB-Q SCH ×4 (08:53→23:08)
[2016-10-16] MEDS: PROTONIX PO SCH ×3 (10:08→22:35)
--- NOTE | 2016-10-16 13:04 | Progress Note ---
Assessment and Plan Assessment and plan: 1. Persistent hypotension - increase midodrine; she received a bolus of NS this morning for SBP in the 70's 2. Anemia due to disorderstable 3. Crohn's Colitis-continue IV Flagyl. 4. Anasarca-unable to diurese patient due to persistent hypotension; will increase midodrine and if blood pressure improves we'll start slow diuresis 5. Severe protein calorie malnutrition-nutritional supplementation 6. DVT prophylaxis-SCDs. Unable to give heparin or Lovenox due to coagulopathy disposition-for placement when stable enough for discharge History Interval history: f/u hypotension, anemia; crohns Patient seen at the bedside; she has not been able to be diuresed due to hypotension Hospitalist Physical - Constitutional Vitals: Temp Pulse Resp BP Pulse Ox 97.0 F L 119 H 20 80/58 100 10/16/16 11:30 10/16/16 11:30 10/16/16 11:30 10/16/16 11:30 10/16/16 11:30 General appearance: Present: no acute distress, other (anasarca) - EENT Eyes: Present: PERRL. Absent: scleral icterus, conjunctival injection ENT: hearing intact - Neck Neck: Present: supple, normal ROM. Absent: enlarged thyroid, masses or JVD - Respiratory Respiratory effort: normal Respiratory: bilateral: diminished, negative: rales, rhonchi, wheezing - Cardiovascular Rhythm: regular Heart Sounds: Present: S1 & S2. Absent: gallop - Extremities Extremities: no ischemia, pulses intact, pulses symmetrical Extremity abnormal: edema (4 plus) Peripheral Pulses: within normal limits - Abdominal General gastrointestinal: soft, non-tender, non-distended, other (edema on anterior bowel wall) - Integumentary Integumentary: Present: clear - Psychiatric Psychiatric: appropriate mood/affect - Neurologic Neurologic: CNII-XII intact, moves all extremities Results - Labs CBC & Chem 7: 10/14/16 11:48 10/14/16 11:48 Labs: Laboratory Last Values WBC 14.0 K/mm3 (4.5-11.0) H 10/14/16 11:48 RBC 3.06 M/mm3 (3.65-5.03) L 10/14/16 11:48 Hgb 9.4 gm/dl (10.1-14.3) L 10/14/16 11:48 Hct 29.3 % (30.3-42.9) L 10/14/16 11:48 MCV 96 fl (79-97) 10/14/16 11:48 MCH 31 pg (28-32) 10/14/16 11:48 MCHC 32 % (30-34) 10/14/16 11:48 RDW 17.8 % (13.2-15.2) H 10/14/16 11:48 Plt Count 137 K/mm3 (140-440) L 10/14/16 11:48 Lymph % (Auto) 3.5 % (13.4-35.0) L 10/14/16 11:48 [place] % (Auto) 8.3 % (0.0-7.3) H 10/14/16 11:48 Eos % (Auto) 0.6 % (0.0-4.3) 10/14/16 11:48 Baso % (Auto) 0.1 % (0.0-1.8) 10/14/16 11:48 Lymph # 0.5 K/mm3 (1.2-5.4) L 10/14/16 11:48 [place] # 1.2 K/mm3 (0.0-0.8) H 10/14/16 11:48 Eos # 0.1 K/mm3 (0.0-0.4) 10/14/16 11:48 Baso # 0.0 K/mm3 (0.0-0.1) 10/14/16 11:48 Add Manual Diff Complete 10/12/16 05:30 Total Counted 100 10/12/16 05:30 Seg Neutrophils % 87.5 % (40.0-70.0) H 10/14/16 11:48 Seg Neuts % (Manual) 89.0 % (40.0-70.0) H 10/12/16 05:30 Band Neutrophils % 1.0 % 10/12/16 05:30 Lymphocytes % (Manual) 1.0 % (13.4-35.0) L 10/12/16 05:30 Reactive Lymphs % (Man) 0 % 10/12/16 05:30 Monocytes % (Manual) 7.0 % (0.0-7.3) 10/12/16 05:30 Eosinophils % (Manual) 1.0 % (0.0-4.3) 10/12/16 05:30 Basophils % (Manual) 0 % (0.0-1.8) 10/12/16 05:30 Metamyelocytes % 1.0 % 10/12/16 05:30 Myelocytes % 0 % 10/12/16 05:30 Promyelocytes % 0 % 10/12/16 05:30 Blast Cells % 0 % 10/12/16 05:30 Nucleated RBC % Not Reportable 10/12/16 05:30 Seg Neutrophils # 12.2 K/mm3 (1.8-7.7) H 10/14/16 11:48 Seg Neutrophils # Man 17.1 K/mm3 (1.8-7.7) H 10/12/16 05:30 Band Neutrophils # 0.2 K/mm3 10/12/16 05:30 Lymphocytes # (Manual) 0.2 K/mm3 (1.2-5.4) L 10/12/16 05:30 Abs React Lymphs (Man) 0.0 K/mm3 10/12/16 05:30 Monocytes # (Manual) 1.3 K/mm3 (0.0-0.8) H 10/12/16 05:30 Eosinophils # (Manual) 0.2 K/mm3 (0.0-0.4) 10/12/16 05:30 Basophils # (Manual) 0.0 K/mm3 (0.0-0.1) 10/12/16 05:30 Metamyelocytes # 0.2 K/mm3 10/12/16 05:30 Myelocytes # 0.0 K/mm3 10/12/16 05:30 Promyelocytes # 0.0 K/mm3 10/12/16 05:30 Blast Cells # 0.0 K/mm3 10/12/16 05:30 WBC Morphology Not Reportable 10/12/16 05:30 Hypersegmented Neuts Not Reportable 10/12/16 05:30 Hyposegmented Neuts Not Reportable 10/12/16 05:30 Hypogranular Neuts Not Reportable 10/12/16 05:30 Smudge Cells Not Reportable 10/12/16 05:30 Toxic Granulation Not Reportable 10/12/16 05:30 Toxic Vacuolation Not Reportable 10/12/16 05:30 Dohle Bodies Not Reportable 10/12/16 05:30 Pelger-Huet Anomaly Not Reportable 10/12/16 05:30 [place] Rods Not Reportable 10/12/16 05:30 Platelet Estimate Consistent w auto 10/12/16 05:30 Clumped Platelets Not Reportable 10/12/16 05:30 Plt Clumps, EDTA Not Reportable 10/12/16 05:30 Large Platelets Not Reportable 10/12/16 05:30 Giant Platelets Not Reportable 10/12/16 05:30 Platelet Satelliting Not Reportable 10/12/16 05:30 Plt Morphology Comment Not Reportable 10/12/16 05:30 RBC Morphology Not Reportable 10/12/16 05:30 Dimorphic RBCs Not Reportable 10/12/16 05:30 Polychromasia Not Reportable 10/12/16 05:30 Hypochromasia Not Reportable 10/12/16 05:30 Poikilocytosis Not Reportable 10/12/16 05:30 Anisocytosis 1+ 10/12/16 05:30 Microcytosis Not Reportable 10/12/16 05:30 Macrocytosis Rare 10/12/16 05:30 Spherocytes Not Reportable 10/12/16 05:30 Pappenheimer Bodies Not Reportable 10/12/16 05:30 Sickle Cells Not Reportable 10/12/16 05:30 Target Cells Not Reportable 10/12/16 05:30 Tear Drop Cells Not Reportable 10/12/16 05:30 Ovalocytes Not Reportable 10/12/16 05:30 Helmet Cells Not Reportable 10/12/16 05:30 Nguyen-[place] Bodies Not Reportable 10/12/16 05:30 [place] Rings Not Reportable 10/12/16 05:30 [place] Cells Not Reportable 10/12/16 05:30 Bite Cells Not Reportable 10/12/16 05:30 Crenated Cell Not Reportable 10/12/16 05:30 Elliptocytes Not Reportable 10/12/16 05:30 Acanthocytes (Spur) Not Reportable 10/12/16 05:30 Rouleaux Not Reportable 10/12/16 05:30 Hemoglobin C Crystals Not Reportable 10/12/16 05:30 Schistocytes Not Reportable 10/12/16 05:30 Malaria parasites Not Reportable 10/12/16 05:30 Mayito Bodies Not Reportable 10/12/16 05:30 Hem Pathologist Commnt No 10/12/16 05:30 PT 17.0 Sec. (12.2-14.9) H 10/14/16 11:48 INR 1.39 (0.87-1.13) H 10/14/16 11:48 POC ABG pH 7.216 (7.35-7.45) L 10/05/16 16:03 POC ABG pCO2 28.2 (35-45) L 10/05/16 16:03 POC ABG pO2 60 (80-105) L 10/05/16 16:03 POC ABG HCO3 11.4 10/05/16 16:03 POC ABG Total CO2 12 10/05/16 16:03 POC ABG O2 Sat 86 10/05/16 16:03 POC ABG Base Excess -16 10/05/16 16:03 VBG pH 7.136 (7.320-7.420) L* 10/05/16 14:40 FiO2 32 % 10/05/16 16:03 Sodium 141 mmol/L (137-145) 10/12/16 05:30 Potassium 3.8 mmol/L (3.6-5.0) 10/12/16 05:30 Chloride 114.0 mmol/L (98-107) H 10/12/16 05:30 Carbon Dioxide 18 mmol/L (22-30) L 10/14/16 11:48 Anion Gap 13 mmol/L 10/12/16 05:30 BUN 15 mg/dL (7-17) 10/14/16 11:48 Creatinine 0.7 mg/dL (0.7-1.2) 10/14/16 11:48 Estimated GFR > 60 ml/min 10/14/16 11:48 BUN/Creatinine Ratio 21.42 % 10/14/16 11:48 Glucose 110 mg/dL (65-100) H 10/14/16 11:48 POC Glucose 115 (70-105) H 10/16/16 11:27 C-Peptide 5.67 ng/mL (0.80-3.85) H 10/06/16 18:25 Lactic Acid 2.1 mmol/L (0.7-2.0) H* 10/07/16 Unknown Calcium 7.1 mg/dL (8.4-10.2) L 10/14/16 11:48 Phosphorus 2.6 mg/dL (2.5-4.5) 10/09/16 05:43 Magnesium 1.5 mg/dL (1.7-2.3) L 10/14/16 11:48 Iron 51 ug/dL (37-170) 10/05/16 21:30 Total Bilirubin 0.4 mg/dL (0.1-1.2) 10/12/16 05:30 Direct Bilirubin < 0.2 mg/dL (0-0.2) 10/12/16 05:30 Indirect Bilirubin 0.2 mg/dL 10/12/16 05:30 AST 22 units/L (5-40) 10/12/16 05:30 ALT 65 units/L (7-56) H 10/12/16 05:30 Alkaline Phosphatase 100 units/L (35-129) 10/12/16 05:30 Total Creatine Kinase 2317 units/L (30-135) H 10/05/16 21:30 NT-Pro-B Natriuret Pep 24298 pg/mL (0-900) H 10/10/16 10:00 Total Protein 4.1 g/dL (6.3-8.2) L 10/12/16 05:30 Albumin 1.4 g/dL (3.9-5) L 10/12/16 05:30 Albumin/Globulin Ratio 0.5 % 10/12/16 05:30 Vitamin B12 1592 pg/mL (211-911) H 10/05/16 21:30 Folate 16.37 ng/mL (7.3-26.0) 10/05/16 21:30 Total Cortisol >150.0 mcg/dL () H 10/06/16 18:25 Urine Color Cathy (Yellow) 10/05/16 13:52 Urine Turbidity Clear (Clear) 10/05/16 13:52 Urine pH 5.0 (5.0-7.0) 10/05/16 13:52 Ur Specific [place] 1.015 (1.003-1.030) 10/05/16 13:52 Urine Protein 30 mg/dl mg/dL (Negative) 10/05/16 13:52 Urine Glucose (UA) Neg mg/dL (Negative) 10/05/16 13:52 Urine Ketones Neg mg/dL (Negative) 10/05/16 13:52 Urine Blood Lg (Negative) 10/05/16 13:52 Urine Nitrite Neg (Negative) 10/05/16 13:52 Urine Bilirubin Neg (Negative) 10/05/16 13:52 Urine Urobilinogen < 2.0 mg/dL (<2.0) 10/05/16 13:52 Ur Leukocyte Esterase Neg (Negative) 10/05/16 13:52 Urine WBC (Auto) 1.0 /HPF (0.0-6.0) 10/05/16 13:52 Urine RBC (Auto) < 1.0 /HPF (0.0-6.0) 10/05/16 13:52 U Epithel Cells (Auto) 1.0 /HPF (0-13.0) 10/05/16 13:52 Urine Mucus Few /HPF 10/05/16 13:52 Urine Creatinine 126.1 mg/dL (0.1-20.0) H 10/14/16 13:41 Protein/Creatinin Ratio 0.71 10/14/16 13:41 Urine Total Protein 89 mg/dL (5-11.8) H 10/14/16 13:41 Ketones 2.9 mg/dL (0.2-2.8) H 10/05/16 21:30 Blood Type B POSITIVE 10/05/16 21:05 Antibody Screen Negative 10/05/16 21:05 Crossmatch See Detail 10/05/16 21:05
--- NOTE | 2016-10-16 14:28 | Progress Note ---
Assessment and Plan 61 y/o female with hypotension of unknown etiology and hypoglycemia, now with elevated AST/ALT, increasing white count and diarrhea, nonbloody. 1. Midodrine increased. May have a component of adrenal insufficiency?? Cortisol here is a send out. Could consider starting either hydrocortisone 100IV q8 or dexamethasone 5q8 and then check cortisol with dex as this will not affect the test. No other real way here to test for relative adrenal insuff. 2. Continue supplemental O2 and wean for sats >88% 3. Will continue to follow. Subjective Date of service: 10/16/16 Principal diagnosis: diarrhea, chron's colitis, hypoglycemia, ARF, AMS Interval history: Still with periods of hypotension. Somewhat responsive to fluid based on chart. Breathing is stable. Sat is good on 2 liters NC Objective Vital Signs - 12hr 10/16/16 10/16/16 10/16/16 07:30 07:52 08:42 Temperature 98.0 F Pulse Rate [ 118 H From Monitor] Pulse Rate [ 115 H Left Radial] Respiratory 18 16 Rate Blood Pressure 106/56 86/63 [Left Arm] O2 Sat by Pulse 98 96 Oximetry 10/16/16 11:30 Temperature 97.0 F L Pulse Rate [ From Monitor] Pulse Rate [ 119 H Left Radial] Respiratory 20 Rate Blood Pressure 80/58 [Left Arm] O2 Sat by Pulse 100 Oximetry Constitutional: no acute distress, alert Eyes: non-icteric ENT: oropharynx moist Neck: supple Effort: mildly labored (mild tachypnea) Ascultation: Left: rales (mostly left side), Bilateral: diminished breath sounds , rhonchi Cardiovascular: other (tachy, RR; no mrg) Gastrointestinal: normoactive bowel sounds, tender (mild) Integumentary: normal Extremities: no cyanosis, pink and warm, edema (3+ bilateral LE edema) Neurologic: normal mental status, non-focal exam, pupils equal and round, CN II- XII normal Psychiatric: mood appropriate, affect normal CBC and BMP: 10/14/16 11:48 10/14/16 11:48 ABG, PT/INR, D-dimer: ABG POC ABG pH 7.216 (7.35-7.45) L 10/05/16 16:03 POC ABG pCO2 28.2 (35-45) L 10/05/16 16:03 POC ABG pO2 60 (80-105) L 10/05/16 16:03 POC ABG HCO3 11.4 10/05/16 16:03 POC ABG Total CO2 12 10/05/16 16:03 POC ABG O2 Sat 86 10/05/16 16:03 PT/INR, D-dimer PT 17.0 Sec. (12.2-14.9) H 10/14/16 11:48 INR 1.39 (0.87-1.13) H 10/14/16 11:48 Abnormal lab findings: Abnormal Labs 10/05/16 10/05/16 10/05/16 16:03 17:02 21:05 WBC RBC Hgb Hct RDW Plt Count Lymph % (Auto) [place] % (Auto) Lymph # [place] # Seg Neutrophils % Seg Neuts % (Manual) Lymphocytes % (Manual) Seg Neutrophils # Seg Neutrophils # Man Lymphocytes # (Manual) Monocytes # (Manual) PT INR POC ABG pH 7.216 L POC ABG pCO2 28.2 L POC ABG pO2 60 L Sodium Potassium Chloride Carbon Dioxide BUN Creatinine Glucose POC Glucose 185 H C-Peptide Lactic Acid Calcium Magnesium AST ALT Total Creatine Kinase NT-Pro-B Natriuret Pep Total Protein Albumin Vitamin B12 Total Cortisol Urine Creatinine Urine Total Protein Ketones Crossmatch See Detail 10/05/16 10/05/16 10/05/16 21:30 21:30 21:30 WBC RBC Hgb Hct RDW Plt Count Lymph % (Auto) [place] % (Auto) Lymph # [place] # Seg Neutrophils % Seg Neuts % (Manual) Lymphocytes % (Manual) Seg Neutrophils # Seg Neutrophils # Man Lymphocytes # (Manual) Monocytes # (Manual) PT INR POC ABG pH POC ABG pCO2 POC ABG pO2 Sodium Potassium Chloride Carbon Dioxide BUN Creatinine Glucose POC Glucose C-Peptide Lactic Acid 2.3 H* Calcium Magnesium AST ALT Total Creatine Kinase 2317 H NT-Pro-B Natriuret Pep Total Protein Albumin Vitamin B12 Total Cortisol Urine Creatinine Urine Total Protein Ketones 2.9 H Crossmatch 10/05/16 10/05/16 10/05/16 21:30 21:49 23:07 WBC RBC Hgb Hct RDW Plt Count Lymph % (Auto) [place] % (Auto) Lymph # [place] # Seg Neutrophils % Seg Neuts % (Manual) Lymphocytes % (Manual) Seg Neutrophils # Seg Neutrophils # Man Lymphocytes # (Manual) Monocytes # (Manual) PT INR POC ABG pH POC ABG pCO2 POC ABG pO2 Sodium Potassium Chloride Carbon Dioxide BUN Creatinine Glucose POC Glucose < 40 L < 40 L C-Peptide Lactic Acid Calcium Magnesium AST ALT Total Creatine Kinase NT-Pro-B Natriuret Pep Total Protein Albumin Vitamin B12 1592 H Total Cortisol Urine Creatinine Urine Total Protein Ketones Crossmatch 10/06/16 10/06/16 10/06/16 01:05 02:13 03:13 WBC RBC Hgb Hct RDW Plt Count Lymph % (Auto) [place] % (Auto) Lymph # [place] # Seg Neutrophils % Seg Neuts % (Manual) Lymphocytes % (Manual) Seg Neutrophils # Seg Neutrophils # Man Lymphocytes # (Manual) Monocytes # (Manual) PT INR POC ABG pH POC ABG pCO2 POC ABG pO2 Sodium Potassium Chloride Carbon Dioxide BUN Creatinine Glucose POC Glucose 285 H 241 H 280 H C-Peptide Lactic Acid Calcium Magnesium AST ALT Total Creatine Kinase NT-Pro-B Natriuret Pep Total Protein Albumin Vitamin B12 Total Cortisol Urine Creatinine Urine Total Protein Ketones Crossmatch 10/06/16 10/06/16 10/06/16 03:49 05:22 06:10 WBC RBC Hgb Hct RDW Plt Count Lymph % (Auto) [place] % (Auto) Lymph # [place] # Seg Neutrophils % Seg Neuts % (Manual) Lymphocytes % (Manual) Seg Neutrophils # Seg Neutrophils # Man Lymphocytes # (Manual) Monocytes # (Manual) PT INR POC ABG pH POC ABG pCO2 POC ABG pO2 Sodium Potassium Chloride Carbon Dioxide BUN Creatinine Glucose POC Glucose 216 H 240 H 291 H C-Peptide Lactic Acid Calcium Magnesium AST ALT Total Creatine Kinase NT-Pro-B Natriuret Pep Total Protein Albumin Vitamin B12 Total Cortisol Urine Creatinine Urine Total Protein Ketones Crossmatch 10/06/16 10/06/16 10/06/16 07:37 08:55 09:37 WBC RBC Hgb Hct RDW Plt Count Lymph % (Auto) [place] % (Auto) Lymph # [place] # Seg Neutrophils % Seg Neuts % (Manual) Lymphocytes % (Manual) Seg Neutrophils # Seg Neutrophils # Man Lymphocytes # (Manual) Monocytes # (Manual) PT INR POC ABG pH POC ABG pCO2 POC ABG pO2 Sodium Potassium Chloride Carbon Dioxide BUN Creatinine Glucose POC Glucose 255 H 286 H 205 H C-Peptide Lactic Acid Calcium Magnesium AST ALT Total Creatine Kinase NT-Pro-B Natriuret Pep Total Protein Albumin Vitamin B12 Total Cortisol Urine Creatinine Urine Total Protein Ketones Crossmatch 10/06/16 10/06/16 10/06/16 09:40 09:40 10:00 WBC 27.9 H RBC Hgb Hct RDW 16.8 H Plt Count 94 L Lymph % (Auto) [place] % (Auto) Lymph # [place] # Seg Neutrophils % Seg Neuts % (Manual) 94.5 H Lymphocytes % (Manual) 1.0 L Seg Neutrophils # Seg Neutrophils # Man 26.4 H Lymphocytes # (Manual) 0.3 L Monocytes # (Manual) 1.3 H PT INR POC ABG pH POC ABG pCO2 POC ABG pO2 Sodium 130 L Potassium Chloride Carbon Dioxide 16 L BUN 31 H Creatinine 1.8 H Glucose 259 H POC Glucose C-Peptide Lactic Acid 3.3 H* Calcium 6.1 L Magnesium AST 112 H ALT 100 H Total Creatine Kinase NT-Pro-B Natriuret Pep Total Protein 4.2 L D Albumin 1.2 L Vitamin B12 Total Cortisol Urine Creatinine Urine Total Protein Ketones Crossmatch 10/06/16 10/06/16 10/06/16 11:24 12:08 13:22 WBC RBC Hgb Hct RDW Plt Count Lymph % (Auto) [place] % (Auto) Lymph # [place] # Seg Neutrophils % Seg Neuts % (Manual) Lymphocytes % (Manual) Seg Neutrophils # Seg Neutrophils # Man Lymphocytes # (Manual) Monocytes # (Manual) PT INR POC ABG pH POC ABG pCO2 POC ABG pO2 Sodium Potassium Chloride Carbon Dioxide BUN Creatinine Glucose POC Glucose 204 H 214 H 176 H C-Peptide Lactic Acid Calcium Magnesium AST ALT Total Creatine Kinase NT-Pro-B Natriuret Pep Total Protein Albumin Vitamin B12 Total Cortisol Urine Creatinine Urine Total Protein Ketones Crossmatch 10/06/16 10/06/16 10/06/16 14:52 15:11 17:11 WBC RBC Hgb Hct RDW Plt Count Lymph % (Auto) [place] % (Auto) Lymph # [place] # Seg Neutrophils % Seg Neuts % (Manual) Lymphocytes % (Manual) Seg Neutrophils # Seg Neutrophils # Man Lymphocytes # (Manual) Monocytes # (Manual) PT INR POC ABG pH POC ABG pCO2 POC ABG pO2 Sodium Potassium Chloride Carbon Dioxide BUN Creatinine Glucose POC Glucose 177 H 168 H 173 H C-Peptide Lactic Acid Calcium Magnesium AST ALT Total Creatine Kinase NT-Pro-B Natriuret Pep Total Protein Albumin Vitamin B12 Total Cortisol Urine Creatinine Urine Total Protein Ketones Crossmatch 10/06/16 10/06/16 10/06/16 18:12 18:25 18:25 WBC RBC Hgb Hct RDW Plt Count Lymph % (Auto) [place] % (Auto) Lymph # [place] # Seg Neutrophils % Seg Neuts % (Manual) Lymphocytes % (Manual) Seg Neutrophils # Seg Neutrophils # Man Lymphocytes # (Manual) Monocytes # (Manual) PT INR POC ABG pH POC ABG pCO2 POC ABG pO2 Sodium Potassium Chloride Carbon Dioxide BUN Creatinine Glucose POC Glucose 165 H C-Peptide 5.67 H Lactic Acid Calcium Magnesium AST ALT Total Creatine Kinase NT-Pro-B Natriuret Pep Total Protein Albumin Vitamin B12 Total Cortisol >150.0 H Urine Creatinine Urine Total Protein Ketones Crossmatch 10/06/16 10/06/16 10/06/16 18:55 20:01 21:00 WBC RBC Hgb Hct RDW Plt Count Lymph % (Auto) [place] % (Auto) Lymph # [place] # Seg Neutrophils % Seg Neuts % (Manual) Lymphocytes % (Manual) Seg Neutrophils # Seg Neutrophils # Man Lymphocytes # (Manual) Monocytes # (Manual) PT INR POC ABG pH POC ABG pCO2 POC ABG pO2 Sodium Potassium Chloride Carbon Dioxide BUN Creatinine Glucose POC Glucose 174 H 158 H 172 H C-Peptide Lactic Acid Calcium Magnesium AST ALT Total Creatine Kinase NT-Pro-B Natriuret Pep Total Protein Albumin Vitamin B12 Total Cortisol Urine Creatinine Urine Total Protein Ketones Crossmatch 10/06/16 10/06/16 10/06/16 22:02 23:04 23:58 WBC RBC Hgb Hct RDW Plt Count Lymph % (Auto) [place] % (Auto) Lymph # [place] # Seg Neutrophils % Seg Neuts % (Manual) Lymphocytes % (Manual) Seg Neutrophils # Seg Neutrophils # Man Lymphocytes # (Manual) Monocytes # (Manual) PT INR POC ABG pH POC ABG pCO2 POC ABG pO2 Sodium Potassium Chloride Carbon Dioxide BUN Creatinine Glucose POC Glucose 180 H 177 H 178 H C-Peptide Lactic Acid Calcium Magnesium AST ALT Total Creatine Kinase NT-Pro-B Natriuret Pep Total Protein Albumin Vitamin B12 Total Cortisol Urine Creatinine Urine Total Protein Ketones Crossmatch 10/07/16 10/07/16 10/07/16 01:05 01:58 02:58 WBC RBC Hgb Hct RDW Plt Count Lymph % (Auto) [place] % (Auto) Lymph # [place] # Seg Neutrophils % Seg Neuts % (Manual) Lymphocytes % (Manual) Seg Neutrophils # Seg Neutrophils # Man Lymphocytes # (Manual) Monocytes # (Manual) PT INR POC ABG pH POC ABG pCO2 POC ABG pO2 Sodium Potassium Chloride Carbon Dioxide BUN Creatinine Glucose POC Glucose 168 H 152 H 181 H C-Peptide Lactic Acid Calcium Magnesium AST ALT Total Creatine Kinase NT-Pro-B Natriuret Pep Total Protein Albumin Vitamin B12 Total Cortisol Urine Creatinine Urine Total Protein Ketones Crossmatch 10/07/16 10/07/16 10/07/16 04:03 04:42 04:42 WBC 30.5 H RBC Hgb Hct RDW 17.2 H Plt Count 59 L Lymph % (Auto) [place] % (Auto) Lymph # [place] # Seg Neutrophils % Seg Neuts % (Manual) 90.0 H Lymphocytes % (Manual) 2.0 L Seg Neutrophils # Seg Neutrophils # Man 27.5 H Lymphocytes # (Manual) 0.6 L Monocytes # (Manual) PT INR POC ABG pH POC ABG pCO2 POC ABG pO2 Sodium 127 L Potassium 3.5 L Chloride Carbon Dioxide 16 L BUN 27 H Creatinine 1.6 H Glucose 162 H POC Glucose 196 H C-Peptide Lactic Acid Calcium 6.1 L Magnesium 1.5 L AST 83 H ALT 106 H Total Creatine Kinase NT-Pro-B Natriuret Pep Total Protein 3.9 L Albumin 1.1 L Vitamin B12 Total Cortisol Urine Creatinine Urine Total Protein Ketones Crossmatch 10/07/16 10/07/16 10/07/16 05:05 06:08 07:29 WBC RBC Hgb Hct RDW Plt Count Lymph % (Auto) [place] % (Auto) Lymph # [place] # Seg Neutrophils % Seg Neuts % (Manual) Lymphocytes % (Manual) Seg Neutrophils # Seg Neutrophils # Man Lymphocytes # (Manual) Monocytes # (Manual) PT INR POC ABG pH POC ABG pCO2 POC ABG pO2 Sodium Potassium Chloride Carbon Dioxide BUN Creatinine Glucose POC Glucose 197 H 163 H 167 H C-Peptide Lactic Acid Calcium Magnesium AST ALT Total Creatine Kinase NT-Pro-B Natriuret Pep Total Protein Albumin Vitamin B12 Total Cortisol Urine Creatinine Urine Total Protein Ketones Crossmatch 10/07/16 10/07/16 10/07/16 08:11 09:02 10:03 WBC RBC Hgb Hct RDW Plt Count Lymph % (Auto) [place] % (Auto) Lymph # [place] # Seg Neutrophils % Seg Neuts % (Manual) Lymphocytes % (Manual) Seg Neutrophils # Seg Neutrophils # Man Lymphocytes # (Manual) Monocytes # (Manual) PT INR POC ABG pH POC ABG pCO2 POC ABG pO2 Sodium Potassium Chloride Carbon Dioxide BUN Creatinine Glucose POC Glucose 143 H 172 H 163 H C-Peptide Lactic Acid Calcium Magnesium AST ALT Total Creatine Kinase NT-Pro-B Natriuret Pep Total Protein Albumin Vitamin B12 Total Cortisol Urine Creatinine Urine Total Protein Ketones Crossmatch 10/07/16 10/07/16 10/07/16 11:53 14:18 16:35 WBC RBC Hgb Hct RDW Plt Count Lymph % (Auto) [place] % (Auto) Lymph # [place] # Seg Neutrophils % Seg Neuts % (Manual) Lymphocytes % (Manual) Seg Neutrophils # Seg Neutrophils # Man Lymphocytes # (Manual) Monocytes # (Manual) PT INR POC ABG pH POC ABG pCO2 POC ABG pO2 Sodium Potassium Chloride Carbon Dioxide BUN Creatinine Glucose POC Glucose 144 H 168 H 195 H C-Peptide Lactic Acid Calcium Magnesium AST ALT Total Creatine Kinase NT-Pro-B Natriuret Pep Total Protein Albumin Vitamin B12 Total Cortisol Urine Creatinine Urine Total Protein Ketones Crossmatch 10/07/16 10/07/16 10/07/16 17:53 19:53 Unknown WBC RBC Hgb Hct RDW Plt Count Lymph % (Auto) [place] % (Auto) Lymph # [place] # Seg Neutrophils % Seg Neuts % (Manual) Lymphocytes % (Manual) Seg Neutrophils # Seg Neutrophils # Man Lymphocytes # (Manual) Monocytes # (Manual) PT INR POC ABG pH POC ABG pCO2 POC ABG pO2 Sodium Potassium Chloride Carbon Dioxide BUN Creatinine Glucose POC Glucose 187 H 212 H C-Peptide Lactic Acid 2.1 H* Calcium Magnesium AST ALT Total Creatine Kinase NT-Pro-B Natriuret Pep Total Protein Albumin Vitamin B12 Total Cortisol Urine Creatinine Urine Total Protein Ketones Crossmatch 10/08/16 10/08/16 10/08/16 00:18 03:35 03:45 WBC 31.0 H RBC 3.62 L Hgb Hct RDW 17.2 H Plt Count 59 L Lymph % (Auto) [place] % (Auto) Lymph # [place] # Seg Neutrophils % Seg Neuts % (Manual) 79.0 H Lymphocytes % (Manual) 1.0 L Seg Neutrophils # Seg Neutrophils # Man 24.5 H Lymphocytes # (Manual) 0.3 L Monocytes # (Manual) 2.2 H PT INR POC ABG pH POC ABG pCO2 POC ABG pO2 Sodium Potassium Chloride Carbon Dioxide BUN Creatinine Glucose POC Glucose 142 H 149 H C-Peptide Lactic Acid Calcium Magnesium AST ALT Total Creatine Kinase NT-Pro-B Natriuret Pep Total Protein Albumin Vitamin B12 Total Cortisol Urine Creatinine Urine Total Protein Ketones Crossmatch 10/08/16 10/08/16 10/08/16 03:45 03:45 07:39 WBC RBC Hgb Hct RDW Plt Count Lymph % (Auto) [place] % (Auto) Lymph # [place] # Seg Neutrophils % Seg Neuts % (Manual) Lymphocytes % (Manual) Seg Neutrophils # Seg Neutrophils # Man Lymphocytes # (Manual) Monocytes # (Manual) PT 19.8 H INR 1.68 H POC ABG pH POC ABG pCO2 POC ABG pO2 Sodium 132 L Potassium Chloride Carbon Dioxide 15 L BUN 22 H Creatinine 1.3 H Glucose 142 H POC Glucose 165 H C-Peptide Lactic Acid Calcium 5.9 L* Magnesium AST 62 H ALT 112 H Total Creatine Kinase NT-Pro-B Natriuret Pep Total Protein 3.8 L Albumin 1.0 L Vitamin B12 Total Cortisol Urine Creatinine Urine Total Protein Ketones Crossmatch 10/08/16 10/08/16 10/08/16 10:00 13:51 18:18 WBC RBC Hgb Hct RDW Plt Count Lymph % (Auto) [place] % (Auto) Lymph # [place] # Seg Neutrophils % Seg Neuts % (Manual) Lymphocytes % (Manual) Seg Neutrophils # Seg Neutrophils # Man Lymphocytes # (Manual) Monocytes # (Manual) PT INR POC ABG pH POC ABG pCO2 POC ABG pO2 Sodium Potassium Chloride Carbon Dioxide BUN Creatinine Glucose POC Glucose 167 H 175 H 136 H C-Peptide Lactic Acid Calcium Magnesium AST ALT Total Creatine Kinase NT-Pro-B Natriuret Pep Total Protein Albumin Vitamin B12 Total Cortisol Urine Creatinine Urine Total Protein Ketones Crossmatch 10/08/16 10/09/16 10/09/16 22:00 02:07 05:43 WBC 26.6 H RBC Hgb Hct RDW 17.6 H Plt Count 77 L Lymph % (Auto) [place] % (Auto) Lymph # [place] # Seg Neutrophils % Seg Neuts % (Manual) 93.0 H Lymphocytes % (Manual) 0 L Seg Neutrophils # Seg Neutrophils # Man 24.7 H Lymphocytes # (Manual) 0.0 L Monocytes # (Manual) PT INR POC ABG pH POC ABG pCO2 POC ABG pO2 Sodium Potassium Chloride Carbon Dioxide BUN Creatinine Glucose POC Glucose 160 H 149 H C-Peptide Lactic Acid Calcium Magnesium AST ALT Total Creatine Kinase NT-Pro-B Natriuret Pep Total Protein Albumin Vitamin B12 Total Cortisol Urine Creatinine Urine Total Protein Ketones Crossmatch 10/09/16 10/09/16 10/09/16 05:43 06:22 08:06 WBC RBC Hgb Hct RDW Plt Count Lymph % (Auto) [place] % (Auto) Lymph # [place] # Seg Neutrophils % Seg Neuts % (Manual) Lymphocytes % (Manual) Seg Neutrophils # Seg Neutrophils # Man Lymphocytes # (Manual) Monocytes # (Manual) PT INR POC ABG pH POC ABG pCO2 POC ABG pO2 Sodium 135 L Potassium Chloride 108.4 H Carbon Dioxide 17 L BUN 18 H Creatinine Glucose 164 H POC Glucose 162 H 127 H C-Peptide Lactic Acid Calcium 6.5 L Magnesium AST ALT Total Creatine Kinase NT-Pro-B Natriuret Pep Total Protein Albumin Vitamin B12 Total Cortisol Urine Creatinine Urine Total Protein Ketones Crossmatch 10/09/16 10/09/16 10/09/16 10:44 12:04 13:25 WBC RBC Hgb Hct RDW Plt Count Lymph % (Auto) [place] % (Auto) Lymph # [place] # Seg Neutrophils % Seg Neuts % (Manual) Lymphocytes % (Manual) Seg Neutrophils # Seg Neutrophils # Man Lymphocytes # (Manual) Monocytes # (Manual) PT INR POC ABG pH POC ABG pCO2 POC ABG pO2 Sodium Potassium Chloride Carbon Dioxide BUN Creatinine Glucose POC Glucose 165 H 128 H 143 H C-Peptide Lactic Acid Calcium Magnesium AST ALT Total Creatine Kinase NT-Pro-B Natriuret Pep Total Protein Albumin Vitamin B12 Total Cortisol Urine Creatinine Urine Total Protein Ketones Crossmatch 10/10/16 10/10/16 10/10/16 04:50 04:50 04:50 WBC 20.9 H RBC 3.44 L Hgb Hct RDW 17.4 H Plt Count 78 L Lymph % (Auto) [place] % (Auto) Lymph # [place] # Seg Neutrophils % Seg Neuts % (Manual) 94.0 H Lymphocytes % (Manual) 1.0 L Seg Neutrophils # Seg Neutrophils # Man 19.6 H Lymphocytes # (Manual) 0.2 L Monocytes # (Manual) PT 18.3 H INR 1.52 H POC ABG pH POC ABG pCO2 POC ABG pO2 Sodium Potassium Chloride 110.3 H Carbon Dioxide 17 L BUN Creatinine Glucose POC Glucose C-Peptide Lactic Acid Calcium 6.7 L Magnesium 1.6 L AST ALT 91 H Total Creatine Kinase NT-Pro-B Natriuret Pep Total Protein 4.0 L Albumin 1.5 L Vitamin B12 Total Cortisol Urine Creatinine Urine Total Protein Ketones Crossmatch 10/10/16 10/11/16 10/11/16 10:00 06:39 11:38 WBC 25.1 H RBC 3.44 L Hgb Hct RDW 17.3 H Plt Count 107 L Lymph % (Auto) [place] % (Auto) Lymph # [place] # Seg Neutrophils % Seg Neuts % (Manual) 87.0 H Lymphocytes % (Manual) 2.0 L Seg Neutrophils # Seg Neutrophils # Man 21.8 H Lymphocytes # (Manual) 0.5 L Monocytes # (Manual) PT INR POC ABG pH POC ABG pCO2 POC ABG pO2 Sodium Potassium Chloride Carbon Dioxide BUN Creatinine Glucose POC Glucose 67 L C-Peptide Lactic Acid Calcium Magnesium AST ALT Total Creatine Kinase NT-Pro-B Natriuret Pep 40619 H Total Protein Albumin Vitamin B12 Total Cortisol Urine Creatinine Urine Total Protein Ketones Crossmatch 10/11/16 10/11/16 10/12/16 15:42 21:45 05:30 WBC 19.2 H RBC 3.34 L Hgb Hct RDW 17.6 H Plt Count 132 L Lymph % (Auto) [place] % (Auto) Lymph # [place] # Seg Neutrophils % Seg Neuts % (Manual) 89.0 H Lymphocytes % (Manual) 1.0 L Seg Neutrophils # Seg Neutrophils # Man 17.1 H Lymphocytes # (Manual) 0.2 L Monocytes # (Manual) 1.3 H PT INR POC ABG pH POC ABG pCO2 POC ABG pO2 Sodium Potassium Chloride Carbon Dioxide BUN Creatinine Glucose POC Glucose 114 H 113 H C-Peptide Lactic Acid Calcium Magnesium AST ALT Total Creatine Kinase NT-Pro-B Natriuret Pep Total Protein Albumin Vitamin B12 Total Cortisol Urine Creatinine Urine Total Protein Ketones Crossmatch 10/12/16 10/13/16 10/13/16 05:30 07:49 16:12 WBC RBC Hgb Hct RDW Plt Count Lymph % (Auto) [place] % (Auto) Lymph # [place] # Seg Neutrophils % Seg Neuts % (Manual) Lymphocytes % (Manual) Seg Neutrophils # Seg Neutrophils # Man Lymphocytes # (Manual) Monocytes # (Manual) PT INR POC ABG pH POC ABG pCO2 POC ABG pO2 Sodium Potassium Chloride 114.0 H Carbon Dioxide 18 L BUN Creatinine Glucose POC Glucose 52 L 144 H C-Peptide Lactic Acid Calcium 7.4 L Magnesium AST ALT 65 H Total Creatine Kinase NT-Pro-B Natriuret Pep Total Protein 4.1 L Albumin 1.4 L Vitamin B12 Total Cortisol Urine Creatinine Urine Total Protein Ketones Crossmatch 10/13/16 10/14/16 10/14/16 21:00 11:39 11:48 WBC 14.0 H RBC 3.06 L Hgb 9.4 L Hct 29.3 L RDW 17.8 H Plt Count 137 L Lymph % (Auto) 3.5 L [place] % (Auto) 8.3 H Lymph # 0.5 L [place] # 1.2 H Seg Neutrophils % 87.5 H Seg Neuts % (Manual) Lymphocytes % (Manual) Seg Neutrophils # 12.2 H Seg Neutrophils # Man Lymphocytes # (Manual) Monocytes # (Manual) PT INR POC ABG pH POC ABG pCO2 POC ABG pO2 Sodium Potassium Chloride Carbon Dioxide BUN Creatinine Glucose POC Glucose 113 H 52 L C-Peptide Lactic Acid Calcium Magnesium AST ALT Total Creatine Kinase NT-Pro-B Natriuret Pep Total Protein Albumin Vitamin B12 Total Cortisol Urine Creatinine Urine Total Protein Ketones Crossmatch 10/14/16 10/14/16 10/14/16 11:48 11:48 13:41 WBC RBC Hgb Hct RDW Plt Count Lymph % (Auto) [place] % (Auto) Lymph # [place] # Seg Neutrophils % Seg Neuts % (Manual) Lymphocytes % (Manual) Seg Neutrophils # Seg Neutrophils # Man Lymphocytes # (Manual) Monocytes # (Manual) PT 17.0 H INR 1.39 H POC ABG pH POC ABG pCO2 POC ABG pO2 Sodium Potassium Chloride Carbon Dioxide 18 L BUN Creatinine Glucose 110 H POC Glucose C-Peptide Lactic Acid Calcium 7.1 L Magnesium 1.5 L AST ALT Total Creatine Kinase NT-Pro-B Natriuret Pep Total Protein Albumin Vitamin B12 Total Cortisol Urine Creatinine 126.1 H Urine Total Protein 89 H Ketones Crossmatch 10/14/16 10/14/16 10/15/16 16:46 21:04 16:39 WBC RBC Hgb Hct RDW Plt Count Lymph % (Auto) [place] % (Auto) Lymph # [place] # Seg Neutrophils % Seg Neuts % (Manual) Lymphocytes % (Manual) Seg Neutrophils # Seg Neutrophils # Man Lymphocytes # (Manual) Monocytes # (Manual) PT INR POC ABG pH POC ABG pCO2 POC ABG pO2 Sodium Potassium Chloride Carbon Dioxide BUN Creatinine Glucose POC Glucose 120 H 128 H 108 H C-Peptide Lactic Acid Calcium Magnesium AST ALT Total Creatine Kinase NT-Pro-B Natriuret Pep Total Protein Albumin Vitamin B12 Total Cortisol Urine Creatinine Urine Total Protein Ketones Crossmatch 10/15/16 10/16/16 21:27 11:27 WBC RBC Hgb Hct RDW Plt Count Lymph % (Auto) [place] % (Auto) Lymph # [place] # Seg Neutrophils % Seg Neuts % (Manual) Lymphocytes % (Manual) Seg Neutrophils # Seg Neutrophils # Man Lymphocytes # (Manual) Monocytes # (Manual) PT INR POC ABG pH POC ABG pCO2 POC ABG pO2 Sodium Potassium Chloride Carbon Dioxide BUN Creatinine Glucose POC Glucose 123 H 115 H C-Peptide Lactic Acid Calcium Magnesium AST ALT Total Creatine Kinase NT-Pro-B Natriuret Pep Total Protein Albumin Vitamin B12 Total Cortisol Urine Creatinine Urine Total Protein Ketones Crossmatch
[2016-10-17] MEDS ORDERED: LASIX ONE (12:49)
[2016-10-17] MEDS ORDERED: LASIX IV ONE (13:00)
[2016-10-17] MEDS: FLAGYL PO SCH ×2 (14:26→23:52)
[2016-10-17] MEDS: PROAMATINE PO SCH ×2 (14:26→23:52)
[2016-10-17] MEDS: PROTONIX PO SCH ×2 (14:27→23:53)
[2016-10-17] MEDS: NOVOLOG SUB-Q SCH ×2 (14:27→23:54)
--- NOTE | 2016-10-17 14:33 | Event Note ---
Date: 10/17/16 see progress note in paper chart ([facility] was down)
[2016-10-17] MEDS: AMBIEN PO PRN (23:53)
[2016-10-18] MEDS: FLAGYL PO SCH ×4 (05:46→22:54)
[2016-10-18] MEDS: PROAMATINE PO SCH ×4 (05:47→22:59)
[2016-10-18 07:29] LABS: Anion Gap 14 mmol/L; Blood Urea Nitrogen 14 mg/dL (7-17); Calcium 7.2 mg/dL (8.4-10.2); Carbon Dioxide 19 mmol/L (22-30); Chloride 115.6 mmol/L (98-107); Glucose 119 mg/dL (65-100); Potassium 3.2 mmol/L (3.6-5.0); Sodium 145 mmol/L (137-145)
[2016-10-18] MEDS ORDERED: K-DUR PO ONE (08:00)
[2016-10-18] MEDS: NOVOLOG SUB-Q SCH ×4 (08:41→22:00)
[2016-10-18] MEDS: PROTONIX PO SCH ×2 (09:10→22:54)
--- NOTE | 2016-10-18 14:53 | Progress Note ---
Assessment and Plan Assessment and plan: 1. Persistent hypotension with acute exacerbation of diastolic heart failure and anasarca- consult cardiology; unable to duirese; cotn midodrine 2. Anemia due to chronic disorder-stable 3. Crohn's Colitis-continue IV Flagyl. 4. Severe protein calorie malnutrition-nutritional supplementation 5. Hypokalemia- will replace with po supplementation 6. DVT prophylaxis-SCDs. Unable to give heparin or Lovenox due to coagulopathy ; repeat coags History Interval history: f/u hypotension, anemia; crohns Patient seen at the bedside; no new complaints; received 1 dose of lasix and is still hypotensive Hospitalist Physical - Constitutional Vitals: Temp Pulse Resp BP Pulse Ox 97.8 F 107 H 20 108/58 98 10/18/16 08:00 10/18/16 08:00 10/18/16 10:00 10/18/16 08:00 10/18/16 08:33 General appearance: Present: no acute distress, other (anasarca) - EENT Eyes: Present: PERRL, EOM intact. Absent: scleral icterus, conjunctival injection ENT: hearing intact, clear oral mucosa, no oropharyngeal erythema, no poor dentition - Neck Neck: Present: supple, normal ROM. Absent: enlarged thyroid - Respiratory Respiratory effort: normal Respiratory: bilateral: diminished, negative: rales, rhonchi, wheezing - Cardiovascular Rhythm: regular Heart Sounds: Present: S1 & S2. Absent: gallop - Extremities Extremities: no ischemia, pulses intact, pulses symmetrical Extremity abnormal: edema (4 plus pitting) Peripheral Pulses: within normal limits - Abdominal General gastrointestinal: soft, non-tender, non-distended - Integumentary Integumentary: Present: clear - Psychiatric Psychiatric: appropriate mood/affect, intact judgment & insight - Neurologic Neurologic: CNII-XII intact Results - Labs CBC & Chem 7: 10/14/16 11:48 10/18/16 06:59 Labs: Laboratory Last Values WBC 14.0 K/mm3 (4.5-11.0) H 10/14/16 11:48 RBC 3.06 M/mm3 (3.65-5.03) L 10/14/16 11:48 Hgb 9.4 gm/dl (10.1-14.3) L 10/14/16 11:48 Hct 29.3 % (30.3-42.9) L 10/14/16 11:48 MCV 96 fl (79-97) 10/14/16 11:48 MCH 31 pg (28-32) 10/14/16 11:48 MCHC 32 % (30-34) 10/14/16 11:48 RDW 17.8 % (13.2-15.2) H 10/14/16 11:48 Plt Count 137 K/mm3 (140-440) L 10/14/16 11:48 Lymph % (Auto) 3.5 % (13.4-35.0) L 10/14/16 11:48 [place] % (Auto) 8.3 % (0.0-7.3) H 10/14/16 11:48 Eos % (Auto) 0.6 % (0.0-4.3) 10/14/16 11:48 Baso % (Auto) 0.1 % (0.0-1.8) 10/14/16 11:48 Lymph # 0.5 K/mm3 (1.2-5.4) L 10/14/16 11:48 [place] # 1.2 K/mm3 (0.0-0.8) H 10/14/16 11:48 Eos # 0.1 K/mm3 (0.0-0.4) 10/14/16 11:48 Baso # 0.0 K/mm3 (0.0-0.1) 10/14/16 11:48 Add Manual Diff Complete 10/12/16 05:30 Total Counted 100 10/12/16 05:30 Seg Neutrophils % 87.5 % (40.0-70.0) H 10/14/16 11:48 Seg Neuts % (Manual) 89.0 % (40.0-70.0) H 10/12/16 05:30 Band Neutrophils % 1.0 % 10/12/16 05:30 Lymphocytes % (Manual) 1.0 % (13.4-35.0) L 10/12/16 05:30 Reactive Lymphs % (Man) 0 % 10/12/16 05:30 Monocytes % (Manual) 7.0 % (0.0-7.3) 10/12/16 05:30 Eosinophils % (Manual) 1.0 % (0.0-4.3) 10/12/16 05:30 Basophils % (Manual) 0 % (0.0-1.8) 10/12/16 05:30 Metamyelocytes % 1.0 % 10/12/16 05:30 Myelocytes % 0 % 10/12/16 05:30 Promyelocytes % 0 % 10/12/16 05:30 Blast Cells % 0 % 10/12/16 05:30 Nucleated RBC % Not Reportable 10/12/16 05:30 Seg Neutrophils # 12.2 K/mm3 (1.8-7.7) H 10/14/16 11:48 Seg Neutrophils # Man 17.1 K/mm3 (1.8-7.7) H 10/12/16 05:30 Band Neutrophils # 0.2 K/mm3 10/12/16 05:30 Lymphocytes # (Manual) 0.2 K/mm3 (1.2-5.4) L 10/12/16 05:30 Abs React Lymphs (Man) 0.0 K/mm3 10/12/16 05:30 Monocytes # (Manual) 1.3 K/mm3 (0.0-0.8) H 10/12/16 05:30 Eosinophils # (Manual) 0.2 K/mm3 (0.0-0.4) 10/12/16 05:30 Basophils # (Manual) 0.0 K/mm3 (0.0-0.1) 10/12/16 05:30 Metamyelocytes # 0.2 K/mm3 10/12/16 05:30 Myelocytes # 0.0 K/mm3 10/12/16 05:30 Promyelocytes # 0.0 K/mm3 10/12/16 05:30 Blast Cells # 0.0 K/mm3 10/12/16 05:30 WBC Morphology Not Reportable 10/12/16 05:30 Hypersegmented Neuts Not Reportable 10/12/16 05:30 Hyposegmented Neuts Not Reportable 10/12/16 05:30 Hypogranular Neuts Not Reportable 10/12/16 05:30 Smudge Cells Not Reportable 10/12/16 05:30 Toxic Granulation Not Reportable 10/12/16 05:30 Toxic Vacuolation Not Reportable 10/12/16 05:30 Dohle Bodies Not Reportable 10/12/16 05:30 Pelger-Huet Anomaly Not Reportable 10/12/16 05:30 Ivory Rods Not Reportable 10/12/16 05:30 Platelet Estimate Consistent w auto 10/12/16 05:30 Clumped Platelets Not Reportable 10/12/16 05:30 Plt Clumps, EDTA Not Reportable 10/12/16 05:30 Large Platelets Not Reportable 10/12/16 05:30 Giant Platelets Not Reportable 10/12/16 05:30 Platelet Satelliting Not Reportable 10/12/16 05:30 Plt Morphology Comment Not Reportable 10/12/16 05:30 RBC Morphology Not Reportable 10/12/16 05:30 Dimorphic RBCs Not Reportable 10/12/16 05:30 Polychromasia Not Reportable 10/12/16 05:30 Hypochromasia Not Reportable 10/12/16 05:30 Poikilocytosis Not Reportable 10/12/16 05:30 Anisocytosis 1+ 10/12/16 05:30 Microcytosis Not Reportable 10/12/16 05:30 Macrocytosis Rare 10/12/16 05:30 Spherocytes Not Reportable 10/12/16 05:30 Pappenheimer Bodies Not Reportable 10/12/16 05:30 Sickle Cells Not Reportable 10/12/16 05:30 Target Cells Not Reportable 10/12/16 05:30 Tear Drop Cells Not Reportable 10/12/16 05:30 Ovalocytes Not Reportable 10/12/16 05:30 Helmet Cells Not Reportable 10/12/16 05:30 [place] Bodies Not Reportable 10/12/16 05:30 [place] Rings Not Reportable 10/12/16 05:30 [place] Cells Not Reportable 10/12/16 05:30 Bite Cells Not Reportable 10/12/16 05:30 Crenated Cell Not Reportable 10/12/16 05:30 Elliptocytes Not Reportable 10/12/16 05:30 Acanthocytes (Spur) Not Reportable 10/12/16 05:30 Rouleaux Not Reportable 10/12/16 05:30 Hemoglobin C Crystals Not Reportable 10/12/16 05:30 Schistocytes Not Reportable 10/12/16 05:30 Malaria parasites Not Reportable 10/12/16 05:30 [place] Bodies Not Reportable 10/12/16 05:30 Hem Pathologist Commnt No 10/12/16 05:30 PT 17.0 Sec. (12.2-14.9) H 10/14/16 11:48 INR 1.39 (0.87-1.13) H 10/14/16 11:48 POC ABG pH 7.216 (7.35-7.45) L 10/05/16 16:03 POC ABG pCO2 28.2 (35-45) L 10/05/16 16:03 POC ABG pO2 60 (80-105) L 10/05/16 16:03 POC ABG HCO3 11.4 10/05/16 16:03 POC ABG Total CO2 12 10/05/16 16:03 POC ABG O2 Sat 86 10/05/16 16:03 POC ABG Base Excess -16 10/05/16 16:03 VBG pH 7.136 (7.320-7.420) L* 10/05/16 14:40 FiO2 32 % 10/05/16 16:03 Sodium 145 mmol/L (137-145) 10/18/16 06:59 Potassium 3.2 mmol/L (3.6-5.0) L 10/18/16 06:59 Chloride 115.6 mmol/L (98-107) H 10/18/16 06:59 Carbon Dioxide 19 mmol/L (22-30) L 10/18/16 06:59 Anion Gap 14 mmol/L 10/18/16 06:59 BUN 14 mg/dL (7-17) 10/18/16 06:59 Creatinine 0.7 mg/dL (0.7-1.2) 10/18/16 06:59 Estimated GFR > 60 ml/min 10/18/16 06:59 BUN/Creatinine Ratio 20.00 % 10/18/16 06:59 Glucose 119 mg/dL (65-100) H 10/18/16 06:59 POC Glucose 133 (70-105) H 10/18/16 11:34 C-Peptide 5.67 ng/mL (0.80-3.85) H 10/06/16 18:25 Lactic Acid 2.1 mmol/L (0.7-2.0) H* 10/07/16 Unknown Calcium 7.2 mg/dL (8.4-10.2) L 10/18/16 06:59 Phosphorus 2.6 mg/dL (2.5-4.5) 10/09/16 05:43 Magnesium 1.5 mg/dL (1.7-2.3) L 10/14/16 11:48 Iron 51 ug/dL (37-170) 10/05/16 21:30 Total Bilirubin 0.4 mg/dL (0.1-1.2) 10/12/16 05:30 Direct Bilirubin < 0.2 mg/dL (0-0.2) 10/12/16 05:30 Indirect Bilirubin 0.2 mg/dL 10/12/16 05:30 AST 22 units/L (5-40) 10/12/16 05:30 ALT 65 units/L (7-56) H 10/12/16 05:30 Alkaline Phosphatase 100 units/L (35-129) 10/12/16 05:30 Total Creatine Kinase 2317 units/L (30-135) H 10/05/16 21:30 NT-Pro-B Natriuret Pep 35803 pg/mL (0-900) H 10/10/16 10:00 Total Protein 4.1 g/dL (6.3-8.2) L 10/12/16 05:30 Albumin 1.4 g/dL (3.9-5) L 10/12/16 05:30 Albumin/Globulin Ratio 0.5 % 10/12/16 05:30 Vitamin B12 1592 pg/mL (211-911) H 10/05/16 21:30 Folate 16.37 ng/mL (7.3-26.0) 10/05/16 21:30 Total Cortisol >150.0 mcg/dL () H 10/06/16 18:25 Urine Color Cathy (Yellow) 10/05/16 13:52 Urine Turbidity Clear (Clear) 10/05/16 13:52 Urine pH 5.0 (5.0-7.0) 10/05/16 13:52 Ur Specific [place] 1.015 (1.003-1.030) 10/05/16 13:52 Urine Protein 30 mg/dl mg/dL (Negative) 10/05/16 13:52 Urine Glucose (UA) Neg mg/dL (Negative) 10/05/16 13:52 Urine Ketones Neg mg/dL (Negative) 10/05/16 13:52 Urine Blood Lg (Negative) 10/05/16 13:52 Urine Nitrite Neg (Negative) 10/05/16 13:52 Urine Bilirubin Neg (Negative) 10/05/16 13:52 Urine Urobilinogen < 2.0 mg/dL (<2.0) 10/05/16 13:52 Ur Leukocyte Esterase Neg (Negative) 10/05/16 13:52 Urine WBC (Auto) 1.0 /HPF (0.0-6.0) 10/05/16 13:52 Urine RBC (Auto) < 1.0 /HPF (0.0-6.0) 10/05/16 13:52 U Epithel Cells (Auto) 1.0 /HPF (0-13.0) 10/05/16 13:52 Urine Mucus Few /HPF 10/05/16 13:52 Urine Creatinine 126.1 mg/dL (0.1-20.0) H 10/14/16 13:41 Protein/Creatinin Ratio 0.71 10/14/16 13:41 Urine Total Protein 89 mg/dL (5-11.8) H 10/14/16 13:41 Ketones 2.9 mg/dL (0.2-2.8) H 10/05/16 21:30 Blood Type B POSITIVE 10/05/16 21:05 Antibody Screen Negative 10/05/16 21:05 Crossmatch See Detail 10/05/16 21:05 Microbiology 10/13/16 21:00 Peripheral/Venous Blood Culture - Preliminary NO GROWTH AFTER 4 DAYS 10/13/16 21:00 Peripheral/Venous Blood Culture - Preliminary NO GROWTH AFTER 4 DAYS 10/05/16 Unknown Peripheral/Venous Blood Culture - Final NO GROWTH AFTER 5 DAYS 10/05/16 Unknown Peripheral/Venous Blood Culture - Final NO GROWTH AFTER 5 DAYS 10/07/16 12:27 Stool Stool Culture - Final 10/07/16 12:27 Stool C. difficile DNA Amplification - Final 10/07/16 12:27 Stool Stool Occult Blood (DEVAN) - Final 10/07/16 12:27 Stool Stool for WBCs - Final Rare Polymorphonuclear Cells Seen 10/05/16 13:52 Urine,Catheterized - Straight Catheter Urine Culture - Final NO GROWTH AFTER 48 HOURS
--- NOTE | 2016-10-18 14:57 | Progress Note ---
Assessment and Plan 61 y/o female with hypotension of unknown etiology and hypoglycemia, now with elevated AST/ALT, increasing white count and diarrhea, nonbloody. 1. Midodrine increased. May have a component of adrenal insufficiency?? Cortisol here is a send out. Could consider starting either hydrocortisone 100IV q8 or dexamethasone 5q8 and then check cortisol with dex as this will not affect the test. No other real way here to test for relative adrenal insuff. 2. Also reviewed the chart doesn't appear that thyroids have been checked. could consider checking those as well. 3. Continue supplemental O2 and wean for sats >88% Subjective Date of service: 10/18/16 Principal diagnosis: diarrhea, chron's colitis, hypoglycemia, ARF, AMS Interval history: No acute events overnight. Still with marginal BP's. Breathing is stable. Did receive lasix per IMS note. Remainder is negative. Objective Vital Signs - 12hr 10/18/16 10/18/16 10/18/16 04:00 08:00 08:33 Temperature 96.5 F L 97.8 F Pulse Rate [ 110 H 107 H Left Radial] Respiratory 18 18 Rate Respiratory Rate [ Generalized] Blood Pressure 82/57 108/58 [Left Arm] O2 Sat by Pulse 99 100 98 Oximetry 10/18/16 10:00 Temperature Pulse Rate [ Left Radial] Respiratory Rate Respiratory 20 Rate [ Generalized] Blood Pressure [Left Arm] O2 Sat by Pulse Oximetry Constitutional: no acute distress, alert Eyes: non-icteric ENT: oropharynx moist Neck: supple Effort: mildly labored (mild tachypnea) Ascultation: Left: rales (mostly left side), Bilateral: diminished breath sounds , rhonchi Cardiovascular: other (tachy, RR; no mrg) Gastrointestinal: normoactive bowel sounds, tender (mild) Integumentary: normal Extremities: no cyanosis, pink and warm, edema (3+ bilateral LE edema) Neurologic: normal mental status, non-focal exam, pupils equal and round, CN II- XII normal Psychiatric: mood appropriate, affect normal CBC and BMP: 10/14/16 11:48 10/18/16 06:59 ABG, PT/INR, D-dimer: ABG POC ABG pH 7.216 (7.35-7.45) L 10/05/16 16:03 POC ABG pCO2 28.2 (35-45) L 10/05/16 16:03 POC ABG pO2 60 (80-105) L 10/05/16 16:03 POC ABG HCO3 11.4 10/05/16 16:03 POC ABG Total CO2 12 10/05/16 16:03 POC ABG O2 Sat 86 10/05/16 16:03 PT/INR, D-dimer PT 17.0 Sec. (12.2-14.9) H 10/14/16 11:48 INR 1.39 (0.87-1.13) H 10/14/16 11:48 Abnormal lab findings: Abnormal Labs 10/05/16 10/05/16 10/05/16 16:03 17:02 21:05 WBC RBC Hgb Hct RDW Plt Count Lymph % (Auto) [place] % (Auto) Lymph # [place] # Seg Neutrophils % Seg Neuts % (Manual) Lymphocytes % (Manual) Seg Neutrophils # Seg Neutrophils # Man Lymphocytes # (Manual) Monocytes # (Manual) PT INR POC ABG pH 7.216 L POC ABG pCO2 28.2 L POC ABG pO2 60 L Sodium Potassium Chloride Carbon Dioxide BUN Creatinine Glucose POC Glucose 185 H C-Peptide Lactic Acid Calcium Magnesium AST ALT Total Creatine Kinase NT-Pro-B Natriuret Pep Total Protein Albumin Vitamin B12 Total Cortisol Urine Creatinine Urine Total Protein Ketones Crossmatch See Detail 10/05/16 10/05/16 10/05/16 21:30 21:30 21:30 WBC RBC Hgb Hct RDW Plt Count Lymph % (Auto) [place] % (Auto) Lymph # [place] # Seg Neutrophils % Seg Neuts % (Manual) Lymphocytes % (Manual) Seg Neutrophils # Seg Neutrophils # Man Lymphocytes # (Manual) Monocytes # (Manual) PT INR POC ABG pH POC ABG pCO2 POC ABG pO2 Sodium Potassium Chloride Carbon Dioxide BUN Creatinine Glucose POC Glucose C-Peptide Lactic Acid 2.3 H* Calcium Magnesium AST ALT Total Creatine Kinase 2317 H NT-Pro-B Natriuret Pep Total Protein Albumin Vitamin B12 Total Cortisol Urine Creatinine Urine Total Protein Ketones 2.9 H Crossmatch 10/05/16 10/05/16 10/05/16 21:30 21:49 23:07 WBC RBC Hgb Hct RDW Plt Count Lymph % (Auto) [place] % (Auto) Lymph # [place] # Seg Neutrophils % Seg Neuts % (Manual) Lymphocytes % (Manual) Seg Neutrophils # Seg Neutrophils # Man Lymphocytes # (Manual) Monocytes # (Manual) PT INR POC ABG pH POC ABG pCO2 POC ABG pO2 Sodium Potassium Chloride Carbon Dioxide BUN Creatinine Glucose POC Glucose < 40 L < 40 L C-Peptide Lactic Acid Calcium Magnesium AST ALT Total Creatine Kinase NT-Pro-B Natriuret Pep Total Protein Albumin Vitamin B12 1592 H Total Cortisol Urine Creatinine Urine Total Protein Ketones Crossmatch 10/06/16 10/06/16 10/06/16 01:05 02:13 03:13 WBC RBC Hgb Hct RDW Plt Count Lymph % (Auto) [place] % (Auto) Lymph # [place] # Seg Neutrophils % Seg Neuts % (Manual) Lymphocytes % (Manual) Seg Neutrophils # Seg Neutrophils # Man Lymphocytes # (Manual) Monocytes # (Manual) PT INR POC ABG pH POC ABG pCO2 POC ABG pO2 Sodium Potassium Chloride Carbon Dioxide BUN Creatinine Glucose POC Glucose 285 H 241 H 280 H C-Peptide Lactic Acid Calcium Magnesium AST ALT Total Creatine Kinase NT-Pro-B Natriuret Pep Total Protein Albumin Vitamin B12 Total Cortisol Urine Creatinine Urine Total Protein Ketones Crossmatch 10/06/16 10/06/16 10/06/16 03:49 05:22 06:10 WBC RBC Hgb Hct RDW Plt Count Lymph % (Auto) [place] % (Auto) Lymph # [place] # Seg Neutrophils % Seg Neuts % (Manual) Lymphocytes % (Manual) Seg Neutrophils # Seg Neutrophils # Man Lymphocytes # (Manual) Monocytes # (Manual) PT INR POC ABG pH POC ABG pCO2 POC ABG pO2 Sodium Potassium Chloride Carbon Dioxide BUN Creatinine Glucose POC Glucose 216 H 240 H 291 H C-Peptide Lactic Acid Calcium Magnesium AST ALT Total Creatine Kinase NT-Pro-B Natriuret Pep Total Protein Albumin Vitamin B12 Total Cortisol Urine Creatinine Urine Total Protein Ketones Crossmatch 10/06/16 10/06/16 10/06/16 07:37 08:55 09:37 WBC RBC Hgb Hct RDW Plt Count Lymph % (Auto) [place] % (Auto) Lymph # [place] # Seg Neutrophils % Seg Neuts % (Manual) Lymphocytes % (Manual) Seg Neutrophils # Seg Neutrophils # Man Lymphocytes # (Manual) Monocytes # (Manual) PT INR POC ABG pH POC ABG pCO2 POC ABG pO2 Sodium Potassium Chloride Carbon Dioxide BUN Creatinine Glucose POC Glucose 255 H 286 H 205 H C-Peptide Lactic Acid Calcium Magnesium AST ALT Total Creatine Kinase NT-Pro-B Natriuret Pep Total Protein Albumin Vitamin B12 Total Cortisol Urine Creatinine Urine Total Protein Ketones Crossmatch 10/06/16 10/06/16 10/06/16 09:40 09:40 10:00 WBC 27.9 H RBC Hgb Hct RDW 16.8 H Plt Count 94 L Lymph % (Auto) [place] % (Auto) Lymph # [place] # Seg Neutrophils % Seg Neuts % (Manual) 94.5 H Lymphocytes % (Manual) 1.0 L Seg Neutrophils # Seg Neutrophils # Man 26.4 H Lymphocytes # (Manual) 0.3 L Monocytes # (Manual) 1.3 H PT INR POC ABG pH POC ABG pCO2 POC ABG pO2 Sodium 130 L Potassium Chloride Carbon Dioxide 16 L BUN 31 H Creatinine 1.8 H Glucose 259 H POC Glucose C-Peptide Lactic Acid 3.3 H* Calcium 6.1 L Magnesium AST 112 H ALT 100 H Total Creatine Kinase NT-Pro-B Natriuret Pep Total Protein 4.2 L D Albumin 1.2 L Vitamin B12 Total Cortisol Urine Creatinine Urine Total Protein Ketones Crossmatch 10/06/16 10/06/16 10/06/16 11:24 12:08 13:22 WBC RBC Hgb Hct RDW Plt Count Lymph % (Auto) [place] % (Auto) Lymph # [place] # Seg Neutrophils % Seg Neuts % (Manual) Lymphocytes % (Manual) Seg Neutrophils # Seg Neutrophils # Man Lymphocytes # (Manual) Monocytes # (Manual) PT INR POC ABG pH POC ABG pCO2 POC ABG pO2 Sodium Potassium Chloride Carbon Dioxide BUN Creatinine Glucose POC Glucose 204 H 214 H 176 H C-Peptide Lactic Acid Calcium Magnesium AST ALT Total Creatine Kinase NT-Pro-B Natriuret Pep Total Protein Albumin Vitamin B12 Total Cortisol Urine Creatinine Urine Total Protein Ketones Crossmatch 10/06/16 10/06/16 10/06/16 14:52 15:11 17:11 WBC RBC Hgb Hct RDW Plt Count Lymph % (Auto) [place] % (Auto) Lymph # [place] # Seg Neutrophils % Seg Neuts % (Manual) Lymphocytes % (Manual) Seg Neutrophils # Seg Neutrophils # Man Lymphocytes # (Manual) Monocytes # (Manual) PT INR POC ABG pH POC ABG pCO2 POC ABG pO2 Sodium Potassium Chloride Carbon Dioxide BUN Creatinine Glucose POC Glucose 177 H 168 H 173 H C-Peptide Lactic Acid Calcium Magnesium AST ALT Total Creatine Kinase NT-Pro-B Natriuret Pep Total Protein Albumin Vitamin B12 Total Cortisol Urine Creatinine Urine Total Protein Ketones Crossmatch 10/06/16 10/06/16 10/06/16 18:12 18:25 18:25 WBC RBC Hgb Hct RDW Plt Count Lymph % (Auto) [place] % (Auto) Lymph # [place] # Seg Neutrophils % Seg Neuts % (Manual) Lymphocytes % (Manual) Seg Neutrophils # Seg Neutrophils # Man Lymphocytes # (Manual) Monocytes # (Manual) PT INR POC ABG pH POC ABG pCO2 POC ABG pO2 Sodium Potassium Chloride Carbon Dioxide BUN Creatinine Glucose POC Glucose 165 H C-Peptide 5.67 H Lactic Acid Calcium Magnesium AST ALT Total Creatine Kinase NT-Pro-B Natriuret Pep Total Protein Albumin Vitamin B12 Total Cortisol >150.0 H Urine Creatinine Urine Total Protein Ketones Crossmatch 10/06/16 10/06/16 10/06/16 18:55 20:01 21:00 WBC RBC Hgb Hct RDW Plt Count Lymph % (Auto) [place] % (Auto) Lymph # [place] # Seg Neutrophils % Seg Neuts % (Manual) Lymphocytes % (Manual) Seg Neutrophils # Seg Neutrophils # Man Lymphocytes # (Manual) Monocytes # (Manual) PT INR POC ABG pH POC ABG pCO2 POC ABG pO2 Sodium Potassium Chloride Carbon Dioxide BUN Creatinine Glucose POC Glucose 174 H 158 H 172 H C-Peptide Lactic Acid Calcium Magnesium AST ALT Total Creatine Kinase NT-Pro-B Natriuret Pep Total Protein Albumin Vitamin B12 Total Cortisol Urine Creatinine Urine Total Protein Ketones Crossmatch 10/06/16 10/06/16 10/06/16 22:02 23:04 23:58 WBC RBC Hgb Hct RDW Plt Count Lymph % (Auto) [place] % (Auto) Lymph # [place] # Seg Neutrophils % Seg Neuts % (Manual) Lymphocytes % (Manual) Seg Neutrophils # Seg Neutrophils # Man Lymphocytes # (Manual) Monocytes # (Manual) PT INR POC ABG pH POC ABG pCO2 POC ABG pO2 Sodium Potassium Chloride Carbon Dioxide BUN Creatinine Glucose POC Glucose 180 H 177 H 178 H C-Peptide Lactic Acid Calcium Magnesium AST ALT Total Creatine Kinase NT-Pro-B Natriuret Pep Total Protein Albumin Vitamin B12 Total Cortisol Urine Creatinine Urine Total Protein Ketones Crossmatch 10/07/16 10/07/16 10/07/16 01:05 01:58 02:58 WBC RBC Hgb Hct RDW Plt Count Lymph % (Auto) [place] % (Auto) Lymph # [place] # Seg Neutrophils % Seg Neuts % (Manual) Lymphocytes % (Manual) Seg Neutrophils # Seg Neutrophils # Man Lymphocytes # (Manual) Monocytes # (Manual) PT INR POC ABG pH POC ABG pCO2 POC ABG pO2 Sodium Potassium Chloride Carbon Dioxide BUN Creatinine Glucose POC Glucose 168 H 152 H 181 H C-Peptide Lactic Acid Calcium Magnesium AST ALT Total Creatine Kinase NT-Pro-B Natriuret Pep Total Protein Albumin Vitamin B12 Total Cortisol Urine Creatinine Urine Total Protein Ketones Crossmatch 10/07/16 10/07/16 10/07/16 04:03 04:42 04:42 WBC 30.5 H RBC Hgb Hct RDW 17.2 H Plt Count 59 L Lymph % (Auto) [place] % (Auto) Lymph # [place] # Seg Neutrophils % Seg Neuts % (Manual) 90.0 H Lymphocytes % (Manual) 2.0 L Seg Neutrophils # Seg Neutrophils # Man 27.5 H Lymphocytes # (Manual) 0.6 L Monocytes # (Manual) PT INR POC ABG pH POC ABG pCO2 POC ABG pO2 Sodium 127 L Potassium 3.5 L Chloride Carbon Dioxide 16 L BUN 27 H Creatinine 1.6 H Glucose 162 H POC Glucose 196 H C-Peptide Lactic Acid Calcium 6.1 L Magnesium 1.5 L AST 83 H ALT 106 H Total Creatine Kinase NT-Pro-B Natriuret Pep Total Protein 3.9 L Albumin 1.1 L Vitamin B12 Total Cortisol Urine Creatinine Urine Total Protein Ketones Crossmatch 10/07/16 10/07/16 10/07/16 05:05 06:08 07:29 WBC RBC Hgb Hct RDW Plt Count Lymph % (Auto) [place] % (Auto) Lymph # [place] # Seg Neutrophils % Seg Neuts % (Manual) Lymphocytes % (Manual) Seg Neutrophils # Seg Neutrophils # Man Lymphocytes # (Manual) Monocytes # (Manual) PT INR POC ABG pH POC ABG pCO2 POC ABG pO2 Sodium Potassium Chloride Carbon Dioxide BUN Creatinine Glucose POC Glucose 197 H 163 H 167 H C-Peptide Lactic Acid Calcium Magnesium AST ALT Total Creatine Kinase NT-Pro-B Natriuret Pep Total Protein Albumin Vitamin B12 Total Cortisol Urine Creatinine Urine Total Protein Ketones Crossmatch 10/07/16 10/07/16 10/07/16 08:11 09:02 10:03 WBC RBC Hgb Hct RDW Plt Count Lymph % (Auto) [place] % (Auto) Lymph # [place] # Seg Neutrophils % Seg Neuts % (Manual) Lymphocytes % (Manual) Seg Neutrophils # Seg Neutrophils # Man Lymphocytes # (Manual) Monocytes # (Manual) PT INR POC ABG pH POC ABG pCO2 POC ABG pO2 Sodium Potassium Chloride Carbon Dioxide BUN Creatinine Glucose POC Glucose 143 H 172 H 163 H C-Peptide Lactic Acid Calcium Magnesium AST ALT Total Creatine Kinase NT-Pro-B Natriuret Pep Total Protein Albumin Vitamin B12 Total Cortisol Urine Creatinine Urine Total Protein Ketones Crossmatch 10/07/16 10/07/16 10/07/16 11:53 14:18 16:35 WBC RBC Hgb Hct RDW Plt Count Lymph % (Auto) [place] % (Auto) Lymph # [place] # Seg Neutrophils % Seg Neuts % (Manual) Lymphocytes % (Manual) Seg Neutrophils # Seg Neutrophils # Man Lymphocytes # (Manual) Monocytes # (Manual) PT INR POC ABG pH POC ABG pCO2 POC ABG pO2 Sodium Potassium Chloride Carbon Dioxide BUN Creatinine Glucose POC Glucose 144 H 168 H 195 H C-Peptide Lactic Acid Calcium Magnesium AST ALT Total Creatine Kinase NT-Pro-B Natriuret Pep Total Protein Albumin Vitamin B12 Total Cortisol Urine Creatinine Urine Total Protein Ketones Crossmatch 10/07/16 10/07/16 10/07/16 17:53 19:53 Unknown WBC RBC Hgb Hct RDW Plt Count Lymph % (Auto) [place] % (Auto) Lymph # [place] # Seg Neutrophils % Seg Neuts % (Manual) Lymphocytes % (Manual) Seg Neutrophils # Seg Neutrophils # Man Lymphocytes # (Manual) Monocytes # (Manual) PT INR POC ABG pH POC ABG pCO2 POC ABG pO2 Sodium Potassium Chloride Carbon Dioxide BUN Creatinine Glucose POC Glucose 187 H 212 H C-Peptide Lactic Acid 2.1 H* Calcium Magnesium AST ALT Total Creatine Kinase NT-Pro-B Natriuret Pep Total Protein Albumin Vitamin B12 Total Cortisol Urine Creatinine Urine Total Protein Ketones Crossmatch 10/08/16 10/08/16 10/08/16 00:18 03:35 03:45 WBC 31.0 H RBC 3.62 L Hgb Hct RDW 17.2 H Plt Count 59 L Lymph % (Auto) [place] % (Auto) Lymph # [place] # Seg Neutrophils % Seg Neuts % (Manual) 79.0 H Lymphocytes % (Manual) 1.0 L Seg Neutrophils # Seg Neutrophils # Man 24.5 H Lymphocytes # (Manual) 0.3 L Monocytes # (Manual) 2.2 H PT INR POC ABG pH POC ABG pCO2 POC ABG pO2 Sodium Potassium Chloride Carbon Dioxide BUN Creatinine Glucose POC Glucose 142 H 149 H C-Peptide Lactic Acid Calcium Magnesium AST ALT Total Creatine Kinase NT-Pro-B Natriuret Pep Total Protein Albumin Vitamin B12 Total Cortisol Urine Creatinine Urine Total Protein Ketones Crossmatch 10/08/16 10/08/16 10/08/16 03:45 03:45 07:39 WBC RBC Hgb Hct RDW Plt Count Lymph % (Auto) [place] % (Auto) Lymph # [place] # Seg Neutrophils % Seg Neuts % (Manual) Lymphocytes % (Manual) Seg Neutrophils # Seg Neutrophils # Man Lymphocytes # (Manual) Monocytes # (Manual) PT 19.8 H INR 1.68 H POC ABG pH POC ABG pCO2 POC ABG pO2 Sodium 132 L Potassium Chloride Carbon Dioxide 15 L BUN 22 H Creatinine 1.3 H Glucose 142 H POC Glucose 165 H C-Peptide Lactic Acid Calcium 5.9 L* Magnesium AST 62 H ALT 112 H Total Creatine Kinase NT-Pro-B Natriuret Pep Total Protein 3.8 L Albumin 1.0 L Vitamin B12 Total Cortisol Urine Creatinine Urine Total Protein Ketones Crossmatch 10/08/16 10/08/16 10/08/16 10:00 13:51 18:18 WBC RBC Hgb Hct RDW Plt Count Lymph % (Auto) [place] % (Auto) Lymph # [place] # Seg Neutrophils % Seg Neuts % (Manual) Lymphocytes % (Manual) Seg Neutrophils # Seg Neutrophils # Man Lymphocytes # (Manual) Monocytes # (Manual) PT INR POC ABG pH POC ABG pCO2 POC ABG pO2 Sodium Potassium Chloride Carbon Dioxide BUN Creatinine Glucose POC Glucose 167 H 175 H 136 H C-Peptide Lactic Acid Calcium Magnesium AST ALT Total Creatine Kinase NT-Pro-B Natriuret Pep Total Protein Albumin Vitamin B12 Total Cortisol Urine Creatinine Urine Total Protein Ketones Crossmatch 10/08/16 10/09/16 10/09/16 22:00 02:07 05:43 WBC 26.6 H RBC Hgb Hct RDW 17.6 H Plt Count 77 L Lymph % (Auto) [place] % (Auto) Lymph # [place] # Seg Neutrophils % Seg Neuts % (Manual) 93.0 H Lymphocytes % (Manual) 0 L Seg Neutrophils # Seg Neutrophils # Man 24.7 H Lymphocytes # (Manual) 0.0 L Monocytes # (Manual) PT INR POC ABG pH POC ABG pCO2 POC ABG pO2 Sodium Potassium Chloride Carbon Dioxide BUN Creatinine Glucose POC Glucose 160 H 149 H C-Peptide Lactic Acid Calcium Magnesium AST ALT Total Creatine Kinase NT-Pro-B Natriuret Pep Total Protein Albumin Vitamin B12 Total Cortisol Urine Creatinine Urine Total Protein Ketones Crossmatch 10/09/16 10/09/16 10/09/16 05:43 06:22 08:06 WBC RBC Hgb Hct RDW Plt Count Lymph % (Auto) [place] % (Auto) Lymph # [place] # Seg Neutrophils % Seg Neuts % (Manual) Lymphocytes % (Manual) Seg Neutrophils # Seg Neutrophils # Man Lymphocytes # (Manual) Monocytes # (Manual) PT INR POC ABG pH POC ABG pCO2 POC ABG pO2 Sodium 135 L Potassium Chloride 108.4 H Carbon Dioxide 17 L BUN 18 H Creatinine Glucose 164 H POC Glucose 162 H 127 H C-Peptide Lactic Acid Calcium 6.5 L Magnesium AST ALT Total Creatine Kinase NT-Pro-B Natriuret Pep Total Protein Albumin Vitamin B12 Total Cortisol Urine Creatinine Urine Total Protein Ketones Crossmatch 10/09/16 10/09/16 10/09/16 10:44 12:04 13:25 WBC RBC Hgb Hct RDW Plt Count Lymph % (Auto) [place] % (Auto) Lymph # [place] # Seg Neutrophils % Seg Neuts % (Manual) Lymphocytes % (Manual) Seg Neutrophils # Seg Neutrophils # Man Lymphocytes # (Manual) Monocytes # (Manual) PT INR POC ABG pH POC ABG pCO2 POC ABG pO2 Sodium Potassium Chloride Carbon Dioxide BUN Creatinine Glucose POC Glucose 165 H 128 H 143 H C-Peptide Lactic Acid Calcium Magnesium AST ALT Total Creatine Kinase NT-Pro-B Natriuret Pep Total Protein Albumin Vitamin B12 Total Cortisol Urine Creatinine Urine Total Protein Ketones Crossmatch 10/10/16 10/10/16 10/10/16 04:50 04:50 04:50 WBC 20.9 H RBC 3.44 L Hgb Hct RDW 17.4 H Plt Count 78 L Lymph % (Auto) [place] % (Auto) Lymph # [place] # Seg Neutrophils % Seg Neuts % (Manual) 94.0 H Lymphocytes % (Manual) 1.0 L Seg Neutrophils # Seg Neutrophils # Man 19.6 H Lymphocytes # (Manual) 0.2 L Monocytes # (Manual) PT 18.3 H INR 1.52 H POC ABG pH POC ABG pCO2 POC ABG pO2 Sodium Potassium Chloride 110.3 H Carbon Dioxide 17 L BUN Creatinine Glucose POC Glucose C-Peptide Lactic Acid Calcium 6.7 L Magnesium 1.6 L AST ALT 91 H Total Creatine Kinase NT-Pro-B Natriuret Pep Total Protein 4.0 L Albumin 1.5 L Vitamin B12 Total Cortisol Urine Creatinine Urine Total Protein Ketones Crossmatch 10/10/16 10/11/16 10/11/16 10:00 06:39 11:38 WBC 25.1 H RBC 3.44 L Hgb Hct RDW 17.3 H Plt Count 107 L Lymph % (Auto) [place] % (Auto) Lymph # [place] # Seg Neutrophils % Seg Neuts % (Manual) 87.0 H Lymphocytes % (Manual) 2.0 L Seg Neutrophils # Seg Neutrophils # Man 21.8 H Lymphocytes # (Manual) 0.5 L Monocytes # (Manual) PT INR POC ABG pH POC ABG pCO2 POC ABG pO2 Sodium Potassium Chloride Carbon Dioxide BUN Creatinine Glucose POC Glucose 67 L C-Peptide Lactic Acid Calcium Magnesium AST ALT Total Creatine Kinase NT-Pro-B Natriuret Pep 99746 H Total Protein Albumin Vitamin B12 Total Cortisol Urine Creatinine Urine Total Protein Ketones Crossmatch 10/11/16 10/11/16 10/12/16 15:42 21:45 05:30 WBC 19.2 H RBC 3.34 L Hgb Hct RDW 17.6 H Plt Count 132 L Lymph % (Auto) [place] % (Auto) Lymph # [place] # Seg Neutrophils % Seg Neuts % (Manual) 89.0 H Lymphocytes % (Manual) 1.0 L Seg Neutrophils # Seg Neutrophils # Man 17.1 H Lymphocytes # (Manual) 0.2 L Monocytes # (Manual) 1.3 H PT INR POC ABG pH POC ABG pCO2 POC ABG pO2 Sodium Potassium Chloride Carbon Dioxide BUN Creatinine Glucose POC Glucose 114 H 113 H C-Peptide Lactic Acid Calcium Magnesium AST ALT Total Creatine Kinase NT-Pro-B Natriuret Pep Total Protein Albumin Vitamin B12 Total Cortisol Urine Creatinine Urine Total Protein Ketones Crossmatch 10/12/16 10/13/16 10/13/16 05:30 07:49 16:12 WBC RBC Hgb Hct RDW Plt Count Lymph % (Auto) [place] % (Auto) Lymph # [place] # Seg Neutrophils % Seg Neuts % (Manual) Lymphocytes % (Manual) Seg Neutrophils # Seg Neutrophils # Man Lymphocytes # (Manual) Monocytes # (Manual) PT INR POC ABG pH POC ABG pCO2 POC ABG pO2 Sodium Potassium Chloride 114.0 H Carbon Dioxide 18 L BUN Creatinine Glucose POC Glucose 52 L 144 H C-Peptide Lactic Acid Calcium 7.4 L Magnesium AST ALT 65 H Total Creatine Kinase NT-Pro-B Natriuret Pep Total Protein 4.1 L Albumin 1.4 L Vitamin B12 Total Cortisol Urine Creatinine Urine Total Protein Ketones Crossmatch 10/13/16 10/14/16 10/14/16 21:00 11:39 11:48 WBC 14.0 H RBC 3.06 L Hgb 9.4 L Hct 29.3 L RDW 17.8 H Plt Count 137 L Lymph % (Auto) 3.5 L [place] % (Auto) 8.3 H Lymph # 0.5 L [place] # 1.2 H Seg Neutrophils % 87.5 H Seg Neuts % (Manual) Lymphocytes % (Manual) Seg Neutrophils # 12.2 H Seg Neutrophils # Man Lymphocytes # (Manual) Monocytes # (Manual) PT INR POC ABG pH POC ABG pCO2 POC ABG pO2 Sodium Potassium Chloride Carbon Dioxide BUN Creatinine Glucose POC Glucose 113 H 52 L C-Peptide Lactic Acid Calcium Magnesium AST ALT Total Creatine Kinase NT-Pro-B Natriuret Pep Total Protein Albumin Vitamin B12 Total Cortisol Urine Creatinine Urine Total Protein Ketones Crossmatch 10/14/16 10/14/16 10/14/16 11:48 11:48 13:41 WBC RBC Hgb Hct RDW Plt Count Lymph % (Auto) [place] % (Auto) Lymph # [place] # Seg Neutrophils % Seg Neuts % (Manual) Lymphocytes % (Manual) Seg Neutrophils # Seg Neutrophils # Man Lymphocytes # (Manual) Monocytes # (Manual) PT 17.0 H INR 1.39 H POC ABG pH POC ABG pCO2 POC ABG pO2 Sodium Potassium Chloride Carbon Dioxide 18 L BUN Creatinine Glucose 110 H POC Glucose C-Peptide Lactic Acid Calcium 7.1 L Magnesium 1.5 L AST ALT Total Creatine Kinase NT-Pro-B Natriuret Pep Total Protein Albumin Vitamin B12 Total Cortisol Urine Creatinine 126.1 H Urine Total Protein 89 H Ketones Crossmatch 10/14/16 10/14/16 10/15/16 16:46 21:04 16:39 WBC RBC Hgb Hct RDW Plt Count Lymph % (Auto) [place] % (Auto) Lymph # [place] # Seg Neutrophils % Seg Neuts % (Manual) Lymphocytes % (Manual) Seg Neutrophils # Seg Neutrophils # Man Lymphocytes # (Manual) Monocytes # (Manual) PT INR POC ABG pH POC ABG pCO2 POC ABG pO2 Sodium Potassium Chloride Carbon Dioxide BUN Creatinine Glucose POC Glucose 120 H 128 H 108 H C-Peptide Lactic Acid Calcium Magnesium AST ALT Total Creatine Kinase NT-Pro-B Natriuret Pep Total Protein Albumin Vitamin B12 Total Cortisol Urine Creatinine Urine Total Protein Ketones Crossmatch 10/15/16 10/16/16 10/16/16 21:27 11:27 22:41 WBC RBC Hgb Hct RDW Plt Count Lymph % (Auto) [place] % (Auto) Lymph # [place] # Seg Neutrophils % Seg Neuts % (Manual) Lymphocytes % (Manual) Seg Neutrophils # Seg Neutrophils # Man Lymphocytes # (Manual) Monocytes # (Manual) PT INR POC ABG pH POC ABG pCO2 POC ABG pO2 Sodium Potassium Chloride Carbon Dioxide BUN Creatinine Glucose POC Glucose 123 H 115 H 125 H C-Peptide Lactic Acid Calcium Magnesium AST ALT Total Creatine Kinase NT-Pro-B Natriuret Pep Total Protein Albumin Vitamin B12 Total Cortisol Urine Creatinine Urine Total Protein Ketones Crossmatch 10/17/16 10/17/16 10/18/16 11:59 21:32 06:07 WBC RBC Hgb Hct RDW Plt Count Lymph % (Auto) [place] % (Auto) Lymph # [place] # Seg Neutrophils % Seg Neuts % (Manual) Lymphocytes % (Manual) Seg Neutrophils # Seg Neutrophils # Man Lymphocytes # (Manual) Monocytes # (Manual) PT INR POC ABG pH POC ABG pCO2 POC ABG pO2 Sodium Potassium Chloride Carbon Dioxide BUN Creatinine Glucose POC Glucose 115 H 131 H 110 H C-Peptide Lactic Acid Calcium Magnesium AST ALT Total Creatine Kinase NT-Pro-B Natriuret Pep Total Protein Albumin Vitamin B12 Total Cortisol Urine Creatinine Urine Total Protein Ketones Crossmatch 10/18/16 10/18/16 06:59 11:34 WBC RBC Hgb Hct RDW Plt Count Lymph % (Auto) [place] % (Auto) Lymph # [place] # Seg Neutrophils % Seg Neuts % (Manual) Lymphocytes % (Manual) Seg Neutrophils # Seg Neutrophils # Man Lymphocytes # (Manual) Monocytes # (Manual) PT INR POC ABG pH POC ABG pCO2 POC ABG pO2 Sodium Potassium 3.2 L Chloride 115.6 H Carbon Dioxide 19 L BUN Creatinine Glucose 119 H POC Glucose 133 H C-Peptide Lactic Acid Calcium 7.2 L Magnesium AST ALT Total Creatine Kinase NT-Pro-B Natriuret Pep Total Protein Albumin Vitamin B12 Total Cortisol Urine Creatinine Urine Total Protein Ketones Crossmatch
--- NOTE | 2016-10-18 16:12 | Consultation ---
History of Present Illness Consult date: 10/18/16 Consult reason: congestive heart failure History of present illness: This is a 61yr old woman who was brought in 10/05 after she was found on the floor with altered mental status at home by [facility] [employer]. Laboratory values in the ED revealed a HCT of 21.8 and a creatinine of 2.2. Cardiac consultation requested for CHF and anasarca. Her presenting ECG shows a sinus tachycardia. She denies chest pain, shortness of breath and palpitations. Noted anasarca of lower extremities. Patient denies prior cardiac history. An echo done this admission reports a moderate pulmonary hypertension, a moderate pleural effusion with a normal LV systolic function. Past History Past Medical History: other (crohns disease, right breast cancer-post mastectomy some 20 years ago) Past Surgical History: mastectomy Social history: full code. denies: smoking, alcohol abuse, prescription drug abuse, IV drug use Family history: hypertension Medications and Allergies Allergies Allergy/AdvReac Type Severity Reaction Status Date / Time No Known Allergies Allergy Verified 10/05/16 13:35 Active Meds: Active Medications Dextrose (D50w (25gm)) 50 ml IV PRN PRN PRN Reason: Hypoglycemia Last Admin: 10/13/16 08:15 Dose: 50 ml Hydrocortisone Sodium Succinate (Solu-Cortef) 100 mg IV Q8HR [facility] Insulin Aspart (Novolog) 0 units SUB-Q ACHS JUDE PRN Reason: Protocol Last Admin: 10/18/16 12:45 Dose: Not Given Metoclopramide HCl (Reglan) 5 mg IV Q6H PRN PRN Reason: Nausea And Vomiting Metronidazole (Flagyl) 500 mg PO Q8HR [facility] Last Admin: 10/18/16 14:50 Dose: 500 mg Midodrine (Proamatine) 10 mg PO Q8HR [facility] Last Admin: 10/18/16 14:53 Dose: 10 mg Ondansetron HCl (Zofran) 4 mg IV Q4H PRN PRN Reason: Nausea And Vomiting Last Admin: 10/06/16 14:21 Dose: 4 mg Pantoprazole Sodium (Protonix) 40 mg PO BID [facility] Last Admin: 10/18/16 09:10 Dose: 40 mg Zolpidem Tartrate (Ambien) 5 mg PO QHS PRN PRN Reason: Sleep Last Admin: 10/17/16 23:53 Dose: 5 mg Physical Examination Vital Signs Pulse Ox 67 L 10/05/16 13:13 General appearance: no acute distress HEENT: Positive: PERRL Neck: Positive: trachea midline Cardiac: Positive: Tachycardia Lungs: Positive: Decreased Breath Sounds Extremities: Present: +4 Edema Results 10/14/16 11:48 10/18/16 06:59 Comprehensive Metabolic Panel 10/18/16 Range/Units 06:59 Sodium 145 (137-145) mmol/L Potassium 3.2 L (3.6-5.0) mmol/L Chloride 115.6 H (98-107) mmol/L Carbon Dioxide 19 L (22-30) mmol/L BUN 14 (7-17) mg/dL Creatinine 0.7 (0.7-1.2) mg/dL Glucose 119 H (65-100) mg/dL Calcium 7.2 L (8.4-10.2) mg/dL EKG interpretations - EKG Sinus rhythms and dysrhythmias: sinus tachycardia Assessment and Plan Hypotension on midodrine 10mg every 8hrs Anasarca normal LV systolic function, EF 50-55% on echo Pleural Effusion Severe anemia requiring blood transfusion this admission Leukocytosis Hypokalemia Hx of Crohns
[2016-10-19] MEDS: PROAMATINE PO SCH ×3 (05:54→21:33)
[2016-10-19] MEDS: FLAGYL PO SCH ×3 (05:54→21:32)
[2016-10-19 08:10] LABS: Anion Gap 15 mmol/L; BUN/Creatinine Ratio 21.42; Blood Urea Nitrogen 15 mg/dL (7-17); Calcium 7.5 mg/dL (8.4-10.2); Carbon Dioxide 19 mmol/L (22-30); Glucose 96 mg/dL (65-100); Sodium 147 mmol/L (137-145)
[2016-10-19] MEDS: NOVOLOG SUB-Q SCH ×3 (08:11→17:25)
--- NOTE | 2016-10-19 08:38 | Progress Note ---
Assessment and Plan Hypotension on midodrine 10mg every 8hrs Anasarca normal LV systolic function, EF 50-55% on echo Pleural Effusion Severe anemia requiring blood transfusion this admission Leukocytosis Hypokalemia Hx of Crohns Subjective Date of service: 10/19/16 Principal diagnosis: diarrhea, chron's colitis, hypoglycemia, ARF, AMS Interval history: Patient resting in bed comfortably. She denies shortness of breath and chest pain. Objective Vital Signs Temp Pulse Resp Resp BP Pulse Ox 10/19/16 05:52 104 H 106/60 10/19/16 00:00 97.4 F L 110 H 22 90/54 100 10/18/16 20:51 97 10/18/16 14:50 127 H 20 107/69 10/18/16 10:00 20 - Physical Examination General: No Apparent Distress HEENT: Positive: PERRL Neck: Positive: trachea midline Cardiac: Positive: Tachycardia Lungs: Positive: Decreased Breath Sounds Extremities: Present: +4 Edema - Labs and Meds Comprehensive Metabolic Panel 10/19/16 Range/Units 07:20 Sodium 147 H (137-145) mmol/L Potassium 4.0 D (3.6-5.0) mmol/L Chloride 117.0 H (98-107) mmol/L Carbon Dioxide 19 L (22-30) mmol/L BUN 15 (7-17) mg/dL Creatinine 0.7 (0.7-1.2) mg/dL Glucose 96 (65-100) mg/dL Calcium 7.5 L (8.4-10.2) mg/dL - Imaging and Cardiology EKG: report reviewed - EKG Sinus rhythms and dysrhythmias: sinus tachycardia
[2016-10-19] MEDS ORDERED: LASIX IV ONE (09:00)
[2016-10-19] MEDS: PROTONIX PO SCH ×2 (10:06→21:33)
--- NOTE | 2016-10-19 13:42 | Progress Note ---
Assessment and Plan Assessment and plan: 1. Persistent hypotension - BP appears to be improving with addition of steroids ; TSH normal; cont midodrine 2. Anasarca due to hypoalbuminemia from protein losing enteropathy from crohns - lasix with albumin; monitor; consult dietitian 3. Chronic diastolic heart failure - appears compensated- - consult from cardiology appreciated; 2. Anemia due to chronic disorder-stable 3. Crohn's Colitis-stable; will d/c IV Flagyl. 4. Severe protein calorie malnutrition-nutritional supplementation; consult dietitian 5. Hypokalemia- corrected 6. DVT prophylaxis-SCDs. Unable to give heparin or Lovenox due to coagulopathy ; repeat coags History Interval history: f/u hypotension, anemia; crohns Patient seen at the bedside; no complaints today Hospitalist Physical - Constitutional Vitals: Temp Pulse Resp BP Pulse Ox 97.4 F L 104 H 22 106/60 98 10/19/16 00:00 10/19/16 05:52 10/19/16 00:00 10/19/16 05:52 10/19/16 12:45 General appearance: Present: no acute distress - EENT Eyes: Present: PERRL, EOM intact. Absent: scleral icterus, conjunctival injection ENT: hearing intact, dentition normal, no oropharyngeal erythema, no poor dentition - Neck Neck: Present: supple, normal ROM. Absent: enlarged thyroid, masses or JVD - Respiratory Respiratory effort: normal Respiratory: negative: diminished, rales, rhonchi, wheezing - Cardiovascular Rhythm: regular Heart Sounds: Present: S1 & S2. Absent: gallop - Extremities Extremities: no ischemia, pulses intact, pulses symmetrical Extremity abnormal: edema (anasarca) Peripheral Pulses: within normal limits - Abdominal General gastrointestinal: soft, non-tender, non-distended - Integumentary Integumentary: Present: clear - Psychiatric Psychiatric: appropriate mood/affect - Neurologic Neurologic: CNII-XII intact, moves all extremities Results - Labs CBC & Chem 7: 10/14/16 11:48 10/19/16 07:20 Labs: Laboratory Last Values WBC 14.0 K/mm3 (4.5-11.0) H 10/14/16 11:48 RBC 3.06 M/mm3 (3.65-5.03) L 10/14/16 11:48 Hgb 9.4 gm/dl (10.1-14.3) L 10/14/16 11:48 Hct 29.3 % (30.3-42.9) L 10/14/16 11:48 MCV 96 fl (79-97) 10/14/16 11:48 MCH 31 pg (28-32) 10/14/16 11:48 MCHC 32 % (30-34) 10/14/16 11:48 RDW 17.8 % (13.2-15.2) H 10/14/16 11:48 Plt Count 137 K/mm3 (140-440) L 10/14/16 11:48 Lymph % (Auto) 3.5 % (13.4-35.0) L 10/14/16 11:48 [place] % (Auto) 8.3 % (0.0-7.3) H 10/14/16 11:48 Eos % (Auto) 0.6 % (0.0-4.3) 10/14/16 11:48 Baso % (Auto) 0.1 % (0.0-1.8) 10/14/16 11:48 Lymph # 0.5 K/mm3 (1.2-5.4) L 10/14/16 11:48 [place] # 1.2 K/mm3 (0.0-0.8) H 10/14/16 11:48 Eos # 0.1 K/mm3 (0.0-0.4) 10/14/16 11:48 Baso # 0.0 K/mm3 (0.0-0.1) 10/14/16 11:48 Add Manual Diff Complete 10/12/16 05:30 Total Counted 100 10/12/16 05:30 Seg Neutrophils % 87.5 % (40.0-70.0) H 10/14/16 11:48 Seg Neuts % (Manual) 89.0 % (40.0-70.0) H 10/12/16 05:30 Band Neutrophils % 1.0 % 10/12/16 05:30 Lymphocytes % (Manual) 1.0 % (13.4-35.0) L 10/12/16 05:30 Reactive Lymphs % (Man) 0 % 10/12/16 05:30 Monocytes % (Manual) 7.0 % (0.0-7.3) 10/12/16 05:30 Eosinophils % (Manual) 1.0 % (0.0-4.3) 10/12/16 05:30 Basophils % (Manual) 0 % (0.0-1.8) 10/12/16 05:30 Metamyelocytes % 1.0 % 10/12/16 05:30 Myelocytes % 0 % 10/12/16 05:30 Promyelocytes % 0 % 10/12/16 05:30 Blast Cells % 0 % 10/12/16 05:30 Nucleated RBC % Not Reportable 10/12/16 05:30 Seg Neutrophils # 12.2 K/mm3 (1.8-7.7) H 10/14/16 11:48 Seg Neutrophils # Man 17.1 K/mm3 (1.8-7.7) H 10/12/16 05:30 Band Neutrophils # 0.2 K/mm3 10/12/16 05:30 Lymphocytes # (Manual) 0.2 K/mm3 (1.2-5.4) L 10/12/16 05:30 Abs React Lymphs (Man) 0.0 K/mm3 10/12/16 05:30 Monocytes # (Manual) 1.3 K/mm3 (0.0-0.8) H 10/12/16 05:30 Eosinophils # (Manual) 0.2 K/mm3 (0.0-0.4) 10/12/16 05:30 Basophils # (Manual) 0.0 K/mm3 (0.0-0.1) 10/12/16 05:30 Metamyelocytes # 0.2 K/mm3 10/12/16 05:30 Myelocytes # 0.0 K/mm3 10/12/16 05:30 Promyelocytes # 0.0 K/mm3 10/12/16 05:30 Blast Cells # 0.0 K/mm3 10/12/16 05:30 WBC Morphology Not Reportable 10/12/16 05:30 Hypersegmented Neuts Not Reportable 10/12/16 05:30 Hyposegmented Neuts Not Reportable 10/12/16 05:30 Hypogranular Neuts Not Reportable 10/12/16 05:30 Smudge Cells Not Reportable 10/12/16 05:30 Toxic Granulation Not Reportable 10/12/16 05:30 Toxic Vacuolation Not Reportable 10/12/16 05:30 Dohle Bodies Not Reportable 10/12/16 05:30 Pelger-Huet Anomaly Not Reportable 10/12/16 05:30 Ivory Rods Not Reportable 10/12/16 05:30 Platelet Estimate Consistent w auto 10/12/16 05:30 Clumped Platelets Not Reportable 10/12/16 05:30 Plt Clumps, EDTA Not Reportable 10/12/16 05:30 Large Platelets Not Reportable 10/12/16 05:30 Giant Platelets Not Reportable 10/12/16 05:30 Platelet Satelliting Not Reportable 10/12/16 05:30 Plt Morphology Comment Not Reportable 10/12/16 05:30 RBC Morphology Not Reportable 10/12/16 05:30 Dimorphic RBCs Not Reportable 10/12/16 05:30 Polychromasia Not Reportable 10/12/16 05:30 Hypochromasia Not Reportable 10/12/16 05:30 Poikilocytosis Not Reportable 10/12/16 05:30 Anisocytosis 1+ 10/12/16 05:30 Microcytosis Not Reportable 10/12/16 05:30 Macrocytosis Rare 10/12/16 05:30 Spherocytes Not Reportable 10/12/16 05:30 Pappenheimer Bodies Not Reportable 10/12/16 05:30 Sickle Cells Not Reportable 10/12/16 05:30 Target Cells Not Reportable 10/12/16 05:30 Tear Drop Cells Not Reportable 10/12/16 05:30 Ovalocytes Not Reportable 10/12/16 05:30 Helmet Cells Not Reportable 10/12/16 05:30 Nguyen-[place] Bodies Not Reportable 10/12/16 05:30 [place] Rings Not Reportable 10/12/16 05:30 [place] Cells Not Reportable 10/12/16 05:30 Bite Cells Not Reportable 10/12/16 05:30 Crenated Cell Not Reportable 10/12/16 05:30 Elliptocytes Not Reportable 10/12/16 05:30 Acanthocytes (Spur) Not Reportable 10/12/16 05:30 Rouleaux Not Reportable 10/12/16 05:30 Hemoglobin C Crystals Not Reportable 10/12/16 05:30 Schistocytes Not Reportable 10/12/16 05:30 Malaria parasites Not Reportable 10/12/16 05:30 Mayito Bodies Not Reportable 10/12/16 05:30 Hem Pathologist Commnt No 10/12/16 05:30 PT 17.0 Sec. (12.2-14.9) H 10/14/16 11:48 INR 1.39 (0.87-1.13) H 10/14/16 11:48 POC ABG pH 7.216 (7.35-7.45) L 10/05/16 16:03 POC ABG pCO2 28.2 (35-45) L 10/05/16 16:03 POC ABG pO2 60 (80-105) L 10/05/16 16:03 POC ABG HCO3 11.4 10/05/16 16:03 POC ABG Total CO2 12 10/05/16 16:03 POC ABG O2 Sat 86 10/05/16 16:03 POC ABG Base Excess -16 10/05/16 16:03 VBG pH 7.136 (7.320-7.420) L* 10/05/16 14:40 FiO2 32 % 10/05/16 16:03 Sodium 147 mmol/L (137-145) H 10/19/16 07:20 Potassium 4.0 mmol/L (3.6-5.0) D 10/19/16 07:20 Chloride 117.0 mmol/L (98-107) H 10/19/16 07:20 Carbon Dioxide 19 mmol/L (22-30) L 10/19/16 07:20 Anion Gap 15 mmol/L 10/19/16 07:20 BUN 15 mg/dL (7-17) 10/19/16 07:20 Creatinine 0.7 mg/dL (0.7-1.2) 10/19/16 07:20 Estimated GFR > 60 ml/min 10/19/16 07:20 BUN/Creatinine Ratio 21.42 % 10/19/16 07:20 Glucose 96 mg/dL (65-100) 10/19/16 07:20 POC Glucose 105 (70-105) 10/19/16 06:58 C-Peptide 5.67 ng/mL (0.80-3.85) H 10/06/16 18:25 Lactic Acid 2.1 mmol/L (0.7-2.0) H* 01/22/17 Unknown Calcium 7.5 mg/dL (8.4-10.2) L 10/19/16 07:20 Phosphorus 2.6 mg/dL (2.5-4.5) 10/09/16 05:43 Magnesium 1.5 mg/dL (1.7-2.3) L 10/14/16 11:48 Iron 51 ug/dL (37-170) 10/05/16 21:30 Total Bilirubin 0.4 mg/dL (0.1-1.2) 10/12/16 05:30 Direct Bilirubin < 0.2 mg/dL (0-0.2) 10/12/16 05:30 Indirect Bilirubin 0.2 mg/dL 10/12/16 05:30 AST 22 units/L (5-40) 10/12/16 05:30 ALT 65 units/L (7-56) H 10/12/16 05:30 Alkaline Phosphatase 100 units/L (35-129) 10/12/16 05:30 Total Creatine Kinase 2317 units/L (30-135) H 10/05/16 21:30 NT-Pro-B Natriuret Pep 67090 pg/mL (0-900) H 10/10/16 10:00 Total Protein 4.1 g/dL (6.3-8.2) L 10/12/16 05:30 Albumin 1.4 g/dL (3.9-5) L 10/12/16 05:30 Albumin/Globulin Ratio 0.5 % 10/12/16 05:30 Vitamin B12 1592 pg/mL (211-911) H 10/05/16 21:30 Folate 16.37 ng/mL (7.3-26.0) 10/05/16 21:30 TSH 1.640 mlU/mL (0.270-4.200) 10/18/16 16:20 Total Cortisol >150.0 mcg/dL () H 10/06/16 18:25 Urine Color Cathy (Yellow) 10/05/16 13:52 Urine Turbidity Clear (Clear) 10/05/16 13:52 Urine pH 5.0 (5.0-7.0) 10/05/16 13:52 Ur Specific [place] 1.015 (1.003-1.030) 10/05/16 13:52 Urine Protein 30 mg/dl mg/dL (Negative) 10/05/16 13:52 Urine Glucose (UA) Neg mg/dL (Negative) 10/05/16 13:52 Urine Ketones Neg mg/dL (Negative) 10/05/16 13:52 Urine Blood Lg (Negative) 10/05/16 13:52 Urine Nitrite Neg (Negative) 10/05/16 13:52 Urine Bilirubin Neg (Negative) 10/05/16 13:52 Urine Urobilinogen < 2.0 mg/dL (<2.0) 10/05/16 13:52 Ur Leukocyte Esterase Neg (Negative) 10/05/16 13:52 Urine WBC (Auto) 1.0 /HPF (0.0-6.0) 10/05/16 13:52 Urine RBC (Auto) < 1.0 /HPF (0.0-6.0) 10/05/16 13:52 U Epithel Cells (Auto) 1.0 /HPF (0-13.0) 10/05/16 13:52 Urine Mucus Few /HPF 10/05/16 13:52 Urine Creatinine 126.1 mg/dL (0.1-20.0) H 10/14/16 13:41 Protein/Creatinin Ratio 0.71 10/14/16 13:41 Urine Total Protein 89 mg/dL (5-11.8) H 10/14/16 13:41 Ketones 2.9 mg/dL (0.2-2.8) H 10/05/16 21:30 Blood Type B POSITIVE 10/05/16 21:05 Antibody Screen Negative 10/05/16 21:05 Crossmatch See Detail 10/05/16 21:05
[2016-10-19] MEDS: ALBURX 25% (ALBUMIN) IV SCH ×2 (16:10→23:15)
[2016-10-20] MEDS: AMBIEN PO PRN ×2 (00:38→23:19)
[2016-10-20] MEDS: FLAGYL PO SCH ×3 (05:55→22:17)
[2016-10-20] MEDS: PROAMATINE PO SCH ×3 (05:55→22:18)
[2016-10-20 06:49] LABS: INR 1.39 (0.87-1.13); Partial Thromboplastin Time 29.2 Sec. (24.2-36.6)
[2016-10-20] MEDS: NOVOLOG SUB-Q SCH ×6 (07:25→22:18)
[2016-10-20 07:27] LABS: BUN/Creatinine Ratio 23.75; Blood Urea Nitrogen 19 mg/dL (7-17); Carbon Dioxide 21 mmol/L (22-30); Chloride 115.8 mmol/L (98-107); Glucose 103 mg/dL (65-100); Potassium 4.2 mmol/L (3.6-5.0); Sodium 147 mmol/L (137-145)
[2016-10-20 07:28] LABS: Anion Gap 14 mmol/L
[2016-10-20] MEDS ORDERED: LASIX IV ONE ×3 (08:00→11:30)
--- NOTE | 2016-10-20 11:29 | Progress Note ---
Assessment and Plan 61 y/o female with hypotension of unknown etiology and hypoglycemia, now with elevated AST/ALT, increasing white count and diarrhea, nonbloody. 1. Pulm status appears stable. Continue to Wean FiO2 for sats >88% 2. Will sign off for now. Call if questions. Subjective Date of service: 10/20/16 Principal diagnosis: diarrhea, chron's colitis, hypoglycemia, ARF, AMS Interval history: No acute events. Currently working with nursing. Objective - Constitutional Vitals: Vital Signs - 12hr 10/20/16 10/20/16 00:23 08:00 Temperature 97.9 F 97.5 F L Pulse Rate [ 111 H From Monitor] Pulse Rate [ 79 Left Radial] Respiratory 18 22 Rate Blood Pressure 132/72 90/71 [Left Arm] O2 Sat by Pulse 94 100 Oximetry - Labs CBC & Chem 7: 10/14/16 11:48 10/20/16 06:31 Labs: Abnormal lab results 10/19/16 10/19/16 10/19/16 Range/Units 13:02 16:02 21:26 PT (12.2-14.9) Sec. INR (0.87-1.13) Sodium (137-145) mmol/L Chloride (98-107) mmol/L Carbon Dioxide (22-30) mmol/L BUN (7-17) mg/dL Glucose (65-100) mg/dL POC Glucose 150 H 185 H 115 H (70-105) Calcium (8.4-10.2) mg/dL 10/20/16 10/20/16 10/20/16 Range/Units 06:30 06:31 06:31 PT 17.0 H (12.2-14.9) Sec. INR 1.39 H (0.87-1.13) Sodium 147 H (137-145) mmol/L Chloride 115.8 H (98-107) mmol/L Carbon Dioxide 21 L (22-30) mmol/L BUN 19 H (7-17) mg/dL Glucose 103 H (65-100) mg/dL POC Glucose 186 H (70-105) Calcium 8.0 L (8.4-10.2) mg/dL
[2016-10-20] MEDS: ALBURX 25% (ALBUMIN) IV SCH ×2 (11:32→22:57)
[2016-10-20] MEDS: PROTONIX PO SCH ×2 (11:33→22:17)
--- NOTE | 2016-10-20 12:30 | Progress Note ---
Assessment and Plan Assessment and plan: 1. Persistent hypotension - BP appears fluctuate; cont steroids; TSH normal; cont midodrine 2. Anasarca due to hypoalbuminemia from protein losing enteropathy from crohns- cont lasix with albumin; monitor; consult dietitian 3. Chronic diastolic heart failure - appears compensated- - consult from cardiology appreciated; 2. Anemia due to chronic disorder-stable 3. Crohn's Colitis-with diarhea; stool for c dif; 4. Severe protein calorie malnutrition-nutritional supplementation; consult dietitian 5. Hypernatremia- increase oral fluids 9. DVT prophylaxis-SCDs. Unable to give heparin or Lovenox due to coagulopathy ; repeat coags History Interval history: f/u hypotension, anemia; crohns Patient seen at the bedside; no complaints today; feels better today; having diarrhea Hospitalist Physical - Constitutional Vitals: Temp Pulse Resp BP Pulse Ox 97.5 F L 111 H 22 90/71 100 10/20/16 08:00 10/20/16 08:00 10/20/16 08:00 10/20/16 08:00 10/20/16 08:00 General appearance: Present: no acute distress - EENT Eyes: Present: PERRL, EOM intact. Absent: scleral icterus, conjunctival injection ENT: hearing intact, clear oral mucosa, no oropharyngeal erythema, no poor dentition - Neck Neck: Present: supple, normal ROM. Absent: enlarged thyroid, masses or JVD - Respiratory Respiratory effort: normal Respiratory: bilateral: diminished, negative: rales, rhonchi, wheezing - Cardiovascular Rhythm: regular Heart Sounds: Present: S1 & S2. Absent: gallop - Extremities Extremities: no ischemia, pulses intact, pulses symmetrical, No edema Peripheral Pulses: within normal limits - Abdominal General gastrointestinal: soft, non-tender, non-distended, normal bowel sounds - Integumentary Integumentary: Present: warm - Psychiatric Psychiatric: appropriate mood/affect, intact judgment & insight, cooperative - Neurologic Neurologic: CNII-XII intact Results - Labs CBC & Chem 7: 10/14/16 11:48 10/20/16 06:31 Labs: Laboratory Last Values WBC 14.0 K/mm3 (4.5-11.0) H 10/14/16 11:48 RBC 3.06 M/mm3 (3.65-5.03) L 10/14/16 11:48 Hgb 9.4 gm/dl (10.1-14.3) L 10/14/16 11:48 Hct 29.3 % (30.3-42.9) L 10/14/16 11:48 MCV 96 fl (79-97) 10/14/16 11:48 MCH 31 pg (28-32) 10/14/16 11:48 MCHC 32 % (30-34) 10/14/16 11:48 RDW 17.8 % (13.2-15.2) H 10/14/16 11:48 Plt Count 137 K/mm3 (140-440) L 10/14/16 11:48 Lymph % (Auto) 3.5 % (13.4-35.0) L 10/14/16 11:48 [place] % (Auto) 8.3 % (0.0-7.3) H 10/14/16 11:48 Eos % (Auto) 0.6 % (0.0-4.3) 10/14/16 11:48 Baso % (Auto) 0.1 % (0.0-1.8) 10/14/16 11:48 Lymph # 0.5 K/mm3 (1.2-5.4) L 10/14/16 11:48 [place] # 1.2 K/mm3 (0.0-0.8) H 10/14/16 11:48 Eos # 0.1 K/mm3 (0.0-0.4) 10/14/16 11:48 Baso # 0.0 K/mm3 (0.0-0.1) 10/14/16 11:48 Add Manual Diff Complete 10/12/16 05:30 Total Counted 100 10/12/16 05:30 Seg Neutrophils % 87.5 % (40.0-70.0) H 10/14/16 11:48 Seg Neuts % (Manual) 89.0 % (40.0-70.0) H 10/12/16 05:30 Band Neutrophils % 1.0 % 10/12/16 05:30 Lymphocytes % (Manual) 1.0 % (13.4-35.0) L 10/12/16 05:30 Reactive Lymphs % (Man) 0 % 10/12/16 05:30 Monocytes % (Manual) 7.0 % (0.0-7.3) 10/12/16 05:30 Eosinophils % (Manual) 1.0 % (0.0-4.3) 10/12/16 05:30 Basophils % (Manual) 0 % (0.0-1.8) 10/12/16 05:30 Metamyelocytes % 1.0 % 10/12/16 05:30 Myelocytes % 0 % 10/12/16 05:30 Promyelocytes % 0 % 10/12/16 05:30 Blast Cells % 0 % 10/12/16 05:30 Nucleated RBC % Not Reportable 10/12/16 05:30 Seg Neutrophils # 12.2 K/mm3 (1.8-7.7) H 10/14/16 11:48 Seg Neutrophils # Man 17.1 K/mm3 (1.8-7.7) H 10/12/16 05:30 Band Neutrophils # 0.2 K/mm3 10/12/16 05:30 Lymphocytes # (Manual) 0.2 K/mm3 (1.2-5.4) L 10/12/16 05:30 Abs React Lymphs (Man) 0.0 K/mm3 10/12/16 05:30 Monocytes # (Manual) 1.3 K/mm3 (0.0-0.8) H 10/12/16 05:30 Eosinophils # (Manual) 0.2 K/mm3 (0.0-0.4) 10/12/16 05:30 Basophils # (Manual) 0.0 K/mm3 (0.0-0.1) 10/12/16 05:30 Metamyelocytes # 0.2 K/mm3 10/12/16 05:30 Myelocytes # 0.0 K/mm3 10/12/16 05:30 Promyelocytes # 0.0 K/mm3 10/12/16 05:30 Blast Cells # 0.0 K/mm3 10/12/16 05:30 WBC Morphology Not Reportable 10/12/16 05:30 Hypersegmented Neuts Not Reportable 10/12/16 05:30 Hyposegmented Neuts Not Reportable 10/12/16 05:30 Hypogranular Neuts Not Reportable 10/12/16 05:30 Smudge Cells Not Reportable 10/12/16 05:30 Toxic Granulation Not Reportable 10/12/16 05:30 Toxic Vacuolation Not Reportable 10/12/16 05:30 Dohle Bodies Not Reportable 10/12/16 05:30 Pelger-Huet Anomaly Not Reportable 10/12/16 05:30 Ivory Rods Not Reportable 10/12/16 05:30 Platelet Estimate Consistent w auto 10/12/16 05:30 Clumped Platelets Not Reportable 10/12/16 05:30 Plt Clumps, EDTA Not Reportable 10/12/16 05:30 Large Platelets Not Reportable 10/12/16 05:30 Giant Platelets Not Reportable 10/12/16 05:30 Platelet Satelliting Not Reportable 10/12/16 05:30 Plt Morphology Comment Not Reportable 10/12/16 05:30 RBC Morphology Not Reportable 10/12/16 05:30 Dimorphic RBCs Not Reportable 10/12/16 05:30 Polychromasia Not Reportable 10/12/16 05:30 Hypochromasia Not Reportable 10/12/16 05:30 Poikilocytosis Not Reportable 10/12/16 05:30 Anisocytosis 1+ 10/12/16 05:30 Microcytosis Not Reportable 10/12/16 05:30 Macrocytosis Rare 10/12/16 05:30 Spherocytes Not Reportable 10/12/16 05:30 Pappenheimer Bodies Not Reportable 10/12/16 05:30 Sickle Cells Not Reportable 10/12/16 05:30 Target Cells Not Reportable 10/12/16 05:30 Tear Drop Cells Not Reportable 10/12/16 05:30 Ovalocytes Not Reportable 10/12/16 05:30 Helmet Cells Not Reportable 10/12/16 05:30 Nguyen-[place] Bodies Not Reportable 10/12/16 05:30 [place] Rings Not Reportable 10/12/16 05:30 [place] Cells Not Reportable 10/12/16 05:30 Bite Cells Not Reportable 10/12/16 05:30 Crenated Cell Not Reportable 10/12/16 05:30 Elliptocytes Not Reportable 10/12/16 05:30 Acanthocytes (Spur) Not Reportable 10/12/16 05:30 Rouleaux Not Reportable 10/12/16 05:30 Hemoglobin C Crystals Not Reportable 10/12/16 05:30 Schistocytes Not Reportable 10/12/16 05:30 Malaria parasites Not Reportable 10/12/16 05:30 Mayito Bodies Not Reportable 10/12/16 05:30 Hem Pathologist Commnt No 10/12/16 05:30 PT 17.0 Sec. (12.2-14.9) H 10/20/16 06:31 INR 1.39 (0.87-1.13) H 10/20/16 06:31 APTT 29.2 Sec. (24.2-36.6) 10/20/16 06:31 POC ABG pH 7.216 (7.35-7.45) L 10/05/16 16:03 POC ABG pCO2 28.2 (35-45) L 10/05/16 16:03 POC ABG pO2 60 (80-105) L 10/05/16 16:03 POC ABG HCO3 11.4 10/05/16 16:03 POC ABG Total CO2 12 10/05/16 16:03 POC ABG O2 Sat 86 10/05/16 16:03 POC ABG Base Excess -16 10/05/16 16:03 VBG pH 7.136 (7.320-7.420) L* 10/05/16 14:40 FiO2 32 % 10/05/16 16:03 Sodium 147 mmol/L (137-145) H 10/20/16 06:31 Potassium 4.2 mmol/L (3.6-5.0) 10/20/16 06:31 Chloride 115.8 mmol/L (98-107) H 10/20/16 06:31 Carbon Dioxide 21 mmol/L (22-30) L 10/20/16 06:31 Anion Gap 14 mmol/L 10/20/16 06:31 BUN 19 mg/dL (7-17) H 10/20/16 06:31 Creatinine 0.8 mg/dL (0.7-1.2) 10/20/16 06:31 Estimated GFR > 60 ml/min 10/20/16 06:31 BUN/Creatinine Ratio 23.75 % 10/20/16 06:31 Glucose 103 mg/dL (65-100) H 10/20/16 06:31 POC Glucose 186 (70-105) H 10/20/16 06:30 C-Peptide 5.67 ng/mL (0.80-3.85) H 10/06/16 18:25 Lactic Acid 2.1 mmol/L (0.7-2.0) H* 10/07/16 Unknown Calcium 8.0 mg/dL (8.4-10.2) L 10/20/16 06:31 Phosphorus 2.6 mg/dL (2.5-4.5) 10/09/16 05:43 Magnesium 1.5 mg/dL (1.7-2.3) L 10/14/16 11:48 Iron 51 ug/dL (37-170) 10/05/16 21:30 Total Bilirubin 0.4 mg/dL (0.1-1.2) 10/12/16 05:30 Direct Bilirubin < 0.2 mg/dL (0-0.2) 10/12/16 05:30 Indirect Bilirubin 0.2 mg/dL 10/12/16 05:30 AST 22 units/L (5-40) 10/12/16 05:30 ALT 65 units/L (7-56) H 10/12/16 05:30 Alkaline Phosphatase 100 units/L (35-129) 10/12/16 05:30 Total Creatine Kinase 2317 units/L (30-135) H 10/05/16 21:30 NT-Pro-B Natriuret Pep 90244 pg/mL (0-900) H 10/10/16 10:00 Total Protein 4.1 g/dL (6.3-8.2) L 10/12/16 05:30 Albumin 1.4 g/dL (3.9-5) L 10/12/16 05:30 Albumin/Globulin Ratio 0.5 % 10/12/16 05:30 Vitamin B12 1592 pg/mL (211-911) H 10/05/16 21:30 Folate 16.37 ng/mL (7.3-26.0) 10/05/16 21:30 TSH 1.640 mlU/mL (0.270-4.200) 10/18/16 16:20 Total Cortisol >150.0 mcg/dL () H 10/06/16 18:25 Urine Color Cathy (Yellow) 10/05/16 13:52 Urine Turbidity Clear (Clear) 10/05/16 13:52 Urine pH 5.0 (5.0-7.0) 10/05/16 13:52 Ur Specific [place] 1.015 (1.003-1.030) 10/05/16 13:52 Urine Protein 30 mg/dl mg/dL (Negative) 10/05/16 13:52 Urine Glucose (UA) Neg mg/dL (Negative) 10/05/16 13:52 Urine Ketones Neg mg/dL (Negative) 10/05/16 13:52 Urine Blood Lg (Negative) 10/05/16 13:52 Urine Nitrite Neg (Negative) 10/05/16 13:52 Urine Bilirubin Neg (Negative) 10/05/16 13:52 Urine Urobilinogen < 2.0 mg/dL (<2.0) 10/05/16 13:52 Ur Leukocyte Esterase Neg (Negative) 10/05/16 13:52 Urine WBC (Auto) 1.0 /HPF (0.0-6.0) 10/05/16 13:52 Urine RBC (Auto) < 1.0 /HPF (0.0-6.0) 10/05/16 13:52 U Epithel Cells (Auto) 1.0 /HPF (0-13.0) 10/05/16 13:52 Urine Mucus Few /HPF 10/05/16 13:52 Urine Creatinine 126.1 mg/dL (0.1-20.0) H 10/14/16 13:41 Protein/Creatinin Ratio 0.71 10/14/16 13:41 Urine Total Protein 89 mg/dL (5-11.8) H 10/14/16 13:41 Ketones 2.9 mg/dL (0.2-2.8) H 10/05/16 21:30 Blood Type B POSITIVE 10/05/16 21:05 Antibody Screen Negative 10/05/16 21:05 Crossmatch See Detail 10/05/16 21:05
--- NOTE | 2016-10-20 12:42 | Progress Note ---
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 Will reorder. Subjective Date of service: 10/20/16 Principal diagnosis: diarrhea, chron's colitis, hypoglycemia, ARF, AMS Interval history: No acute events. Resting comfortably. No chest pain or SOB. Objective Vital Signs Temp Pulse Pulse Resp BP Pulse Ox 10/20/16 08:00 97.5 F L 111 H 22 90/71 100 10/20/16 00:23 97.9 F 79 18 132/72 94 10/19/16 21:00 99 10/19/16 16:00 98.2 F 104 H 20 90/61 100 10/19/16 12:45 98 - Physical Examination General: No Apparent Distress HEENT: Positive: PERRL Neck: Positive: trachea midline Extremities: Present: +4 Edema - Labs and Meds Coagulation 10/20/16 Range/Units 06:31 PT 17.0 H (12.2-14.9) Sec. INR 1.39 H (0.87-1.13) APTT 29.2 (24.2-36.6) Sec. Comprehensive Metabolic Panel 10/20/16 Range/Units 06:31 Sodium 147 H (137-145) mmol/L Potassium 4.2 (3.6-5.0) mmol/L Chloride 115.8 H (98-107) mmol/L Carbon Dioxide 21 L (22-30) mmol/L BUN 19 H (7-17) mg/dL Creatinine 0.8 (0.7-1.2) mg/dL Glucose 103 H (65-100) mg/dL Calcium 8.0 L (8.4-10.2) mg/dL - Imaging and Cardiology EKG: report reviewed - EKG Sinus rhythms and dysrhythmias: sinus tachycardia
[2016-10-20 15:26] LABS: Hemoglobin 8.2 gm/dl (10.1-14.3); Mean Corpuscular HGB Conc 32 % (30-34); Mean Corpuscular Hemoglobin 30 pg (28-32); Mean Corpuscular Volume 95 fl (79-97); Platelet Count 145 K/mm3 (140-440); Red Blood Count 2.74 M/mm3 (3.65-5.03); Red Cell Distribution Width 17.3 % (13.2-15.2); White Blood Count 18.1 K/mm3 (4.5-11.0)
[2016-10-20 18:58] LABS: Basophils % (Manual) 0 % (0.0-1.8); Blastocytes % (Manual) 0 %; Eosinophils % (Manual) 0 % (0.0-4.3)
[2016-10-20 18:59] LABS: Anisocytosis 1+; Hypochromasia 1+
[2016-10-20 19:00] LABS: Diff Status Complete; Ovalocytes Few; Platelet Estimate Consistent w Auto; Poikilocytosis Few
--- NOTE | 2016-10-21 00:09 | Progress Note ---
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 Continue as tolerated EKG and telemetry reviewed. Rhythm shown to be sinus tachycardia with PACs. Subjective Date of service: 10/21/16 Principal diagnosis: diarrhea, chron's colitis, hypoglycemia, ARF, AMS Interval history: No acute events. Resting comfortably. No chest pain or SOB. Objective Vital Signs Temp Pulse Pulse Resp BP Pulse Ox 10/20/16 23:40 98.3 F 111 H 20 103/72 100 10/20/16 20:54 18 10/20/16 20:14 100 10/20/16 16:00 98 F 112 H 20 100 10/20/16 10:00 99 10/20/16 08:00 97.5 F L 111 H 22 90/71 100 10/20/16 00:23 97.9 F 79 18 132/72 94 - Physical Examination General: No Apparent Distress HEENT: Positive: PERRL Neck: Positive: trachea midline Extremities: Present: +4 Edema - Labs and Meds Coagulation 10/20/16 Range/Units 06:31 PT 17.0 H (12.2-14.9) Sec. INR 1.39 H (0.87-1.13) APTT 29.2 (24.2-36.6) Sec. CBC 10/20/16 Range/Units 15:22 WBC 18.1 H (4.5-11.0) K/mm3 RBC 2.74 L (3.65-5.03) M/mm3 Hgb 8.2 L (10.1-14.3) gm/dl Hct 26.0 L (30.3-42.9) % Plt Count 145 (140-440) K/mm3 Comprehensive Metabolic Panel 10/20/16 Range/Units 06:31 Sodium 147 H (137-145) mmol/L Potassium 4.2 (3.6-5.0) mmol/L Chloride 115.8 H (98-107) mmol/L Carbon Dioxide 21 L (22-30) mmol/L BUN 19 H (7-17) mg/dL Creatinine 0.8 (0.7-1.2) mg/dL Glucose 103 H (65-100) mg/dL Calcium 8.0 L (8.4-10.2) mg/dL - Imaging and Cardiology EKG: report reviewed - EKG Sinus rhythms and dysrhythmias: sinus tachycardia
[2016-10-21] MEDS: FLAGYL PO SCH ×3 (05:08→22:59)
[2016-10-21] MEDS: PROAMATINE PO SCH ×3 (05:08→23:00)
[2016-10-21 06:19] LABS: Hematocrit 27.1 % (30.3-42.9); Hemoglobin 8.5 gm/dl (10.1-14.3); Mean Corpuscular HGB Conc 31 % (30-34); Mean Corpuscular Hemoglobin 30 pg (28-32); Mean Corpuscular Volume 95 fl (79-97); Platelet Count 141 K/mm3 (140-440); Red Blood Count 2.84 M/mm3 (3.65-5.03); Red Cell Distribution Width 17.5 % (13.2-15.2); White Blood Count 18.5 K/mm3 (4.5-11.0)
[2016-10-21 06:31] LABS: Anion Gap 15 mmol/L; Blood Urea Nitrogen 22 mg/dL (7-17); Calcium 8.2 mg/dL (8.4-10.2); Carbon Dioxide 21 mmol/L (22-30); Chloride 116.2 mmol/L (98-107); Glucose 125 mg/dL (65-100); Potassium 3.8 mmol/L (3.6-5.0); Sodium 148 mmol/L (137-145)
[2016-10-21 07:16] LABS: Anisocytosis 1+; Basophils % (Manual) 0 % (0.0-1.8); Blastocytes % (Manual) 0 %; Eosinophils % (Manual) 0 % (0.0-4.3); Hypochromasia 1+
[2016-10-21 07:17] LABS: Diff Status Complete; Platelet Estimate Consistent w Auto
[2016-10-21] MEDS: NOVOLOG SUB-Q SCH ×4 (07:30→23:19)
[2016-10-21] MEDS ORDERED: ALBURX 25% (ALBUMIN) IV ONE (07:44)
[2016-10-21] MEDS ORDERED: LASIX IV ONE (07:44)
[2016-10-21] MEDS: PROTONIX PO SCH ×2 (09:04→22:59)
--- NOTE | 2016-10-21 10:45 | Progress Note ---
Assessment and Plan Assessment and plan: 1. Persistent hypotension - BP appears fluctuate but improved; discontinue steroids- cortisol normal; TSH normal; cont midodrine 2. Anasarca due to hypoalbuminemia from protein losing enteropathy from crohns- cont lasix with albumin; monitor; consult dietitian 3. Chronic diastolic heart failure - appears compensated- - consult from cardiology appreciated; 2. Anemia due to chronic disorder-stable 3. Crohn's Colitis-with diarhea; stool for c dif negative; re-evaluation from GI 4. Severe protein calorie malnutrition-nutritional supplementation; consult dietitian 5. Hypernatremia- increase oral fluids 9. DVT prophylaxis-SCDs. Unable to give heparin or Lovenox due to coagulopathy ; History Interval history: f/u hypotension, anemia; crohns Patient seen at the bedside; no complaints today; continues to diurese; uirne outout 1101 over the last 24 hrs Hospitalist Physical - Constitutional Vitals: Temp Pulse Resp BP Pulse Ox 98 F 106 H 20 97/70 100 10/21/16 10:19 10/21/16 10:19 10/21/16 10:19 10/21/16 10:19 10/21/16 10:19 General appearance: Present: no acute distress - EENT Eyes: Present: PERRL, EOM intact. Absent: scleral icterus, conjunctival injection ENT: hearing intact, clear oral mucosa, no oropharyngeal erythema, no poor dentition - Neck Neck: Present: supple, normal ROM. Absent: enlarged thyroid, masses or JVD - Respiratory Respiratory effort: normal (on NC oxygen) Respiratory: bilateral: diminished, negative: rales, rhonchi, wheezing - Cardiovascular Rhythm: regular Heart Sounds: Present: S1 & S2. Absent: gallop - Extremities Extremities: no ischemia, pulses intact, pulses symmetrical Extremity abnormal: edema (4 plus - but improving; wrinkling of the skin in legs noted) - Psychiatric Psychiatric: appropriate mood/affect, cooperative - Neurologic Neurologic: CNII-XII intact, moves all extremities Results - Labs CBC & Chem 7: 10/21/16 06:12 10/21/16 06:12 Labs: Laboratory Last Values WBC 18.5 K/mm3 (4.5-11.0) H 10/21/16 06:12 RBC 2.84 M/mm3 (3.65-5.03) L 10/21/16 06:12 Hgb 8.5 gm/dl (10.1-14.3) L 10/21/16 06:12 Hct 27.1 % (30.3-42.9) L 10/21/16 06:12 MCV 95 fl (79-97) 10/21/16 06:12 MCH 30 pg (28-32) 10/21/16 06:12 MCHC 31 % (30-34) 10/21/16 06:12 RDW 17.5 % (13.2-15.2) H 10/21/16 06:12 Plt Count 141 K/mm3 (140-440) 10/21/16 06:12 Lymph % (Auto) 3.5 % (13.4-35.0) L 10/14/16 11:48 Luna % (Auto) 8.3 % (0.0-7.3) H 10/14/16 11:48 Eos % (Auto) 0.6 % (0.0-4.3) 10/14/16 11:48 Baso % (Auto) 0.1 % (0.0-1.8) 10/14/16 11:48 Lymph # 0.5 K/mm3 (1.2-5.4) L 10/14/16 11:48 Luna # 1.2 K/mm3 (0.0-0.8) H 10/14/16 11:48 Eos # 0.1 K/mm3 (0.0-0.4) 10/14/16 11:48 Baso # 0.0 K/mm3 (0.0-0.1) 10/14/16 11:48 Add Manual Diff Complete 10/21/16 06:12 Total Counted 100 10/21/16 06:12 Seg Neutrophils % Machine Skiver 10/21/16 06:12 Seg Neuts % (Manual) 95.0 % (40.0-70.0) H 10/21/16 06:12 Band Neutrophils % 0 % 10/21/16 06:12 Lymphocytes % (Manual) 2.0 % (13.4-35.0) L 10/21/16 06:12 Reactive Lymphs % (Man) 0 % 10/21/16 06:12 Monocytes % (Manual) 3.0 % (0.0-7.3) 10/21/16 06:12 Eosinophils % (Manual) 0 % (0.0-4.3) 10/21/16 06:12 Basophils % (Manual) 0 % (0.0-1.8) 10/21/16 06:12 Metamyelocytes % 0 % 10/21/16 06:12 Myelocytes % 0 % 10/21/16 06:12 Promyelocytes % 0 % 10/21/16 06:12 Blast Cells % 0 % 10/21/16 06:12 Nucleated RBC % Not Reportable 10/21/16 06:12 Seg Neutrophils # 12.2 K/mm3 (1.8-7.7) H 10/14/16 11:48 Seg Neutrophils # Man 17.6 K/mm3 (1.8-7.7) H 10/21/16 06:12 Band Neutrophils # 0.0 K/mm3 10/21/16 06:12 Lymphocytes # (Manual) 0.4 K/mm3 (1.2-5.4) L 10/21/16 06:12 Abs React Lymphs (Man) 0.0 K/mm3 10/21/16 06:12 Monocytes # (Manual) 0.6 K/mm3 (0.0-0.8) 10/21/16 06:12 Eosinophils # (Manual) 0.0 K/mm3 (0.0-0.4) 10/21/16 06:12 Basophils # (Manual) 0.0 K/mm3 (0.0-0.1) 10/21/16 06:12 Metamyelocytes # 0.0 K/mm3 10/21/16 06:12 Myelocytes # 0.0 K/mm3 10/21/16 06:12 Promyelocytes # 0.0 K/mm3 10/21/16 06:12 Blast Cells # 0.0 K/mm3 10/21/16 06:12 WBC Morphology Not Reportable 10/21/16 06:12 Hypersegmented Neuts Not Reportable 10/21/16 06:12 Hyposegmented Neuts Not Reportable 10/21/16 06:12 Hypogranular Neuts Not Reportable 10/21/16 06:12 Smudge Cells Not Reportable 10/21/16 06:12 Toxic Granulation Not Reportable 10/21/16 06:12 Toxic Vacuolation Not Reportable 10/21/16 06:12 Dohle Bodies Not Reportable 10/21/16 06:12 Pelger-Huet Anomaly Not Reportable 10/21/16 06:12 Ivory Rods Not Reportable 10/21/16 06:12 Platelet Estimate Consistent w auto 10/21/16 06:12 Clumped Platelets Not Reportable 10/21/16 06:12 Plt Clumps, EDTA Not Reportable 10/21/16 06:12 Large Platelets Not Reportable 10/21/16 06:12 Giant Platelets Not Reportable 10/21/16 06:12 Platelet Satelliting Not Reportable 10/21/16 06:12 Plt Morphology Comment Not Reportable 10/21/16 06:12 RBC Morphology Not Reportable 10/21/16 06:12 Dimorphic RBCs Not Reportable 10/21/16 06:12 Polychromasia Not Reportable 10/21/16 06:12 Hypochromasia 1+ 10/21/16 06:12 Poikilocytosis Not Reportable 10/21/16 06:12 Anisocytosis 1+ 10/21/16 06:12 Microcytosis Not Reportable 10/21/16 06:12 Macrocytosis Not Reportable 10/21/16 06:12 Spherocytes Not Reportable 10/21/16 06:12 Pappenheimer Bodies Not Reportable 10/21/16 06:12 Sickle Cells Not Reportable 10/21/16 06:12 Target Cells Not Reportable 10/21/16 06:12 Tear Drop Cells Not Reportable 10/21/16 06:12 Ovalocytes Not Reportable 10/21/16 06:12 Helmet Cells Not Reportable 10/21/16 06:12 Nguyen-Ridgeway Bodies Not Reportable 10/21/16 06:12 [place] Rings Not Reportable 10/21/16 06:12 [place]ike Cells Not Reportable 10/21/16 06:12 Bite Cells Not Reportable 10/21/16 06:12 Crenated Cell Not Reportable 10/21/16 06:12 Elliptocytes Not Reportable 10/21/16 06:12 Acanthocytes (Spur) Not Reportable 10/21/16 06:12 Rouleaux Not Reportable 10/21/16 06:12 Hemoglobin C Crystals Not Reportable 10/21/16 06:12 Schistocytes Not Reportable 10/21/16 06:12 Malaria parasites Not Reportable 10/21/16 06:12 [place] Bodies Not Reportable 10/21/16 06:12 Hem Pathologist Commnt No 10/21/16 06:12 PT 17.0 Sec. (12.2-14.9) H 10/20/16 06:31 INR 1.39 (0.87-1.13) H 10/20/16 06:31 APTT 29.2 Sec. (24.2-36.6) 10/20/16 06:31 POC ABG pH 7.216 (7.35-7.45) L 10/05/16 16:03 POC ABG pCO2 28.2 (35-45) L 10/05/16 16:03 POC ABG pO2 60 (80-105) L 10/05/16 16:03 POC ABG HCO3 11.4 10/05/16 16:03 POC ABG Total CO2 12 10/05/16 16:03 POC ABG O2 Sat 86 10/05/16 16:03 POC ABG Base Excess -16 10/05/16 16:03 VBG pH 7.136 (7.320-7.420) L* 10/05/16 14:40 FiO2 32 % 10/05/16 16:03 Sodium 148 mmol/L (137-145) H 10/21/16 06:12 Potassium 3.8 mmol/L (3.6-5.0) 10/21/16 06:12 Chloride 116.2 mmol/L (98-107) H 10/21/16 06:12 Carbon Dioxide 21 mmol/L (22-30) L 10/21/16 06:12 Anion Gap 15 mmol/L 10/21/16 06:12 BUN 22 mg/dL (7-17) H 10/21/16 06:12 Creatinine 1.0 mg/dL (0.7-1.2) 10/21/16 06:12 Estimated GFR > 60 ml/min 10/21/16 06:12 BUN/Creatinine Ratio 22.00 % 10/21/16 06:12 Glucose 125 mg/dL (65-100) H 10/21/16 06:12 POC Glucose 144 (70-105) H 10/21/16 06:21 C-Peptide 5.67 ng/mL (0.80-3.85) H 10/06/16 18:25 Lactic Acid 2.1 mmol/L (0.7-2.0) H* 10/07/16 Unknown Calcium 8.2 mg/dL (8.4-10.2) L 10/21/16 06:12 Phosphorus 2.6 mg/dL (2.5-4.5) 10/09/16 05:43 Magnesium 1.5 mg/dL (1.7-2.3) L 10/14/16 11:48 Iron 51 ug/dL (37-170) 10/05/16 21:30 Total Bilirubin 0.4 mg/dL (0.1-1.2) 10/12/16 05:30 Direct Bilirubin < 0.2 mg/dL (0-0.2) 10/12/16 05:30 Indirect Bilirubin 0.2 mg/dL 10/12/16 05:30 AST 22 units/L (5-40) 10/12/16 05:30 ALT 65 units/L (7-56) H 10/12/16 05:30 Alkaline Phosphatase 100 units/L (35-129) 10/12/16 05:30 Total Creatine Kinase 2317 units/L (30-135) H 10/05/16 21:30 NT-Pro-B Natriuret Pep 98346 pg/mL (0-900) H 10/10/16 10:00 Total Protein 4.1 g/dL (6.3-8.2) L 10/12/16 05:30 Albumin 1.4 g/dL (3.9-5) L 10/12/16 05:30 Albumin/Globulin Ratio 0.5 % 10/12/16 05:30 Vitamin B12 1592 pg/mL (211-911) H 10/05/16 21:30 Folate 16.37 ng/mL (7.3-26.0) 10/05/16 21:30 TSH 1.640 mlU/mL (0.270-4.200) 10/18/16 16:20 Total Cortisol 15.2 mcg/dL () 10/18/16 16:20 Urine Color Cathy (Yellow) 10/05/16 13:52 Urine Turbidity Clear (Clear) 10/05/16 13:52 Urine pH 5.0 (5.0-7.0) 10/05/16 13:52 Ur Specific [place] 1.015 (1.003-1.030) 10/05/16 13:52 Urine Protein 30 mg/dl mg/dL (Negative) 10/05/16 13:52 Urine Glucose (UA) Neg mg/dL (Negative) 10/05/16 13:52 Urine Ketones Neg mg/dL (Negative) 10/05/16 13:52 Urine Blood Lg (Negative) 10/05/16 13:52 Urine Nitrite Neg (Negative) 10/05/16 13:52 Urine Bilirubin Neg (Negative) 10/05/16 13:52 Urine Urobilinogen < 2.0 mg/dL (<2.0) 10/05/16 13:52 Ur Leukocyte Esterase Neg (Negative) 10/05/16 13:52 Urine WBC (Auto) 1.0 /HPF (0.0-6.0) 10/05/16 13:52 Urine RBC (Auto) < 1.0 /HPF (0.0-6.0) 10/05/16 13:52 U Epithel Cells (Auto) 1.0 /HPF (0-13.0) 10/05/16 13:52 Urine Mucus Few /HPF 10/05/16 13:52 Urine Creatinine 126.1 mg/dL (0.1-20.0) H 10/14/16 13:41 Protein/Creatinin Ratio 0.71 10/14/16 13:41 Urine Total Protein 89 mg/dL (5-11.8) H 10/14/16 13:41 Ketones 2.9 mg/dL (0.2-2.8) H 10/05/16 21:30 Blood Type B POSITIVE 10/05/16 21:05 Antibody Screen Negative 10/05/16 21:05 Crossmatch See Detail 10/05/16 21:05
[2016-10-21] MEDS: AMBIEN PO PRN (23:12)
[2016-10-22] MEDS: PROAMATINE PO SCH ×3 (05:40→23:21)
[2016-10-22] MEDS: FLAGYL PO SCH ×3 (05:40→23:21)
[2016-10-22 06:46] LABS: Hematocrit 29.2 % (30.3-42.9); Hemoglobin 9.2 gm/dl (10.1-14.3); Mean Corpuscular HGB Conc 32 % (30-34); Mean Corpuscular Hemoglobin 31 pg (28-32); Mean Corpuscular Volume 97 fl (79-97); Platelet Count 126 K/mm3 (140-440); Red Blood Count 3.01 M/mm3 (3.65-5.03); Red Cell Distribution Width 17.9 % (13.2-15.2)
[2016-10-22 06:50] LABS: White Blood Count 21.4 K/mm3 (4.5-11.0)
[2016-10-22 06:59] LABS: Anion Gap 18 mmol/L; BUN/Creatinine Ratio 21.81; Blood Urea Nitrogen 24 mg/dL (7-17); Calcium 8.4 mg/dL (8.4-10.2); Carbon Dioxide 19 mmol/L (22-30); Chloride 114.8 mmol/L (98-107); Glucose 130 mg/dL (65-100); Potassium 3.6 mmol/L (3.6-5.0); Sodium 148 mmol/L (137-145)
[2016-10-22 07:29] LABS: Basophils % (Manual) 0 % (0.0-1.8); Blastocytes % (Manual) 0 %; Eosinophils % (Manual) 0 % (0.0-4.3)
[2016-10-22 07:30] LABS: Anisocytosis 1+; Basophilic Stippling Few; Diff Status Complete; Elliptocytes Few; Hypochromasia 1+; Ovalocytes 1+; Platelet Estimate Appears Decreased; Stomatocytes Few
[2016-10-22] MEDS: NOVOLOG SUB-Q SCH ×4 (07:32→22:18)
[2016-10-22] MEDS ORDERED: LASIX IV ONE (08:00)
--- NOTE | 2016-10-22 09:43 | Progress Note ---
<YVROSEKISHORISIAH - Last Filed: 10/22/16 09:33> Assessment and Plan Hypotension on midodrine 10mg every 8hrs Anasarca normal LV systolic function, EF 50-55% on echo secondary to crohn's disease Pleural Effusion Severe anemia requiring blood transfusion this admission Leukocytosis Hypernatremia Hx of Crohns disease Subjective Date of service: 10/22/16 Principal diagnosis: diarrhea, chron's colitis, hypoglycemia, ARF, AMS Interval history: Patient resting in bed comfortably. She denies shortness of breath and chest pain. Objective Vital Signs Temp Pulse Pulse Resp BP Pulse Ox 10/22/16 08:06 98.0 F 126 H 22 111/78 100 10/21/16 20:21 100 10/21/16 17:00 97.5 F L 102 H 20 112/81 100 10/21/16 10:19 98 F 106 H 20 97/70 100 10/21/16 09:34 100 - Physical Examination General: No Apparent Distress HEENT: Positive: PERRL Neck: Positive: trachea midline Cardiac: Positive: Tachycardia Extremities: Present: +4 Edema - Labs and Meds CBC 10/22/16 Range/Units 06:16 WBC 21.4 H (4.5-11.0) K/mm3 RBC 3.01 L (3.65-5.03) M/mm3 Hgb 9.2 L (10.1-14.3) gm/dl Hct 29.2 L (30.3-42.9) % Plt Count 126 L (140-440) K/mm3 Comprehensive Metabolic Panel 10/22/16 10/22/16 Range/Units 06:16 07:28 Sodium 148 H (137-145) mmol/L Potassium 3.6 (3.6-5.0) mmol/L Chloride 114.8 H (98-107) mmol/L Carbon Dioxide 19 L (22-30) mmol/L BUN 24 H (7-17) mg/dL Creatinine 1.1 (0.7-1.2) mg/dL Glucose 130 H (65-100) mg/dL Calcium 8.4 (8.4-10.2) mg/dL Albumin 3.2 L (3.9-5) g/dL - Imaging and Cardiology EKG: report reviewed - EKG Sinus rhythms and dysrhythmias: sinus tachycardia <BROOKE BRYSON - Last Filed: 10/22/16 17:55> Assessment and Plan - Patient Problems (1) Hypertension Current Visit: Yes Status: Acute Qualifiers: Hypertension type: H Plan to address problem: Cardiovascular status is stable. Objective Vital Signs Temp Pulse Resp BP Pulse Ox 10/22/16 09:39 97 10/22/16 08:06 98.0 F 126 H 22 111/78 100 10/21/16 20:21 100 - Labs and Meds CBC 10/22/16 Range/Units 06:16 WBC 21.4 H (4.5-11.0) K/mm3 RBC 3.01 L (3.65-5.03) M/mm3 Hgb 9.2 L (10.1-14.3) gm/dl Hct 29.2 L (30.3-42.9) % Plt Count 126 L (140-440) K/mm3 Comprehensive Metabolic Panel 10/22/16 10/22/16 Range/Units 06:16 07:28 Sodium 148 H (137-145) mmol/L Potassium 3.6 (3.6-5.0) mmol/L Chloride 114.8 H (98-107) mmol/L Carbon Dioxide 19 L (22-30) mmol/L BUN 24 H (7-17) mg/dL Creatinine 1.1 (0.7-1.2) mg/dL Glucose 130 H (65-100) mg/dL Calcium 8.4 (8.4-10.2) mg/dL Albumin 3.2 L (3.9-5) g/dL
[2016-10-22] MEDS: PROTONIX PO SCH ×2 (10:11→23:21)
--- NOTE | 2016-10-22 10:53 | Progress Note ---
Assessment and Plan Assessment and plan: 1. Persistent hypotension -due to reduced oncotic pressure from hypoalbuminenia - now BP improving with improvement in albumin; received albumin gtt with lasix ; cont midodrine 2. Anasarca due to hypoalbuminemia from protein losing enteropathy from crohns- improving; albumin now 3.2; lasix 20mg IV today; monitor; f/u dietitian 3. Chronic diastolic heart failure - appears compensated- - consult from cardiology appreciated; 2. Anemia due to chronic disorder-stable 3. Crohn's Colitis-with diarrhea; stool for c dif negative; GI has no further recommendations- will re-consult 4. Severe protein calorie malnutrition-nutritional supplementation; f/u dietitian 5. Hypernatremia- increase oral fluids 9. DVT prophylaxis-SCDs. Unable to give heparin or Lovenox due to coagulopathy ; History Interval history: f/u hypotension, anemia; crohns Patient seen at the bedside; no complaints today; continues to diurese; family present Hospitalist Physical - Constitutional Vitals: Temp Pulse Resp BP Pulse Ox 98.0 F 126 H 22 111/78 97 10/22/16 08:06 10/22/16 08:06 10/22/16 08:06 10/22/16 08:06 10/22/16 09:39 General appearance: Present: no acute distress - EENT Eyes: Present: PERRL, EOM intact. Absent: scleral icterus, conjunctival injection ENT: hearing intact, clear oral mucosa, no oropharyngeal erythema, no poor dentition - Neck Neck: Present: supple. Absent: enlarged thyroid, masses or JVD - Respiratory Respiratory effort: normal Respiratory: bilateral: diminished, negative: rales, rhonchi, wheezing - Cardiovascular Rhythm: regular Heart Sounds: Present: S1 & S2. Absent: gallop - Extremities Extremities: no ischemia, pulses intact Extremity abnormal: edema (3 plus -improving;wrinkling of the skin) Peripheral Pulses: within normal limits - Abdominal General gastrointestinal: soft, non-tender, non-distended, normal bowel sounds - Integumentary Integumentary: Present: clear - Psychiatric Psychiatric: appropriate mood/affect, intact judgment & insight, cooperative - Neurologic Neurologic: CNII-XII intact, moves all extremities Results - Labs CBC & Chem 7: 10/22/16 06:16 10/22/16 06:16 Labs: Laboratory Last Values WBC 21.4 K/mm3 (4.5-11.0) H 10/22/16 06:16 RBC 3.01 M/mm3 (3.65-5.03) L 10/22/16 06:16 Hgb 9.2 gm/dl (10.1-14.3) L 10/22/16 06:16 Hct 29.2 % (30.3-42.9) L 10/22/16 06:16 MCV 97 fl (79-97) 10/22/16 06:16 MCH 31 pg (28-32) 10/22/16 06:16 MCHC 32 % (30-34) 10/22/16 06:16 RDW 17.9 % (13.2-15.2) H 10/22/16 06:16 Plt Count 126 K/mm3 (140-440) L 10/22/16 06:16 Lymph % (Auto) 3.5 % (13.4-35.0) L 10/14/16 11:48 [place] % (Auto) 8.3 % (0.0-7.3) H 10/14/16 11:48 Eos % (Auto) 0.6 % (0.0-4.3) 10/14/16 11:48 Baso % (Auto) 0.1 % (0.0-1.8) 10/14/16 11:48 Lymph # 0.5 K/mm3 (1.2-5.4) L 10/14/16 11:48 [place] # 1.2 K/mm3 (0.0-0.8) H 10/14/16 11:48 Eos # 0.1 K/mm3 (0.0-0.4) 10/14/16 11:48 Baso # 0.0 K/mm3 (0.0-0.1) 10/14/16 11:48 Add Manual Diff Complete 10/22/16 06:16 Total Counted 100 10/22/16 06:16 Seg Neutrophils % Mix Mill Tender 10/22/16 06:16 Seg Neuts % (Manual) 94.0 % (40.0-70.0) H 10/22/16 06:16 Band Neutrophils % 1.0 % 10/22/16 06:16 Lymphocytes % (Manual) 3.0 % (13.4-35.0) L 10/22/16 06:16 Reactive Lymphs % (Man) 0 % 10/22/16 06:16 Monocytes % (Manual) 1.0 % (0.0-7.3) 10/22/16 06:16 Eosinophils % (Manual) 0 % (0.0-4.3) 10/22/16 06:16 Basophils % (Manual) 0 % (0.0-1.8) 10/22/16 06:16 Metamyelocytes % 1.0 % 10/22/16 06:16 Myelocytes % 0 % 10/22/16 06:16 Promyelocytes % 0 % 10/22/16 06:16 Blast Cells % 0 % 10/22/16 06:16 Nucleated RBC % Not Reportable 10/22/16 06:16 Seg Neutrophils # 12.2 K/mm3 (1.8-7.7) H 10/14/16 11:48 Seg Neutrophils # Man 20.1 K/mm3 (1.8-7.7) H 10/22/16 06:16 Band Neutrophils # 0.2 K/mm3 10/22/16 06:16 Lymphocytes # (Manual) 0.6 K/mm3 (1.2-5.4) L 10/22/16 06:16 Abs React Lymphs (Man) 0.0 K/mm3 10/22/16 06:16 Monocytes # (Manual) 0.2 K/mm3 (0.0-0.8) 10/22/16 06:16 Eosinophils # (Manual) 0.0 K/mm3 (0.0-0.4) 10/22/16 06:16 Basophils # (Manual) 0.0 K/mm3 (0.0-0.1) 10/22/16 06:16 Metamyelocytes # 0.2 K/mm3 10/22/16 06:16 Myelocytes # 0.0 K/mm3 10/22/16 06:16 Promyelocytes # 0.0 K/mm3 10/22/16 06:16 Blast Cells # 0.0 K/mm3 10/22/16 06:16 WBC Morphology Not Reportable 10/22/16 06:16 Hypersegmented Neuts Not Reportable 10/22/16 06:16 Hyposegmented Neuts Not Reportable 10/22/16 06:16 Hypogranular Neuts Not Reportable 10/22/16 06:16 Smudge Cells Not Reportable 10/22/16 06:16 Toxic Granulation Not Reportable 10/22/16 06:16 Toxic Vacuolation Not Reportable 10/22/16 06:16 Dohle Bodies Not Reportable 10/22/16 06:16 Pelger-Huet Anomaly Not Reportable 10/22/16 06:16 Ivory Rods Not Reportable 10/22/16 06:16 Platelet Estimate Appears decreased 10/22/16 06:16 Clumped Platelets Not Reportable 10/22/16 06:16 Plt Clumps, EDTA Not Reportable 10/22/16 06:16 Large Platelets Not Reportable 10/22/16 06:16 Giant Platelets Not Reportable 10/22/16 06:16 Platelet Satelliting Not Reportable 10/22/16 06:16 Plt Morphology Comment Not Reportable 10/22/16 06:16 RBC Morphology Not Reportable 10/22/16 06:16 Dimorphic RBCs Not Reportable 10/22/16 06:16 Polychromasia Not Reportable 10/22/16 06:16 Hypochromasia 1+ 10/22/16 06:16 Poikilocytosis Not Reportable 10/22/16 06:16 Basophilic Stippling Few 10/22/16 06:16 Anisocytosis 1+ 10/22/16 06:16 Microcytosis Not Reportable 10/22/16 06:16 Macrocytosis Not Reportable 10/22/16 06:16 Spherocytes Not Reportable 10/22/16 06:16 Pappenheimer Bodies Not Reportable 10/22/16 06:16 Sickle Cells Not Reportable 10/22/16 06:16 Target Cells Not Reportable 10/22/16 06:16 Tear Drop Cells Not Reportable 10/22/16 06:16 Ovalocytes 1+ 10/22/16 06:16 Stomatocytes Few 10/22/16 06:16 Helmet Cells Not Reportable 10/22/16 06:16 Nguyen-[place] Bodies Not Reportable 10/22/16 06:16 [place] Rings Not Reportable 10/22/16 06:16 [place]ike Cells Not Reportable 10/22/16 06:16 Bite Cells Not Reportable 10/22/16 06:16 Crenated Cell Not Reportable 02/06/17 06:16 Elliptocytes Few 10/22/16 06:16 Acanthocytes (Spur) Not Reportable 10/22/16 06:16 Rouleaux Not Reportable 10/22/16 06:16 Hemoglobin C Crystals Not Reportable 10/22/16 06:16 Schistocytes Not Reportable 10/22/16 06:16 Malaria parasites Not Reportable 10/22/16 06:16 Mayito Bodies Not Reportable 10/22/16 06:16 Hem Pathologist Commnt No 10/22/16 06:16 PT 17.0 Sec. (12.2-14.9) H 10/20/16 06:31 INR 1.39 (0.87-1.13) H 10/20/16 06:31 APTT 29.2 Sec. (24.2-36.6) 10/20/16 06:31 POC ABG pH 7.216 (7.35-7.45) L 10/05/16 16:03 POC ABG pCO2 28.2 (35-45) L 10/05/16 16:03 POC ABG pO2 60 (80-105) L 10/05/16 16:03 POC ABG HCO3 11.4 10/05/16 16:03 POC ABG Total CO2 12 10/05/16 16:03 POC ABG O2 Sat 86 10/05/16 16:03 POC ABG Base Excess -16 10/05/16 16:03 VBG pH 7.136 (7.320-7.420) L* 10/05/16 14:40 FiO2 32 % 10/05/16 16:03 Sodium 148 mmol/L (137-145) H 10/22/16 06:16 Potassium 3.6 mmol/L (3.6-5.0) 10/22/16 06:16 Chloride 114.8 mmol/L (98-107) H 10/22/16 06:16 Carbon Dioxide 19 mmol/L (22-30) L 10/22/16 06:16 Anion Gap 18 mmol/L 10/22/16 06:16 BUN 24 mg/dL (7-17) H 10/22/16 06:16 Creatinine 1.1 mg/dL (0.7-1.2) 10/22/16 06:16 Estimated GFR > 60 ml/min 10/22/16 06:16 BUN/Creatinine Ratio 21.81 % 10/22/16 06:16 Glucose 130 mg/dL (65-100) H 10/22/16 06:16 POC Glucose 155 (70-105) H 10/22/16 06:00 C-Peptide 5.67 ng/mL (0.80-3.85) H 10/06/16 18:25 Lactic Acid 2.1 mmol/L (0.7-2.0) H* 10/07/16 Unknown Calcium 8.4 mg/dL (8.4-10.2) 10/22/16 06:16 Phosphorus 2.6 mg/dL (2.5-4.5) 10/09/16 05:43 Magnesium 1.5 mg/dL (1.7-2.3) L 10/14/16 11:48 Iron 51 ug/dL (37-170) 10/05/16 21:30 Total Bilirubin 0.4 mg/dL (0.1-1.2) 10/12/16 05:30 Direct Bilirubin < 0.2 mg/dL (0-0.2) 10/12/16 05:30 Indirect Bilirubin 0.2 mg/dL 10/12/16 05:30 AST 22 units/L (5-40) 10/12/16 05:30 ALT 65 units/L (7-56) H 10/12/16 05:30 Alkaline Phosphatase 100 units/L (35-129) 10/12/16 05:30 Total Creatine Kinase 2317 units/L (30-135) H 10/05/16 21:30 NT-Pro-B Natriuret Pep 75334 pg/mL (0-900) H 10/10/16 10:00 Total Protein 4.1 g/dL (6.3-8.2) L 10/12/16 05:30 Albumin 3.2 g/dL (3.9-5) L 10/22/16 07:28 Albumin/Globulin Ratio 0.5 % 10/12/16 05:30 Vitamin B12 1592 pg/mL (211-911) H 10/05/16 21:30 Folate 16.37 ng/mL (7.3-26.0) 10/05/16 21:30 TSH 1.640 mlU/mL (0.270-4.200) 10/18/16 16:20 Total Cortisol 15.2 mcg/dL () 10/18/16 16:20 Urine Color Cathy (Yellow) 10/05/16 13:52 Urine Turbidity Clear (Clear) 10/05/16 13:52 Urine pH 5.0 (5.0-7.0) 10/05/16 13:52 Ur Specific [place] 1.015 (1.003-1.030) 10/05/16 13:52 Urine Protein 30 mg/dl mg/dL (Negative) 10/05/16 13:52 Urine Glucose (UA) Neg mg/dL (Negative) 10/05/16 13:52 Urine Ketones Neg mg/dL (Negative) 10/05/16 13:52 Urine Blood Lg (Negative) 10/05/16 13:52 Urine Nitrite Neg (Negative) 10/05/16 13:52 Urine Bilirubin Neg (Negative) 10/05/16 13:52 Urine Urobilinogen < 2.0 mg/dL (<2.0) 10/05/16 13:52 Ur Leukocyte Esterase Neg (Negative) 10/05/16 13:52 Urine WBC (Auto) 1.0 /HPF (0.0-6.0) 10/05/16 13:52 Urine RBC (Auto) < 1.0 /HPF (0.0-6.0) 10/05/16 13:52 U Epithel Cells (Auto) 1.0 /HPF (0-13.0) 10/05/16 13:52 Urine Mucus Few /HPF 10/05/16 13:52 Urine Creatinine 126.1 mg/dL (0.1-20.0) H 10/14/16 13:41 Protein/Creatinin Ratio 0.71 10/14/16 13:41 Urine Total Protein 89 mg/dL (5-11.8) H 10/14/16 13:41 Ketones 2.9 mg/dL (0.2-2.8) H 10/05/16 21:30 Blood Type B POSITIVE 10/05/16 21:05 Antibody Screen Negative 10/05/16 21:05 Crossmatch See Detail 10/05/16 21:05
--- NOTE | 2016-10-22 15:11 | Gastroenterology Progress Note ---
Assessment and Plan 1. S/Pseptic shock - ?etiology, doubt crohn's disease unless there was a complication related to crohn's such as abscess/fistula/c diff (no evidence of these on imaging and stool studies). WBC remains elevated. No acute process noted on CT on 10/10/16 2. Crohn's disease - unclear extent or severity of disease. will need to f/u with primary GI for further management after discharge. pt stated there was discussion with GI about starting humira, but this would need to be done after sepsis resolves (in outpatient setting). Would not start immunosuppressive treatment as inpatient in the setting of infection. On Lialda prior to admission. 3. elevated liver enzymes - Resolved.t bili/alk phos remain normal. 4. Anasarca 5. CHF-diastolic Subjective Date of service: 10/22/16 Principal diagnosis: diarrhea, chron's colitis, hypoglycemia, ARF, AMS Interval history: The patient has no specific complaints. Objective - Constitutional Vitals: Temp Pulse Resp BP Pulse Ox 98.0 F 126 H 22 111/78 97 10/22/16 08:06 10/22/16 08:06 10/22/16 08:06 10/22/16 08:06 10/22/16 09:39 General appearance: no acute distress - EENT Eyes: EOM intact ENT: hearing intact - Respiratory Respiratory: bilateral: other (mildly labored) - Cardiovascular Rhythm: regular Heart Sounds: Present: S1 & S2 - Extremities Extremity abnormal: edema - Gastrointestinal General gastrointestinal: Present: soft, non-tender, hypoactive bowel sounds - Integumentary Integumentary: Present: warm, dry - Neurologic Neurological: other (drowsy) - Psychiatric Psychiatric: cooperative - Labs CBC & Chem 7: 10/22/16 06:16 10/22/16 06:16 Labs: Laboratory Results - last 24 hr 10/21/16 10/22/16 10/22/16 21:35 06:00 06:16 WBC 21.4 H RBC 3.01 L Hgb 9.2 L Hct 29.2 L MCV 97 MCH 31 MCHC 32 RDW 17.9 H Plt Count 126 L Add Manual Diff Complete Total Counted 100 Seg Neutrophils % Sales Advisory Manager Seg Neuts % (Manual) 94.0 H Band Neutrophils % 1.0 Lymphocytes % (Manual) 3.0 L Reactive Lymphs % (Man) 0 Monocytes % (Manual) 1.0 Eosinophils % (Manual) 0 Basophils % (Manual) 0 Metamyelocytes % 1.0 Myelocytes % 0 Promyelocytes % 0 Blast Cells % 0 Nucleated RBC % Not Reportable Seg Neutrophils # Man 20.1 H Band Neutrophils # 0.2 Lymphocytes # (Manual) 0.6 L Abs React Lymphs (Man) 0.0 Monocytes # (Manual) 0.2 Eosinophils # (Manual) 0.0 Basophils # (Manual) 0.0 Metamyelocytes # 0.2 Myelocytes # 0.0 Promyelocytes # 0.0 Blast Cells # 0.0 WBC Morphology Not Reportable Hypersegmented Neuts Not Reportable Hyposegmented Neuts Not Reportable Hypogranular Neuts Not Reportable Smudge Cells Not Reportable Toxic Granulation Not Reportable Toxic Vacuolation Not Reportable Dohle Bodies Not Reportable Pelger-Huet Anomaly Not Reportable Ivory Rods Not Reportable Platelet Estimate Appears decreased Clumped Platelets Not Reportable Plt Clumps, EDTA Not Reportable Large Platelets Not Reportable Giant Platelets Not Reportable Platelet Satelliting Not Reportable Plt Morphology Comment Not Reportable RBC Morphology Not Reportable Dimorphic RBCs Not Reportable Polychromasia Not Reportable Hypochromasia 1+ Poikilocytosis Not Reportable Basophilic Stippling Few Anisocytosis 1+ Microcytosis Not Reportable Macrocytosis Not Reportable Spherocytes Not Reportable Pappenheimer Bodies Not Reportable Sickle Cells Not Reportable Target Cells Not Reportable Tear Drop Cells Not Reportable Ovalocytes 1+ Stomatocytes Few Helmet Cells Not Reportable [place] Bodies Not Reportable [place] Rings Not Reportable [place] Cells Not Reportable Bite Cells Not Reportable Crenated Cell Not Reportable Elliptocytes Few Acanthocytes (Spur) Not Reportable Rouleaux Not Reportable Hemoglobin C Crystals Not Reportable Schistocytes Not Reportable Malaria parasites Not Reportable [place]ito Bodies Not Reportable Hem Pathologist Commnt No Sodium Potassium Chloride Carbon Dioxide Anion Gap BUN Creatinine Estimated GFR BUN/Creatinine Ratio Glucose POC Glucose 153 H 155 H Calcium Albumin 10/22/16 10/22/16 10/22/16 06:16 07:28 11:39 WBC RBC Hgb Hct MCV MCH MCHC RDW Plt Count Add Manual Diff Total Counted Seg Neutrophils % Seg Neuts % (Manual) Band Neutrophils % Lymphocytes % (Manual) Reactive Lymphs % (Man) Monocytes % (Manual) Eosinophils % (Manual) Basophils % (Manual) Metamyelocytes % Myelocytes % Promyelocytes % Blast Cells % Nucleated RBC % Seg Neutrophils # Man Band Neutrophils # Lymphocytes # (Manual) Abs React Lymphs (Man) Monocytes # (Manual) Eosinophils # (Manual) Basophils # (Manual) Metamyelocytes # Myelocytes # Promyelocytes # Blast Cells # WBC Morphology Hypersegmented Neuts Hyposegmented Neuts Hypogranular Neuts Smudge Cells Toxic Granulation Toxic Vacuolation Dohle Bodies Pelger-Huet Anomaly Ivory Rods Platelet Estimate Clumped Platelets Plt Clumps, EDTA Large Platelets Giant Platelets Platelet Satelliting Plt Morphology Comment RBC Morphology Dimorphic RBCs Polychromasia Hypochromasia Poikilocytosis Basophilic Stippling Anisocytosis Microcytosis Macrocytosis Spherocytes Pappenheimer Bodies Sickle Cells Target Cells Tear Drop Cells Ovalocytes Stomatocytes Helmet Cells [place] Bodies [place] Rings [place] Cells Bite Cells Crenated Cell Elliptocytes Acanthocytes (Spur) Rouleaux Hemoglobin C Crystals Schistocytes Malaria parasites Mayito Bodies Hem Pathologist Commnt Sodium 148 H Potassium 3.6 Chloride 114.8 H Carbon Dioxide 19 L Anion Gap 18 BUN 24 H Creatinine 1.1 Estimated GFR > 60 BUN/Creatinine Ratio 21.81 Glucose 130 H POC Glucose 210 H Calcium 8.4 Albumin 3.2 L
[2016-10-22] MEDS: AMBIEN PO PRN (23:21)
[2016-10-23] MEDS: FLAGYL PO SCH ×2 (05:30→15:52)
[2016-10-23] MEDS: PROAMATINE PO SCH ×2 (05:30→15:52)
[2016-10-23] MEDS: NOVOLOG SUB-Q SCH ×3 (07:51→17:37)
[2016-10-23] MEDS: PROTONIX PO SCH (10:56)
--- NOTE | 2016-10-23 11:07 | Progress Note ---
Assessment and Plan Hypotension on midodrine 10mg every 8hrs Anasarca normal LV systolic function, EF 50-55% on echo secondary to crohn's disease Pleural Effusion Severe anemia requiring blood transfusion this admission Leukocytosis Hypernatremia Hx of Crohns disease Conservative cardiac management. Subjective Date of service: 10/23/16 Principal diagnosis: diarrhea, chron's colitis, hypoglycemia, ARF, AMS Interval history: Patient resting in bed comfortably. She denies shortness of breath and chest pain. Objective Vital Signs Temp Pulse Pulse Pulse Resp BP Pulse Ox 10/23/16 08:14 100 10/23/16 08:00 97.8 F 113 H 20 117/71 100 10/23/16 01:07 113 H 22 100 10/23/16 00:00 97.5 F L 108 H 22 106/76 100 10/22/16 21:36 97.9 F 115 H 20 103/78 100 10/22/16 21:23 97 10/22/16 16:10 98.6 F 94 H 20 123/65 - Physical Examination General: No Apparent Distress HEENT: Positive: PERRL Neck: Positive: trachea midline Cardiac: Positive: Tachycardia Lungs: Positive: Decreased Breath Sounds Extremities: Present: edema - Imaging and Cardiology EKG: report reviewed - EKG Sinus rhythms and dysrhythmias: sinus tachycardia
--- NOTE | 2016-10-23 11:35 | Discharge Summary ---
Providers - Providers Date of Admission: 10/05/16 15:40 Date of discharge: 10/23/16 Attending physician: CELENA MOLINA MD 10/05/16 17:11 Consult to Physician [CONS] Routine Consulting Provider: IRMA SÁNCHEZ Reason For Exam: crohn's; severe anemia Place consult to:: [facility] Notified:: as Phone number called:: [phone] Was contact made?: Yes If yes, spoke with:: Time called:: 17:20 10/09/16 18:53 Consult to Wound/ET Nurse [CONS] Urgent Reason For Exam: wound eval buttocks 10/13/16 08:38 Physical Therapy Evaluation and Treat [CONS] Routine Comment: Reason For Exam: unsteady gait 10/18/16 15:03 Consult to Physician [CONS] Routine Consulting Provider: MERARI MUNOZ Reason For Exam: heart failure; anasarca Place consult to:: FAUZIA FRANCES Notified:: FAUZIA Phone number called:: IN HOUSE Was contact made?: Yes If yes, spoke with:: FAUZIA Time called:: 15:09 Comment:: CHARLIE NOTIFIED 10/19/16 13:31 Consult to Dietitian/Nutrition [CONS] Routine Physician Instructions: dietary recommendations-protein losing enteropath Reason For Exam: Reason for Consult: Malnutrition 10/22/16 10:55 Consult to Physician [CONS] Routine Consulting Provider: TOMÁS TEE Reason For Exam: crohns with diarrhea- needs re-evaluation Place consult to:: [facility] Notified:: office Phone number called:: [phone] Was contact made?: Yes If yes, spoke with:: Jeannette Time called:: 13:25 Comment:: Lulu Notified Primary care physician: ELEMENTARY ELL TEACHER Hospitalization Reason for admission: AMS Condition: Stable Hospital course: MIss Guan is a 61-year-old -[place] female who was brought to the emergency room via EMS today. According to her cousin at the bedside the patient had not turned up 4 since Saturday and her coworkers went to her house and saw her lean on the floor and EMS was called. The emergency room she was noted to have extremely low glucose and she received glucose supplementation. Patient reported that she's been having the diarrhea since July but it has worsened over the last few days. She does have a history of Crohn's. She denies any abdominal pain, cough or fever. She reported that she was so weak and that's how she ended up on the floor. She was also noted to be hypotensive in the emergency room and she was started on IV fluids. In the emergency room she had copious amounts of watery stool on her close. There was no evidence of blood in the stool. It was not foul-smelling. He apparently saw her primary care doctor on the and had a blood work drawn. She reported that she sees Dr. Navarro as her radio operator ground. Patient admission was admitted to the intensive care unit where she was started on aggressive resuscitation therapy physical exam was done recommended. She was subsequently weaned off of vasopressors. She required infusion of albumin for better diuresis and also maintaining blood pressure. Cardiology, GI service were consulted the latter secondary to Crohn's appears that this is mild and she is to follow with her outpatient GI physician. Nevertheless she remains very edematous. Despite aggressive diuresis. Subsequently all blood pressure medications were held due to low blood pressure she was started on midodrine. She is currently stable to be transferred to an LTAC facility to continue her treatment. Please note that she did receive empiric antibiotics in house. Her cultures remained negative. She also did require IV hydrocortisone. Patient will also transfuse 2 units packed red blood cell. Cardiology eventually recommended conservative study and management. She did have neck IJ line was continued PER the LTAC facility and they will be responsible for discontinuing it and changing it Discharge diagnosis 1. Sepsis with septic /hypovolemic shock 2. Severe acute on chronic anemia 3. Acute renal failure secondary to vasomotor nephropathy from dehydration and possible ATN in view of hypotension 4. Secondary coagulopathy 5. Severe protein calorie malnutrition 6. Hypoglycemia 7. Persistent hypotension 8. Anasarca due to hypoalbuminemia from protein losing enteropathy from crohns- 9. Acute on chronic diastolic heart failure - appears compensated 10. Hypernatremia- increase oral fluids Disposition: DC/TX ANOTHER TYPE HEALTHCARE Time spent for discharge: 35 mins Core Measure Documentation - Palliative Care Palliative Care/ Comfort Measures: Not Applicable - Core Measures Any of the following diagnoses?: heart failure - VTE Discharge Requirements Deep Vein Thrombosis/Pulmonary Embolism Present on Admission: No - Heart Failure Discharge Requirements MICHAEL/ARB for LVSD if EF <40%: No Reason for no MICHAEL/ARB: Hypotension Beta melissa at discharge: No Reason for no beta melissa on DC: Hypotension Exam - Physical Exam Narrative exam: VITAL SIGNS: Reviewed. GENERAL: The patient appeared stable in no acute distress. Vital signs as documented. HEAD: No signs of head trauma. EYES: Pupils are equal. Extraocular motions intact. EARS: Hearing grossly intact. MOUTH: Oropharynx is normal. NECK: No adenopathy, no JVD. CHEST: Chest with diminished breath sounds bilaterally. No wheezes, rales, or rhonchi. CARDIAC: Tachycardia with regular rhythm. S1 and S2, without murmurs, gallops, or rubs. VASCULAR: Generalized anasarca. Peripheral pulses normal and equal in all extremities. ABDOMEN: Soft, without detectable tenderness. No sign of distention. No rebound or guarding, and no masses palpated. Bowel Sounds normal. MUSCULOSKELETAL: Good range of motion of all major joints. Extremities without clubbing, cyanosis. Generalized anasarca. NEUROLOGIC EXAM: Alert and oriented x 3. No focal sensory or strength deficits. Speech normal. Follows commands. PSYCHIATRIC: Mood anxious. - Constitutional Vitals: Temp Pulse Resp BP Pulse Ox 97.8 F 113 H 20 117/71 100 10/23/16 08:00 10/23/16 08:00 10/23/16 08:00 10/23/16 08:00 10/23/16 08:14 Plan Activity: advance as tolerated, fall precautions Diet: low salt Special Instructions: record daily weights, record daily BP diary, record blood sugar diary Additional Instructions: continue current medications. Follow up with: AGUSTIN BAEZA MD [Primary Care Provider] - 3-5 Days BROOKE BRYSON MD [Staff Physician] - 7 Days YAQUELIN GONZALES MD [Staff Physician] - 7 Days
[2016-10-23 12:19] LABS: Hematocrit 30.8 % (30.3-42.9); Hemoglobin 9.6 gm/dl (10.1-14.3); Mean Corpuscular HGB Conc 31 % (30-34); Mean Corpuscular Hemoglobin 30 pg (28-32); Mean Corpuscular Volume 96 fl (79-97); Red Cell Distribution Width 17.8 % (13.2-15.2)
[2016-10-23 12:20] LABS: Platelet Count 85 K/mm3 (140-440)
[2016-10-23 12:35] LABS: Anion Gap 16 mmol/L; Blood Urea Nitrogen 24 mg/dL (7-17); Calcium 8.6 mg/dL (8.4-10.2); Carbon Dioxide 21 mmol/L (22-30); Chloride 113.7 mmol/L (98-107); Glucose 118 mg/dL (65-100); Potassium 3.5 mmol/L (3.6-5.0); Sodium 147 mmol/L (137-145)
[2016-10-23 13:12] LABS: Basophils % (Manual) 0 % (0.0-1.8); Blastocytes % (Manual) 0 %; Eosinophils % (Manual) 0 % (0.0-4.3)
[2016-10-23 13:13] LABS: Anisocytosis Few; Diff Status Complete; Elliptocytes Few; Ovalocytes Few; Platelet Estimate Appears Decreased; Poikilocytosis Few; Polychromasia Few
--- NOTE | 2016-10-23 15:55 | Gastroenterology Progress Note ---
Assessment and Plan GI" diarrhea stable - management IBD outpt w/ primary GI - no need further GI intervention at this time - call if needed Subjective Date of service: 10/23/16 Principal diagnosis: diarrhea, chron's colitis, hypoglycemia, ARF, AMS Interval history: -mild loose stool, denies other complaints Objective - Constitutional Vitals: Temp Pulse Resp BP Pulse Ox 97.8 F 113 H 20 117/71 100 10/23/16 08:00 10/23/16 08:00 10/23/16 08:00 10/23/16 08:00 10/23/16 08:14 General appearance: no acute distress - Respiratory Respiratory: bilateral: CTA - Cardiovascular Rhythm: regular Heart Sounds: Present: S1 & S2 - Gastrointestinal General gastrointestinal: Present: soft, non-tender - Labs CBC & Chem 7: 10/23/16 11:00 10/23/16 11:00 Labs: Laboratory Results - last 24 hr 10/22/16 10/22/16 10/23/16 17:22 22:18 06:31 WBC RBC Hgb Hct MCV MCH MCHC RDW Plt Count Add Manual Diff Total Counted Seg Neuts % (Manual) Band Neutrophils % Lymphocytes % (Manual) Reactive Lymphs % (Man) Monocytes % (Manual) Eosinophils % (Manual) Basophils % (Manual) Metamyelocytes % Myelocytes % Promyelocytes % Blast Cells % Nucleated RBC % Seg Neutrophils # Man Band Neutrophils # Lymphocytes # (Manual) Abs React Lymphs (Man) Monocytes # (Manual) Eosinophils # (Manual) Basophils # (Manual) Metamyelocytes # Myelocytes # Promyelocytes # Blast Cells # WBC Morphology Hypersegmented Neuts Hyposegmented Neuts Hypogranular Neuts Smudge Cells Toxic Granulation Toxic Vacuolation Dohle Bodies Pelger-Huet Anomaly Ivory Rods Platelet Estimate Clumped Platelets Plt Clumps, EDTA Large Platelets Giant Platelets Platelet Satelliting Plt Morphology Comment RBC Morphology Dimorphic RBCs Polychromasia Hypochromasia Poikilocytosis Anisocytosis Microcytosis Macrocytosis Spherocytes Pappenheimer Bodies Sickle Cells Target Cells Tear Drop Cells Ovalocytes Helmet Cells Nguyen-Duarte Bodies [place] Rings Kend[place] Cells Bite Cells Crenated Cell Elliptocytes Acanthocytes (Spur) Rouleaux Hemoglobin C Crystals Schistocytes Malaria parasites Mayito Bodies Hem Pathologist Commnt Sodium Potassium Chloride Carbon Dioxide Anion Gap BUN Creatinine Estimated GFR BUN/Creatinine Ratio Glucose POC Glucose 114 H 96 113 H Calcium 10/23/16 10/23/16 11:00 11:00 WBC 13.0 H RBC 3.20 L Hgb 9.6 L Hct 30.8 MCV 96 MCH 30 MCHC 31 RDW 17.8 H Plt Count 85 L Add Manual Diff Complete Total Counted 100 Seg Neuts % (Manual) 84.0 H Band Neutrophils % 8.0 Lymphocytes % (Manual) 4.0 L Reactive Lymphs % (Man) 0 Monocytes % (Manual) 4.0 Eosinophils % (Manual) 0 Basophils % (Manual) 0 Metamyelocytes % 0 Myelocytes % 0 Promyelocytes % 0 Blast Cells % 0 Nucleated RBC % Not Reportable Seg Neutrophils # Man 10.9 H Band Neutrophils # 1.0 Lymphocytes # (Manual) 0.5 L Abs React Lymphs (Man) 0.0 Monocytes # (Manual) 0.5 Eosinophils # (Manual) 0.0 Basophils # (Manual) 0.0 Metamyelocytes # 0.0 Myelocytes # 0.0 Promyelocytes # 0.0 Blast Cells # 0.0 WBC Morphology Not Reportable Hypersegmented Neuts Not Reportable Hyposegmented Neuts Not Reportable Hypogranular Neuts Not Reportable Smudge Cells Not Reportable Toxic Granulation Not Reportable Toxic Vacuolation Not Reportable Dohle Bodies Not Reportable Pelger-Huet Anomaly Not Reportable Ivory Rods Not Reportable Platelet Estimate Appears decreased Clumped Platelets Not Reportable Plt Clumps, EDTA Not Reportable Large Platelets Not Reportable Giant Platelets Not Reportable Platelet Satelliting Not Reportable Plt Morphology Comment Not Reportable RBC Morphology Not Reportable Dimorphic RBCs Not Reportable Polychromasia Few Hypochromasia Not Reportable Poikilocytosis Few Anisocytosis Few Microcytosis Not Reportable Macrocytosis Not Reportable Spherocytes Not Reportable Pappenheimer Bodies Not Reportable Sickle Cells Not Reportable Target Cells Not Reportable Tear Drop Cells Not Reportable Ovalocytes Few Helmet Cells Not Reportable Nguyen-Duarte Bodies Not Reportable [place] Rings Not Reportable [place]enike Cells Not Reportable Bite Cells Not Reportable Crenated Cell Not Reportable Elliptocytes Few Acanthocytes (Spur) Not Reportable Rouleaux Not Reportable Hemoglobin C Crystals Not Reportable Schistocytes Not Reportable Malaria parasites Not Reportable Mayito Bodies Not Reportable Hem Pathologist Commnt No Sodium 147 H Potassium 3.5 L Chloride 113.7 H Carbon Dioxide 21 L Anion Gap 16 BUN 24 H Creatinine 1.0 Estimated GFR > 60 BUN/Creatinine Ratio 24.00 Glucose 118 H POC Glucose Calcium 8.6
[2016-10-23 15:56] VITALS: BP 118/72
== END 2016-10-23 16:15 | DRG 871 ==
LOC: ED 13:10 → CC1 15:40 → 3A 10-13 13:28
PROVIDERS: ADMIT Hospitalist; ATTEND Internal Medicine
PROC: 30233N1 Transfusion of Nonautologous Red Blood Cells into Peripheral Vein, Percutaneous Approach (ICD-10-PCS; principal; 2016-10-05)
PROC: 02HV33Z Insertion of Infusion Device into Superior Vena Cava, Percutaneous Approach (ICD-10-PCS; 2016-10-05)
DX: A41.9 Sepsis, unspecified organism (principal); R65.21 Severe sepsis with septic shock; E43 Unspecified severe protein-calorie malnutrition; J96.01 Acute respiratory failure with hypoxia; I50.33 Acute on chronic diastolic (congestive) heart failure; N17.0 Acute kidney failure with tubular necrosis; D68.9 Coagulation defect, unspecified; R18.8 Other ascites; K50.119 Crohn's disease of large intestine with unspecified complications; J90 Pleural effusion, not elsewhere classified; E87.0 Hyperosmolality and hypernatremia; E16.2 Hypoglycemia, unspecified; K52.89 Other specified noninfective gastroenteritis and colitis; D69.6 Thrombocytopenia, unspecified; E87.5 Hyperkalemia; E83.42 Hypomagnesemia; R74.0 Nonspecific elevation of levels of transaminase and lactic acid dehydrogenase [LDH]; I11.0 Hypertensive heart disease with heart failure; R00.0 Tachycardia, unspecified; I27.2 Other secondary pulmonary hypertension; E86.0 Dehydration; D63.8 Anemia in other chronic diseases classified elsewhere; E87.6 Hypokalemia; M10.9 Gout, unspecified; E88.09 Other disorders of plasma-protein metabolism, not elsewhere classified; Z90.11 Acquired absence of right breast and nipple; Z82.49 Family history of ischemic heart disease and other diseases of the circulatory system; Z68.30 Body mass index [BMI] 30.0-30.9, adult
CPT/HCPCS: 36415; 71010; 72170; 74176; 76770; 80048; 80053; 80074; 81001; 82010; 82040; 82140; 82270; 82533; 82550; 82570; 82607; 82747; 82803; 82805; 82962; 83540; 83735; 83880; 84100; 84156; 84443; 84681; 85007; 85025; 85610; 85730; 86850; 86900; 86901; 86920; 87040; 87045; 87086; 87493; 93005; 93010; 93306; 93970; 93979; 94640; 94760; 96374; 96375; 99291; C9113; J1720; J1815; J1940; J1956; J2405; J3370; J3411; J3475; J3480; J7030; J7040; J7042; J7050; P9016; P9047